=== PATIENT | female | born 1965 | race Native Hawaiian/Other Pacific Islander ===

== ENCOUNTER 2016-12-08 09:01 | Inpatient (IN) | payer SELFPAY ==
[2016-12-08 09:01] VITALS: BMI 20.2
--- NOTE | 2016-12-08 09:19 | C.PDOC ---
History Of Present Illness 51F c/o fever, body aches, chills, productive cough for the last 2 days. 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 Time Seen by Provider: 12/08/16 09:17 Chief Complaint (Nursing): Flu-like Symptoms Past Medical History Vital Signs: Last Vital Signs Temp 98.8 F 12/08/16 15:53 Pulse 80 12/08/16 15:53 Resp 18 12/08/16 15:53 BP 106/60 12/08/16 15:53 Pulse Ox 100 12/08/16 15:53 - [facility] Procedures DRAINAGE OF PERITONEAL CAVITY, PERCUTANEOUS APPROACH, DIAGN (05/12/16) INSERT INFUSION DEV IN R INT JUGULAR VEIN, PERC (05/12/16) INSERTION OF VAD INTO CHEST SUBCU/FASCIA, OPEN APPROACH (05/12/16) ULTRASONOGRAPHY OF RIGHT JUGULAR VEINS, GUIDANCE (05/12/16) Family History: States: Unknown Family Hx, Other Other Family History: nc - Social History Hx Alcohol Use: No Hx Substance Use: Yes (SOCIAL) - Immunization History Hx Tetanus Toxoid Vaccination: No Hx Influenza Vaccination: No Hx Pneumococcal Vaccination: No Review Of Systems Except As Marked, All Systems Reviewed And Found Negative. Constitutional: Positive for: Fever, Chills, Weakness, Malaise Cardiovascular: Negative for: Chest Pain Respiratory: Positive for: Cough, Sputum. Negative for: Shortness of Breath, Hemoptysis Gastrointestinal: Negative for: Vomiting, Abdominal Pain, Diarrhea Genitourinary: Negative for: Dysuria Physical Exam - Physical Exam Appears: Non-toxic, No Acute Distress, Chronically Ill Skin: Warm, Dry Head: Atraumatic Eye(s): bilateral: PERRL Nose: No Epistaxis Oral Mucosa: No Moist Tongue: No Swelling Neck: Normal ROM, Supple Cardiovascular: Rhythm Regular Respiratory: No Accessory Muscle Use, Rhonchi (b/l bases) Gastrointestinal/Abdominal: Soft, No Tenderness Extremity: No Swelling Neurological/Psych: Oriented x3, Normal Motor, Normal Sensation, Other (no focal deficits) ED Course And Treatment - Laboratory Results Result Diagrams: 12/08/16 09:55 12/08/16 10:55 O2 Sat by Pulse Oximetry: 97 Critical Care Time - Critical Care Note Total Time (in mins): 60 Documented critical care: time excludes all time spent performing seperately billable procedures. Medical Decision Making Medical Decision Makin disc w ID Dr Villavicencio- rec [facility], [facility], [facility] EKG interpretation: NSR 86 non-specific t-wave abnormalities, no STEMI. consulted ICU Dr Gonzalez as BP dropping despite fluids bolus. he eval in ED, accepts to ICU levophed started to maintain MAP>65 Disposition - Disposition Disposition Time: 12:12 Condition: GUARDED - Clinical Impression Clinical Impression: Pneumonia, Neutropenia, Septic shock
[2016-12-08] MEDS ORDERED: Azithromycin 500 MG in Sodium Chloride 0.9% 250 ML IVPB STA (09:44)
[2016-12-08] MEDS ORDERED: Piperacill/Tazo 4.5gm in Dex 4.5 GM/100 ML BAG IVPB STA (09:44)
[2016-12-08 10:00] LABS: BASO % 0.8 % (0.0-2.0); EOS % 0.7 % (0.0-4.0); HEMOGLOBIN 7.4 g/dL (11.0-16.0); LYMPH # 0.1 K/uL (1.0-4.3); LYMPH % 19.4 % (20.0-40.0); MEAN CELL VOLUME 97.5 fL (81.0-99.0); MEAN CORPUSCULAR HEMOGLOBIN 32.3 pg (27.0-31.0); MEAN CORPUSCULAR HGB CONC 33.2 g/dL (33.0-37.0); MEAN PLATELET VOLUME 7.5 fL (7.2-11.7); MONO # 0.2 K/uL (0.0-0.8); MONO % 26.2 % (0.0-10.0); NEUT # 0.4 K/uL (1.8-7.0); NEUT % 52.9 % (50.0-75.0); NRBC % 0.3 % (0.0-2.0); RBC 2.29 Mil/uL (3.80-5.20); RED CELL DISTRIBUTION WIDTH 19.1 % (11.5-14.5)
[2016-12-08] MEDS ORDERED: MethylPREDNISolone 40 mg Vial IVP SCH (10:00)
[2016-12-08 10:04] LABS: WHITE BLOOD COUNT 0.7 K/uL (4.8-10.8)
[2016-12-08] MEDS ORDERED: Azithromycin 500mg/250ML NS 0 MG/0 ML BAG IVPB ONE (10:04)
[2016-12-08 10:07] LABS: INR 1.2; PROTHROMBIN TIME 13.8 SECONDS (9.7-12.2)
[2016-12-08 10:12] LABS: VENOUS BLOOD GAS BASE EXCESS 2.8 mmol/L (0.0-2.0); VENOUS BLOOD GAS PCO2 40 mmHg (40-60); VENOUS BLOOD GAS PO2 33 mm/Hg (30-55); VENOUS BLOOD PH 7.44 (7.32-7.43)
[2016-12-08] MEDS ORDERED: Vancomycin 1 GM 1 GM/250 ML BAG IVPB ONE (10:12)
[2016-12-08] MEDS: Meropenem 1 GM in Sodium Chloride 0.9% 100 ML IVPB SCH ×3 (10:19→22:32)
[2016-12-08 11:16] LABS: URINE BILIRUBIN NEGATIVE (NEGATIVE); URINE BLOOD NEGATIVE (NEGATIVE); URINE CLARITY Clear (Clear); URINE COLOR Yellow (YELLOW); URINE GLUCOSE (UA) NORMAL (Normal); URINE LEUKOCYTE ESTERASE NEG Leu/uL (Negative); URINE NITRATE NEGATIVE (NEGATIVE); URINE PROTEIN NEGATIVE (NEGATIVE); URINE UROBILINOGEN NORMAL mg/dL (0.2-1.0)
[2016-12-08 11:26] LABS: ALBUMIN 3.7 g/dL (3.5-5.0)
[2016-12-08 11:29] LABS: ALB/GLOB RATIO 1.2 (1.0-2.1); AST/SGOT 28 U/L (14-36); BLOOD UREA NITROGEN 9 mg/dL (7-17); GFR AFRICAN-AMERICAN > 60; GFR NON-AFRICAN AMERICAN > 60
[2016-12-08 11:30] LABS: ALT/SGPT 20 U/L (9-52); CALCIUM 8.6 mg/dl (8.6-10.4); MAGNESIUM 1.7 mg/dL (1.6-2.3)
[2016-12-08] MEDS ORDERED: Sodium Chloride 0.9% 1,000 ML IV ONE (11:44)
--- NOTE | 2016-12-08 11:49 | RAD ---
HISTORY: Sepsis Patient COMPARISON: 07/31/2016 FINDINGS: LUNGS: No active pulmonary disease. PLEURA: No significant pleural effusion identified, no pneumothorax apparent. CARDIOVASCULAR: No radiographic findings to suggest acute or significant cardiovascular disease. MacrovascularNormal. OSSEOUS STRUCTURES: No significant abnormalities. VISUALIZED UPPER ABDOMEN: Normal. OTHER FINDINGS: None. IMPRESSION: No active disease. No significant interval change compared to the prior examination(s). No preliminary report provided by emergency department personnel.
[2016-12-08 13:18] LABS: VENOUS BLOOD GAS BASE EXCESS -3.3 mmol/L (0.0-2.0); VENOUS BLOOD GAS PCO2 40 mmHg (40-60); VENOUS BLOOD GAS PO2 39 mm/Hg (30-55); VENOUS BLOOD PH 7.35 (7.32-7.43)
[2016-12-08] MEDS: Sodium Chloride 0.9% 1,000 ML IV SCH ×2 (13:41→21:45)
[2016-12-08] MEDS ORDERED: Sodium Chloride 0.9% 1,000 ML IV SCH (14:15)
--- NOTE | 2016-12-08 14:56 | CP.PCM.HP ---
Addendum entered and electronically signed by Alka Hills 12/08/16 16:58 : Total hysterectomy August 2016 at [facility] Patient has been having a fever since last Sunday and a dry cough. Medical History: Serous carcinoma of the ovary. Original Note: <Alka Hills - Last Filed: 12/08/16 16:00> History of Present Illness - History of Present Illness History of Present Illness: CC: "Fever" HPI: 51 year old female with history of cervical cancer who presents to the emergency room while getting chemotherapy infusion at [facility] and was sent to the emergency room for elevated temperature. Patient stated she has been having a fever off and on since Sunday and has been treating herself with Tylenol and Motrin which has been lowering her temperature. The highest temperature she had on Sunday was a 104.7 degrees. Patient stated she has been having a dry cough with no phlegm. Patient stated she only had shortness of breath when she was receiving antibiotics here in the emergency room but otherwise she denies shortness of breath. Patient denies chest pain, difficulty breathing, nausea, vomiting, diarrhea, constipation, dysuria, change in vision, headache or dizziness. 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 Drug induced constipation. Leukopenia and anemia. 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 Denies smoking, or illicit drug use. Patient stated prior to cancer diagnosis she would drink one glass of wine every now and then. Medications: Chemotherapy one a week, omeprazole 20mg one a day, percocet 5- 325mg one tablet as needed orally every 6 hours - patient stated she has not been taking the percocet because it makes her constipated. Allergies: Cefazolin - causes a rash Present on Admission - Present on Admission Any Indicators Present on Admission: No History of DVT/PE: No Review of Systems - Constitutional Constitutional: Fever. absent: Chills, Headache - EENT Eyes: absent: Blurred Vision, Change in Vision - Cardiovascular Cardiovascular: absent: Chest Pain, Dyspnea, Lightheadedness, Pedal Edema - Respiratory Respiratory: Cough (dry cough). absent: Dyspnea - Gastrointestinal Gastrointestinal: absent: Abdominal Pain, Constipation, Diarrhea, Nausea, Vomiting - Genitourinary Genitourinary: absent: Dysuria - Musculoskeletal Musculoskeletal: absent: Joint Swelling - Neurological Neurological: absent: Headaches Past Patient History - Infectious Disease Hx of Infectious Diseases: None - Past Medical History & Family History Past Medical History?: No - Past Social History Smoking Status: Never Smoked - CARDIAC Hx Cardiac Disorders: No - PULMONARY Hx Respiratory Disorders: No - NEUROLOGICAL Hx Neurological Disorder: No - HEENT Hx HEENT Problems: No - RENAL Hx Chronic Kidney Disease: No - ENDOCRINE/METABOLIC Hx Endocrine Disorders: No - HEMATOLOGICAL/ONCOLOGICAL Other/Comment: ovarian and uterine CA - INTEGUMENTARY Hx Dermatological Problems: No - MUSCULOSKELETAL/RHEUMATOLOGICAL Hx Musculoskeletal Disorders: No - GASTROINTESTINAL Hx Gastrointestinal Disorders: No - GENITOURINARY/GYNECOLOGICAL Hx Genitourinary Disorders: No Other/Comment: HX OF FIBROIDS - PSYCHIATRIC Hx Substance Use: Yes (SOCIAL) - SURGICAL HISTORY Hx Hysterectomy: Yes Other/Comment: port to right chest wall - ANESTHESIA Hx Anesthesia: Yes Hx Anesthesia Reactions: No Meds Allergies/Adverse Reactions: Allergies Allergy/AdvReac Type Severity Reaction Status Date / Time cefazolin sodium [From Anc] Allergy Verified 12/08/16 09:15 Physical Exam - Constitutional Appears: No Acute Distress - Head Exam Head Exam: NORMAL INSPECTION - Eye Exam Eye Exam: EOMI, Normal appearance. absent: Conjunctival injection Pupil Exam: NORMAL ACCOMODATION - ENT Exam ENT Exam: Mucous Membranes Moist - Respiratory Exam Respiratory Exam: Clear to Auscultation Bilateral, NORMAL BREATHING PATTERN. absent: Chest Wall Tenderness, Rales, Rhonchi, Wheezes - Cardiovascular Exam Cardiovascular Exam: REGULAR RHYTHM, RRR, +S1, +S2. absent: JVD - GI/Abdominal Exam GI & Abdominal Exam: Normal Bowel Sounds, Soft, Tenderness (tenderness to lower abdomen ). absent: Distended, Guarding - Extremities Exam Extremities exam: Positive for: pedal pulses present. Negative for: calf tenderness, joint swelling, pedal edema, tenderness - Neurological Exam Neurological exam: Alert, CN II-XII Intact, Oriented x3 - Psychiatric Exam Psychiatric exam: Normal Affect, Normal Mood - Skin Skin Exam: Dry, Intact, Normal Color, Warm (catheter is placed on the right side of the shoulder for chemotherapy infusion ) Results - Vital Signs Recent Vital Signs: Last Vital Signs Temp 98.8 F 12/08/16 13:40 Pulse 75 12/08/16 14:41 Resp 21 12/08/16 14:41 BP 109/45 L 12/08/16 14:41 Pulse Ox 100 12/08/16 14:41 - Labs Result Diagrams: 12/08/16 09:55 12/08/16 10:55 Labs: Laboratory Results - last 24 hr 12/08/16 12:55 pO2 39 VBG pH 7.35 VBG pCO2 40 VBG HCO3 21.6 VBG Total CO2 23.3 VBG O2 Sat (Calc) 77.7 H VBG Base Excess -3.3 L VBG Potassium 3.3 L Sodium 141.0 Chloride 116.0 H Glucose 128 H Lactate 0.7 Venous Blood Potassium 3.3 L Assessment & Plan - Assessment and Plan (Free Text) Assessment: 51 year old female with history of cervical cancer who presents to the emergency room while getting chemotherapy infusion at [facility] and was sent to the emergency room for elevated temperature. Plan: 1.) Hypotension - Sodium Chloride 1,000mls at 100mls/hr IV Q10H - Norepinephrine 254mls at 15.24 mls/hr IV Q16H - Monitor B/P 2.) Fever of unknown source - Infectious Disease Consult: Dr. Villavicencio --> help appreciated - Gentamicin 80mg 102mls at 100mls/hr IVPB at Q8h - 1gm Meropenem 100mls at 100mls/hr IVPB Q8 - WBC (12/08): 0.7 - f/u with blood culture - f/u urine culture - f/u sputum culture - Urine Analysis: Negative 3.) History of Serous Carcinoma of the pelvis - Oncology Consult: Dr. Cheatham --> help appreciated 4.) Prophylaxis - SCDs, - Heparin 5,000 units SC Q8 - Pepcid 20mg PO daily <Clementine Chery V - Last Filed: 12/09/16 06:09> Results - Vital Signs Recent Vital Signs: Last Vital Signs Temp 99 F 12/09/16 04:00 Pulse 70 12/09/16 05:00 Resp 19 12/09/16 05:00 BP 109/59 L 12/09/16 05:00 Pulse Ox 99 12/09/16 05:00 - Labs Result Diagrams: 12/08/16 09:55 12/08/16 16:00 Labs: Laboratory Results - last 24 hr 12/08/16 12/08/16 12:55 16:00 pO2 39 VBG pH 7.35 VBG pCO2 40 VBG HCO3 21.6 VBG Total CO2 23.3 VBG O2 Sat (Calc) 77.7 H VBG Base Excess -3.3 L VBG Potassium 3.3 L Sodium 141.0 141 Chloride 116.0 H 113 H Glucose 128 H Lactate 0.7 Potassium 3.5 L Carbon Dioxide 20 L Anion Gap 12 BUN 7 Creatinine 0.5 L Est GFR ( Amer) > 60 Est GFR (Non-Af Amer) > 60 Random Glucose 109 H Calcium 7.4 L Magnesium 1.7 Total Bilirubin 0.6 AST 40 H D ALT 29 Alkaline Phosphatase 85 Total Protein 5.7 L Albumin 3.0 L Globulin 2.7 Albumin/Globulin Ratio 1.1 Venous Blood Potassium 3.3 L Attending/Attestation - Attestation I have personally seen and examined this patient.: Yes I have fully participated in the care of the patient.: Yes I have reviewed all pertinent clinical information: Yes Notes (Text): Patient seen, examined and case discussed with ICU resident on 12/08/16 and patient seen in [facility] ICU 6. Per discussion with patient, she has had fever and dry cough since Sunday. Patient has taken Tylenol and Motrin to help the fever. Patient is undergoing 2nd round of chemotherapy for gynecologic cancer (unclear if ovarian vs cervical ). Patient has had total hysterectomy for gynecologic cancer in [facility] this past August. Patient reports her CA-125 level had improved. Patient started initial round of chemotherapy in May 2016. Patient denies sick contacts, denies recent travel. Patient denies history of HIV. Patient reports she has no family except for her friend who is at bedside. Patient in the ED requiring fluid boluses but sbp: 70s prompted for pressor and admitted to the intensive care unit. Patient was called as code sepsis; leukopenic, febrile, and unclear source of infection. Per discussion with ED physician patient started on Meropenem and Gentamcin per recommendations of infectious disease. Repeat lactic acid drawn per sepsis protocol. ICU resident has completed sepsis progress note. 1.) Sepsis * Criteria: leukopenic, febrile; will need to find source of infection * Code sepsis called in the emergency room * Patient received fluid boluses and 2 IV abx per protocol * Infectious Disease (Dr. Villavicencio) head of store operations-->help appreciated * Patient is currently on pressor * Gentamicin 80mg IVPB Q8h * Meropenem 1gm IVPB Q8H * Lactic acid 1.6-->0.7 * f/u blood culture, urine culture, sputum culture 2.) Fever * Infectious Disease Consult: Dr. Villavicencio --> help appreciated * Code sepsis called in the emergency room * Patient received fluid boluses and 2 IV abx per protocol * Infectious Disease (Dr. Villavicencio) head of store operations-->help appreciated * Patient is currently on pressor * Gentamicin 80mg IVPB Q8h * Meropenem 1gm IVPB Q8H * Lactic acid 1.6-->0.7 * f/u blood culture, urine culture, sputum culture 3.) History of Serous Carcinoma of the pelvis * Oncology Consult: Dr. Cheatham --> help appreciated * Patient is in active chemotherapy to explain why patient is neutropenic 4.) Prophylaxis * SCDs b/l * Heparin 5,000 units SC Q8H for dvt ppc * Pepcid 20mg PO daily for GI ppx
--- NOTE | 2016-12-08 14:56 | CP.CCUPN ---
<Alka Hills - Last Filed: 12/08/16 15:53> CCU Subjective - Physician Review Subjective (Free Text): 12/08/16 14:56 CC: "Fever" HPI: 51 year old female with history of cervical cancer who presents to the emergency room while getting chemotherapy infusion at [facility] and was sent to the emergency room for elevated temperature. Patient stated she has been having a fever off and on since Sunday and has been treating herself with Tylenol and Motrin which has been lowering her temperature. The highest temperature she had on Sunday was a 104.7 degrees. Patient stated she has been having a dry cough with no phlegm. Patient stated she only had shortness of breath when she was receiving antibiotics here in the emergency room but otherwise she denies shortness of breath. Patient denies chest pain, difficulty breathing, nausea, vomiting, diarrhea, constipation, dysuria, change in vision, headache or dizziness. PMD: 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 Drug induced constipation. Leukopenia and anemia. 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 Denies smoking, or illicit drug use. Patient stated prior to cancer diagnosis she would drink one glass of wine every now and then. Medications: Chemotherapy one a week, omeprazole 20mg one a day, percocet 5- 325mg one tablet as needed orally every 6 hours - patient stated she has not been taking the percocet because it makes her constipated. Allergies: Cefazolin - causes a rash CCU Objective - Vital Signs / Intake & Output Vital Signs (Last 4 hours): Vital Signs Temp Pulse Resp BP Pulse Ox 12/08/16 14:41 75 21 109/45 L 100 12/08/16 14:27 78 18 96/46 L 98 12/08/16 14:07 74 21 94/45 L 100 12/08/16 14:02 78 20 76/36 L 100 12/08/16 13:55 21 L 75 H 76/34 L 100 12/08/16 13:40 98.8 F 20 L 100 H 87/43 L 12/08/16 12:37 78 22 90/50 L 98 - Physical Exam Head: Positive for: Normocephalic Extroacular Muscles: Positive for: EOMI Conjunctiva: Positive for: Normal Mouth: Positive for: Moist Mucous Membranes Respiratory/Chest: Positive for: Clear to Auscultation, Good Air Exchange. Negative for: Wheezes, Rales, Rhonchi Cardiovascular: Positive for: Regular Rate and Rhythm, Normal S1, S2. Negative for: Murmurs Abdomen: Positive for: Tenderness (tenderness to the lower abdomen ). Negative for: Distention Back: Negative for: Pain with Leg Raise Upper Extremity: Positive for: Normal Inspection. Negative for: Edema Lower Extremity: Positive for: Normal Inspection, NORMAL PULSES. Negative for: Edema, CALF TENDERNESS, Tenderness, Swelling Neurological: Positive for: CN II-XII Intact, Speech Normal Skin: Positive for: Warm, Normal Color. Negative for: Rashes Psychiatric: Positive for: Alert, Oriented x 3. Negative for: Anxious - Medications Active Medications: Active Medications Generic Name Dose Route Start Last Admin Trade Name Freq PRN Reason Stop Dose Admin Albumin Human 12.5 gm 12/08/16 15:00 Albumin Human 25% (12.5 Gm/50 Ml) IV 12/08/16 15:01 ONCE ONE Meropenem 1 gm/ Sodium 100 mls @ 100 mls/hr 12/08/16 10:00 12/08/16 10:19 Chloride IVPB 100 mls/hr Q8 CALI Administration Gentamicin Sulfate 80 mg/ 102 mls @ 100 mls/hr 12/08/16 10:00 12/08/16 13:40 Sodium Chloride IVPB 100 mls/hr Q8H CALI Administration Sodium Chloride 1,000 mls @ 100 mls/hr 12/08/16 11:45 12/08/16 13:41 Sodium Chloride 0.9% IV 100 mls/hr .Q10H CALI Administration Sodium Chloride 1,000 mls @ 999 mls/hr 12/08/16 14:15 Sodium Chloride 0.9% IV .Q1H1M CALI Norepinephrine Bitartrate 4 mg 254 mls @ 15.24 mls/hr 12/08/16 14:28 / Sodium Chloride IV .[id number] PRN TITRATE PER MD ORDER Protocol 4 MCG/MIN - Patient Studies Lab Studies: Lab Studies 12/08/16 Range/Units 12:55 pO2 39 (30-55) mm/Hg VBG pH 7.35 (7.32-7.43) VBG pCO2 40 (40-60) mmHg VBG HCO3 21.6 mmol/L VBG Total CO2 23.3 (22-28) mmol/L VBG O2 Sat (Calc) 77.7 H (40-65) % VBG Base Excess -3.3 L (0.0-2.0) mmol/L VBG Potassium 3.3 L (3.6-5.2) mmol/L Sodium 141.0 (132-148) mmol/l Chloride 116.0 H (98-107) mmol/L Glucose 128 H (65-105) mg/dl Lactate 0.7 (0.7-2.1) mmol/L Venous Blood Potassium 3.3 L (3.6-5.2) mmol/L Laboratory Results - last 24 hr 12/08/16 12:55 pO2 39 VBG pH 7.35 VBG pCO2 40 VBG HCO3 21.6 VBG Total CO2 23.3 VBG O2 Sat (Calc) 77.7 H VBG Base Excess -3.3 L VBG Potassium 3.3 L Sodium 141.0 Chloride 116.0 H Glucose 128 H Lactate 0.7 Venous Blood Potassium 3.3 L EKG/Cardiology Studies: Cardiology / EKG Studies 12/08/16 11:00 ELECTROCARDIOGRAM Stat Comment: Mode Of Transportation: Reason For Exam: Sepsis Patient Review of Systems - Constitutional Constitutional: Fever - EENT Eyes: absent: Blurred Vision, Change in Vision - Cardiovascular Cardiovascular: absent: Chest Pain, Dyspnea, Edema - Respiratory Respiratory: Cough. absent: Dyspnea - Gastrointestinal Gastrointestinal: absent: Abdominal Pain, Constipation, Diarrhea, Vomiting - Genitourinary Genitourinary: absent: Dysuria - Musculoskeletal Musculoskeletal: absent: Arthralgias, Joint Swelling, Muscle Cramps - Neurological Neurological: absent: Dizziness, Headaches, Paresthesias, Syncope Assessment/Plan - Assessment and Plan (Free Text) Assessment: 51 year old female with history of cervical cancer who presents to the emergency room while getting chemotherapy infusion at [facility] and was sent to the emergency room for elevated temperature. Plan: Neuro: - Alert and oriented 3 Pulm: - Chest X-ray (12/08/16): No active disease. No significant change compared to the prior examination. CV: - 4mg Norepinephrine - Sodium Chloride 254 mls at 15.24mls/hr IV Q16 - Monitor B/P - WBC (12/08): 0.7 Heme: - H/H (12/08): 7.4/22.4 - PT/INR: 13.8/1.2 Renal: - BUN/Cr: 9/0.6 GI: - Pepcid 20mg PO Daily WARRANTY CLERK: - History of Serous carcinoma of the pelvis - Oncology Consult: Dr. Cheatham --> help appreciated - Receives weekly chemotherapy ID: - Consult: Dr. Villavicencio --> help appreciated - Gentamicin 80mg 102mls at 100mls/hr IVPB at Q8h - 1gm Meropenem 100mls at 100mls/hr IVPB Q8 - WBC (12/08): 0.7 - f/u with blood culture - f/u urine culture - f/u sputum culture - Urine Analysis: Negative DVT proph - SCDs, heparin 5,000 units SC Q8 GI proph - Pepcid 20mg PO daily Code status - full code Case discussed with Dr. Carlos Hills PGY-1 <Jeet Gonzalez S - Last Filed: 12/08/16 17:20> CCU Objective - Vital Signs / Intake & Output Vital Signs (Last 4 hours): Vital Signs Temp Pulse Resp BP Pulse Ox 12/08/16 15:57 97 12/08/16 15:53 98.8 F 80 18 106/60 100 12/08/16 15:07 66 21 107/41 L 99 12/08/16 14:52 68 20 106/54 L 98 12/08/16 14:41 75 21 109/45 L 100 12/08/16 14:27 78 18 96/46 L 98 12/08/16 14:07 74 21 94/45 L 100 12/08/16 14:02 78 20 76/36 L 100 12/08/16 13:55 21 L 75 H 76/34 L 100 12/08/16 13:40 98.8 F 20 L 100 H 87/43 L - Medications Active Medications: Active Medications Generic Name Dose Route Start Last Admin Trade Name Freq PRN Reason Stop Dose Admin Famotidine 20 mg 12/09/16 10:00 Pepcid PO DAILY CALI Heparin Sodium (Porcine) 5,000 units 12/08/16 22:00 Heparin SC Q8 CALI Meropenem 1 gm/ Sodium 100 mls @ 100 mls/hr 12/08/16 10:00 12/08/16 15:50 Chloride IVPB 100 mls/hr Q8 CALI Administration Gentamicin Sulfate 80 mg/ 102 mls @ 100 mls/hr 12/08/16 10:00 12/08/16 13:40 Sodium Chloride IVPB 100 mls/hr Q8H CALI Administration Sodium Chloride 1,000 mls @ 100 mls/hr 12/08/16 11:45 12/08/16 13:41 Sodium Chloride 0.9% IV 100 mls/hr .Q10H CALI Administration Norepinephrine Bitartrate 4 mg 254 mls @ 15.24 mls/hr 12/08/16 14:28 14:02 / Sodium Chloride IV 4 mcg/min .[id number] PRN 15.24 mls/hr TITRATE PER MD ORDER Administration Protocol 4 MCG/MIN Potassium Chloride 40 meq 12/08/16 15:52 K-Dur 20 Meq Er Tab PO BRK CALI - Patient Studies Lab Studies: Lab Studies 12/08/16 12/08/16 Range/Units 16:00 12:55 pO2 39 (30-55) mm/Hg VBG pH 7.35 (7.32-7.43) VBG pCO2 40 (40-60) mmHg VBG HCO3 21.6 mmol/L VBG Total CO2 23.3 (22-28) mmol/L VBG O2 Sat (Calc) 77.7 H (40-65) % VBG Base Excess -3.3 L (0.0-2.0) mmol/L VBG Potassium 3.3 L (3.6-5.2) mmol/L Sodium 141 141.0 (132-148) mmol/l Chloride 113 H 116.0 H (98-107) mmol/L Glucose 128 H (65-105) mg/dl Lactate 0.7 (0.7-2.1) mmol/L Potassium 3.5 L (3.6-5.2) mmol/L Carbon Dioxide 20 L (22-30) mmol/L Anion Gap 12 (10-20) BUN 7 (7-17) mg/dL Creatinine 0.5 L (0.7-1.2) MG/DL Est GFR ( Amer) > 60 Est GFR (Non-Af Amer) > 60 Random Glucose 109 H (65-105) mg/dL Calcium 7.4 L (8.6-10.4) mg/dl Magnesium 1.7 (1.6-2.3) mg/dL Total Bilirubin 0.6 (0.2-1.3) mg/dL AST 40 H D (14-36) U/L ALT 29 (9-52) U/L Alkaline Phosphatase 85 (38-126) U/L Total Protein 5.7 L (6.3-8.3) g/dL Albumin 3.0 L (3.5-5.0) g/dL Globulin 2.7 (2.2-3.9) gm/dL Albumin/Globulin Ratio 1.1 (1.0-2.1) Venous Blood Potassium 3.3 L (3.6-5.2) mmol/L Laboratory Results - last 24 hr 12/08/16 12/08/16 12:55 16:00 pO2 39 VBG pH 7.35 VBG pCO2 40 VBG HCO3 21.6 VBG Total CO2 23.3 VBG O2 Sat (Calc) 77.7 H VBG Base Excess -3.3 L VBG Potassium 3.3 L Sodium 141.0 141 Chloride 116.0 H 113 H Glucose 128 H Lactate 0.7 Potassium 3.5 L Carbon Dioxide 20 L Anion Gap 12 BUN 7 Creatinine 0.5 L Est GFR ( Amer) > 60 Est GFR (Non-Af Amer) > 60 Random Glucose 109 H Calcium 7.4 L Magnesium 1.7 Total Bilirubin 0.6 AST 40 H D ALT 29 Alkaline Phosphatase 85 Total Protein 5.7 L Albumin 3.0 L Globulin 2.7 Albumin/Globulin Ratio 1.1 Venous Blood Potassium 3.3 L EKG/Cardiology Studies: Cardiology / EKG Studies 12/08/16 11:00 ELECTROCARDIOGRAM Stat Comment: Mode Of Transportation: Reason For Exam: Sepsis Patient Critical Care Progress Note - Nutrition Nutrition: Nutrition Category Date Time Status Heart Healthy Diet [DIET] Diets 12/08/16 Dinner Active Attending/Attestation - Attestation I have personally seen and examined this patient.: Yes I have fully participated in the care of the patient.: Yes I have reviewed all pertinent clinical information: Yes Notes (Text): 12/08/16 17:19 Patient seen and examined. 51-year-old female with history of cervical cancer on chemotherapy admitted with fever and hypotension On Levophed Started on antibiotics but infectious disease Follow-up culture and sensitivity Status post fluid resuscitation Monitor renal function Normal lactate level qSOFA score 1
[2016-12-08] MEDS ORDERED: Albumin Human 25% (12.5 gm/50 ml) IV ONE (15:00)
[2016-12-08 16:13] LABS: ALB/GLOB RATIO 1.1 (1.0-2.1); AST/SGOT 40 U/L (14-36); BLOOD UREA NITROGEN 7 mg/dL (7-17); GFR AFRICAN-AMERICAN > 60; GFR NON-AFRICAN AMERICAN > 60
[2016-12-08 16:14] LABS: ALT/SGPT 29 U/L (9-52); CALCIUM 7.4 mg/dl (8.6-10.4); MAGNESIUM 1.7 mg/dL (1.6-2.3)
--- NOTE | 2016-12-08 16:50 | PCM.SEPTIC ---
Sepsis Progress Note - Reassessment Type Date of Evaluation: 12/08/16 Time of Evaluation: 16:48 Reassessment Type: Non-invasive reassessment - Non Invasive Reassessment Were the most recent vital sign reviewed: Yes Vital Sign (Latest): Temp Pulse Resp BP Pulse Ox 98.8 F 80 18 106/60 97 12/08/16 15:53 12/08/16 15:53 12/08/16 15:53 12/08/16 15:53 12/08/16 15:57 Cardiovascular: Yes: Regular Rate, Rhythm. No: Edema, JVD, Murmur, Tachycardia Respiratory: Yes: Normal Breath Sounds. No: Rhonchi, Wheezing, Respiratory Distress Capillary Refill: Normal (Less than 2 sec) Skin: Normal Color, Warm, Dry - Invasive Reassessment (complete 2 of 4) Was a Central Venous Pressure Measurement obtained within 6 Hours after the presentation of septic shock: No Was a central venous oxygen measurement obtained within 6 hours after the presentation of septic shock: No Was a bedside cardiovascular ultrasound performed within 6 hours after the presentation of septic shock: No Was a passive leg raise performed or was a fluid challenge performed within 6 hrs of the initial fluid bolus: No
[2016-12-08] MEDS: Potassium Chloride 20 mEq ER Tab PO SCH (18:11)
[2016-12-08] MEDS: Vancomycin 1 gm/NS 200 ml 1 GM/200 ML BAG IVPB SCH (23:44)
[2016-12-09] MEDS: Sodium Chloride 0.9% 1,000 ML IV SCH ×3 (02:00→17:49)
[2016-12-09] MEDS: Meropenem 1 GM in Sodium Chloride 0.9% 100 ML IVPB SCH ×3 (06:03→22:13)
[2016-12-09 06:57] LABS: HEMOGLOBIN 7.1 g/dL (11.0-16.0); LYMPH # 0.4 K/uL (1.0-4.3); MEAN PLATELET VOLUME 7.9 fL (7.2-11.7); MONO # 0.3 K/uL (0.0-0.8); NEUT # 1.2 K/uL (1.8-7.0)
[2016-12-09 07:12] LABS: ALBUMIN 3.1 g/dL (3.5-5.0)
[2016-12-09 07:15] LABS: ALB/GLOB RATIO 1.3 (1.0-2.1); ALT/SGPT 32 U/L (9-52); AST/SGOT 41 U/L (14-36); BLOOD UREA NITROGEN 5 mg/dL (7-17); GFR AFRICAN-AMERICAN > 60; GFR NON-AFRICAN AMERICAN > 60
[2016-12-09 07:16] LABS: CALCIUM 7.4 mg/dl (8.6-10.4)
[2016-12-09 07:17] LABS: BASO % 0.5 % (0.0-2.0); EOS % 0.4 % (0.0-4.0); LYMPH % 19.9 % (20.0-40.0); MEAN CELL VOLUME 99.3 fL (81.0-99.0); MEAN CORPUSCULAR HEMOGLOBIN 32.1 pg (27.0-31.0); MEAN CORPUSCULAR HGB CONC 32.3 g/dL (33.0-37.0); MONO % 16.3 % (0.0-10.0); NEUT % 62.9 % (50.0-75.0); RBC 2.21 Mil/uL (3.80-5.20); RED CELL DISTRIBUTION WIDTH 19.5 % (11.5-14.5)
[2016-12-09 07:25] LABS: WHITE BLOOD COUNT 1.9 K/uL (4.8-10.8)
[2016-12-09] MEDS: Potassium Chloride 20 mEq ER Tab PO SCH (08:16)
--- NOTE | 2016-12-09 10:07 | CP.PCM.PN ---
Subjective - Date & Time of Evaluation Date of Evaluation: 12/09/16 Time of Evaluation: 10:00 - Subjective Subjective: Medical Attending Note Follow-up: Sepsis, Cough, History of Gynecologic cancer Patient seen and examined. Patient reports persistent cough and reports coughing up "bloody sputum". Nurse has collected sputum sample. Patient denies headache, denies fever, denies chest pain, denies abdominal pain, denies nausea , denies vomitting, denies constipation, denies diarrhea. Patient reports she has family in the [facility]; seen face-timing sister at bedside. Objective - Vital Signs/Intake and Output Vital Signs (last 24 hours): Temp Pulse Resp BP Pulse Ox 99.1 F 85 26 H 130/48 L 98 12/09/16 09:27 12/09/16 09:20 12/09/16 09:20 12/09/16 08:36 12/09/16 09:20 Intake and Output: 12/09/16 12/09/16 06:59 18:59 Intake Total 1940 430 Output Total 1050 Balance 890 430 - Medications Medications: Current Medications Famotidine (Pepcid) 20 mg PO DAILY [facility] Heparin Sodium (Porcine) (Heparin) 5,000 units SC Q8 [facility] Last Admin: 12/09/16 06:00 Dose: 5,000 units Meropenem 1 gm/ Sodium (Chloride) 100 mls @ 100 mls/hr IVPB Q8 [facility] Last Admin: 12/09/16 06:03 Dose: 100 mls/hr Gentamicin Sulfate 80 mg/ (Sodium Chloride) 102 mls @ 100 mls/hr IVPB Q8H [facility] Last Admin: 12/09/16 01:57 Dose: 100 mls/hr Sodium Chloride (Sodium Chloride 0.9%) 1,000 mls @ 100 mls/hr IV .Q10H [facility] Last Admin: 12/09/16 08:36 Dose: Not Given Norepinephrine Bitartrate 4 mg (/ Sodium Chloride) 254 mls @ 15.24 mls/hr IV .[id number] PRN; Protocol; 4 MCG/MIN PRN Reason: TITRATE PER MD ORDER Last Titration: 12/08/16 18:13 Dose: 2.62 mcg/min, 10 mls/hr Vancomycin/Sodium Chloride (Vancocin) 1 gm in 200 mls @ 133 mls/hr IVPB Q12H [facility] Stop: 12/14/16 00:01 Last Admin: 12/08/16 23:44 Dose: 133 mls/hr Potassium Chloride (K-Dur 20 Meq Er Tab) 40 meq PO BRK [facility] Last Admin: 12/09/16 08:16 Dose: 40 meq - Labs Labs: 12/09/16 06:46 12/09/16 06:46 PT 13.8 SECONDS (9.7-12.2) H 12/08/16 09:55 INR 1.2 12/08/16 09:55 APTT 53 SECONDS (21-34) H 12/08/16 09:55 - Constitutional Appears: No Acute Distress, Chronically Ill - Head Exam Head Exam: NORMAL INSPECTION - Eye Exam Eye Exam: EOMI - ENT Exam ENT Exam: Mucous Membranes Moist - Neck Exam Neck Exam: Lymphadenopathy (tender to palpation, submandibular) - Respiratory Exam Respiratory Exam: Decreased Breath Sounds, NORMAL BREATHING PATTERN. absent: Rales, Rhonchi, Wheezes - Cardiovascular Exam Cardiovascular Exam: REGULAR RHYTHM, +S1, +S2 - GI/Abdominal Exam GI & Abdominal Exam: Soft, Normal Bowel Sounds. absent: Distended, Firm, Guarding, Rigid, Tenderness, Rebound - Extremities Exam Extremities Exam: absent: Pedal Edema, Tenderness - Neurological Exam Neurological Exam: Alert, Awake, Oriented x3 - Psychiatric Exam Psychiatric exam: Normal Affect, Normal Mood - Skin Skin Exam: Dry, Intact, Normal Color, Warm Assessment and Plan (1) Neutropenic fever Assessment & Plan: Criteria: leukopenic, febrile; will need to find source of infection Code sepsis called in the emergency room--12/08/16 Patient received fluid boluses and 2 IV abx per sepsis protocol Infectious Disease (Dr. 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 Status: Acute
--- NOTE | 2016-12-09 10:13 | CP.CCUPN ---
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 Who presented to the ER yesterday with fever, body aches, chills, productive cough for the last 2 days. On chemo, last dose last week. Code sepsis called in the emergency room Admitted to ICU for Septic shock, code sepsis, requiring IV hydration as well as pressors for BP support. Afebrile overnight Doing slightly better today, mild nausea, No vomiting, constipation/diarrhea or abdominal discomfort well. Also C/O sore throat Pain controlled On neutropenic precaution On IV Vancomycin, Meropenem and Gentamicin Cultures sent, results still pending Remains on on pressor with Levophed drip, dose down to 2.5mcg Via the Port a Cath Pt feels weak and tired, Tolerating PO diet Pt alert and awake, reports persistent cough with sometimes bloody sputum. Last 24 Hours I&O 2410/1050 Saturating 1005 on 3L NC --> change to 2L 12/09/16 12:13 Patient now has fever, Rodriguez cultures and PO Tylenol ordered 12/09/16 12:16 CXR : 12/09/2016 10:55:59 Impression: Right chest wall port with tip extending to the right atrium. Moderate venous congestion with confluent patchy increased markings at the lung bases. Linear consolidative changes at the left mid to lower lung zone. Right hilar prominence. Mild cardiomegaly. Degenerative changes in the spine and shoulders. Mild calcific tendinopathy of the right proximal humerus. CCU Objective - Vital Signs / Intake & Output Vital Signs (Last 4 hours): Vital Signs Temp Pulse Resp BP Pulse Ox 12/09/16 10:00 90 25 H 100 12/09/16 09:50 88 30 H 99 12/09/16 09:40 91 H 24 98 12/09/16 09:36 95 H 30 H 127/10 L 97 12/09/16 09:30 92 H 24 96 12/09/16 09:27 99.1 F 12/09/16 09:20 85 26 H 98 12/09/16 09:10 86 29 H 97 12/09/16 09:00 90 26 H 100 12/09/16 08:50 80 24 100 12/09/16 08:40 77 24 100 12/09/16 08:36 83 27 H 130/48 L 98 12/09/16 08:30 82 26 H 100 12/09/16 08:24 87 25 H 106/63 100 12/09/16 08:20 83 27 H 100 12/09/16 08:10 89 25 H 100 12/09/16 08:00 83 21 100 12/09/16 07:50 78 22 100 12/09/16 07:40 73 24 100 12/09/16 07:36 73 18 129/48 L 100 12/09/16 07:30 75 20 100 12/09/16 07:20 71 21 100 12/09/16 07:10 72 18 100 12/09/16 07:00 72 20 100 12/09/16 06:50 73 21 100 12/09/16 06:40 75 22 100 12/09/16 06:35 78 23 132/57 L 100 12/09/16 06:30 79 24 100 12/09/16 06:20 79 21 100 Intake and Output (Last 8hrs): Intake & Output 12/08/16 12/09/16 12/09/16 22:59 06:59 14:59 Intake Total 1130 1280 537.5 Output Total 400 650 Balance 730 630 537.5 Weight 119 lb Intake: IV 60 Intake, IV Amount 700 1280 537.5 Right Forearm 650 1200 500 Right Port-A-Cath 50 80 37.5 Oral 370 Output: Urine 400 650 Urine, Voided 400 650 Other: # Voids Urine, Voided 1 1 # Bowel Movements 0 0 0 - Physical Exam Head: Positive for: Normocephalic Extroacular Muscles: Positive for: EOMI Conjunctiva: Positive for: Normal Mouth: Positive for: Moist Mucous Membranes Respiratory/Chest: Positive for: Clear to Auscultation, Good Air Exchange. Negative for: Wheezes, Rales, Rhonchi Cardiovascular: Positive for: Regular Rate and Rhythm, Normal S1, S2. Negative for: Murmurs Abdomen: Positive for: Tenderness (tenderness to the lower abdomen ). Negative for: Distention Back: Negative for: Pain with Leg Raise Upper Extremity: Positive for: Normal Inspection. Negative for: Edema Lower Extremity: Positive for: Normal Inspection, NORMAL PULSES. Negative for: Edema, CALF TENDERNESS, Tenderness, Swelling Neurological: Positive for: CN II-XII Intact, Speech Normal Skin: Positive for: Warm, Normal Color. Negative for: Rashes Psychiatric: Positive for: Alert, Oriented x 3. Negative for: Anxious - Medications Active Medications: Active Medications Generic Name Dose Route Start Last Admin Trade Name Freq PRN Reason Stop Dose Admin Famotidine 20 mg 12/09/16 10:00 12/09/16 10:11 Pepcid PO 20 mg DAILY [facility] Administration Heparin Sodium (Porcine) 5,000 units 12/08/16 22:00 12/09/16 06:00 Heparin SC 5,000 units Q8 [facility] Administration Meropenem 1 gm/ Sodium 100 mls @ 100 mls/hr 12/08/16 10:00 12/09/16 06:03 Chloride IVPB 100 mls/hr Q8 [facility] Administration Gentamicin Sulfate 80 mg/ 102 mls @ 100 mls/hr 12/08/16 10:00 12/09/16 10:11 Sodium Chloride IVPB 100 mls/hr Q8H [facility] Administration Sodium Chloride 1,000 mls @ 100 mls/hr 12/08/16 11:45 12/09/16 08:36 Sodium Chloride 0.9% IV Not Given .Q10H [facility] Norepinephrine Bitartrate 4 mg 254 mls @ 15.24 mls/hr 12/08/16 14:28 18:13 / Sodium Chloride IV 2.62 mcg/min .[id number] PRN 10 mls/hr TITRATE PER MD ORDER Titration Protocol 4 MCG/MIN Vancomycin/Sodium Chloride 1 gm in 200 mls @ 133 mls/hr 12/09/16 00:00 23:44 Vancocin IVPB 12/14/16 00:01 133 mls/hr Q12H [facility] Administration Potassium Chloride 40 meq 12/08/16 15:52 12/09/16 08:16 K-Dur 20 Meq Er Tab PO 40 meq BRK [facility] Administration Promethazine HCl/Codeine 5 ml 12/09/16 10:05 Phenergan/Codeine Oral Syrup PO Q4 PRN Cough Saccharomyces Boulardii 250 mg 12/09/16 18:00 Florastor PO BID [facility] - Patient Studies Lab Studies: Lab Studies 12/09/16 12/09/16 12/08/16 Range/Units 06:46 06:46 16:00 WBC 1.9 L* D (4.8-10.8) K/uL RBC 2.21 L (3.80-5.20) Mil/uL Hgb 7.1 L (11.0-16.0) g/dL Hct 22.0 L (34.0-47.0) % MCV 99.3 H (81.0-99.0) fL MCH 32.1 H (27.0-31.0) pg MCHC 32.3 L (33.0-37.0) g/dL RDW 19.5 H (11.5-14.5) % Plt Count 183 (130-400) K/uL MPV 7.9 (7.2-11.7) fL Neut % (Auto) 62.9 (50.0-75.0) % Lymph % (Auto) 19.9 L (20.0-40.0) % [place] % (Auto) 16.3 H (0.0-10.0) % Eos % (Auto) 0.4 (0.0-4.0) % Baso % (Auto) 0.5 (0.0-2.0) % Neut # 1.2 L (1.8-7.0) K/uL Lymph # 0.4 L (1.0-4.3) K/uL [place] # 0.3 (0.0-0.8) K/uL Eos # 0.0 (0.0-0.7) K/uL Baso # 0.0 (0.0-0.2) K/uL pO2 (30-55) mm/Hg VBG pH (7.32-7.43) VBG pCO2 (40-60) mmHg VBG HCO3 mmol/L VBG Total CO2 (22-28) mmol/L VBG O2 Sat (Calc) (40-65) % VBG Base Excess (0.0-2.0) mmol/L VBG Potassium (3.6-5.2) mmol/L Sodium 135 141 (132-148) mmol/l Chloride 103 113 H (98-107) mmol/L Glucose (65-105) mg/dl Lactate (0.7-2.1) mmol/L Potassium 3.6 3.5 L (3.6-5.2) mmol/L Carbon Dioxide 21 L 20 L (22-30) mmol/L Anion Gap 15 12 (10-20) BUN 5 L 7 (7-17) mg/dL Creatinine 0.4 L 0.5 L (0.7-1.2) MG/DL Est GFR ( Amer) > 60 > 60 Est GFR (Non-Af Amer) > 60 > 60 Random Glucose 77 109 H (65-105) mg/dL Calcium 7.4 L 7.4 L (8.6-10.4) mg/dl Phosphorus 2.4 L (2.5-4.5) mg/dL Magnesium 1.7 (1.6-2.3) mg/dL Total Bilirubin 0.6 0.6 (0.2-1.3) mg/dL AST 41 H 40 H D (14-36) U/L ALT 32 29 (9-52) U/L Alkaline Phosphatase 83 85 (38-126) U/L Total Protein 5.4 L 5.7 L (6.3-8.3) g/dL Albumin 3.1 L 3.0 L (3.5-5.0) g/dL Globulin 2.4 2.7 (2.2-3.9) gm/dL Albumin/Globulin Ratio 1.3 1.1 (1.0-2.1) Venous Blood Potassium (3.6-5.2) mmol/L 12/08/16 Range/Units 12:55 WBC (4.8-10.8) K/uL RBC (3.80-5.20) Mil/uL Hgb (11.0-16.0) g/dL Hct (34.0-47.0) % MCV (81.0-99.0) fL MCH (27.0-31.0) pg MCHC (33.0-37.0) g/dL RDW (11.5-14.5) % Plt Count (130-400) K/uL MPV (7.2-11.7) fL Neut % (Auto) (50.0-75.0) % Lymph % (Auto) (20.0-40.0) % [place] % (Auto) (0.0-10.0) % Eos % (Auto) (0.0-4.0) % Baso % (Auto) (0.0-2.0) % Neut # (1.8-7.0) K/uL Lymph # (1.0-4.3) K/uL [place] # (0.0-0.8) K/uL Eos # (0.0-0.7) K/uL Baso # (0.0-0.2) K/uL pO2 39 (30-55) mm/Hg VBG pH 7.35 (7.32-7.43) VBG pCO2 40 (40-60) mmHg VBG HCO3 21.6 mmol/L VBG Total CO2 23.3 (22-28) mmol/L VBG O2 Sat (Calc) 77.7 H (40-65) % VBG Base Excess -3.3 L (0.0-2.0) mmol/L VBG Potassium 3.3 L (3.6-5.2) mmol/L Sodium 141.0 (132-148) mmol/l Chloride 116.0 H (98-107) mmol/L Glucose 128 H (65-105) mg/dl Lactate 0.7 (0.7-2.1) mmol/L Potassium (3.6-5.2) mmol/L Carbon Dioxide (22-30) mmol/L Anion Gap (10-20) BUN (7-17) mg/dL Creatinine (0.7-1.2) MG/DL Est GFR ( Amer) Est GFR (Non-Af Amer) Random Glucose (65-105) mg/dL Calcium (8.6-10.4) mg/dl Phosphorus (2.5-4.5) mg/dL Magnesium (1.6-2.3) mg/dL Total Bilirubin (0.2-1.3) mg/dL AST (14-36) U/L ALT (9-52) U/L Alkaline Phosphatase (38-126) U/L Total Protein (6.3-8.3) g/dL Albumin (3.5-5.0) g/dL Globulin (2.2-3.9) gm/dL Albumin/Globulin Ratio (1.0-2.1) Venous Blood Potassium 3.3 L (3.6-5.2) mmol/L Laboratory Results - last 24 hr 12/08/16 12/08/16 12/09/16 12:55 16:00 06:46 WBC 1.9 L* D RBC 2.21 L Hgb 7.1 L Hct 22.0 L MCV 99.3 H MCH 32.1 H MCHC 32.3 L RDW 19.5 H Plt Count 183 MPV 7.9 Neut % (Auto) 62.9 Lymph % (Auto) 19.9 L [place] % (Auto) 16.3 H Eos % (Auto) 0.4 Baso % (Auto) 0.5 Neut # 1.2 L Lymph # 0.4 L [place] # 0.3 Eos # 0.0 Baso # 0.0 pO2 39 VBG pH 7.35 VBG pCO2 40 VBG HCO3 21.6 VBG Total CO2 23.3 VBG O2 Sat (Calc) 77.7 H VBG Base Excess -3.3 L VBG Potassium 3.3 L Sodium 141.0 141 Chloride 116.0 H 113 H Glucose 128 H Lactate 0.7 Potassium 3.5 L Carbon Dioxide 20 L Anion Gap 12 BUN 7 Creatinine 0.5 L Est GFR ( Amer) > 60 Est GFR (Non-Af Amer) > 60 Random Glucose 109 H Calcium 7.4 L Phosphorus Magnesium 1.7 Total Bilirubin 0.6 AST 40 H D ALT 29 Alkaline Phosphatase 85 Total Protein 5.7 L Albumin 3.0 L Globulin 2.7 Albumin/Globulin Ratio 1.1 Venous Blood Potassium 3.3 L 12/09/16 06:46 WBC RBC Hgb Hct MCV MCH MCHC RDW Plt Count MPV Neut % (Auto) Lymph % (Auto) [place] % (Auto) Eos % (Auto) Baso % (Auto) Neut # Lymph # [place] # Eos # Baso # pO2 VBG pH VBG pCO2 VBG HCO3 VBG Total CO2 VBG O2 Sat (Calc) VBG Base Excess VBG Potassium Sodium 135 Chloride 103 Glucose Lactate Potassium 3.6 Carbon Dioxide 21 L Anion Gap 15 BUN 5 L Creatinine 0.4 L Est GFR ( Amer) > 60 Est GFR (Non-Af Amer) > 60 Random Glucose 77 Calcium 7.4 L Phosphorus 2.4 L Magnesium Total Bilirubin 0.6 AST 41 H ALT 32 Alkaline Phosphatase 83 Total Protein 5.4 L Albumin 3.1 L Globulin 2.4 Albumin/Globulin Ratio 1.3 Venous Blood Potassium EKG/Cardiology Studies: Cardiology / EKG Studies 12/08/16 11:00 ELECTROCARDIOGRAM Stat Comment: Mode Of Transportation: Reason For Exam: Sepsis Patient Review of Systems - Cardiovascular Cardiovascular: absent: Chest Pain, Chest Pain at Rest, Chest Pain with Activity , Claudication, Diaphoresis - Respiratory Respiratory: Cough, Dyspnea, Hemoptysis - Gastrointestinal Gastrointestinal: Nausea. absent: Abdominal Pain, Vomiting Critical Care Progress Note - Extremities/Vascular Does the Patient have a Central Venous Catheter?: Yes Does the Patient need a Central Venous Catheter?: Yes Does the Patient have a Meyer Catheter?: Yes Does the Patient need a Meyer Catheter?: Yes - Prophylaxis DVT Prophylaxis DVT: Lovenox - Nutrition Nutrition: Nutrition Category Date Time Status Heart Healthy Diet [DIET] Diets 12/08/16 Dinner Active Assessment/Plan (1) Septic shock Current Visit: Yes Status: Acute (2) Neutropenic fever Current Visit: Yes Status: Acute (3) Neutropenia Current Visit: Yes Status: Acute (4) Pneumonia Current Visit: Yes Status: Acute (5) Malignant ascites Current Visit: No Status: Acute (6) 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 Plan: Optimize blood pressure, hemodynamic monitoring and maintain end-organ perfusion Continue levophed for BP support, wean as tolerated Continue IV hydration with NS at 100cc/hr; continue to reassess fluid status regularly Monitor UOP Strict Is/Os Daily weights Monitor fever curve, Tylenol PRN fevers Trend WBC count, lactate F/U pending cx data (BCx, UCx in process, received by lab) Aggressive suctioning PRN Continue Broad spectrum abx for Rodriguez coverage Vancomycin 1 gm IVPB Q12H Gentamicin 80mg IVPB Q8h Meropenem 1gm IVPB Q8H Hem/Oncology/Infectious Disease Consult appretiated Prophylaxis: SCDs, Lovenox, Pepcid Code: Full
--- NOTE | 2016-12-09 11:01 | RAD ---
Chest x-ray single frontal view History: Pneumonia. Comparison: 12/08/2016 Findings: Right chest wall port with tip extending to the right atrium. Moderate venous congestion with confluent patchy increased markings at the lung bases. Linear consolidative changes at the left mid to lower lung zone. Right hilar prominence. Mild cardiomegaly. Degenerative changes in the spine and shoulders. Mild calcific tendinopathy of the right proximal humerus. Impression: Right chest wall port with tip extending to the right atrium. Moderate venous congestion with confluent patchy increased markings at the lung bases. Linear consolidative changes at the left mid to lower lung zone. Right hilar prominence. Mild cardiomegaly. Degenerative changes in the spine and shoulders. Mild calcific tendinopathy of the right proximal humerus.
[2016-12-09] MEDS ORDERED: Potassium Phosphate 15 MMOLE in Sodium Chloride 0.9% 250 ML IVPB ONE (12:00)
[2016-12-09] MEDS: Enoxaparin 40 mg Syringe SC SCH (12:07)
[2016-12-09] MEDS: Vancomycin 1 gm/NS 200 ml 1 GM/200 ML BAG IVPB SCH (12:08)
[2016-12-09] MEDS: Saccharomyces Boulardi 250 mg Cap PO SCH (17:51)
--- NOTE | 2016-12-09 20:40 | CP.PCM.CON ---
History of Present Illness - History of Present Illness History of Present Illness: 51yr old female post chemo neutropenic,severe anemia with fever in icu. patient has a hypotension and also has right side vinh cath Past Patient History - Infectious Disease Hx of Infectious Diseases: None - Past Medical History & Family History Past Medical History?: No - Past Social History Smoking Status: Never Smoked - CARDIAC Hx Cardiac Disorders: No - PULMONARY Hx Respiratory Disorders: No - NEUROLOGICAL Hx Neurological Disorder: No - HEENT Hx HEENT Problems: No - RENAL Hx Chronic Kidney Disease: No - ENDOCRINE/METABOLIC Hx Endocrine Disorders: No - HEMATOLOGICAL/ONCOLOGICAL Other/Comment: ovarian and uterine CA - INTEGUMENTARY Hx Dermatological Problems: No - MUSCULOSKELETAL/RHEUMATOLOGICAL Hx Falls: No - GASTROINTESTINAL Hx Gastrointestinal Disorders: No - GENITOURINARY/GYNECOLOGICAL Hx Genitourinary Disorders: No Other/Comment: HX OF FIBROIDS - PSYCHIATRIC Hx Substance Use: No - SURGICAL HISTORY Hx Hysterectomy: Yes Other/Comment: port to right chest wall - ANESTHESIA Hx Anesthesia: Yes Hx Anesthesia Reactions: No Meds Allergies/Adverse Reactions: Allergies Allergy/AdvReac Type Severity Reaction Status Date / Time cefazolin sodium [From [facility]] Allergy Verified 12/08/16 09:15 - Medications Medications: Current Medications Acetaminophen (Tylenol 325mg Tab) 650 mg PO Q6 PRN PRN Reason: Fever >100.4 F Last Admin: 12/09/16 12:06 Dose: 650 mg Enoxaparin Sodium (Lovenox) 40 mg SC DAILY [facility] Last Admin: 12/09/16 12:07 Dose: 40 mg Famotidine (Pepcid) 20 mg PO DAILY [facility] Last Admin: 12/09/16 10:11 Dose: 20 mg Meropenem 1 gm/ Sodium (Chloride) 100 mls @ 100 mls/hr IVPB Q8 [facility] Last Admin: 12/09/16 13:46 Dose: 100 mls/hr Gentamicin Sulfate 80 mg/ (Sodium Chloride) 102 mls @ 100 mls/hr IVPB Q8H [facility] Last Admin: 12/09/16 17:51 Dose: 100 mls/hr Sodium Chloride (Sodium Chloride 0.9%) 1,000 mls @ 100 mls/hr IV .Q10H [facility] Last Admin: 12/09/16 08:36 Dose: Not Given Norepinephrine Bitartrate 4 mg (/ Sodium Chloride) 254 mls @ 15.24 mls/hr IV .[id number] PRN; Protocol; 4 MCG/MIN PRN Reason: TITRATE PER MD ORDER Last Titration: 12/09/16 11:00 Dose: 1 mcg/min, 3.81 mls/hr Vancomycin/Sodium Chloride (Vancocin) 1 gm in 200 mls @ 133 mls/hr IVPB Q12H [facility] Stop: 12/14/16 00:01 Last Admin: 12/09/16 12:08 Dose: 133 mls/hr Potassium Chloride (K-Dur 20 Meq Er Tab) 40 meq PO BRK [facility] Last Admin: 12/09/16 08:16 Dose: 40 meq Promethazine HCl/Codeine (Phenergan/Codeine Oral Syrup) 5 ml PO Q4 PRN PRN Reason: Cough Saccharomyces Boulardii (Florastor) 250 mg PO BID [facility] Last Admin: 12/09/16 17:51 Dose: 250 mg Physical Exam - Constitutional Appears: Toxic - Head Exam Head Exam: ATRAUMATIC, NORMOCEPHALIC - Eye Exam Eye Exam: Normal appearance. absent: Conjunctival injection, EOMI, Nystagmus, Periorbital swelling, Periorbital tenderness, PERRL, Scleral icterus - ENT Exam ENT Exam: Mucous Membranes Moist - Neck Exam Neck exam: Positive for: Normal Inspection - Respiratory Exam Respiratory Exam: Clear to Auscultation Bilateral, NORMAL BREATHING PATTERN - Cardiovascular Exam Cardiovascular Exam: Tachycardia - GI/Abdominal Exam GI & Abdominal Exam: Normal Bowel Sounds, Soft - Extremities Exam Extremities exam: Positive for: normal inspection - Back Exam Back exam: NORMAL INSPECTION - Neurological Exam Neurological exam: Oriented x3 - Psychiatric Exam Psychiatric exam: Normal Affect Results - Vital Signs Recent Vital Signs: Last Vital Signs Temp 98.8 F 12/09/16 17:00 Pulse 88 12/09/16 19:00 Resp 21 12/09/16 19:00 BP 113/48 L 12/09/16 18:36 Pulse Ox 98 12/09/16 19:00 - Labs Result Diagrams: 12/09/16 06:46 12/09/16 06:46 Labs: Laboratory Results - last 24 hr 12/09/16 12/09/16 12/09/16 06:46 06:46 09:04 WBC 1.9 L* D RBC 2.21 L Hgb 7.1 L Hct 22.0 L MCV 99.3 H MCH 32.1 H MCHC 32.3 L RDW 19.5 H Plt Count 183 MPV 7.9 Neut % (Auto) 62.9 Lymph % (Auto) 19.9 L [place] % (Auto) 16.3 H Eos % (Auto) 0.4 Baso % (Auto) 0.5 Neut # 1.2 L Lymph # 0.4 L [place] # 0.3 Eos # 0.0 Baso # 0.0 Sodium 135 Potassium 3.6 Chloride 103 Carbon Dioxide 21 L Anion Gap 15 BUN 5 L Creatinine 0.4 L Est GFR ( Amer) > 60 Est GFR (Non-Af Amer) > 60 Random Glucose 77 Calcium 7.4 L Phosphorus 2.4 L Total Bilirubin 0.6 AST 41 H ALT 32 Alkaline Phosphatase 83 Lactate Dehydrogenase Total Protein 5.4 L Albumin 3.1 L Globulin 2.4 Albumin/Globulin Ratio 1.3 Procalcitonin 0.11 L Ur L.pneumophila Ag Mycoplasma pneumon IgM 12/09/16 12/09/16 12/09/16 11:17 11:17 12:30 WBC RBC Hgb Hct MCV MCH MCHC RDW Plt Count MPV Neut % (Auto) Lymph % (Auto) [place] % (Auto) Eos % (Auto) Baso % (Auto) Neut # Lymph # [place] # Eos # Baso # Sodium Potassium Chloride Carbon Dioxide Anion Gap BUN Creatinine Est GFR ( Amer) Est GFR (Non-Af Amer) Random Glucose Calcium Phosphorus Total Bilirubin AST ALT Alkaline Phosphatase Lactate Dehydrogenase 622 H Total Protein Albumin Globulin Albumin/Globulin Ratio Procalcitonin Ur L.pneumophila Ag Negative Mycoplasma pneumon IgM Negative Assessment & Plan (1) Neutropenic fever Status: Acute (2) Pneumonia Status: Acute (3) Septic shock Status: Acute (4) Abdominal pain Status: Acute - Assessment and Plan (Free Text) Assessment: to continue vancomycin,merrem and tobramycin and check septic work up
[2016-12-09] MEDS: Promethazine/Cod 6.25mg-10mg/5ml Syr UD PO PRN (22:20)
[2016-12-10] MEDS: Sodium Chloride 0.9% 1,000 ML IV SCH ×2 (03:45→06:42)
[2016-12-10] MEDS: Meropenem 1 GM in Sodium Chloride 0.9% 100 ML IVPB SCH ×3 (05:47→21:21)
[2016-12-10 06:27] LABS: BASO % 0.7 % (0.0-2.0); EOS % 0.6 % (0.0-4.0); LYMPH # 1.1 K/uL (1.0-4.3); LYMPH % 31.3 % (20.0-40.0); MEAN CELL VOLUME 99.1 fL (81.0-99.0); MEAN CORPUSCULAR HEMOGLOBIN 32.6 pg (27.0-31.0); MEAN CORPUSCULAR HGB CONC 32.9 g/dL (33.0-37.0); MEAN PLATELET VOLUME 7.7 fL (7.2-11.7); MONO # 0.5 K/uL (0.0-0.8); MONO % 14.3 % (0.0-10.0); NEUT # 1.9 K/uL (1.8-7.0); NEUT % 53.1 % (50.0-75.0); NRBC % 0.4 % (0.0-2.0); RBC 2.15 Mil/uL (3.80-5.20); RED CELL DISTRIBUTION WIDTH 19.9 % (11.5-14.5); WHITE BLOOD COUNT 3.6 K/uL (4.8-10.8)
[2016-12-10 06:47] LABS: ALBUMIN 2.9 g/dL (3.5-5.0)
[2016-12-10 06:50] LABS: ALB/GLOB RATIO 1.1 (1.0-2.1); ALT/SGPT 43 U/L (9-52); AST/SGOT 54 U/L (14-36); BLOOD UREA NITROGEN 4 mg/dL (7-17); GFR AFRICAN-AMERICAN > 60; GFR NON-AFRICAN AMERICAN > 60
[2016-12-10 06:51] LABS: CALCIUM 7.7 mg/dl (8.6-10.4); MAGNESIUM 1.2 mg/dL (1.6-2.3)
[2016-12-10] MEDS: Potassium Chloride 20 mEq ER Tab PO SCH (08:28)
[2016-12-10] MEDS: Magnesium Sulfate 1 gm in D5W 1 GM/100 ML BAG IVPB SCH ×5 (08:28→13:51)
[2016-12-10] MEDS: Promethazine/Cod 6.25mg-10mg/5ml Syr UD PO PRN ×2 (08:30→16:12)
[2016-12-10] MEDS: Saccharomyces Boulardi 250 mg Cap PO SCH ×2 (09:51→18:32)
[2016-12-10] MEDS: Enoxaparin 40 mg Syringe SC SCH (09:52)
--- NOTE | 2016-12-10 10:19 | CP.PCM.PN ---
Subjective - Date & Time of Evaluation Date of Evaluation: 12/10/16 Time of Evaluation: 09:55 - Subjective Subjective: Medical Attending Note Follow-up: Patient seen and examined. Patient reports productive cough; improving. Patient report she is have "dark" stools. Discussed with patient's Tamra has not witnessed it but will monitor. Patient denies fever, denies chills, denies abdominal pain, reports she had 3 bowel movements yesterday, denies dysuria, denies hematuria. Objective - Vital Signs/Intake and Output Vital Signs (last 24 hours): Temp Pulse Resp BP Pulse Ox 99.1 F 89 16 116/62 97 12/10/16 09:00 12/10/16 09:36 12/10/16 09:36 12/10/16 09:36 12/10/16 09:36 Intake and Output: 12/10/16 12/10/16 06:59 18:59 Intake Total 1700 1080 Output Total 1151 Balance 549 1080 - Medications Medications: Current Medications Acetaminophen (Tylenol 325mg Tab) 650 mg PO Q6 PRN PRN Reason: Fever >100.4 F Last Admin: 12/09/16 12:06 Dose: 650 mg Enoxaparin Sodium (Lovenox) 40 mg SC DAILY [facility] Last Admin: 12/10/16 09:52 Dose: 40 mg Famotidine (Pepcid) 20 mg PO DAILY [facility] Last Admin: 12/10/16 09:52 Dose: 20 mg Meropenem 1 gm/ Sodium (Chloride) 100 mls @ 100 mls/hr IVPB Q8 [facility] Last Admin: 12/10/16 05:47 Dose: 100 mls/hr Gentamicin Sulfate 80 mg/ (Sodium Chloride) 102 mls @ 100 mls/hr IVPB Q8H [facility] Last Admin: 12/10/16 02:00 Dose: 100 mls/hr Sodium Chloride (Sodium Chloride 0.9%) 1,000 mls @ 100 mls/hr IV .Q10H [facility] Last Admin: 12/10/16 06:42 Dose: 100 mls/hr Norepinephrine Bitartrate 4 mg (/ Sodium Chloride) 254 mls @ 15.24 mls/hr IV .[id number] PRN; Protocol; 4 MCG/MIN PRN Reason: TITRATE PER MD ORDER Last Titration: 12/09/16 11:00 Dose: 1 mcg/min, 3.81 mls/hr Vancomycin/Sodium Chloride (Vancocin) 1 gm in 200 mls @ 133 mls/hr IVPB Q12H [facility] Stop: 12/14/16 00:01 Last Admin: 12/10/16 00:00 Dose: 133 mls/hr Magnesium Sulfate/Dextrose (Magnesium Sulfate 1 Gm/100 Ml D5w) 1 gm in 100 mls @ 300 mls/hr IVPB Q30M [facility] Stop: 12/10/16 11:04 Promethazine HCl/Codeine (Phenergan/Codeine Oral Syrup) 5 ml PO Q4 PRN PRN Reason: Cough Last Admin: 12/10/16 08:30 Dose: 5 ml Saccharomyces Boulardii (Florastor) 250 mg PO BID [facility] Last Admin: 12/10/16 09:51 Dose: 250 mg - Labs Labs: 12/10/16 06:15 12/10/16 06:15 PT 13.8 SECONDS (9.7-12.2) H 12/08/16 09:55 INR 1.2 12/08/16 09:55 APTT 53 SECONDS (21-34) H 12/08/16 09:55 - Constitutional Appears: Non-toxic, No Acute Distress - Head Exam Head Exam: NORMAL INSPECTION - Eye Exam Eye Exam: EOMI - ENT Exam ENT Exam: Mucous Membranes Moist - Respiratory Exam Respiratory Exam: Rhonchi, NORMAL BREATHING PATTERN. absent: Wheezes, Respiratory Distress - Cardiovascular Exam Cardiovascular Exam: REGULAR RHYTHM, +S1, +S2 - GI/Abdominal Exam GI & Abdominal Exam: Soft, Normal Bowel Sounds. absent: Distended, Firm, Guarding, Rigid, Tenderness, Rebound - Extremities Exam Extremities Exam: absent: Pedal Edema, Tenderness - Back Exam Back Exam: absent: CVA tenderness (L), CVA tenderness (R) - Neurological Exam Neurological Exam: Alert, Awake, Oriented x3 - Psychiatric Exam Psychiatric exam: Normal Affect, Normal Mood - Skin Skin Exam: Dry, Intact, Normal Color, Warm Assessment and Plan (1) Sepsis Status: Acute (2) Neutropenic fever Status: Acute (3) Gynecologic cancer Status: Acute (4) Pneumonia Status: Acute (5) Anemia Status: Acute (6) Prophylactic measure Status: Acute Attending/Attestation - Attestation I have personally seen and examined this patient.: Yes I have fully participated in the care of the patient.: Yes I have reviewed all pertinent clinical information, including history, physical exam and plan: Yes Notes (Text): (1) Sepsis Assessment & Plan: * 12/10: Off neutropenic precautions; Off pressor * Discussed with ICU, patient is medically stable for transfer to the floor when bed is available * Infectious disease (Dr. Villavicencio) on board-->help appreciated * Gentamin sulfate 80mg IV Q 8 hours (active since 12/08/16) * Meropenem 1 gram IV Q 8 hours (active since 12/08/16) * Vancomycin 1gram IV Q 12hours (active since 12/09/16) * Chest Xray (12/09/16): right chest wall port with tip extending to the right atrium. Moderate venous congestion with confluent patchy increasing markings at the lung bases. Linear consolidative changes at the left mid to lower lung zone. Right hilar prominence. Mild cardiomegaly. Degenerative changes in the spine and shoulders. Mild calcific tendinopathy at the right proximal humerus * Lactic acid 1.6-->0.7 * Blood culture (12/08/16): no growth for 24 hours X2 * urine culture (12/08/16): no growth (<1000 CFU) * Throat culture ordered Pending, Ordered for Strep pneumoniae, urine legionella : negative, and mycoplasma Igm: negative, and LDH: elevated * pending sputum * Tylenol 650mg PO Q6 hour PRN pain (2) Pneumonia Assessment & Plan: * 12/10: Off neutropenic precautions; Off pressor * Infectious disease (Dr. Villavicencio) on board-->help appreciated * Gentamin sulfate 80mg IV Q 8 hours (active since 12/08/16) * Meropenem 1 gram IV Q 8 hours (active since 12/08/16) * Vancomycin 1gram IV Q 12hours (active since 12/09/16) * Phenergan w codeine 5ml PO [id number] PRN cough * Chest Xray (12/09/16): right chest wall port with tip extending to the right atrium. Moderate venous congestion with confluent patchy increasing markings at the lung bases. Linear consolidative changes at the left mid to lower lung zone. Right hilar prominence. Mild cardiomegaly. Degenerative changes in the spine and shoulders. Mild calcific tendinopathy at the right proximal humerus (3) Anemia Assessment & Plan: * 12/10 Heme-onc (Dr. Junito leon) on board-->help appreciated * Patient ordered for reti count, occult blood, ferritin, TIBC, iron, folate, b12 * Discussed with Dr. Leon, recommended for 2 units of PRBC for the patient given today's hemoglobin (4) History of gynecologic cancer Assessment & Plan: * 12/10 Heme-onc (Dr. Junito leon) on board-->help appreciated * Patient ordered for reti count, occult blood, ferritin, TIBC, iron, folate, b12 * Discussed with Dr. Leon, recommended for 2 units of PRBC for the patient given today's hemoglobin * patient is on active chemotherapy prior to admission (5) Electrolyte imbalance Assessment & Plan: * monitor and replete if necessary (6) "Dark" stools Assessment & Plan: * 12/10 monitor occult blood * Monitor H/H (7) Prophylactic measure Assessment & Plan: * Lovenox 40mg subq daily for DVT ppx * Florastor 250mg PO bid * Pepcid 20mg PO daily
[2016-12-10] MEDS: Vancomycin 1 gm/NS 200 ml 1 GM/200 ML BAG IVPB SCH ×3 (12:16→23:26)
[2016-12-10 12:34] LABS: IRON 55 ug/dL (37-170)
[2016-12-10 12:43] LABS: % IRON SATURATION 24 (20-55); TOTAL IRON BINDING CAPACITY 230 ug/dL (250-450)
[2016-12-10 13:42] LABS: FOLATE > 20.0 ng/mL
--- NOTE | 2016-12-10 16:58 | CP.CCUPN ---
CCU Subjective - Physician Review Events Since Last Encounter (Free Text): 12/10/16 16:57 Patient seen and examined in the intensive care unit. Case discussed with all staff in the morning rounds. 51-year-old female admitted to ICU status post "sepsis/hypotension, initially was started on Levophed and fluid resuscitation Off pressors Alert oriented 3 Afebrile Cultures so far negative On IV antibiotics Stable for transfer to floor CCU Objective - Vital Signs / Intake & Output Vital Signs (Last 4 hours): Vital Signs Temp Pulse Resp BP 12/10/16 16:23 97.9 F 74 18 111/48 L 12/10/16 15:54 97.9 F 75 16 108/73 12/10/16 15:39 98.0 F 72 16 105/57 L 12/10/16 15:24 98.0 F 78 16 105/27 L 12/10/16 13:00 98.0 F Intake and Output (Last 8hrs): Intake & Output 12/10/16 12/10/16 12/10/16 06:59 14:59 22:59 Intake Total 1100 2080 0 Output Total 1150 1100 Balance -50 980 0 Intake: Intake, IV Amount 1100 1000 Right Forearm 700 400 Right Hand 400 600 Oral 1080 0 Blood Product 0 Red Blood Cells Cpd As1 0 Lr Unit [id number] Output: Urine 1150 1100 Urine, Voided 1150 1100 Other: # Voids Urine, Voided 1 1 1 # Bowel Movements 1 - Physical Exam Head: Positive for: Normocephalic Extroacular Muscles: Positive for: EOMI Conjunctiva: Positive for: Normal Mouth: Positive for: Moist Mucous Membranes Respiratory/Chest: Positive for: Clear to Auscultation, Good Air Exchange. Negative for: Wheezes, Rales, Rhonchi Cardiovascular: Positive for: Regular Rate and Rhythm, Normal S1, S2. Negative for: Murmurs Abdomen: Positive for: Tenderness (tenderness to the lower abdomen ). Negative for: Distention Back: Negative for: Pain with Leg Raise Upper Extremity: Positive for: Normal Inspection. Negative for: Edema Lower Extremity: Positive for: Normal Inspection, NORMAL PULSES. Negative for: Edema, CALF TENDERNESS, Tenderness, Swelling Neurological: Positive for: CN II-XII Intact, Speech Normal Skin: Positive for: Warm, Normal Color. Negative for: Rashes Psychiatric: Positive for: Alert, Oriented x 3. Negative for: Anxious - Medications Active Medications: Active Medications Generic Name Dose Route Start Last Admin Trade Name Freq PRN Reason Stop Dose Admin Acetaminophen 650 mg 12/09/16 11:14 12/09/16 12:06 Tylenol 325mg Tab PO 650 mg Q6 PRN Administration Fever >100.4 F Enoxaparin Sodium 40 mg 12/09/16 11:00 12/10/16 09:52 Lovenox SC 40 mg DAILY [facility] Administration Famotidine 20 mg 12/09/16 10:00 12/10/16 09:52 Pepcid PO 20 mg DAILY [facility] Administration Meropenem 1 gm/ Sodium 100 mls @ 100 mls/hr 12/08/16 10:00 12/10/16 13:33 Chloride IVPB 100 mls/hr Q8 [facility] Administration Gentamicin Sulfate 80 mg/ 102 mls @ 100 mls/hr 12/08/16 10:00 12/10/16 10:53 Sodium Chloride IVPB 100 mls/hr Q8H [facility] Administration Norepinephrine Bitartrate 4 mg 254 mls @ 15.24 mls/hr 12/08/16 14:28 11:00 / Sodium Chloride IV 1 mcg/min .[id number] PRN 3.81 mls/hr TITRATE PER MD ORDER Titration Protocol 4 MCG/MIN Vancomycin/Sodium Chloride 1 gm in 200 mls @ 133 mls/hr 12/09/16 00:00 12:16 Vancocin IVPB 12/14/16 00:01 133 mls/hr Q12H [facility] Administration Promethazine HCl/Codeine 5 ml 12/09/16 10:38 12/10/16 16:12 Phenergan/Codeine Oral Syrup PO 5 ml Q4 PRN Administration Cough Saccharomyces Boulardii 250 mg 12/09/16 18:00 12/10/16 09:51 Florastor PO 250 mg BID [facility] Administration - Patient Studies Lab Studies: Microbiology Studies 12/08/16 21:00 MRSA Culture (Admit) - Final Naris MRSA NOT DETECTED 12/09/16 Unknown Gram Stain - Final Sputum Lab Studies 12/10/16 12/10/16 12/10/16 Range/Units 12:17 12:17 12:17 WBC (4.8-10.8) K/uL RBC (3.80-5.20) Mil/uL Hgb (11.0-16.0) g/dL Hct (34.0-47.0) % MCV (81.0-99.0) fL MCH (27.0-31.0) pg MCHC (33.0-37.0) g/dL RDW (11.5-14.5) % Plt Count (130-400) K/uL MPV (7.2-11.7) fL Neut % (Auto) (50.0-75.0) % Lymph % (Auto) (20.0-40.0) % [place] % (Auto) (0.0-10.0) % Eos % (Auto) (0.0-4.0) % Baso % (Auto) (0.0-2.0) % Neut # (1.8-7.0) K/uL Lymph # (1.0-4.3) K/uL [place] # (0.0-0.8) K/uL Eos # (0.0-0.7) K/uL Baso # (0.0-0.2) K/uL Retic Count (0.5-1.5) % Sodium (132-148) mmol/L Potassium (3.6-5.2) mmol/L Chloride (98-107) mmol/L Carbon Dioxide (22-30) mmol/L Anion Gap (10-20) BUN (7-17) mg/dL Creatinine (0.7-1.2) MG/DL Est GFR ( Amer) Est GFR (Non-Af Amer) Random Glucose (65-105) mg/dL Calcium (8.6-10.4) mg/dl Phosphorus (2.5-4.5) mg/dL Magnesium (1.6-2.3) mg/dL Iron 55 (37-170) ug/dL TIBC 230 L (250-450) ug/dL % Saturation 24 (20-55) Total Bilirubin (0.2-1.3) mg/dL AST (14-36) U/L ALT (9-52) U/L Alkaline Phosphatase (38-126) U/L Total Protein (6.3-8.3) g/dL Albumin (3.5-5.0) g/dL Globulin (2.2-3.9) gm/dL Albumin/Globulin Ratio (1.0-2.1) Vitamin B12 > 1000 H (239-931) pg/mL Folate > 20.0 ng/mL Vancomycin Trough (5.0-10.0) ug/mL Blood Type B POSITIVE Antibody Screen Negative 12/10/16 12/10/16 12/10/16 Range/Units 12:17 11:10 06:15 WBC (4.8-10.8) K/uL RBC (3.80-5.20) Mil/uL Hgb (11.0-16.0) g/dL Hct (34.0-47.0) % MCV (81.0-99.0) fL MCH (27.0-31.0) pg MCHC (33.0-37.0) g/dL RDW (11.5-14.5) % Plt Count (130-400) K/uL MPV (7.2-11.7) fL Neut % (Auto) (50.0-75.0) % Lymph % (Auto) (20.0-40.0) % [place] % (Auto) (0.0-10.0) % Eos % (Auto) (0.0-4.0) % Baso % (Auto) (0.0-2.0) % Neut # (1.8-7.0) K/uL Lymph # (1.0-4.3) K/uL [place] # (0.0-0.8) K/uL Eos # (0.0-0.7) K/uL Baso # (0.0-0.2) K/uL Retic Count 2.6 H D (0.5-1.5) % Sodium 134 (132-148) mmol/L Potassium 3.7 (3.6-5.2) mmol/L Chloride 102 (98-107) mmol/L Carbon Dioxide 22 (22-30) mmol/L Anion Gap 14 (10-20) BUN 4 L (7-17) mg/dL Creatinine 0.5 L (0.7-1.2) MG/DL Est GFR ( Amer) > 60 Est GFR (Non-Af Amer) > 60 Random Glucose 75 (65-105) mg/dL Calcium 7.7 L (8.6-10.4) mg/dl Phosphorus 2.7 (2.5-4.5) mg/dL Magnesium 1.2 L (1.6-2.3) mg/dL Iron (37-170) ug/dL TIBC (250-450) ug/dL % Saturation (20-55) Total Bilirubin 0.6 (0.2-1.3) mg/dL AST 54 H D (14-36) U/L ALT 43 (9-52) U/L Alkaline Phosphatase 76 (38-126) U/L Total Protein 5.5 L (6.3-8.3) g/dL Albumin 2.9 L (3.5-5.0) g/dL Globulin 2.6 (2.2-3.9) gm/dL Albumin/Globulin Ratio 1.1 (1.0-2.1) Vitamin B12 (239-931) pg/mL Folate ng/mL Vancomycin Trough 12.7 H (5.0-10.0) ug/mL Blood Type Antibody Screen 12/10/16 Range/Units 06:15 WBC 3.6 L D (4.8-10.8) K/uL RBC 2.15 L (3.80-5.20) Mil/uL Hgb 7.0 L (11.0-16.0) g/dL Hct 21.4 L (34.0-47.0) % MCV 99.1 H (81.0-99.0) fL MCH 32.6 H (27.0-31.0) pg MCHC 32.9 L (33.0-37.0) g/dL RDW 19.9 H (11.5-14.5) % Plt Count 188 (130-400) K/uL MPV 7.7 (7.2-11.7) fL Neut % (Auto) 53.1 (50.0-75.0) % Lymph % (Auto) 31.3 (20.0-40.0) % [place] % (Auto) 14.3 H (0.0-10.0) % Eos % (Auto) 0.6 (0.0-4.0) % Baso % (Auto) 0.7 (0.0-2.0) % Neut # 1.9 (1.8-7.0) K/uL Lymph # 1.1 (1.0-4.3) K/uL [place] # 0.5 (0.0-0.8) K/uL Eos # 0.0 (0.0-0.7) K/uL Baso # 0.0 (0.0-0.2) K/uL Retic Count (0.5-1.5) % Sodium (132-148) mmol/L Potassium (3.6-5.2) mmol/L Chloride (98-107) mmol/L Carbon Dioxide (22-30) mmol/L Anion Gap (10-20) BUN (7-17) mg/dL Creatinine (0.7-1.2) MG/DL Est GFR ( Amer) Est GFR (Non-Af Amer) Random Glucose (65-105) mg/dL Calcium (8.6-10.4) mg/dl Phosphorus (2.5-4.5) mg/dL Magnesium (1.6-2.3) mg/dL Iron (37-170) ug/dL TIBC (250-450) ug/dL % Saturation (20-55) Total Bilirubin (0.2-1.3) mg/dL AST (14-36) U/L ALT (9-52) U/L Alkaline Phosphatase (38-126) U/L Total Protein (6.3-8.3) g/dL Albumin (3.5-5.0) g/dL Globulin (2.2-3.9) gm/dL Albumin/Globulin Ratio (1.0-2.1) Vitamin B12 (239-931) pg/mL Folate ng/mL Vancomycin Trough (5.0-10.0) ug/mL Blood Type Antibody Screen Laboratory Results - last 24 hr 12/10/16 12/10/16 12/10/16 06:15 06:15 11:10 WBC 3.6 L D RBC 2.15 L Hgb 7.0 L Hct 21.4 L MCV 99.1 H MCH 32.6 H MCHC 32.9 L RDW 19.9 H Plt Count 188 MPV 7.7 Neut % (Auto) 53.1 Lymph % (Auto) 31.3 [place] % (Auto) 14.3 H Eos % (Auto) 0.6 Baso % (Auto) 0.7 Neut # 1.9 Lymph # 1.1 [place] # 0.5 Eos # 0.0 Baso # 0.0 Retic Count Sodium 134 Potassium 3.7 Chloride 102 Carbon Dioxide 22 Anion Gap 14 BUN 4 L Creatinine 0.5 L Est GFR ( Amer) > 60 Est GFR (Non-Af Amer) > 60 Random Glucose 75 Calcium 7.7 L Phosphorus 2.7 Magnesium 1.2 L Iron TIBC % Saturation Total Bilirubin 0.6 AST 54 H D ALT 43 Alkaline Phosphatase 76 Total Protein 5.5 L Albumin 2.9 L Globulin 2.6 Albumin/Globulin Ratio 1.1 Vitamin B12 Folate Vancomycin Trough 12.7 H Blood Type Antibody Screen 12/10/16 12/10/16 12/10/16 12:17 12:17 12:17 WBC RBC Hgb Hct MCV MCH MCHC RDW Plt Count MPV Neut % (Auto) Lymph % (Auto) [place] % (Auto) Eos % (Auto) Baso % (Auto) Neut # Lymph # [place] # Eos # Baso # Retic Count 2.6 H D Sodium Potassium Chloride Carbon Dioxide Anion Gap BUN Creatinine Est GFR ( Amer) Est GFR (Non-Af Amer) Random Glucose Calcium Phosphorus Magnesium Iron 55 TIBC 230 L % Saturation 24 Total Bilirubin AST ALT Alkaline Phosphatase Total Protein Albumin Globulin Albumin/Globulin Ratio Vitamin B12 > 1000 H Folate > 20.0 Vancomycin Trough Blood Type Antibody Screen 12/10/16 12:17 WBC RBC Hgb Hct MCV MCH MCHC RDW Plt Count MPV Neut % (Auto) Lymph % (Auto) [place] % (Auto) Eos % (Auto) Baso % (Auto) Neut # Lymph # [place] # Eos # Baso # Retic Count Sodium Potassium Chloride Carbon Dioxide Anion Gap BUN Creatinine Est GFR ( Amer) Est GFR (Non-Af Amer) Random Glucose Calcium Phosphorus Magnesium Iron TIBC % Saturation Total Bilirubin AST ALT Alkaline Phosphatase Total Protein Albumin Globulin Albumin/Globulin Ratio Vitamin B12 Folate Vancomycin Trough Blood Type B POSITIVE Antibody Screen Negative Critical Care Progress Note - Nutrition Nutrition: Nutrition Category Date Time Status Heart Healthy Diet [DIET] Diets 12/08/16 Dinner Active
[2016-12-11] MEDS: Promethazine/Cod 6.25mg-10mg/5ml Syr UD PO PRN ×2 (02:06→09:42)
--- NOTE | 2016-12-11 02:20 | CP.PCM.CON ---
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 The patient has been receiving adjuvant chemotherapy and was found to be febrile in outpatient chemotherapy. She was sent to the ER and found to be febrile, hypotesive, and severely neutropenic. She is currently receiving antibiotics and pressor support. Past medical history: Mullerian tract tumor Past surgical history: Portacath, cytoreductive surgery Family history: Denies hematologic and oncologic problems Social history: Denies tobacco, alcohol, and illicit drug use. Allergies: Cefazolin Review of systems: All remaining review of systems including HEENT, cardiovascular, respiratory, gastrointestinal, genitourinary, musculoskeletal, dermatologic, neurologic, and psychiatric are negative unless mentioned in the HPI. Past Patient History - Infectious Disease Hx of Infectious Diseases: None - Past Medical History & Family History Past Medical History?: No - Past Social History Smoking Status: Never Smoked - CARDIAC Hx Cardiac Disorders: No - PULMONARY Hx Respiratory Disorders: No - NEUROLOGICAL Hx Neurological Disorder: No - HEENT Hx HEENT Problems: No - RENAL Hx Chronic Kidney Disease: No - ENDOCRINE/METABOLIC Hx Endocrine Disorders: No - HEMATOLOGICAL/ONCOLOGICAL Other/Comment: ovarian and uterine CA - INTEGUMENTARY Hx Dermatological Problems: No - MUSCULOSKELETAL/RHEUMATOLOGICAL Hx Falls: No - GASTROINTESTINAL Hx Gastrointestinal Disorders: No - GENITOURINARY/GYNECOLOGICAL Hx Genitourinary Disorders: No Other/Comment: HX OF FIBROIDS - PSYCHIATRIC Hx Substance Use: No - SURGICAL HISTORY Hx Hysterectomy: Yes Other/Comment: port to right chest wall - ANESTHESIA Hx Anesthesia: Yes Hx Anesthesia Reactions: No Meds Allergies/Adverse Reactions: Allergies Allergy/AdvReac Type Severity Reaction Status Date / Time cefazolin sodium [From Anc] Allergy Verified 12/08/16 09:15 - Medications Medications: Current Medications Acetaminophen (Tylenol 325mg Tab) 650 mg PO Q6 PRN PRN Reason: Fever >100.4 F Last Admin: 12/09/16 12:06 Dose: 650 mg Enoxaparin Sodium (Lovenox) 40 mg SC DAILY [facility] Last Admin: 12/10/16 09:52 Dose: 40 mg Famotidine (Pepcid) 20 mg PO DAILY [facility] Last Admin: 12/10/16 09:52 Dose: 20 mg Meropenem 1 gm/ Sodium (Chloride) 100 mls @ 100 mls/hr IVPB Q8 [facility] Last Admin: 12/10/16 21:21 Dose: 100 mls/hr Gentamicin Sulfate 80 mg/ (Sodium Chloride) 102 mls @ 100 mls/hr IVPB Q8H [facility] Last Admin: 12/11/16 02:07 Dose: 100 mls/hr Norepinephrine Bitartrate 4 mg (/ Sodium Chloride) 254 mls @ 15.24 mls/hr IV .[id number] PRN; Protocol; 4 MCG/MIN PRN Reason: TITRATE PER MD ORDER Last Titration: 12/09/16 11:00 Dose: 1 mcg/min, 3.81 mls/hr Vancomycin/Sodium Chloride (Vancocin) 1 gm in 200 mls @ 133 mls/hr IVPB Q12H [facility] Stop: 12/14/16 00:01 Last Admin: 12/10/16 23:26 Dose: 133 mls/hr Promethazine HCl/Codeine (Phenergan/Codeine Oral Syrup) 5 ml PO Q4 PRN PRN Reason: Cough Last Admin: 12/11/16 02:06 Dose: 5 ml Saccharomyces Boulardii (Florastor) 250 mg PO BID [facility] Last Admin: 12/10/16 18:32 Dose: 250 mg Physical Exam - Head Exam Head Exam: ATRAUMATIC - Eye Exam Eye Exam: Normal appearance - ENT Exam ENT Exam: Mucous Membranes Dry - Respiratory Exam Respiratory Exam: NORMAL BREATHING PATTERN - Cardiovascular Exam Cardiovascular Exam: +S1, +S2 - GI/Abdominal Exam GI & Abdominal Exam: Normal Bowel Sounds - Extremities Exam Extremities exam: Positive for: normal inspection - Neurological Exam Neurological exam: Oriented x3 - Psychiatric Exam Psychiatric exam: Normal Affect, Normal Mood - Skin Skin Exam: Warm Results - Vital Signs Recent Vital Signs: Last Vital Signs Temp 98.1 F 12/11/16 02:00 Pulse 76 12/11/16 02:00 Resp 18 12/11/16 02:00 BP 107/69 12/11/16 02:00 Pulse Ox 94 L 12/11/16 02:00 - Labs Result Diagrams: 12/10/16 06:15 12/10/16 06:15 Labs: Laboratory Results - last 24 hr 12/10/16 12/10/16 12/10/16 06:15 06:15 11:10 WBC 3.6 L D RBC 2.15 L Hgb 7.0 L Hct 21.4 L MCV 99.1 H MCH 32.6 H MCHC 32.9 L RDW 19.9 H Plt Count 188 MPV 7.7 Neut % (Auto) 53.1 Lymph % (Auto) 31.3 [place] % (Auto) 14.3 H Eos % (Auto) 0.6 Baso % (Auto) 0.7 Neut # 1.9 Lymph # 1.1 [place] # 0.5 Eos # 0.0 Baso # 0.0 Retic Count Sodium 134 Potassium 3.7 Chloride 102 Carbon Dioxide 22 Anion Gap 14 BUN 4 L Creatinine 0.5 L Est GFR ( Amer) > 60 Est GFR (Non-Af Amer) > 60 Random Glucose 75 Calcium 7.7 L Phosphorus 2.7 Magnesium 1.2 L Iron TIBC % Saturation Total Bilirubin 0.6 AST 54 H D ALT 43 Alkaline Phosphatase 76 Total Protein 5.5 L Albumin 2.9 L Globulin 2.6 Albumin/Globulin Ratio 1.1 Vitamin B12 Folate Stool Occult Blood Vancomycin Trough 12.7 H Blood Type Antibody Screen 12/10/16 12/10/16 12/10/16 12:17 12:17 12:17 WBC RBC Hgb Hct MCV MCH MCHC RDW Plt Count MPV Neut % (Auto) Lymph % (Auto) [place] % (Auto) Eos % (Auto) Baso % (Auto) Neut # Lymph # [place] # Eos # Baso # Retic Count 2.6 H D Sodium Potassium Chloride Carbon Dioxide Anion Gap BUN Creatinine Est GFR ( Amer) Est GFR (Non-Af Amer) Random Glucose Calcium Phosphorus Magnesium Iron 55 TIBC 230 L % Saturation 24 Total Bilirubin AST ALT Alkaline Phosphatase Total Protein Albumin Globulin Albumin/Globulin Ratio Vitamin B12 > 1000 H Folate > 20.0 Stool Occult Blood Vancomycin Trough Blood Type Antibody Screen 12/10/16 12/10/16 12:17 22:39 WBC RBC Hgb Hct MCV MCH MCHC RDW Plt Count MPV Neut % (Auto) Lymph % (Auto) [place] % (Auto) Eos % (Auto) Baso % (Auto) Neut # Lymph # [place] # Eos # Baso # Retic Count Sodium Potassium Chloride Carbon Dioxide Anion Gap BUN Creatinine Est GFR ( Amer) Est GFR (Non-Af Amer) Random Glucose Calcium Phosphorus Magnesium Iron TIBC % Saturation Total Bilirubin AST ALT Alkaline Phosphatase Total Protein Albumin Globulin Albumin/Globulin Ratio Vitamin B12 Folate Stool Occult Blood Negative Vancomycin Trough Blood Type B POSITIVE Antibody Screen Negative Assessment & Plan (1) Neutropenic fever Assessment and Plan: antibiotics Status: Acute (2) Neutropenia Assessment and Plan: secondary to chemotherapy on granix Status: Acute (3) Anemia Assessment and Plan: secondary to chemotherapy transfusion support Status: Acute (4) Coagulopathy Assessment and Plan: nutritional Status: Acute (5) Gynecologic cancer Assessment and Plan: s/p cytoreductive surgery outpatient adjuvant chemotherapy Thank you for this interesting consult. Status: Acute
[2016-12-11] MEDS: Meropenem 1 GM in Sodium Chloride 0.9% 100 ML IVPB SCH ×3 (05:37→21:23)
[2016-12-11 08:15] LABS: ALBUMIN 3.6 g/dL (3.5-5.0)
[2016-12-11 08:18] LABS: ALB/GLOB RATIO 1.2 (1.0-2.1); AST/SGOT 45 U/L (14-36); BLOOD UREA NITROGEN 10 mg/dL (7-17); GFR AFRICAN-AMERICAN > 60; GFR NON-AFRICAN AMERICAN > 60
[2016-12-11 08:19] LABS: ALT/SGPT 49 U/L (9-52); CALCIUM 8.8 mg/dl (8.6-10.4); MAGNESIUM 1.8 mg/dL (1.6-2.3)
[2016-12-11] MEDS: Saccharomyces Boulardi 250 mg Cap PO SCH ×2 (09:38→17:49)
[2016-12-11] MEDS: Enoxaparin 40 mg Syringe SC SCH (09:38)
--- NOTE | 2016-12-11 10:54 | CARD ---
APPROVED REPORT EKG Measurement Heart [id number] <Conclusion> Normal sinus rhythm Nonspecific T wave abnormality Abnormal ECG
[2016-12-11] MEDS: Vancomycin 1 gm/NS 200 ml 1 GM/200 ML BAG IVPB SCH (11:12)
--- NOTE | 2016-12-11 15:49 | CP.PCM.PN ---
<UbaldoMik R - Last Filed: 12/11/16 18:48> Subjective - Date & Time of Evaluation Date of Evaluation: 12/11/16 Time of Evaluation: 08:45 - Subjective Subjective: Patient was seen and examined at bedside. Patient was not in acute distress. She complained of cough, productive with clear sputum. She said she noticed red specks in her sputum yesterday. She had no other complaints. She denied chest pain, shortness of breath, headache, fatigue, abdominal pain, fever, chills, diaphoresis. Objective - Vital Signs/Intake and Output Vital Signs (last 24 hours): Temp Pulse Resp BP Pulse Ox 98.4 F 80 20 112/75 95 12/11/16 15:38 12/11/16 15:38 12/11/16 15:38 12/11/16 15:38 12/11/16 15:38 Intake and Output: 12/11/16 12/11/16 06:59 18:59 Intake Total 1210 Output Total 450 Balance 760 - Medications Medications: Current Medications Acetaminophen (Tylenol 325mg Tab) 650 mg PO Q6 PRN PRN Reason: Fever >100.4 F Last Admin: 12/09/16 12:06 Dose: 650 mg Enoxaparin Sodium (Lovenox) 40 mg SC DAILY [facility] Last Admin: 12/11/16 09:38 Dose: 40 mg Famotidine (Pepcid) 20 mg PO DAILY [facility] Last Admin: 12/11/16 09:38 Dose: 20 mg Meropenem 1 gm/ Sodium (Chloride) 100 mls @ 100 mls/hr IVPB Q8 [facility] Last Admin: 12/11/16 13:39 Dose: 100 mls/hr Gentamicin Sulfate 80 mg/ (Sodium Chloride) 102 mls @ 100 mls/hr IVPB Q8H [facility] Last Admin: 12/11/16 09:38 Dose: 100 mls/hr Norepinephrine Bitartrate 4 mg (/ Sodium Chloride) 254 mls @ 15.24 mls/hr IV .[id number] PRN; Protocol; 4 MCG/MIN PRN Reason: TITRATE PER MD ORDER Last Titration: 12/09/16 11:00 Dose: 1 mcg/min, 3.81 mls/hr Vancomycin/Sodium Chloride (Vancocin) 1 gm in 200 mls @ 133 mls/hr IVPB Q12H [facility] Stop: 12/14/16 00:01 Last Admin: 12/11/16 11:12 Dose: 133 mls/hr Promethazine HCl/Codeine (Phenergan/Codeine Oral Syrup) 5 ml PO Q4 PRN PRN Reason: Cough Last Admin: 12/11/16 09:42 Dose: 5 ml Saccharomyces Boulardii (Florastor) 250 mg PO BID [facility] Last Admin: 12/11/16 09:38 Dose: 250 mg - Labs Labs: 12/10/16 06:15 12/11/16 07:23 PT 13.8 SECONDS (9.7-12.2) H 12/08/16 09:55 INR 1.2 12/08/16 09:55 APTT 53 SECONDS (21-34) H 12/08/16 09:55 - Constitutional Appears: Well - Head Exam Head Exam: ATRAUMATIC, NORMAL INSPECTION, NORMOCEPHALIC - Eye Exam Eye Exam: EOMI, Normal appearance, PERRL - ENT Exam ENT Exam: Mucous Membranes Moist, Normal Exam - Neck Exam Neck Exam: Full ROM, Normal Inspection. absent: Lymphadenopathy - Respiratory Exam Respiratory Exam: Clear to Ausculation Bilateral, NORMAL BREATHING PATTERN - Cardiovascular Exam Cardiovascular Exam: REGULAR RHYTHM, +S1, +S2. absent: Murmur - GI/Abdominal Exam GI & Abdominal Exam: Soft, Normal Bowel Sounds. absent: Tenderness - Extremities Exam Extremities Exam: Full ROM, Normal Capillary Refill, Normal Inspection. absent : Joint Swelling, Pedal Edema - Neurological Exam Neurological Exam: Alert, Awake, Oriented x3 - Psychiatric Exam Psychiatric exam: Normal Affect, Normal Mood - Skin Skin Exam: Dry, Intact, Normal Color, Warm Assessment and Plan - Assessment and Plan (Free Text) Assessment: Assessment & Plan: * 12/10: Off neutropenic precautions; Off pressor * Discussed with ICU, patient is medically stable for transfer to the floor when bed is available * Infectious disease (Dr. Villavicencio) on board-->help appreciated * Gentamin sulfate 80mg IV Q 8 hours (active since 12/08/16) * Meropenem 1 gram IV Q 8 hours (active since 12/08/16) * Vancomycin 1gram IV Q 12hours (active since 12/09/16) * Chest Xray (12/09/16): right chest wall port with tip extending to the right atrium. Moderate venous congestion with confluent patchy increasing markings at the lung bases. Linear consolidative changes at the left mid to lower lung zone. Right hilar prominence. Mild cardiomegaly. Degenerative changes in the spine and shoulders. Mild calcific tendinopathy at the right proximal humerus * Lactic acid 1.6-->0.7 * Blood culture (12/08/16): no growth for 24 hours X2 * urine culture (12/08/16): no growth (<1000 CFU) * Throat culture: negative, Strep pneumoniae, urine legionella: negative, and mycoplasma Igm: negative, and LDH: elevated * sputum culture: negative * Tylenol 650mg PO Q6 hour PRN pain (2) Pneumonia Assessment & Plan: * 12/10: Off neutropenic precautions; Off pressor * Infectious disease (Dr. Villavicencio) on board-->help appreciated * Gentamin sulfate 80mg IV Q 8 hours (active since 12/08/16) * Meropenem 1 gram IV Q 8 hours (active since 12/08/16) * Vancomycin 1gram IV Q 12hours (active since 12/09/16) * Phenergan w codeine 5ml PO [id number] PRN cough * Chest Xray (12/09/16): right chest wall port with tip extending to the right atrium. Moderate venous congestion with confluent patchy increasing markings at the lung bases. Linear consolidative changes at the left mid to lower lung zone. Right hilar prominence. Mild cardiomegaly. Degenerative changes in the spine and shoulders. Mild calcific tendinopathy at the right proximal humerus (3) Anemia Assessment & Plan: 12/11: FOBT negative * 12/10 Heme-onc (Dr. Junito cheatham) on board-->help appreciated * Patient ordered for reti count, occult blood, ferritin, TIBC, iron, folate, b12 * Discussed with Dr. Cheatham, recommended for 2 units of PRBC for the patient given today's hemoglobin (4) History of gynecologic cancer Assessment & Plan: * 12/10 Heme-onc (Dr. Junito cheatham) on board-->help appreciated * Patient ordered for reti count, occult blood, ferritin, TIBC, iron, folate, b12 * Discussed with Dr. Cheatham, recommended for 2 units of PRBC for the patient given today's hemoglobin * patient is on active chemotherapy prior to admission (5) Electrolyte imbalance Assessment & Plan: * monitor and replete if necessary * hypocalcemic - multivitamin 5mg po daily * protein supplement 3x a day (6) "Dark" stools Assessment & Plan: * 12/10 monitor occult blood. 12/11: FOBT negative * Monitor H/H (7) Prophylactic measure Assessment & Plan: * Lovenox 40mg subq daily for DVT ppx * Florastor 250mg PO bid * Pepcid 20mg PO daily <Tian Choi - Last Filed: 12/11/16 21:20> Objective - Vital Signs/Intake and Output Vital Signs (last 24 hours): Temp Pulse Resp BP Pulse Ox 98.4 F 80 20 112/75 95 12/11/16 15:38 12/11/16 15:38 12/11/16 15:38 12/11/16 15:38 12/11/16 15:38 Intake and Output: 12/11/16 12/12/16 18:59 06:59 Intake Total 940 Balance 940 - Medications Medications: Current Medications Acetaminophen (Tylenol 325mg Tab) 650 mg PO Q6 PRN PRN Reason: Fever >100.4 F Last Admin: 12/09/16 12:06 Dose: 650 mg Enoxaparin Sodium (Lovenox) 40 mg SC DAILY [facility] Last Admin: 12/11/16 09:38 Dose: 40 mg Famotidine (Pepcid) 20 mg PO DAILY [facility] Last Admin: 12/11/16 09:38 Dose: 20 mg Meropenem 1 gm/ Sodium (Chloride) 100 mls @ 100 mls/hr IVPB Q8 [facility] Last Admin: 12/11/16 13:39 Dose: 100 mls/hr Gentamicin Sulfate 80 mg/ (Sodium Chloride) 102 mls @ 100 mls/hr IVPB Q8H [facility] Last Admin: 12/11/16 17:48 Dose: 100 mls/hr Norepinephrine Bitartrate 4 mg (/ Sodium Chloride) 254 mls @ 15.24 mls/hr IV .[id number] PRN; Protocol; 4 MCG/MIN PRN Reason: TITRATE PER MD ORDER Last Titration: 12/09/16 11:00 Dose: 1 mcg/min, 3.81 mls/hr Vancomycin/Sodium Chloride (Vancocin) 1 gm in 200 mls @ 133 mls/hr IVPB Q12H [facility] Stop: 12/14/16 00:01 Last Admin: 12/11/16 11:12 Dose: 133 mls/hr Multivitamins/Vitamin C (Multi-Delyn Liquid) 5 ml PO DAILY [facility] Promethazine HCl/Codeine (Phenergan/Codeine Oral Syrup) 5 ml PO Q4 PRN PRN Reason: Cough Last Admin: 12/11/16 09:42 Dose: 5 ml Saccharomyces Boulardii (Florastor) 250 mg PO BID [facility] Last Admin: 12/11/16 17:49 Dose: 250 mg - Labs Labs: 12/10/16 06:15 12/11/16 07:23 PT 13.8 SECONDS (9.7-12.2) H 12/08/16 09:55 INR 1.2 12/08/16 09:55 APTT 53 SECONDS (21-34) H 12/08/16 09:55 Attending/Attestation - Attestation I have personally seen and examined this patient.: Yes I have fully participated in the care of the patient.: Yes I have reviewed all pertinent clinical information, including history, physical exam and plan: Yes Notes (Text): 12/11/16 21:18 Patient was seen and examined at 6:15 PM 12/11/16. History, Exam, and Assessment and Plan were thoroughly gone over with the Resident. Please note the following on Respiratory Exam: Left Mid to Lower Lung Field Inspiratory Crackles Awaiting finalization of Blood Culture to be negative and if cleared by ID will discharge patient. Tian Choi D.O.
--- NOTE | 2016-12-11 21:28 | CP.PCM.PN ---
Subjective - Date & Time of Evaluation Date of Evaluation: 12/11/16 Time of Evaluation: 04:00 - Subjective Subjective: Patient has cough ,no sob,no chest pain feels little better,wbc is better will dc isolation,denies any nausea,vomiting,diarrhea or other complaints Objective - Vital Signs/Intake and Output Vital Signs (last 24 hours): Temp Pulse Resp BP Pulse Ox 98.4 F 80 20 112/75 95 12/11/16 15:38 12/11/16 15:38 12/11/16 15:38 12/11/16 15:38 12/11/16 15:38 Intake and Output: 12/11/16 12/12/16 18:59 06:59 Intake Total 940 Balance 940 - Medications Medications: Current Medications Acetaminophen (Tylenol 325mg Tab) 650 mg PO Q6 PRN PRN Reason: Fever >100.4 F Last Admin: 12/09/16 12:06 Dose: 650 mg Enoxaparin Sodium (Lovenox) 40 mg SC DAILY [facility] Last Admin: 12/11/16 09:38 Dose: 40 mg Famotidine (Pepcid) 20 mg PO DAILY [facility] Last Admin: 12/11/16 09:38 Dose: 20 mg Meropenem 1 gm/ Sodium (Chloride) 100 mls @ 100 mls/hr IVPB Q8 [facility] Last Admin: 12/11/16 21:23 Dose: 100 mls/hr Gentamicin Sulfate 80 mg/ (Sodium Chloride) 102 mls @ 100 mls/hr IVPB Q8H [facility] Last Admin: 12/11/16 17:48 Dose: 100 mls/hr Norepinephrine Bitartrate 4 mg (/ Sodium Chloride) 254 mls @ 15.24 mls/hr IV .[id number] PRN; Protocol; 4 MCG/MIN PRN Reason: TITRATE PER MD ORDER Last Titration: 12/09/16 11:00 Dose: 1 mcg/min, 3.81 mls/hr Vancomycin/Sodium Chloride (Vancocin) 1 gm in 200 mls @ 133 mls/hr IVPB Q12H [facility] Stop: 12/14/16 00:01 Last Admin: 12/11/16 11:12 Dose: 133 mls/hr Multivitamins/Vitamin C (Multi-Delyn Liquid) 5 ml PO DAILY [facility] Promethazine HCl/Codeine (Phenergan/Codeine Oral Syrup) 5 ml PO Q4 PRN PRN Reason: Cough Last Admin: 12/11/16 09:42 Dose: 5 ml Saccharomyces Boulardii (Florastor) 250 mg PO BID [facility] Last Admin: 12/11/16 17:49 Dose: 250 mg - Labs Labs: 12/10/16 06:15 12/11/16 07:23 PT 13.8 SECONDS (9.7-12.2) H 12/08/16 09:55 INR 1.2 12/08/16 09:55 APTT 53 SECONDS (21-34) H 12/08/16 09:55 - Constitutional Appears: No Acute Distress - Head Exam Head Exam: ATRAUMATIC, NORMOCEPHALIC Additional comments: alopecia - Eye Exam Eye Exam: Normal appearance, PERRL - ENT Exam ENT Exam: Mucous Membranes Moist - Neck Exam Neck Exam: Normal Inspection - Respiratory Exam Respiratory Exam: Clear to Ausculation Bilateral, NORMAL BREATHING PATTERN - Cardiovascular Exam Cardiovascular Exam: REGULAR RHYTHM, RRR - GI/Abdominal Exam GI & Abdominal Exam: Soft, Normal Bowel Sounds. absent: Bruit, Distended, Firm , Guarding, Rigid, Tenderness, Diminished Bowel Sounds, Hernia, Hyperactive Bowel Sounds, Hypoactive Bowel Sounds, Organomegaly, Pulsatile Mass, Rebound, Mass - Extremities Exam Extremities Exam: Normal Inspection. absent: Calf Tenderness, Full ROM, Joint Swelling, Normal Capillary Refill, Pedal Edema, Tenderness Assessment and Plan (1) Neutropenic fever Assessment & Plan: Fever is decreased on antibiotics and patient is improving will dc isolation and continue present treatment patient cultures are negative so far Status: Acute (2) Pneumonia Assessment & Plan: has findings on xray lung to continue antibiotics and if improves further send on po Levaquin or Avelox Status: Acute (3) Septic shock Assessment & Plan: improved Status: Acute (4) Abdominal pain Status: Acute
[2016-12-12] MEDS: Vancomycin 1 gm/NS 200 ml 1 GM/200 ML BAG IVPB SCH ×2 (00:39→12:45)
[2016-12-12 04:05] VITALS: RESP 20
[2016-12-12] MEDS: Meropenem 1 GM in Sodium Chloride 0.9% 100 ML IVPB SCH ×3 (06:19→22:04)
[2016-12-12 08:12] LABS: ALBUMIN 3.8 g/dL (3.5-5.0)
[2016-12-12 08:15] LABS: ALB/GLOB RATIO 1.2 (1.0-2.1); AST/SGOT 39 U/L (14-36); BLOOD UREA NITROGEN 11 mg/dL (7-17); GFR AFRICAN-AMERICAN > 60; GFR NON-AFRICAN AMERICAN > 60
[2016-12-12 08:16] LABS: ALT/SGPT 43 U/L (9-52)
[2016-12-12] MEDS: Multiple Vitamins Oral Solution PO SCH (10:35)
[2016-12-12] MEDS: Promethazine/Cod 6.25mg-10mg/5ml Syr UD PO PRN (10:35)
[2016-12-12] MEDS: Saccharomyces Boulardi 250 mg Cap PO SCH ×2 (10:35→18:43)
--- NOTE | 2016-12-12 10:48 | CP.PCM.PN ---
<UbaldoMik R - Last Filed: 12/12/16 18:39> Subjective - Date & Time of Evaluation Date of Evaluation: 12/12/16 Time of Evaluation: 10:00 - Subjective Subjective: Patient was seen and examined at bedside. Patient was resting comfortably in bed. She stated she feels much better today. She still has cough with clear sputum production but she states that it's milder today. She denied any other complaints. She denies chest pain, shortness of breath, headache, fever, abdominal pain, chills, nausea, vomiting, diarrhea. Objective - Vital Signs/Intake and Output Vital Signs (last 24 hours): Temp Pulse Resp BP Pulse Ox 97.9 F 71 20 113/71 97 12/12/16 09:50 12/12/16 09:50 12/12/16 09:50 12/12/16 09:50 12/12/16 09:50 Intake and Output: 12/12/16 12/12/16 06:59 18:59 Intake Total 220 Balance 220 - Medications Medications: Current Medications Acetaminophen (Tylenol 325mg Tab) 650 mg PO Q6 PRN PRN Reason: Fever >100.4 F Last Admin: 12/09/16 12:06 Dose: 650 mg Enoxaparin Sodium (Lovenox) 40 mg SC DAILY [facility] Last Admin: 12/11/16 09:38 Dose: 40 mg Famotidine (Pepcid) 20 mg PO DAILY [facility] Last Admin: 12/12/16 10:35 Dose: 20 mg Meropenem 1 gm/ Sodium (Chloride) 100 mls @ 100 mls/hr IVPB Q8 [facility] Last Admin: 12/12/16 06:19 Dose: 100 mls/hr Gentamicin Sulfate 80 mg/ (Sodium Chloride) 102 mls @ 100 mls/hr IVPB Q8H [facility] Last Admin: 12/12/16 10:36 Dose: 100 mls/hr Norepinephrine Bitartrate 4 mg (/ Sodium Chloride) 254 mls @ 15.24 mls/hr IV .[id number] PRN; Protocol; 4 MCG/MIN PRN Reason: TITRATE PER MD ORDER Last Titration: 12/09/16 11:00 Dose: 1 mcg/min, 3.81 mls/hr Vancomycin/Sodium Chloride (Vancocin) 1 gm in 200 mls @ 133 mls/hr IVPB Q12H [facility] Stop: 12/14/16 00:01 Last Admin: 12/12/16 00:39 Dose: 133 mls/hr Multivitamins/Vitamin C (Multi-Delyn Liquid) 5 ml PO DAILY [facility] Last Admin: 12/12/16 10:35 Dose: 5 ml Promethazine HCl/Codeine (Phenergan/Codeine Oral Syrup) 5 ml PO Q4 PRN PRN Reason: Cough Last Admin: 12/12/16 10:35 Dose: 5 ml Saccharomyces Boulardii (Florastor) 250 mg PO BID [facility] Last Admin: 12/12/16 10:35 Dose: 250 mg - Labs Labs: 12/10/16 06:15 12/12/16 07:27 PT 13.8 SECONDS (9.7-12.2) H 12/08/16 09:55 INR 1.2 12/08/16 09:55 APTT 53 SECONDS (21-34) H 12/08/16 09:55 - Constitutional Appears: Well - Head Exam Head Exam: ATRAUMATIC, NORMAL INSPECTION, NORMOCEPHALIC - Eye Exam Eye Exam: EOMI, Normal appearance, PERRL - ENT Exam ENT Exam: Mucous Membranes Moist, Normal Exam - Neck Exam Neck Exam: Full ROM, Normal Inspection. absent: Lymphadenopathy - Respiratory Exam Additional comments: Left Mid to Lower Lung Field Inspiratory Crackles - Cardiovascular Exam Cardiovascular Exam: REGULAR RHYTHM, +S1, +S2. absent: Murmur - GI/Abdominal Exam GI & Abdominal Exam: Soft, Normal Bowel Sounds. absent: Tenderness - Rectal Exam Rectal Exam: Deferred - Extremities Exam Extremities Exam: Full ROM, Normal Capillary Refill, Normal Inspection. absent : Joint Swelling, Pedal Edema - Neurological Exam Neurological Exam: Alert, Awake, Normal Gait, Oriented x3 - Psychiatric Exam Psychiatric exam: Normal Affect, Normal Mood - Skin Skin Exam: Dry, Intact, Normal Color, Warm Assessment and Plan - Assessment and Plan (Free Text) Assessment: (1) Sepsis Assessment & Plan: 12/12: Subjectively much improved. If blood culture remains negative then possible discharge tomorrow. Will discuss discharge abx recs with Dr Villavicencio. 12/11: Nose culture: MRSA negative Final 12/11: Per ID, Dr Villavicencio, if patient continues to improve, can switch to Levaquin po * 12/10: Off neutropenic precautions; Off pressor * Discussed with ICU, patient is medically stable for transfer to the floor when bed is available * Infectious disease (Dr. Villavicencio) on board-->help appreciated * Gentamin sulfate 80mg IV Q 8 hours (active since 12/08/16) * Meropenem 1 gram IV Q 8 hours (active since 12/08/16) * Vancomycin 1gram IV Q 12hours (active since 12/09/16) * Chest Xray (12/09/16): right chest wall port with tip extending to the right atrium. Moderate venous congestion with confluent patchy increasing markings at the lung bases. Linear consolidative changes at the left mid to lower lung zone. Right hilar prominence. Mild cardiomegaly. Degenerative changes in the spine and shoulders. Mild calcific tendinopathy at the right proximal humerus * Lactic acid 1.6-->0.7 * Blood culture (12/08/16): no growth to date * urine culture (12/08/16): no growth (<1000 CFU) * Throat culture: negative, Strep pneumoniae, urine legionella: negative, and mycoplasma Igm: negative, and LDH: elevated * sputum culture: negative * Tylenol 650mg PO Q6 hour PRN pain (2) Pneumonia Assessment & Plan: * 12/10: Off neutropenic precautions; Off pressor * Infectious disease (Dr. Villavicencio) on board-->help appreciated * Gentamin sulfate 80mg IV Q 8 hours (active since 12/08/16) * Meropenem 1 gram IV Q 8 hours (active since 12/08/16) * Vancomycin 1gram IV Q 12hours (active since 12/09/16) * Phenergan w codeine 5ml PO [id number] PRN cough * Chest Xray (12/09/16): right chest wall port with tip extending to the right atrium. Moderate venous congestion with confluent patchy increasing markings at the lung bases. Linear consolidative changes at the left mid to lower lung zone. Right hilar prominence. Mild cardiomegaly. Degenerative changes in the spine and shoulders. Mild calcific tendinopathy at the right proximal humerus (3) Anemia Assessment & Plan: 12/11: FOBT negative * 12/10 Heme-onc (Dr. Junito cheatham) on board-->help appreciated * Patient ordered for reti count, occult blood, ferritin, TIBC, iron, folate, b12 * Discussed with Dr. Cheatham, recommended for 2 units of PRBC for the patient given today's hemoglobin (4) History of gynecologic cancer Assessment & Plan: * 12/10 Heme-onc (Dr. Junito cheatham) on board-->help appreciated * Patient ordered for reti count, occult blood, ferritin, TIBC, iron, folate, b12 * Discussed with Dr. Cheatham, recommended for 2 units of PRBC for the patient given today's hemoglobin * patient is on active chemotherapy prior to admission (5) Electrolyte imbalance Assessment & Plan: * monitor and replete if necessary * hypocalcemic - multivitamin 5mg po daily * protein supplement 3x a day (6) "Dark" stools Assessment & Plan: * 12/10 monitor occult blood. 12/11: FOBT negative * Monitor H/H (7) Prophylactic measure Assessment & Plan: * Lovenox 40mg subq daily for DVT ppx * Florastor 250mg PO bid * Pepcid 20mg PO daily <Tian Choi - Last Filed: 12/12/16 20:37> Objective - Vital Signs/Intake and Output Vital Signs (last 24 hours): Temp Pulse Resp BP Pulse Ox 98.1 F 61 20 101/66 99 12/12/16 17:06 12/12/16 17:06 12/12/16 17:06 12/12/16 17:06 12/12/16 17:06 - Medications Medications: Current Medications Acetaminophen (Tylenol 325mg Tab) 650 mg PO Q6 PRN PRN Reason: Fever >100.4 F Last Admin: 12/09/16 12:06 Dose: 650 mg Enoxaparin Sodium (Lovenox) 40 mg SC DAILY [facility] Last Admin: 12/12/16 11:47 Dose: Not Given Famotidine (Pepcid) 20 mg PO DAILY [facility] Last Admin: 12/12/16 10:35 Dose: 20 mg Meropenem 1 gm/ Sodium (Chloride) 100 mls @ 100 mls/hr IVPB Q8 [facility] Last Admin: 12/12/16 14:50 Dose: 100 mls/hr Norepinephrine Bitartrate 4 mg (/ Sodium Chloride) 254 mls @ 15.24 mls/hr IV .[id number] PRN; Protocol; 4 MCG/MIN PRN Reason: TITRATE PER MD ORDER Last Titration: 12/09/16 11:00 Dose: 1 mcg/min, 3.81 mls/hr Vancomycin/Sodium Chloride (Vancocin) 1 gm in 200 mls @ 133 mls/hr IVPB Q12H [facility] Stop: 12/14/16 00:01 Last Admin: 12/12/16 12:45 Dose: 133 mls/hr Multivitamins/Vitamin C (Multi-Delyn Liquid) 5 ml PO DAILY [facility] Last Admin: 12/12/16 10:35 Dose: 5 ml Promethazine HCl/Codeine (Phenergan/Codeine Oral Syrup) 5 ml PO Q4 PRN PRN Reason: Cough Last Admin: 12/12/16 10:35 Dose: 5 ml Saccharomyces Boulardii (Florastor) 250 mg PO BID [facility] Last Admin: 12/12/16 18:43 Dose: 250 mg - Labs Labs: 12/12/16 11:00 12/12/16 07:27 PT 13.8 SECONDS (9.7-12.2) H 12/08/16 09:55 INR 1.2 12/08/16 09:55 APTT 53 SECONDS (21-34) H 12/08/16 09:55 Attending/Attestation - Attestation I have personally seen and examined this patient.: Yes I have fully participated in the care of the patient.: Yes I have reviewed all pertinent clinical information, including history, physical exam and plan: Yes Notes (Text): 12/12/16 20:36 Patient was seen and examined at 6:30 PM Exam, Assessment and Plan were thoroughly gone over with the Resident. If blood culture is finalized as negative tomorrow and patient remains afebrile , will discharge patient after speaking with ID. Tian Choi D.O.
[2016-12-12 11:08] LABS: BASO % 0.3 % (0.0-2.0); LYMPH # 1.2 K/uL (1.0-4.3); MEAN CORPUSCULAR HEMOGLOBIN 30.8 pg (27.0-31.0); MEAN PLATELET VOLUME 7.7 fL (7.2-11.7); MONO # 0.7 K/uL (0.0-0.8); NEUT % 34.7 % (50.0-75.0); NRBC % 0.2 % (0.0-2.0); PLATELET COUNT 180 K/uL (130-400); RBC 3.75 Mil/uL (3.80-5.20); RED CELL DISTRIBUTION WIDTH 18.9 % (11.5-14.5); WHITE BLOOD COUNT 2.9 K/uL (4.8-10.8)
[2016-12-12 11:15] LABS: HEMOGLOBIN 11.5 g/dL (11.0-16.0); MEAN CELL VOLUME 93.3 fL (81.0-99.0)
[2016-12-12 11:46] LABS: BANDS 2 % (0-2); BASOPHIL 1 % (0-2); EOSINOPHIL 2 % (0-4); LYMPHOCYTE 43 % (20-40); MONOCYTE 29 % (0-10); NEUTROPHIL 23 % (50-75); PLATELET ESTIMATE NORMAL (NORMAL); TOTAL CELLS COUNTED 100
[2016-12-12 11:47] LABS: ANISOCYTOSIS SLIGHT; OVALOCYTES SLIGHT
[2016-12-12] MEDS: Enoxaparin 40 mg Syringe SC SCH (11:47)
[2016-12-13] MEDS: Vancomycin 1 gm/NS 200 ml 1 GM/200 ML BAG IVPB SCH ×2 (00:14→11:18)
[2016-12-13] MEDS: Meropenem 1 GM in Sodium Chloride 0.9% 100 ML IVPB SCH ×2 (05:58→14:36)
[2016-12-13 07:57] LABS: ALBUMIN 3.9 g/dL (3.5-5.0)
[2016-12-13 08:00] LABS: GFR AFRICAN-AMERICAN > 60; GFR NON-AFRICAN AMERICAN > 60
[2016-12-13 08:01] LABS: ALB/GLOB RATIO 1.2 (1.0-2.1); ALT/SGPT 38 U/L (9-52); AST/SGOT 34 U/L (14-36); BLOOD UREA NITROGEN 14 mg/dL (7-17); CALCIUM 9.1 mg/dl (8.6-10.4)
[2016-12-13] MEDS: Saccharomyces Boulardi 250 mg Cap PO SCH ×2 (10:32→17:03)
[2016-12-13] MEDS: Enoxaparin 40 mg Syringe SC SCH ×2 (10:32→10:36)
[2016-12-13] MEDS: Multiple Vitamins Oral Solution PO SCH (10:32)
[2016-12-13] MEDS: Promethazine/Cod 6.25mg-10mg/5ml Syr UD PO PRN ×2 (10:33→14:36)
--- NOTE | 2016-12-13 12:55 | CP.PCM.PN ---
Subjective - Date & Time of Evaluation Date of Evaluation: 12/13/16 Time of Evaluation: 12:20 - Subjective Subjective: Feeling better Objective - Vital Signs/Intake and Output Vital Signs (last 24 hours): Temp Pulse Resp BP Pulse Ox 97.7 F 80 20 114/73 96 12/13/16 08:00 12/13/16 08:00 12/13/16 08:00 12/13/16 08:00 12/13/16 08:00 - Medications Medications: Current Medications Acetaminophen (Tylenol 325mg Tab) 650 mg PO Q6 PRN PRN Reason: Fever >100.4 F Last Admin: 12/09/16 12:06 Dose: 650 mg Enoxaparin Sodium (Lovenox) 40 mg SC DAILY [facility] Last Admin: 12/13/16 10:36 Dose: Not Given Famotidine (Pepcid) 20 mg PO DAILY [facility] Last Admin: 12/13/16 10:32 Dose: 20 mg Meropenem 1 gm/ Sodium (Chloride) 100 mls @ 100 mls/hr IVPB Q8 [facility] Last Admin: 12/13/16 05:58 Dose: 100 mls/hr Norepinephrine Bitartrate 4 mg (/ Sodium Chloride) 254 mls @ 15.24 mls/hr IV .[id number] PRN; Protocol; 4 MCG/MIN PRN Reason: TITRATE PER MD ORDER Last Titration: 12/09/16 11:00 Dose: 1 mcg/min, 3.81 mls/hr Vancomycin/Sodium Chloride (Vancocin) 1 gm in 200 mls @ 133 mls/hr IVPB Q12H [facility] Stop: 12/14/16 00:01 Last Admin: 12/13/16 11:18 Dose: 133 mls/hr Multivitamins (Hexavitamin) 1 tab PO DAILY [facility] Promethazine HCl/Codeine (Phenergan/Codeine Oral Syrup) 5 ml PO Q4 PRN PRN Reason: Cough Last Admin: 12/13/16 10:33 Dose: 5 ml Saccharomyces Boulardii (Florastor) 250 mg PO BID [facility] Last Admin: 12/13/16 10:32 Dose: 250 mg - Labs Labs: 12/12/16 11:00 12/13/16 07:35 PT 13.8 SECONDS (9.7-12.2) H 12/08/16 09:55 INR 1.2 12/08/16 09:55 APTT 53 SECONDS (21-34) H 12/08/16 09:55 - Head Exam Head Exam: ATRAUMATIC - Eye Exam Eye Exam: Normal appearance - ENT Exam ENT Exam: Mucous Membranes Dry - Respiratory Exam Respiratory Exam: NORMAL BREATHING PATTERN - Cardiovascular Exam Cardiovascular Exam: +S1, +S2 - GI/Abdominal Exam GI & Abdominal Exam: Normal Bowel Sounds - Extremities Exam Extremities Exam: Normal Inspection Assessment and Plan (1) Neutropenic fever Assessment & Plan: on antibiotics Status: Acute (2) Neutropenia Assessment & Plan: improving Status: Acute (3) Anemia Assessment & Plan: secondary to chemotherapy Status: Acute (4) Coagulopathy Assessment & Plan: nutritional Status: Acute (5) Gynecologic cancer Assessment & Plan: s/p surgery on adjuvant chemotherapy Status: Acute
--- NOTE | 2016-12-13 14:20 | CP.PCM.PN ---
Subjective - Date & Time of Evaluation Date of Evaluation: 12/13/16 Time of Evaluation: 01:40 - Subjective Subjective: feels better,no new complaints Objective - Vital Signs/Intake and Output Vital Signs (last 24 hours): Temp Pulse Resp BP Pulse Ox 97.7 F 80 20 114/73 96 12/13/16 08:00 12/13/16 13:00 12/13/16 08:00 12/13/16 08:00 12/13/16 13:00 - Medications Medications: Current Medications Acetaminophen (Tylenol 325mg Tab) 650 mg PO Q6 PRN PRN Reason: Fever >100.4 F Last Admin: 12/09/16 12:06 Dose: 650 mg Enoxaparin Sodium (Lovenox) 40 mg SC DAILY [facility] Last Admin: 12/13/16 10:36 Dose: Not Given Famotidine (Pepcid) 20 mg PO DAILY [facility] Last Admin: 12/13/16 10:32 Dose: 20 mg Meropenem 1 gm/ Sodium (Chloride) 100 mls @ 100 mls/hr IVPB Q8 [facility] Last Admin: 12/13/16 05:58 Dose: 100 mls/hr Norepinephrine Bitartrate 4 mg (/ Sodium Chloride) 254 mls @ 15.24 mls/hr IV .[id number] PRN; Protocol; 4 MCG/MIN PRN Reason: TITRATE PER MD ORDER Last Titration: 12/09/16 11:00 Dose: 1 mcg/min, 3.81 mls/hr Vancomycin/Sodium Chloride (Vancocin) 1 gm in 200 mls @ 133 mls/hr IVPB Q12H [facility] Stop: 12/14/16 00:01 Last Admin: 12/13/16 11:18 Dose: 133 mls/hr Multivitamins (Hexavitamin) 1 tab PO DAILY [facility] Promethazine HCl/Codeine (Phenergan/Codeine Oral Syrup) 5 ml PO Q4 PRN PRN Reason: Cough Last Admin: 12/13/16 10:33 Dose: 5 ml Saccharomyces Boulardii (Florastor) 250 mg PO BID [facility] Last Admin: 12/13/16 10:32 Dose: 250 mg - Labs Labs: 12/12/16 11:00 12/13/16 07:35 PT 13.8 SECONDS (9.7-12.2) H 12/08/16 09:55 INR 1.2 12/08/16 09:55 APTT 53 SECONDS (21-34) H 12/08/16 09:55 - Constitutional Appears: No Acute Distress - Head Exam Head Exam: ATRAUMATIC, NORMOCEPHALIC - Eye Exam Eye Exam: Normal appearance Pupil Exam: NORMAL ACCOMODATION - ENT Exam ENT Exam: Normal Exam - Neck Exam Neck Exam: Normal Inspection - Respiratory Exam Respiratory Exam: Clear to Ausculation Bilateral - Cardiovascular Exam Cardiovascular Exam: REGULAR RHYTHM, RRR - GI/Abdominal Exam GI & Abdominal Exam: Normal Bowel Sounds - Extremities Exam Extremities Exam: Normal Inspection - Skin Skin Exam: Normal Color Assessment and Plan (1) Neutropenic fever Status: Acute (2) Pneumonia Status: Acute (3) Septic shock Status: Acute (4) Abdominal pain Status: Acute - Assessment and Plan (Free Text) Assessment: patient doing well will dc iv antibioutics place on Avelox 400mg po for 5 days ,start avelox here
[2016-12-13 14:58] LABS: BASO % 0.7 % (0.0-2.0); EOS % 0.9 % (0.0-4.0); HEMOGLOBIN 11.8 g/dL (11.0-16.0); LYMPH # 1.5 K/uL (1.0-4.3); LYMPH % 48.4 % (20.0-40.0); MEAN CELL VOLUME 94.8 fL (81.0-99.0); MEAN CORPUSCULAR HEMOGLOBIN 31.4 pg (27.0-31.0); MEAN CORPUSCULAR HGB CONC 33.1 g/dL (33.0-37.0); MEAN PLATELET VOLUME 7.6 fL (7.2-11.7); MONO # 0.7 K/uL (0.0-0.8); MONO % 21.6 % (0.0-10.0); NEUT # 0.9 K/uL (1.8-7.0); NEUT % 28.4 % (50.0-75.0); NRBC % 0.1 % (0.0-2.0); PLATELET COUNT 186 K/uL (130-400); RBC 3.76 Mil/uL (3.80-5.20); RED CELL DISTRIBUTION WIDTH 19.1 % (11.5-14.5)
[2016-12-13 15:18] LABS: ANISOCYTOSIS SLIGHT; EOSINOPHIL 2 % (0-4); LYMPHOCYTE 65 % (20-40); MONOCYTE 8 % (0-10); NEUTROPHIL 25 % (50-75); PLATELET ESTIMATE NORMAL (NORMAL); TOTAL CELLS COUNTED 100
--- NOTE | 2016-12-13 15:33 | CP.PCM.DIS ---
Provider - Provider Date of Admission: 12/08/16 12:12 Attending physician: Tian Choi MD Primary care physician: Dr. Clementine Rodriguez Consults: Hematology Dr. Collin Cheatham ID Dr. Villavicencio Time Spent in preparation of Discharge (in minutes): 40 Hospital Course - Lab Results Lab Results: Micro Results 12/11/16 06:00 Nose MRSA Culture - Final MRSA NOT DETECTED 12/09/16 Unknown Throat Group A Strep Throat Culture - Final NO BETA STREP GROUP A ISOLATED. 12/09/16 Unknown Sputum Gram Stain - Final 12/09/16 Unknown Sputum Sputum Culture - Final NORMAL ORAL MICH 12/08/16 21:00 Naris MRSA Culture (Admit) - Final MRSA NOT DETECTED Most Recent Lab Values WBC 3.0 K/uL (4.8-10.8) L 12/13/16 14:53 RBC 3.76 Mil/uL (3.80-5.20) L 12/13/16 14:53 Hgb 11.8 g/dL (11.0-16.0) 12/13/16 14:53 Hct 35.6 % (34.0-47.0) 12/13/16 14:53 MCV 94.8 fL (81.0-99.0) 12/13/16 14:53 MCH 31.4 pg (27.0-31.0) H 12/13/16 14:53 MCHC 33.1 g/dL (33.0-37.0) 12/13/16 14:53 RDW 19.1 % (11.5-14.5) H 12/13/16 14:53 Plt Count 186 K/uL (130-400) 12/13/16 14:53 MPV 7.6 fL (7.2-11.7) 12/13/16 14:53 Neut % (Auto) 28.4 % (50.0-75.0) L 12/13/16 14:53 Lymph % (Auto) 48.4 % (20.0-40.0) H 12/13/16 14:53 Dare % (Auto) 21.6 % (0.0-10.0) H 12/13/16 14:53 Eos % (Auto) 0.9 % (0.0-4.0) 12/13/16 14:53 Baso % (Auto) 0.7 % (0.0-2.0) 12/13/16 14:53 Neut # 0.9 K/uL (1.8-7.0) L 12/13/16 14:53 Lymph # 1.5 K/uL (1.0-4.3) 12/13/16 14:53 Dare # 0.7 K/uL (0.0-0.8) 12/13/16 14:53 Eos # 0.0 K/uL (0.0-0.7) 12/13/16 14:53 Baso # 0.0 K/uL (0.0-0.2) 12/13/16 14:53 Total Counted Cancelled 12/08/16 09:55 Neutrophils % (Manual) 25 % (50-75) L 12/13/16 14:53 Band Neutrophils % 2 % (0-2) 12/12/16 11:00 Lymphocytes % (Manual) 65 % (20-40) H 12/13/16 14:53 Reactive Lymphs % Cancelled 12/08/16 09:55 Monocytes % (Manual) 8 % (0-10) 12/13/16 14:53 Eosinophils % (Manual) 2 % (0-4) 12/13/16 14:53 Basophils % (Manual) 1 % (0-2) 12/12/16 11:00 Metamyelocytes % Cancelled 12/08/16 09:55 Myelocytes % Cancelled 12/08/16 09:55 Promyelocytes % Cancelled 12/08/16 09:55 Blast Cells % Cancelled 12/08/16 09:55 Plasma Cell % (Manual) Cancelled 12/08/16 09:55 Nucleated RBC % Cancelled 12/08/16 09:55 Hypersegmented Polys Cancelled 12/08/16 09:55 Smudge Cells Cancelled 12/08/16 09:55 Toxic Granulation Cancelled 12/08/16 09:55 Dohle Bodies Cancelled 12/08/16 09:55 Daniel Rods Cancelled 12/08/16 09:55 Platelet Estimate Normal (NORMAL) 12/13/16 14:53 Plt Clumps, EDTA Cancelled 12/08/16 09:55 Large Platelets Cancelled 12/08/16 09:55 Giant Platelets Cancelled 12/08/16 09:55 RBC Morphology Cancelled 12/08/16 09:55 Polychromasia Cancelled 12/08/16 09:55 Hypochromasia (manual) Cancelled 12/08/16 09:55 Poikilocytosis (manual Cancelled 12/08/16 09:55 Basophilic Stippling Cancelled 12/08/16 09:55 Anisocytosis (manual) Slight 12/13/16 14:53 Microcytosis (manual) Cancelled 12/08/16 09:55 Macrocytosis (manual) Cancelled 12/08/16 09:55 Spherocytes Cancelled 12/08/16 09:55 Sickle Cells Cancelled 12/08/16 09:55 Target Cells Cancelled 12/08/16 09:55 Tear Drop Cells Cancelled 12/08/16 09:55 Ovalocytes Slight 12/12/16 11:00 Stomatocytes Cancelled 12/08/16 09:55 Helmet Cells Cancelled 12/08/16 09:55 [place] Bodies Cancelled 12/08/16 09:55 [place] Cells Cancelled 12/08/16 09:55 Acanthocytes (Spur) Cancelled 12/08/16 09:55 Rouleaux Cancelled 12/08/16 09:55 Schistocytes Cancelled 12/08/16 09:55 Retic Count 2.6 % (0.5-1.5) H D 12/10/16 12:17 Haptoglobin 167 mg/dL (43-212) 12/10/16 12:17 PT 13.8 SECONDS (9.7-12.2) H 12/08/16 09:55 INR 1.2 12/08/16 09:55 APTT 53 SECONDS (21-34) H 12/08/16 09:55 pO2 39 mm/Hg (30-55) 12/08/16 12:55 VBG pH 7.35 (7.32-7.43) 12/08/16 12:55 VBG pCO2 40 mmHg (40-60) 12/08/16 12:55 VBG HCO3 21.6 mmol/L 12/08/16 12:55 VBG Total CO2 23.3 mmol/L (22-28) 12/08/16 12:55 VBG O2 Sat (Calc) 77.7 % (40-65) H 12/08/16 12:55 VBG Base Excess -3.3 mmol/L (0.0-2.0) L 12/08/16 12:55 VBG Potassium 3.3 mmol/L (3.6-5.2) L 12/08/16 12:55 Sodium 141.0 mmol/l (132-148) 12/08/16 12:55 Chloride 116.0 mmol/L (98-107) H 12/08/16 12:55 Glucose 128 mg/dl (65-105) H 12/08/16 12:55 Lactate 0.7 mmol/L (0.7-2.1) 12/08/16 12:55 Sodium 140 mmol/L (132-148) 12/13/16 07:35 Potassium 4.0 mmol/L (3.6-5.2) 12/13/16 07:35 Chloride 106 mmol/L (98-107) 12/13/16 07:35 Carbon Dioxide 25 mmol/L (22-30) 12/13/16 07:35 Anion Gap 14 (10-20) 12/13/16 07:35 BUN 14 mg/dL (7-17) 12/13/16 07:35 Creatinine 0.5 MG/DL (0.7-1.2) L 12/13/16 07:35 Est GFR ( Amer) > 60 12/13/16 07:35 Est GFR (Non-Af Amer) > 60 12/13/16 07:35 Random Glucose 92 mg/dL (65-105) 12/13/16 07:35 Calcium 9.1 mg/dl (8.6-10.4) 12/13/16 07:35 Phosphorus 2.7 mg/dL (2.5-4.5) 12/10/16 06:15 Magnesium 1.8 mg/dL (1.6-2.3) 12/11/16 07:23 Iron 55 ug/dL (37-170) 12/10/16 12:17 TIBC 230 ug/dL (250-450) L 12/10/16 12:17 % Saturation 24 (20-55) 12/10/16 12:17 Total Bilirubin 0.6 mg/dL (0.2-1.3) 12/13/16 07:35 AST 34 U/L (14-36) 12/13/16 07:35 ALT 38 U/L (9-52) 12/13/16 07:35 Alkaline Phosphatase 85 U/L (38-126) 12/13/16 07:35 Lactate Dehydrogenase 622 U/L (313-618) H 12/09/16 11:17 Total Protein 7.1 g/dL (6.3-8.3) 12/13/16 07:35 Albumin 3.9 g/dL (3.5-5.0) 12/13/16 07:35 Globulin 3.2 gm/dL (2.2-3.9) 12/13/16 07:35 Albumin/Globulin Ratio 1.2 (1.0-2.1) 12/13/16 07:35 Vitamin B12 > 1000 pg/mL (239-931) H 12/10/16 12:17 Folate > 20.0 ng/mL 12/10/16 12:17 Procalcitonin 0.11 NG/ML (0.19-0.49) L 12/09/16 09:04 Venous Blood Potassium 3.3 mmol/L (3.6-5.2) L 12/08/16 12:55 Urine Color Yellow (YELLOW) 12/08/16 10:58 Urine Clarity Clear (Clear) 12/08/16 10:58 Urine pH 5.0 (5.0-8.0) 12/08/16 10:58 Ur Specific [place] 1.006 (1.003-1.030) 12/08/16 10:58 Urine Protein Negative mg/dL (NEGATIVE) 12/08/16 10:58 Urine Glucose (UA) Normal mg/dL (Normal) 12/08/16 10:58 Urine Ketones Negative mg/dL (NEGATIVE) 12/08/16 10:58 Urine Blood Negative (NEGATIVE) 12/08/16 10:58 Urine Nitrate Negative (NEGATIVE) 12/08/16 10:58 Urine Bilirubin Negative (NEGATIVE) 12/08/16 10:58 Urine Urobilinogen Normal mg/dL (0.2-1.0) 12/08/16 10:58 Ur Leukocyte Esterase Neg Sher[place]/uL (Negative) 12/08/16 10:58 Urine WBC (Auto) 2 /hpf (0-5) 12/08/16 10:58 Urine RBC (Auto) < 1 /hpf (0-3) 12/08/16 10:58 Stool Occult Blood Negative (NEGATIVE) 12/10/16 22:39 Vancomycin Trough 12.7 ug/mL (5.0-10.0) H 12/10/16 11:10 HIV 1&2 Antibody Screen Negative (NEGATIVE) 12/09/16 11:17 Ur L.pneumophila Ag Negative (NEGATIVE) 12/09/16 12:30 Mycoplasma pneumon IgM Negative (NEGATIVE) 12/09/16 11:17 Blood Type B POSITIVE 12/10/16 12:17 Antibody Screen Negative 12/10/16 12:17 - Hospital Course Hospital Course: Very pleasant 51 year old female who presented to the emergency room 12/08/16 while getting chemotherapy infusion at [facility] and was sent to the emergency room for elevated temperature. Patient stated she has been having a fever off and on since Sunday12/06/16 and has been treating herself with Tylenol and Motrin which has been lowering her temperature. The highest temperature she had on Sunday was a 104.7 degrees. Patient stated she has been having a dry cough with no phlegm. Patient stated she only had shortness of breath when she was receiving antibiotics here in the emergency room but otherwise she denies shortness of breath. She was found to be Neutropenic and with Pneumonia. Please see individual Assessment and Plans below for further details. ROS: Currently complains of a cough occasionally productive of white material NO other complaints upon FULL ROS - Constitutional Appears: Well - Head Exam Head Exam: ATRAUMATIC, NORMAL INSPECTION, NORMOCEPHALIC - Eye Exam Eye Exam: EOMI, Normal appearance, PERRL - ENT Exam ENT Exam: Mucous Membranes Moist, Normal Exam - Neck Exam Neck Exam: Full ROM, Normal Inspection. absent: Lymphadenopathy - Respiratory Exam Additional comments: Left Mid to Lower Lung Field Inspiratory Crackles - Cardiovascular Exam Cardiovascular Exam: REGULAR RHYTHM, +S1, +S2. absent: Murmur - GI/Abdominal Exam GI & Abdominal Exam: Soft, Normal Bowel Sounds. absent: Tenderness - Rectal Exam Rectal Exam: Deferred - Extremities Exam Extremities Exam: Full ROM, Normal Capillary Refill, Normal Inspection. absent : Joint Swelling, Pedal Edema - Neurological Exam Neurological Exam: Alert, Awake, Normal Gait, Oriented x3 - Psychiatric Exam Psychiatric exam: Normal Affect, Normal Mood - Skin Skin Exam: Dry, Intact, Normal Color, Warm Assessment and Plan - Assessment and Plan (Free Text) Assessment: (1) Sepsis Assessment & Plan: 12/13: Blood cultures remain negative. NO fever. Spoke with ID Dr. Villavicencio and will discharge patient on Avelox 400 mg 1 tablet by mouth 2x/day starting on 12/14/16 for 5 days. She will also be given Rx for Promethazine/Codeine (6.25 mg/10 mg) 5ml PO every 6 hours PRN Cough. 12/12: Subjectively much improved. If blood culture remains negative then possible discharge tomorrow. Will discuss discharge abx recs with Dr Villavicencio. 12/11: Nose culture: MRSA negative Final 12/11: Per ID, Dr Villavicencio, if patient continues to improve, can switch to Levaquin po * 12/10: Off neutropenic precautions; Off pressor * Discussed with ICU, patient is medically stable for transfer to the floor when bed is available * Infectious disease (Dr. Villavicencio) on board-->help appreciated * Gentamin sulfate 80mg IV Q 8 hours (active since 12/08/16) * Meropenem 1 gram IV Q 8 hours (active since 12/08/16) * Vancomycin 1gram IV Q 12hours (active since 12/09/16) * Chest Xray (12/09/16): right chest wall port with tip extending to the right atrium. Moderate venous congestion with confluent patchy increasing markings at the lung bases. Linear consolidative changes at the left mid to lower lung zone. Right hilar prominence. Mild cardiomegaly. Degenerative changes in the spine and shoulders. Mild calcific tendinopathy at the right proximal humerus * Lactic acid 1.6-->0.7 * Blood culture (12/08/16): no growth to date * urine culture (12/08/16): no growth (<1000 CFU) * Throat culture: negative, Strep pneumoniae, urine legionella: negative, and mycoplasma Igm: negative, and LDH: elevated * sputum culture: negative * Tylenol 650mg PO Q6 hour PRN pain (2) Pneumonia Assessment & Plan: 12/13: Spoke with ID Dr. Villavicencio and will discharge patient on Avelox 400 mg 1 tablet by mouth 2x/day starting on 12/14/16 for 5 days. She will also be given Rx for Promethazine/Codeine (6.25 mg/10 mg) 5ml PO every 6 hours PRN Cough. * 12/10: Off neutropenic precautions; Off pressor * Infectious disease (Dr. Villavicencio) on board-->help appreciated * Gentamin sulfate 80mg IV Q 8 hours (active since 12/08/16) * Meropenem 1 gram IV Q 8 hours (active since 12/08/16) * Vancomycin 1gram IV Q 12hours (active since 12/09/16) * Phenergan w codeine 5ml PO [id number] PRN cough * Chest Xray (12/09/16): right chest wall port with tip extending to the right atrium. Moderate venous congestion with confluent patchy increasing markings at the lung bases. Linear consolidative changes at the left mid to lower lung zone. Right hilar prominence. Mild cardiomegaly. Degenerative changes in the spine and shoulders. Mild calcific tendinopathy at the right proximal humerus (3) Anemia Assessment & Plan: 12/13: HgB/Hct stable 12/11: FOBT negative * 12/10 Heme-onc (Dr. Junito cheatham) on board-->help appreciated * Patient ordered for reti count, occult blood, ferritin, TIBC, iron, folate, b12 * Discussed with Dr. Cheatham, recommended for 2 units of PRBC for the patient given today's hemoglobin (4) History of gynecologic cancer Assessment & Plan: 12/13: will need to follow up with Dr. Junito Cheatham as outpatient * 12/10 Heme-onc (Dr. Junito cheatham) on board-->help appreciated * Patient ordered for reti count, occult blood, ferritin, TIBC, iron, folate, b12 * Discussed with Dr. Cheatham, recommended for 2 units of PRBC for the patient given today's hemoglobin * patient is on active chemotherapy prior to admission (5) Electrolyte imbalance Assessment & Plan: * monitor and replete if necessary * hypocalcemic - multivitamin 5mg po daily * protein supplement 3x a day (6) "Dark" stools Assessment & Plan: * 12/10 monitor occult blood. 12/11: FOBT negative * Monitor H/H (7) Prophylactic measure Assessment & Plan: * Lovenox 40mg subq daily for DVT ppx * Florastor 250mg PO bid * Pepcid 20mg PO daily The following instructions were explained to patient and a copy of this discharge summary: 1). Schedule follow up with Dr. Spring at the [facility] on Floor [address] [phone] in 7 days. 2). Schedule follow up with Dr. Collin Cheatham. Please call his office to schedule this follow up. 3). Please have the following prescriptions filled at your pharmacy: Avelox 400 mg, 1 tablet by mouth 2x/day (breakfast and dinner) starting on , #10 Promethazine/Codeine (6.25mg/10mg), 5 ml by mouth every 6 hours as needed for cough, #125 ml 4). Please take an over the counter (you do not need a prescription) probiotic at lunch time for the next 35 days. You can ask your pharmacist which one he recommends. 5). Please take care. Tian Choi D.O. Discharge Exam - Head Exam Head Exam: ATRAUMATIC, NORMOCEPHALIC Discharge Plan - Follow Up Plan Condition: GUARDED Disposition: HOME/ ROUTINE Instructions: Neutropenia (DC), Pneumonia (DC)
[2016-12-13 15:59] VITALS: BP 117/57; PULSE 76; TEMP 97.9; O2SAT 98
[2016-12-14] MEDS ORDERED: Multiple Vitamins Tab PO SCH (10:00)
== END 2016-12-13 17:07 | disposition home or self-care (01) | DRG 584 ==
LOC: C.ER 09:01 → C.9E 12:12 → C.9I 15:45 → C.5T 12-11 01:36
PROVIDERS: ADMIT Family Medicine; ATTEND Family Medicine
DX: A41.9 Sepsis, unspecified organism (principal); J18.9 Pneumonia, unspecified organism; R65.21 Severe sepsis with septic shock; R18.0 Malignant ascites; D61.818 Other pancytopenia; D68.9 Coagulation defect, unspecified; C56.9 Malignant neoplasm of unspecified ovary; I51.7 Cardiomegaly; R50.81 Fever presenting with conditions classified elsewhere; T45.1X5A Adverse effect of antineoplastic and immunosuppressive drugs, initial encounter; C53.9 Malignant neoplasm of cervix uteri, unspecified; D70.1 Agranulocytosis secondary to cancer chemotherapy; Z90.710 Acquired absence of both cervix and uterus

== ENCOUNTER 2017-06-26 11:16 | Emergency (ER) | payer OTHER ==
[2017-06-26 11:16] VITALS: BMI 21.9
[2017-06-26 12:26] LABS: HCG,QUALITATIVE URINE NEGATIVE (NEGATIVE)
--- NOTE | 2017-06-26 12:26 | C.PDOC ---
History Of Present Illness 51 year old female with PMHx of ovarian cancer presents to the ED c/o on and off left lower abdominal pain associated with urinary hesitation for the past week. Patient also c/o right rib pain that worsens with movement and certain positions for the past 1 day. Patient reports her last chemotherapy session was on January of 2017. Patient denies nausea, vomit, fever, cough, CP, SOB, vaginal bleeding, vaginal discharge. Time Seen by Provider: 06/26/17 12:10 Chief Complaint (Nursing): Abdominal Pain History Per: Patient History/Exam Limitations: no limitations Onset/Duration Of Symptoms: Days Current Symptoms Are (Timing): Still Present Location Of Pain/Discomfort: LUQ, LLQ Radiation Of Pain To:: Back Quality Of Discomfort: "Pain" Associated Symptoms: Back Pain, Urinary Symptoms. denies: Fever, Chills, Nausea , Vomiting Exacerbating Factors: None Alleviating Factors: None Recent travel outside of the [place]: No Additional History Per: Patient Abnormal Vaginal Bleeding: No Past Medical History Reviewed: Historical Data, Nursing Documentation, Vital Signs Vital Signs: Last Vital Signs Temp 98 F 06/26/17 11:18 Pulse 68 06/26/17 14:06 Resp 16 06/26/17 14:06 BP 107/68 06/26/17 14:06 Pulse Ox 99 06/26/17 16:44 - Medical History PMH: Denies: Chronic Kidney Disease Other PMH: Ovarian cancer Surgical History: No Surg Hx - [facility] Procedures DRAINAGE OF PERITONEAL CAVITY, PERCUTANEOUS APPROACH, DIAGN (05/12/16) INSERT INFUSION DEV IN R INT JUGULAR VEIN, PERC (05/12/16) INSERTION OF VAD INTO CHEST SUBCU/FASCIA, OPEN APPROACH (05/12/16) ULTRASONOGRAPHY OF RIGHT JUGULAR VEINS, GUIDANCE (05/12/16) Family History: States: Unknown Family Hx - Social History Hx Alcohol Use: No Hx Substance Use: No - Immunization History Hx Tetanus Toxoid Vaccination: No Hx Influenza Vaccination: No Hx Pneumococcal Vaccination: No Review Of Systems Constitutional: Negative for: Fever, Chills Cardiovascular: Positive for: Chest Pain. Negative for: Palpitations Respiratory: Negative for: Cough, Shortness of Breath Gastrointestinal: Positive for: Abdominal Pain. Negative for: Nausea, Vomiting Genitourinary: Positive for: Other (urinary hesitation). Negative for: Dysuria , Hematuria Musculoskeletal: Positive for: Back Pain Skin: Negative for: Rash Neurological: Negative for: Weakness, Numbness, Headache Physical Exam - Physical Exam Appears: Non-toxic, No Acute Distress Skin: Normal Color, Warm, Dry Head: Atraumatic, Normacephalic Eye(s): bilateral: Normal Inspection Nose: No Discharge, No Deformity Oral Mucosa: Moist Neck: Normal ROM, Supple Chest: Symmetrical, Tenderness (right lateral chest wall) Cardiovascular: Rhythm Regular, No Murmur Respiratory: Normal Breath Sounds, No Rales, No Rhonchi, No Wheezing Gastrointestinal/Abdominal: Soft, Tenderness (LLQ), No Guarding, No Rebound Back: CVA Tenderness (mild left) Extremity: Normal ROM, No Pedal Edema, No Calf Tenderness, No Deformity, No Swelling Neurological/Psych: Oriented x3, Normal Speech, Normal Cognition Gait: Steady ED Course And Treatment - Laboratory Results Result Diagrams: 06/26/17 13:14 06/26/17 13:14 ECG: Interpreted By Me, Viewed By Me ECG Rhythm: Sinus Rhythm Interpretation Of ECG: NSR 66 BPM with normal intervals, normal axis, NO ST or T wave abnormalities Rate From EC O2 Sat by Pulse Oximetry: 99 (On RA) Pulse Ox Interpretation: Normal - Radiology CXR: Viewed By Me, Read By Radiologist CXR Interpretation: Yes: Other (Right-sided MediPort. Linear atelectasis, left lung base.). No: No Acute Disease, Infiltrates - CT Scan/US CT abd/pelvis Other Rad Studies (CT/US): Read By Radiologist, Radiology Report Reviewed CT/US Interpretation: FINDINGS: There is limited evaluation of the solid organs without the administration of IV contrast. LOWER THORAX: Minimal basilar atelectasis. No visible pleural effusion or pneumothorax. LIVER: Too small to characterize hepatic hypodensities. GALLBLADDER AND BILE DUCTS: Unremarkable unenhanced appearance. PANCREAS: Unremarkable unenhanced appearance. SPLEEN: Unremarkable unenhanced appearance. ADRENALS: Unremarkable unenhanced appearance. KIDNEYS AND URETERS: Mild left-sided hydronephrosis/hydroureter without obstructing calculus identified. No left- sided hydronephrosis or obstructing calculus evident. BLADDER: Thick-walled under distended urinary bladder. REPRODUCTIVE: Uterus is not identified presumably due to hysterectomy. APPENDIX: The appendix appears within normal limits of caliber. No secondary signs of acute appendicitis. BOWEL: The stomach is nondistended. Lack of oral contrast limits evaluation for bowel pathology. No evidence of bowel obstruction. Moderate diffuse constipation. Marked wall thickening of the rectosigmoid colon; correlate clinically for colitis (i.e. Infectious, inflammatory, ischemic). PERITONEUM: No significant free fluid. No definite free air. LYMPH NODES: No bulky lymphadenopathy identified. VASCULATURE: No aortic aneurysm. BONES: 12 mm lucent lesion in the show T11 vertebral body, possibly hemangioma. OTHER FINDINGS: None. IMPRESSION: Marked wall thickening of the rectosigmoid colon; correlate clinically for colitis (i.e. Infectious, inflammatory, ischemic). Thick-walled under distended urinary bladder. Recommend correlation with urinalysis. Mild left-sided hydronephrosis/hydroureter without obstructing calculus identified. Too small to characterize hepatic hypodensities. Additional findings as above. Chest CTA Other Rad Studies (CT/US): Read By Radiologist, Radiology Report Reviewed CT/US Interpretation: CTA chest PE protocol. Indication: Chest pain and elevated D-dimer. Technique: Contiguous axial images were obtained through the chest with intravenous contrast enhancement. Sagittal and coronal reconstructions were generated and reviewed. This CT exam was performed using 1 or more of the following dose reduction techniques: Automated exposure control , adjustment of the MAA and/or kV according to patient size, and/or use of iterative reconstruction technique. IV Contrast: 100 mL Visipaque. . Radiation dose (DLP): 145.16 MGy-cm. Comparison: None available. Findings: Right-sided MediPort extends the SVC. Visualized portions of the inferior thyroid gland appear unremarkable. The mediastinal and hilar vascular structures appear within normal limits. The heart appears within normal limits of size. Ascending aorta measures approximately 3.6 cm in AP dimension. No large central or segmental pulmonary embolus evident. Mild left basilar atelectasis. No focal consolidation. No pleural effusion. No pneumothorax. No suspicious pulmonary nodules measuring greater than 5 mm. Limited visualized portions of the upper abdomen demonstrates left-sided hydronephrosis/ hydroureter. Too small to characterize hepatic hypodensities. 12 mm lucent lesion in the show T11 vertebral body, possibly hemangioma. Impression: No large central or segmental pulmonary embolus identified. Findings as above. Medical Decision Making Medical Decision Making: Impression : abdominal pain/ rigth chest wall pain, urinary hesitation Plan: * CT abd/pelvis * EKG * Labs * CXR * Toradol 30 mg IVP * Urine culture * UA Disposition Counseled Patient/Family Regarding: Studies Performed, Diagnosis, Need For Followup, Rx Given - Disposition Disposition: HOME/ ROUTINE Disposition Time: 16:41 Condition: STABLE Additional Instructions: follow up with your doctor in 2 days call to make an appointment take medications as prescribed return to ER if symptoms worsens or progress Prescriptions: Ciprofloxacin HCl [Cipro] 500 mg PO BID #20 tab Metronidazole [Flagyl] 500 mg PO BID #20 tablet Naproxen [Naprosyn] 500 mg PO BID PRN #16 tab PRN Reason: Pain, Moderate (4-7) traMADol [Ultram] 50 mg PO TID PRN #12 tab PRN Reason: Pain, Moderate (4-7) Instructions: Colitis (ED) Forms: [facility] (Japanese), General Discharge Instructions - Clinical Impression Clinical Impression: Colitis - Scribe Statement The provider has reviewed the documentation as recorded by the Scribjuventino Castañeda All medical record entries made by the Netoibjuventino were at my direction and personally dictated by me. I have reviewed the chart and agree that the record accurately reflects my personal performance of the history, physical exam, medical decision making, and the department course for this patient. I have also personally directed, reviewed, and agree with the discharge instructions and disposition.
[2017-06-26 12:27] LABS: SQUAMOUS EPITHIAL < 1 /hpf (0-5); URINE BILIRUBIN NEGATIVE (NEGATIVE); URINE BLOOD NEGATIVE (NEGATIVE); URINE CLARITY Clear (Clear); URINE COLOR Yellow (YELLOW); URINE GLUCOSE (UA) NORMAL (Normal); URINE LEUKOCYTE ESTERASE NEG Leu/uL (Negative); URINE NITRATE NEGATIVE (NEGATIVE); URINE PROTEIN NEGATIVE (NEGATIVE); URINE UROBILINOGEN NORMAL mg/dL (0.2-1.0)
--- NOTE | 2017-06-26 12:56 | RAD ---
HISTORY: abd pain COMPARISON: Chest x-ray performed 01/11/17 TECHNIQUE: Chest PA and lateral FINDINGS: Right-sided MediPort extends expected location of the cavoatrial junction. LUNGS: Linear atelectasis, left lung base. No focal consolidation. Please note that chest x-ray has limited sensitivity for the detection of pulmonary masses. PLEURA: No significant pleural effusion identified. No definite pneumothorax . CARDIOVASCULAR: Heart size appears top normal. Atherosclerotic calcifications of the aortic knob. OSSEOUS STRUCTURES: No acute osseous abnormality identified. VISUALIZED UPPER ABDOMEN: Unremarkable. OTHER FINDINGS: None. IMPRESSION: Right-sided MediPort. Linear atelectasis, left lung base.
--- NOTE | 2017-06-26 13:19 | CT ---
PROCEDURE: CT Abdomen and Pelvis without Oral or IV contrast. HISTORY: abd pain COMPARISON: CT of the chest, abdomen, and pelvis with IV contrast performed 07/17/16 TECHNIQUE: Contiguous axial images of the abdomen and pelvis. No oral or IV contrast administered. Coronal and Sagittal reformats generated and reviewed. Radiation dose: Total exam DLP = 202.14 mGy-cm. This CT exam was performed using one or more of the following dose reduction techniques: Automated exposure control, adjustment of the mA and/or kV according to patient size, and/or use of iterative reconstruction technique. FINDINGS: There is limited evaluation of the solid organs without the administration of IV contrast. LOWER THORAX: Minimal basilar atelectasis. No visible pleural effusion or pneumothorax. LIVER: Too small to characterize hepatic hypodensities. GALLBLADDER AND BILE DUCTS: Unremarkable unenhanced appearance. PANCREAS: Unremarkable unenhanced appearance. SPLEEN: Unremarkable unenhanced appearance. ADRENALS: Unremarkable unenhanced appearance. KIDNEYS AND URETERS: Mild left-sided hydronephrosis/hydroureter without obstructing calculus identified. No left-sided hydronephrosis or obstructing calculus evident. BLADDER: Thick-walled under distended urinary bladder. REPRODUCTIVE: Uterus is not identified presumably due to hysterectomy. APPENDIX: The appendix appears within normal limits of caliber. No secondary signs of acute appendicitis. BOWEL: The stomach is nondistended. Lack of oral contrast limits evaluation for bowel pathology. No evidence of bowel obstruction. Moderate diffuse constipation. Marked wall thickening of the rectosigmoid colon; correlate clinically for colitis (i.e. Infectious, inflammatory, ischemic). PERITONEUM: No significant free fluid. No definite free air. LYMPH NODES: No bulky lymphadenopathy identified. VASCULATURE: No aortic aneurysm. BONES: 12 mm lucent lesion in the show T11 vertebral body, possibly hemangioma. OTHER FINDINGS: None. IMPRESSION: Marked wall thickening of the rectosigmoid colon; correlate clinically for colitis (i.e. Infectious, inflammatory, ischemic). Thick-walled under distended urinary bladder. Recommend correlation with urinalysis. Mild left-sided hydronephrosis/hydroureter without obstructing calculus identified. Too small to characterize hepatic hypodensities. Additional findings as above.
[2017-06-26 13:26] LABS: BASO % 0.3 % (0.0-2.0); EOS # 0.1 K/uL (0.0-0.7); EOS % 1.6 % (0.0-4.0); HEMOGLOBIN 10.9 g/dL (11.0-16.0); LYMPH # 0.9 K/uL (1.0-4.3); LYMPH % 23.5 % (20.0-40.0); MEAN CELL VOLUME 100.7 fL (81.0-99.0); MEAN CORPUSCULAR HGB CONC 33.7 g/dL (33.0-37.0); MEAN PLATELET VOLUME 6.7 fL (7.2-11.7); MONO # 0.4 K/uL (0.0-0.8); MONO % 9.2 % (0.0-10.0); NEUT # 2.5 K/uL (1.8-7.0); NEUT % 65.4 % (50.0-75.0); RBC 3.21 Mil/uL (3.80-5.20); RED CELL DISTRIBUTION WIDTH 11.8 % (11.5-14.5); WHITE BLOOD COUNT 3.8 K/uL (4.8-10.8)
[2017-06-26 13:41] LABS: ALB/GLOB RATIO 1.2 (1.0-2.1); ALT/SGPT 12 U/L (9-52); AST/SGOT 18 U/L (14-36); BLOOD UREA NITROGEN 16 mg/dL (7-17); CALCIUM 8.4 mg/dl (8.6-10.4); GFR AFRICAN-AMERICAN > 60; GFR NON-AFRICAN AMERICAN > 60; LIPASE 80 U/L (23-300)
[2017-06-26] MEDS ORDERED: Iodixanol 320 mg/ml 150 ml Bottle IV ONE (14:39)
--- NOTE | 2017-06-26 15:52 | CT ---
CTA chest PE protocol Indication: Chest pain and elevated D-dimer. Technique: Contiguous axial images were obtained through the chest with intravenous contrast enhancement. Sagittal and coronal reconstructions were generated and reviewed. This CT exam was performed using 1 or more of the following dose reduction techniques: Automated exposure control, adjustment of the MAA and/or kV according to patient size, and/or use of iterative reconstruction technique. IV Contrast: 100 mL Visipaque Radiation dose (DLP): 145.16 MGy-cm. Comparison: None available. Findings: Right-sided MediPort extends the SVC. Visualized portions of the inferior thyroid gland appear unremarkable. The mediastinal and hilar vascular structures appear within normal limits. The heart appears within normal limits of size. Ascending aorta measures approximately 3.6 cm in AP dimension. No large central or segmental pulmonary embolus evident. Mild left basilar atelectasis. No focal consolidation. No pleural effusion. No pneumothorax. No suspicious pulmonary nodules measuring greater than 5 mm. Limited visualized portions of the upper abdomen demonstrates left-sided hydronephrosis/hydroureter. Too small to characterize hepatic hypodensities. 12 mm lucent lesion in the show T11 vertebral body, possibly hemangioma. Impression: No large central or segmental pulmonary embolus identified. Findings as above.
[2017-06-26 16:59] VITALS: BP 119/69; PULSE 63; RESP 20; TEMP 97.5; O2SAT 98
--- NOTE | 2017-06-27 16:24 | CARD ---
APPROVED REPORT EKG Measurement Heart [id number] NV [id number] [id number] <Conclusion> Normal sinus rhythm Normal ECG
== END 2017-06-26 17:00 | disposition home or self-care (01) ==
LOC: C.ER 11:16
DX: K52.9 Noninfective gastroenteritis and colitis, unspecified (principal)
CPT/HCPCS: 71046; 71275; 74176; 80053; 81001; 83690; 84484; 84703; 85025; 85378; 87086; 93005; 96374; 99285; J1885; Q9967

== ENCOUNTER 2017-07-04 09:37 | Inpatient (IN) | payer OTHER ==
[2017-07-04 09:37] VITALS: BMI 21.9
--- NOTE | 2017-07-04 10:16 | C.PDOC ---
History Of Present Illness 51-year-old female, PMHx includes ovarian cancer, presents to the emergency department with complaints of left lower abdominal pain. Patient states she was seen in ED for same complaint one week ago, and discharged with antibiotics (for colitis). Patient reports she developed bloody diarrhea with bright red blood since her discharge, resulting in her returning for re-evaluation. Patient notes she took 1 dose of Immodium last night. She denies denies nausea/ vomiting, fever, cough, CP, SOB, vaginal bleeding/discharge. Time Seen by Provider: 07/04/17 10:00 Chief Complaint (Nursing): Abdominal Pain History Per: Patient History/Exam Limitations: no limitations Onset/Duration Of Symptoms: Days Current Symptoms Are (Timing): Still Present Severity: Moderate Past Medical History Reviewed: Historical Data, Nursing Documentation, Vital Signs Vital Signs: Last Vital Signs Temp 98 F 07/07/17 16:00 Pulse 72 07/07/17 16:00 Resp 20 07/07/17 16:00 BP 120/67 07/07/17 16:00 Pulse Ox 96 07/07/17 16:00 - Medical History PMH: No Chronic Diseases - [facility] Procedures DRAINAGE OF PERITONEAL CAVITY, PERCUTANEOUS APPROACH, DIAGN (05/12/16) EXCISION OF RECTUM, ENDO, DIAGN (07/04/17) EXCISION OF SIGMOID COLON, ENDO, DIAGN (07/04/17) INSERT INFUSION DEV IN R INT JUGULAR VEIN, PERC (05/12/16) INSERTION OF VAD INTO CHEST SUBCU/FASCIA, OPEN APPROACH (05/12/16) ULTRASONOGRAPHY OF RIGHT JUGULAR VEINS, GUIDANCE (05/12/16) Family History: States: No Known Family Hx - Social History Hx Alcohol Use: No Hx Substance Use: No - Immunization History Hx Tetanus Toxoid Vaccination: No Hx Influenza Vaccination: No Hx Pneumococcal Vaccination: No Review Of Systems Except As Marked, All Systems Reviewed And Found Negative. Constitutional: Negative for: Fever, Chills Cardiovascular: Negative for: Chest Pain, Palpitations Respiratory: Negative for: Shortness of Breath Gastrointestinal: Positive for: Abdominal Pain, Diarrhea, Hematochezia. Negative for: Nausea, Vomiting, Hematemesis Genitourinary: Negative for: Pelvic Pain Musculoskeletal: Negative for: Back Pain Skin: Negative for: Rash Neurological: Negative for: Weakness, Numbness Physical Exam - Physical Exam Appears: Well, Non-toxic, No Acute Distress Skin: Normal Color, Warm, Dry, No Rash Eye(s): bilateral: Normal Inspection Oral Mucosa: Moist Neck: Normal, Normal ROM Cardiovascular: Rhythm Regular Respiratory: Normal Breath Sounds, No Rales, No Rhonchi, No Wheezing Gastrointestinal/Abdominal: Bowel Sounds, Soft, Tenderness (LLQ, severe and RLQ mild), Guarding (left, mild), Other (mid line incision scar, well healed) Back: CVA Tenderness (right) Extremity: Normal ROM Neurological/Psych: Oriented x3 ED Course And Treatment - Laboratory Results Result Diagrams: 07/07/17 09:20 07/07/17 09:20 O2 Sat by Pulse Oximetry: 99 (RA) Pulse Ox Interpretation: Normal - CT Scan/US CT Abd/Pel Other Rad Studies (CT/US): Read By Radiologist, Radiology Report Reviewed CT/US Interpretation: Accession No. : [id number]. Patient Name / ID : XENIA DRIVER / [id number]. Exam Date : 07/04/2017 13:23:25 ( Approved ). Study Comment : Sex / Age : F / 51Y. Creator : Twila Talamantes. Dictator : Jose Lowe MD. Risk Management Intern : Advertising Sales Representative : Jose Lowe MD. Approver2 : Report Date : 07/04/2017 13:28:52. My Comment : . This report is currently processing and HAS NOT BEEN OFFICIALLY SIGNED BY THE PHYSICIAN - ESTIMATED TIME OF APPROVAL IS 07/04/2017 13:52. PROCEDURE: CT Abdomen and Pelvis with contrast. HISTORY: LLQ PAIN, BLOODY DIARRHEA, S/P PO ANTIBIOTICS. COMPARISON: None. TECHNIQUE: Contrast dose: 100 mL Visipaque 320. Radiation dose: Total exam DLP = 213.5 mGy-cm. This CT exam was performed using one or more of the following dose reduction techniques: Automated exposure control, adjustment of the mA and/or kV according to patient size, and/or use of iterative reconstruction technique. FINDINGS: LOWER THORAX : Heart size normal. Partially imaged catheter with tip extending to the cavoatrial junction. Bibasilar dependent atelectasis/ scarring. LIVER: Hepatic steatosis. Sub centimeter segment 2 and 8 too small to characterize hypodensities. No gross lesion or ductal dilatation. GALLBLADDER AND BILE DUCTS : Unremarkable. PANCREAS: Unremarkable. No gross lesion or ductal dilatation. SPLEEN: Unremarkable. ADRENALS: Unremarkable. No mass. KIDNEYS AND URETERS: Slightly delayed nephrogram early. New mild to moderate right hydroureteronephrosis. Stable left mild to moderate hydroureteronephrosis. VASCULATURE: Unremarkable. No aortic aneurysm. BOWEL: Worsening marked wall thickening of the rectosigmoid colon. No obstruction. APPENDIX: Normal appendix. PERITONEUM: Unremarkable. No free fluid. No free air. LYMPH NODES: Unremarkable. No enlarged lymph nodes. BLADDER: Abnormal posterior bladder wall thickening. REPRODUCTIVE: Unremarkable. BONES: Left T11 probable vertebral body hemangioma. OTHER FINDINGS: None. IMPRESSION: Worsening marked wall thickening of the rectosigmoid colon which may be infectious/ inflammatory or ischemic in etiology. New mild to moderate right-sided hydroureteronephrosis. Stable left-sided hydroureteronephrosis. No obstructing calculi. Additional stable findings as above. Progress Note: Prior Visits. Notes and records from previous visits were reviewed. Patient seen in ER 06/26/[address] abd/pel that showed: Marked wall thickening of the rectosigmoid colon. Thick-walled under distended urinary bladder. Recommend correlation with urinalysis. Mild left-sided hydronephrosis /hydroureter without obstructing calculus identified. Too small to characterize hepatic hypodensities. Patient discharged with Cipro/Flagyl. Blood work, CT scan abd/pelvis ordered and reviewed. Patient given IV Morphine , IV NS bolus, IV Zosyn. - Physician Consult Information Physician Contacted: Clementine Chery Outcome Of Conversation: Discussed patient with hospitalist, who agrees with admission for worsening colitis, failed outpatient antibioitics/treatment, hydronephrosis. Disposition - Disposition Disposition: HOSPITALIZED Disposition Time: 14:19 Condition: STABLE - Clinical Impression Clinical Impression: Colitis, Failure of outpatient treatment, Hydronephrosis - Scribe Statement The provider has reviewed the documentation as recorded by the Scribe (Oswald Duarte) All medical record entries made by the Scribe were at my direction and personally dictated by me. I have reviewed the chart and agree that the record accurately reflects my personal performance of the history, physical exam, medical decision making, and the department course for this patient. I have also personally directed, reviewed, and agree with the discharge instructions and disposition. Decision To Admit - Pt Status Changed To: Hospital Disposition Of: Inpatient - Admit Certification Admit to Inpatient:: After my assessment, the patient will require hospitalization for at least two midnights. This is because of the severity of symptoms shown, intensity of services needed, and/or the medical risk in this patient being treated as an outpatient. - InPatient: Physician Admission Certification:: see notes - . Bed Request Type: Regular Admitting Physician: Clementine Chery Patient Diagnosis: Colitis, Failure of outpatient treatment, Hydronephrosis
[2017-07-04] MEDS ORDERED: Sodium Chloride 0.9% 1,000 ML IV ONE (10:38)
[2017-07-04 10:48] LABS: BASO % 0.7 % (0.0-2.0); EOS % 0.9 % (0.0-4.0); HEMOGLOBIN 10.5 g/dL (11.0-16.0); LYMPH # 0.9 K/uL (1.0-4.3); LYMPH % 18.6 % (20.0-40.0); MEAN CELL VOLUME 99.1 fL (81.0-99.0); MEAN CORPUSCULAR HEMOGLOBIN 35.1 pg (27.0-31.0); MEAN CORPUSCULAR HGB CONC 35.4 g/dL (33.0-37.0); MEAN PLATELET VOLUME 7.4 fL (7.2-11.7); MONO # 0.6 K/uL (0.0-0.8); MONO % 11.8 % (0.0-10.0); NEUT # 3.2 K/uL (1.8-7.0); NRBC % 0.1 % (0.0-2.0); RED CELL DISTRIBUTION WIDTH 11.7 % (11.5-14.5); WHITE BLOOD COUNT 4.7 K/uL (4.8-10.8)
[2017-07-04] MEDS ORDERED: Iohexol 240 (50 ml) PO STA (11:00)
[2017-07-04] MEDS ORDERED: Morphine 4 MG/ML VIAL ONE (11:05)
[2017-07-04 11:08] LABS: ALB/GLOB RATIO 1.1 (1.0-2.1); ALBUMIN 4.1 g/dL (3.5-5.0); ALT/SGPT 17 U/L (9-52); AST/SGOT 26 U/L (14-36); BLOOD UREA NITROGEN 13 mg/dL (7-17); CALCIUM 9.1 mg/dl (8.6-10.4); GFR AFRICAN-AMERICAN > 60; GFR NON-AFRICAN AMERICAN > 60; LIPASE 44 U/L (23-300)
[2017-07-04 11:12] LABS: HCG,QUALITATIVE URINE NEGATIVE (NEGATIVE)
[2017-07-04 11:17] LABS: SQUAMOUS EPITHIAL 1 /hpf (0-5); URINE BILIRUBIN NEGATIVE (NEGATIVE); URINE BLOOD 1+ (NEGATIVE); URINE CLARITY Clear (Clear); URINE COLOR Yellow (YELLOW); URINE GLUCOSE (UA) NORMAL (Normal); URINE LEUKOCYTE ESTERASE TRACE Leu/uL (Negative); URINE NITRATE NEGATIVE (NEGATIVE); URINE PROTEIN NEGATIVE (NEGATIVE); URINE UROBILINOGEN NORMAL mg/dL (0.2-1.0)
[2017-07-04] MEDS ORDERED: Iodixanol 320 mg/ml 150 ml Bottle IV ONE (12:59)
--- NOTE | 2017-07-04 13:48 | CT ---
PROCEDURE: CT Abdomen and Pelvis with contrast HISTORY: LLQ PAIN, BLOODY DIARRHEA, S/P PO ANTIBIOTICS COMPARISON: None. TECHNIQUE: Contrast dose: 100 mL Visipaque 320 Radiation dose: Total exam DLP = 213.5 mGy-cm. This CT exam was performed using one or more of the following dose reduction techniques: Automated exposure control, adjustment of the mA and/or kV according to patient size, and/or use of iterative reconstruction technique. FINDINGS: LOWER THORAX: Heart size normal. Partially imaged catheter with tip extending to the cavoatrial junction. Bibasilar dependent atelectasis/ scarring. LIVER: Hepatic steatosis. Sub centimeter segment 2 and 8 too small to characterize hypodensities. No gross lesion or ductal dilatation. GALLBLADDER AND BILE DUCTS: Unremarkable. PANCREAS: Unremarkable. No gross lesion or ductal dilatation. SPLEEN: Unremarkable. ADRENALS: Unremarkable. No mass. KIDNEYS AND URETERS: Slightly delayed nephrogram early. New mild to moderate right hydroureteronephrosis. Stable left mild to moderate hydroureteronephrosis. VASCULATURE: Unremarkable. No aortic aneurysm. BOWEL: Worsening marked wall thickening of the rectosigmoid colon. No obstruction. APPENDIX: Normal appendix. PERITONEUM: Unremarkable. No free fluid. No free air. LYMPH NODES: Unremarkable. No enlarged lymph nodes. BLADDER: Abnormal posterior bladder wall thickening. REPRODUCTIVE: Unremarkable. BONES: Left T11 probable vertebral body hemangioma. OTHER FINDINGS: None. IMPRESSION: Worsening marked wall thickening of the rectosigmoid colon which may be infectious/ inflammatory or ischemic in etiology. New mild to moderate right-sided hydroureteronephrosis. Stable left-sided hydroureteronephrosis. No obstructing calculi. Additional stable findings as above.
[2017-07-04] MEDS ORDERED: Piperacillin/Tazobact 3.375 gm 100 ML IVPB STA (14:04)
[2017-07-04] MEDS ORDERED: DiphenhydrAMINE 50 mg/ml Inj IVP PRN ×2 (14:05→17:52)
[2017-07-04] MEDS ORDERED: Piperacillin/Tazobact 3.375 GM in Sodium Chloride 100 ML IVPB ONE (14:45)
--- NOTE | 2017-07-04 15:36 | CP.PCM.HP ---
<Kolton Sahni - Last Filed: 07/05/17 13:34> History of Present Illness - History of Present Illness History of Present Illness: CC: Lower left quadrant abdominal pain and bright red blood per rectum HPI: 51 year old female with history of cervical cancer who presents to the emergency room with complaints of lower left quadrant pain and bright red blood per rectum for the past one week. In conjunction the patient also reports diarrhea for the same period of time.The patient was recently in [facility] Emergency Department (06/26/17) for similar symptoms. She was discharged from the emergency department with antibiotics. The patient reports no improvement in symptoms after taking the prescribed medications. The patient reports the pain in the left quadrant as sharp in nature with no radiation. In conjunction she began to notice bright red blood per rectum yesterday afternoon. She reports this as being her first episode. She states that it initially was skank and as the day progressed her subsequent bowel movements contained more blood. She denies any alleviating or modifying factors. She also denies any changes in diet or recent travel. The patient denies any chest pain, shortness of breath, headache, dizziness, changes in vision, syncopal episodes, fevers, chills, numbness or tingling in her hands and feet, or any other complaints. PMD: [facility] @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 Drug induced constipation. Leukopenia and anemia. 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 Denies smoking, or illicit drug use. Denies alcohol use. Medications: Completed Chemotherapy. Ciprofloxacin 500mg BID, Tramadol 50mg TID , Naproxen 500mg BID, Metronidazole 500mg BID Allergies: Cefazolin - causes a rash Present on Admission - Present on Admission Any Indicators Present on Admission: No Review of Systems - Constitutional Constitutional: absent: Chills, Headache, Snoring, Weakness - EENT Eyes: absent: Blurred Vision, Discharge, Loss of Peripheral Vision, Other Visual Disturbances Ears: absent: Ear Discharge, Dizziness Nose/Mouth/Throat: absent: Nasal Congestion, Nose Pain, Bleeding Gums, Odynophagia, Facial Pain - Cardiovascular Cardiovascular: absent: Chest Pain, Irregular Heart Rhythm, Leg Edema, Palpitations, Pedal Edema, Slow Heart Rate, Syncope - Respiratory Respiratory: absent: Cough, Dyspnea, Hemoptysis, Change in Mucous Color - Gastrointestinal Gastrointestinal: Change in Bowel Habits, Diarrhea. absent: Bloating, Cramping , Dyspepsia, Loose Stools, Nausea, Vomiting - Genitourinary Genitourinary: Change in Urinary Stream - Musculoskeletal Musculoskeletal: absent: Arthralgias, Myalgias, Tingling - Integumentary Integumentary: absent: Changing Lesions, New Lesions, Pruritus, Striae, Swelling , Unusual Bruising - Neurological Neurological: absent: Syncope, Tingling, Tremor, Vertigo, Weakness - Psychiatric Psychiatric: absent: Anhedonia, Anxiety, Behavioral Changes, Hopelessness, Panic Attacks, Paranoia - Endocrine Endocrine: absent: Change in Body Appearance, Deepening of Voice, Polydipsia, Polyphagia, Polyuria - Hematologic/Lymphatic Hematologic: absent: Easy Bleeding, Easy Bruising Past Patient History - Infectious Disease Hx of Infectious Diseases: None - Past Medical History & Family History Past Medical History?: No - Past Social History Smoking Status: Never Smoked - CARDIAC Hx Cardiac Disorders: No - PULMONARY Hx Respiratory Disorders: No - NEUROLOGICAL Hx Neurological Disorder: No - HEENT Hx HEENT Problems: No - RENAL Hx Chronic Kidney Disease: No - ENDOCRINE/METABOLIC Hx Endocrine Disorders: No - HEMATOLOGICAL/ONCOLOGICAL Hx Blood Disorders: Yes Hx Cancer: Yes (Ovarian) Hx Chemotherapy: Yes - INTEGUMENTARY Hx Dermatological Problems: No - MUSCULOSKELETAL/RHEUMATOLOGICAL Hx Falls: No - GASTROINTESTINAL Hx Gastrointestinal Disorders: No - GENITOURINARY/GYNECOLOGICAL Hx Genitourinary Disorders: Yes Other/Comment: HX OF FIBROIDS - PSYCHIATRIC Hx Substance Use: No - SURGICAL HISTORY Hx Surgeries: Yes Hx Hysterectomy: Yes Other/Comment: port to right chest wall - ANESTHESIA Hx Anesthesia: Yes Hx Anesthesia Reactions: No Meds Allergies/Adverse Reactions: Allergies Allergy/AdvReac Type Severity Reaction Status Date / Time cefazolin sodium [From Anc] Allergy Verified 06/26/17 11:22 Physical Exam - Head Exam Head Exam: ATRAUMATIC, NORMAL INSPECTION, NORMOCEPHALIC - Eye Exam Eye Exam: EOMI, Normal appearance, PERRL. absent: Periorbital tenderness Pupil Exam: NORMAL ACCOMODATION, PERRL. absent: Irregular, Unequal - ENT Exam ENT Exam: Mucous Membranes Moist, Normal Exam, Normal Oropharynx - Neck Exam Neck exam: Positive for: Normal Inspection. Negative for: Lymphadenopathy, Thyromegaly - Respiratory Exam Respiratory Exam: Clear to Auscultation Bilateral, NORMAL BREATHING PATTERN. absent: Chest Wall Tenderness, Prolonged Expiratory Phase, Respiratory Distress - Cardiovascular Exam Cardiovascular Exam: REGULAR RHYTHM, +S1, +S2 - GI/Abdominal Exam GI & Abdominal Exam: Normal Bowel Sounds, Soft, Tenderness. absent: Hyperactive Bowel Sounds - Extremities Exam Extremities exam: Positive for: full ROM, normal inspection. Negative for: pedal edema - Back Exam Back exam: NORMAL INSPECTION. absent: CVA tenderness (L), CVA tenderness (R), paraspinal tenderness - Neurological Exam Neurological exam: Alert, CN II-XII Intact, Normal Gait, Oriented x3 - Psychiatric Exam Psychiatric exam: Normal Affect, Normal Mood - Skin Skin Exam: Dry, Intact, Normal Color Results - Vital Signs Recent Vital Signs: Last Vital Signs Temp 98.4 F 07/04/17 09:54 Pulse 71 07/04/17 14:32 Resp 18 07/04/17 14:32 BP 123/77 07/04/17 14:32 Pulse Ox 98 07/04/17 14:32 - Labs Result Diagrams: 07/05/17 06:31 07/05/17 06:31 Labs: Laboratory Results - last 24 hr 07/04/17 07/04/17 07/04/17 10:42 10:42 11:03 WBC 4.7 L RBC 3.00 L Hgb 10.5 L Hct 29.7 L MCV 99.1 H MCH 35.1 H MCHC 35.4 RDW 11.7 Plt Count 355 MPV 7.4 Neut % (Auto) 68.0 Lymph % (Auto) 18.6 L [place] % (Auto) 11.8 H Eos % (Auto) 0.9 Baso % (Auto) 0.7 Neut # (Auto) 3.2 Lymph # (Auto) 0.9 L [place] # (Auto) 0.6 Eos # (Auto) 0.0 Baso # (Auto) 0.0 Sodium 139 Potassium 3.5 L Chloride 102 Carbon Dioxide 28 Anion Gap 14 BUN 13 Creatinine 0.7 Est GFR ( Amer) > 60 Est GFR (Non-Af Amer) > 60 Random Glucose 91 Calcium 9.1 Total Bilirubin 0.8 AST 26 ALT 17 Alkaline Phosphatase 71 Total Protein 7.6 Albumin 4.1 Globulin 3.6 Albumin/Globulin Ratio 1.1 Lipase 44 Urine Color Yellow Urine Clarity Clear Urine pH 5.0 Ur Specific [place] 1.009 Urine Protein Negative Urine Glucose (UA) Normal Urine Ketones Negative Urine Blood 1+ H Urine Nitrate Negative Urine Bilirubin Negative Urine Urobilinogen Normal Ur Leukocyte Esterase Trace Urine WBC (Auto) 1 Urine RBC (Auto) 3 Ur Squamous Epith Cells 1 Urine HCG, Qual Negative Assessment & Plan - Assessment and Plan (Free Text) Assessment: 51 year old female with history of cervical cancer who presents to the emergency room for lower left quadrant pain and bright red blood per rectum. Plan: 1.) Left lower quadrant abdominal pain (2/2 to diarrhea) - Patient recently discharged from [facility] emergency department PO Ciprofloxacin and PO Metronidazole for Colitis. -GI consulted. Will f/u with rec's -Clear liquid diet. Will advance as tolerated. -Zosyn 3.375mg Q6 per GI Team. -IV fluids @100cc/hr. -F/U with Stool Studies, C.diff. 2. New right hydronephrosis -CT scan showed new right hydronephrosis and a left stable hydronephosis -Urology (Dr. Souza) consulted. Will f/u with rec's. 3.) History of Serous Carcinoma of the pelvis - Oncology Consult: Dr. Cheatham --> help appreciated 4.) Prophylaxis - Heparin 5,000 units SC Q12 - Pepcid 20mg PO BID <Denis Rios - Last Filed: 07/05/17 19:56> Results - Vital Signs Recent Vital Signs: Last Vital Signs Temp 98.7 F 07/05/17 15:01 Pulse 70 07/05/17 15:01 Resp 20 07/05/17 15:01 BP 110/57 L 07/05/17 15:01 Pulse Ox 96 07/05/17 15:01 - Labs Result Diagrams: 07/05/17 06:31 07/05/17 06:31 Labs: Laboratory Results - last 24 hr 07/04/17 07/04/17 07/05/17 Unknown Unknown 06:31 WBC 4.1 L RBC 2.63 L Hgb 9.0 L Hct 25.9 L MCV 98.5 MCH 34.3 H MCHC 34.9 RDW 11.5 Plt Count 304 MPV 6.6 L Neut % (Auto) 63.9 Lymph % (Auto) 22.8 [place] % (Auto) 11.8 H Eos % (Auto) 1.2 Baso % (Auto) 0.3 Neut # (Auto) 2.6 Lymph # (Auto) 0.9 L [place] # (Auto) 0.5 Eos # (Auto) 0.0 Baso # (Auto) 0.0 Sodium Potassium Chloride Carbon Dioxide Anion Gap BUN Creatinine Est GFR ( Amer) Est GFR (Non-Af Amer) Random Glucose Calcium Total Bilirubin AST ALT Alkaline Phosphatase Total Protein Albumin Globulin Albumin/Globulin Ratio CA 125 Antigen Urine HCG, Qual Stool Leukocytes, Qual Negative C. difficile Ag & Toxin Negative 07/05/17 07/05/17 06:31 06:58 WBC RBC Hgb Hct MCV MCH MCHC RDW Plt Count MPV Neut % (Auto) Lymph % (Auto) [place] % (Auto) Eos % (Auto) Baso % (Auto) Neut # (Auto) Lymph # (Auto) [place] # (Auto) Eos # (Auto) Baso # (Auto) Sodium 136 Potassium 3.1 L Chloride 105 Carbon Dioxide 27 Anion Gap 7 L BUN 8 Creatinine 0.8 Est GFR ( Amer) > 60 Est GFR (Non-Af Amer) > 60 Random Glucose 90 Calcium 8.3 L Total Bilirubin 1.1 AST 21 ALT 16 Alkaline Phosphatase 50 Total Protein 5.8 L Albumin 3.0 L D Globulin 2.7 Albumin/Globulin Ratio 1.1 CA 125 Antigen 51.0 H D Urine HCG, Qual Negative Stool Leukocytes, Qual C. difficile Ag & Toxin Attending/Attestation - Attestation I have personally seen and examined this patient.: Yes I have fully participated in the care of the patient.: Yes I have reviewed all pertinent clinical information: Yes Notes (Text): seen and examined Patient has diarrhea with blood. case discussed with the resident Impression 1. Diarrhea with blood. Infectious vs ischemic 2.Abdominal pain 3.Hydronephrosis/ right new 4. Ca mullerian tract tumor plan-clear liquids,GI consult,antibiotics,dvt and gi prophylasix I agree with the documentation of the assessment and the plan
--- NOTE | 2017-07-04 16:08 | CP.PCM.CON ---
<Amy Hernandez - Last Filed: 07/04/17 16:12> History of Present Illness - History of Present Illness History of Present Illness: GI Fellow PGY4 Consult Note This is a 51 year old female with history of ovarian cancer s/p surgery and chemotherapy who presents to the emergency room with complaints of lower left quadrant pain for one week and onset of bright red blood per rectum fsince yesterday. The patient was recently in ER 06/26/17 for complaints of abdominal pain and was discharged from the emergency department antibiotics cipro/flagyl. The patient reports mild improvement in pain after taking the prescribed medications but she began to notice bright red blood per rectum yesterday. The pain in the left quadrant is sharp with no radiation. She reports this as being her first episode. She denies any changes in diet, sick contacts, or recent travel. Prior to this pt reports having normal BM daily with no hx of constipation. No prior colonoscopy or EGD. Pt also reports decreased appetite and decreased intake of fluids with pain. ROS: A 12pt ROS was negative except as above PmHx: Ovarian cancer PsHx: Total hysterectomy and bl oopherectomy August 2015 at [facility] SHx: Denies smoking, or illicit drug use. Denies alcohol use. FHx: no family hx of cancer Past Patient History - Infectious Disease Hx of Infectious Diseases: None - Past Medical History & Family History Past Medical History?: No - Past Social History Smoking Status: Never Smoked - CARDIAC Hx Cardiac Disorders: No - PULMONARY Hx Respiratory Disorders: No - NEUROLOGICAL Hx Neurological Disorder: No - HEENT Hx HEENT Problems: No - RENAL Hx Chronic Kidney Disease: No - ENDOCRINE/METABOLIC Hx Endocrine Disorders: No - HEMATOLOGICAL/ONCOLOGICAL Hx Blood Disorders: Yes Hx Cancer: Yes (Ovarian) Hx Chemotherapy: Yes - INTEGUMENTARY Hx Dermatological Problems: No - MUSCULOSKELETAL/RHEUMATOLOGICAL Hx Falls: No - GASTROINTESTINAL Hx Gastrointestinal Disorders: No - GENITOURINARY/GYNECOLOGICAL Hx Genitourinary Disorders: Yes Other/Comment: HX OF FIBROIDS - PSYCHIATRIC Hx Substance Use: No - SURGICAL HISTORY Hx Surgeries: Yes Hx Hysterectomy: Yes Other/Comment: port to right chest wall - ANESTHESIA Hx Anesthesia: Yes Hx Anesthesia Reactions: No Meds Allergies/Adverse Reactions: Allergies Allergy/AdvReac Type Severity Reaction Status Date / Time cefazolin sodium [From Anc] Allergy Verified 06/26/17 11:22 - Medications Medications: Current Medications Diphenhydramine HCl (Benadryl) 25 mg IVP PRN PRN PRN Reason: Rash Famotidine (Pepcid) 20 mg PO BID [facility] Heparin Sodium (Porcine) (Heparin) 5,000 units SC Q12 [facility] Piperacillin Sod/Tazobactam Sod (Zosyn 3.375 Gm Iv Premix) 3.375 gm in 50 mls @ 100 mls/hr IVPB Q6H [facility] Sodium Chloride (Sodium Chloride 0.9%) 1,000 mls @ 100 mls/hr IV .Q10H [facility] Physical Exam - Constitutional Appears: Non-toxic, No Acute Distress - Head Exam Head Exam: ATRAUMATIC, NORMAL INSPECTION, NORMOCEPHALIC - Eye Exam Eye Exam: EOMI, Normal appearance Pupil Exam: NORMAL ACCOMODATION, PERRL - ENT Exam ENT Exam: Mucous Membranes Moist, Normal Exam - Neck Exam Neck exam: Positive for: Normal Inspection - Respiratory Exam Respiratory Exam: Clear to Auscultation Bilateral, NORMAL BREATHING PATTERN - Cardiovascular Exam Cardiovascular Exam: REGULAR RHYTHM - GI/Abdominal Exam GI & Abdominal Exam: Normal Bowel Sounds, Soft, Tenderness. absent: Distended, Guarding, Organomegaly - Rectal Exam Rectal Exam: Deferred - Extremities Exam Extremities exam: Positive for: normal inspection - Back Exam Back exam: NORMAL INSPECTION - Neurological Exam Neurological exam: Alert, Oriented x3 - Psychiatric Exam Psychiatric exam: Normal Affect, Normal Mood - Skin Skin Exam: Dry, Intact, Normal Color, Warm Results - Vital Signs Recent Vital Signs: Last Vital Signs Temp 98.4 F 07/04/17 09:54 Pulse 71 07/04/17 14:32 Resp 18 07/04/17 14:32 BP 123/77 07/04/17 14:32 Pulse Ox 98 07/04/17 14:32 - Labs Result Diagrams: 07/04/17 10:42 07/04/17 10:42 Labs: Laboratory Results - last 24 hr 07/04/17 07/04/17 07/04/17 10:42 10:42 11:03 WBC 4.7 L RBC 3.00 L Hgb 10.5 L Hct 29.7 L MCV 99.1 H MCH 35.1 H MCHC 35.4 RDW 11.7 Plt Count 355 MPV 7.4 Neut % (Auto) 68.0 Lymph % (Auto) 18.6 L [place] % (Auto) 11.8 H Eos % (Auto) 0.9 Baso % (Auto) 0.7 Neut # (Auto) 3.2 Lymph # (Auto) 0.9 L [place] # (Auto) 0.6 Eos # (Auto) 0.0 Baso # (Auto) 0.0 Sodium 139 Potassium 3.5 L Chloride 102 Carbon Dioxide 28 Anion Gap 14 BUN 13 Creatinine 0.7 Est GFR ( Amer) > 60 Est GFR (Non-Af Amer) > 60 Random Glucose 91 Calcium 9.1 Total Bilirubin 0.8 AST 26 ALT 17 Alkaline Phosphatase 71 Total Protein 7.6 Albumin 4.1 Globulin 3.6 Albumin/Globulin Ratio 1.1 Lipase 44 Urine Color Yellow Urine Clarity Clear Urine pH 5.0 Ur Specific [place] 1.009 Urine Protein Negative Urine Glucose (UA) Normal Urine Ketones Negative Urine Blood 1+ H Urine Nitrate Negative Urine Bilirubin Negative Urine Urobilinogen Normal Ur Leukocyte Esterase Trace Urine WBC (Auto) 1 Urine RBC (Auto) 3 Ur Squamous Epith Cells 1 Urine HCG, Qual Negative Assessment & Plan - Assessment and Plan (Free Text) Assessment: This is a 51yF presenting with abdominal pain and rectal bleeding. 1. Rectal bleeding- likely ischemic colitis 2. Colitis-likely ischemic vs infectious vs inflammatory 3. Chronic anemia 4. Constipation on CT imaging 5. Hx of ovarian cancer 6. H.pylori infection on recent stool antigen, will discuss with pt if treated for infection Plan: -Continue supportive care with pain control and anti-emetics -No active GI bleeding at this time, H/H stable at baseline -Ct imaging reviewed with rectosigmoid wall thickening, stool burden throughout colon -Symptoms can be from ischmeic colitis, will continue to monitor clinically -If no improvement in pain will consider flexible sigmoidoscopy during admission -Clear liquid diet -IVF hydration -IV Zosyn with failed outpt therapy -Stool studies -Will continue to follow closely <Gerald Mcfadden - Last Filed: 07/04/17 20:54> Meds - Medications Medications: Current Medications Famotidine (Pepcid) 20 mg PO BID [facility] Last Admin: 07/04/17 18:38 Dose: 20 mg Heparin Sodium (Porcine) (Heparin) 5,000 units SC Q12 [facility] Piperacillin Sod/Tazobactam Sod (Zosyn 3.375 Gm Iv Premix) 3.375 gm in 50 mls @ 100 mls/hr IVPB Q6H [facility] Sodium Chloride (Sodium Chloride 0.9%) 1,000 mls @ 100 mls/hr IV .Q10H [facility] Last Admin: 07/04/17 16:18 Dose: 100 mls/hr Results - Vital Signs Recent Vital Signs: Last Vital Signs Temp 98.8 F 07/04/17 20:28 Pulse 88 07/04/17 20:28 Resp 20 07/04/17 20:28 BP 127/70 07/04/17 20:28 Pulse Ox 97 07/04/17 20:28 - Labs Result Diagrams: 07/04/17 10:42 07/04/17 10:42 Labs: Laboratory Results - last 24 hr 07/04/17 07/04/17 07/04/17 10:42 10:42 11:03 WBC 4.7 L RBC 3.00 L Hgb 10.5 L Hct 29.7 L MCV 99.1 H MCH 35.1 H MCHC 35.4 RDW 11.7 Plt Count 355 MPV 7.4 Neut % (Auto) 68.0 Lymph % (Auto) 18.6 L [place] % (Auto) 11.8 H Eos % (Auto) 0.9 Baso % (Auto) 0.7 Neut # (Auto) 3.2 Lymph # (Auto) 0.9 L [place] # (Auto) 0.6 Eos # (Auto) 0.0 Baso # (Auto) 0.0 Sodium 139 Potassium 3.5 L Chloride 102 Carbon Dioxide 28 Anion Gap 14 BUN 13 Creatinine 0.7 Est GFR ( Amer) > 60 Est GFR (Non-Af Amer) > 60 Random Glucose 91 Calcium 9.1 Total Bilirubin 0.8 AST 26 ALT 17 Alkaline Phosphatase 71 Total Protein 7.6 Albumin 4.1 Globulin 3.6 Albumin/Globulin Ratio 1.1 Lipase 44 Urine Color Yellow Urine Clarity Clear Urine pH 5.0 Ur Specific [place] 1.009 Urine Protein Negative Urine Glucose (UA) Normal Urine Ketones Negative Urine Blood 1+ H Urine Nitrate Negative Urine Bilirubin Negative Urine Urobilinogen Normal Ur Leukocyte Esterase Trace Urine WBC (Auto) 1 Urine RBC (Auto) 3 Ur Squamous Epith Cells 1 Urine HCG, Qual Negative Stool Leukocytes, Qual 07/04/17 Unknown WBC RBC Hgb Hct MCV MCH MCHC RDW Plt Count MPV Neut % (Auto) Lymph % (Auto) [place] % (Auto) Eos % (Auto) Baso % (Auto) Neut # (Auto) Lymph # (Auto) [place] # (Auto) Eos # (Auto) Baso # (Auto) Sodium Potassium Chloride Carbon Dioxide Anion Gap BUN Creatinine Est GFR ( Amer) Est GFR (Non-Af Amer) Random Glucose Calcium Total Bilirubin AST ALT Alkaline Phosphatase Total Protein Albumin Globulin Albumin/Globulin Ratio Lipase Urine Color Urine Clarity Urine pH Ur Specific [place] Urine Protein Urine Glucose (UA) Urine Ketones Urine Blood Urine Nitrate Urine Bilirubin Urine Urobilinogen Ur Leukocyte Esterase Urine WBC (Auto) Urine RBC (Auto) Ur Squamous Epith Cells Urine HCG, Qual Stool Leukocytes, Qual Negative Attending/Attestation - Attestation I have personally seen and examined this patient.: Yes I have fully participated in the care of the patient.: Yes I have reviewed all pertinent clinical information: Yes Notes (Text): 07/04/17 20:51 51 year old female with h/o Ovarian ca s/p JANETH/BSO, s/p Chemotherapy admitted with LLQ pain and bloody diarrhea, with evidence of rectosigmoid colitis on CT scan. 1. Colitis 2. LLQ pain 3. Bloody diarrhea Plan: -most likely ischemic colitis, ddx also includes infectious or inflammatory -recommend IV antibiotics (Zosyn) -check stool for c. diff/ culture/ ova and parasites -recommend IV hydration -consider sigmoidoscopy if not improving
[2017-07-04] MEDS: Sodium Chloride 0.9% 1,000 ML IV SCH (16:18)
[2017-07-04] MEDS: Piperacill/Tazo 3.375gm in Dex 3.375 GM/50 ML BAG IVPB SCH (21:00)
--- NOTE | 2017-07-04 22:32 | CP.PCM.CON ---
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 The patient notes to lower abdominal pain which prompted her to come to the ER. She was prescribed antibiotics which caused her diarrhea and intermittent hematochezia. Due to the continued pain and diarrhea she returned to the ER. A CT scan revealed colitis. Past medical history: Mullerian tract tumor Past surgical history: Portacath, cytoreductive surgery Family history: Denies hematologic and oncologic problems Social history: Denies tobacco, alcohol, and illicit drug use. Allergies: Cefazolin Review of systems: All remaining review of systems including HEENT, cardiovascular, respiratory, gastrointestinal, genitourinary, musculoskeletal, dermatologic, neurologic, and psychiatric are negative unless mentioned in the HPI. Past Patient History - Infectious Disease Hx of Infectious Diseases: None - Past Medical History & Family History Past Medical History?: No - Past Social History Smoking Status: Unknown If Ever Smoked - CARDIAC Hx Cardiac Disorders: No - PULMONARY Hx Respiratory Disorders: No - NEUROLOGICAL Hx Neurological Disorder: No - HEENT Hx HEENT Problems: No - RENAL Hx Chronic Kidney Disease: No - ENDOCRINE/METABOLIC Hx Endocrine Disorders: No - HEMATOLOGICAL/ONCOLOGICAL Hx Blood Disorders: Yes Hx Cancer: Yes (Ovarian) Hx Chemotherapy: Yes - INTEGUMENTARY Hx Dermatological Problems: No - MUSCULOSKELETAL/RHEUMATOLOGICAL Hx Falls: No - GASTROINTESTINAL Hx Gastrointestinal Disorders: No - GENITOURINARY/GYNECOLOGICAL Hx Genitourinary Disorders: Yes Other/Comment: HX OF FIBROIDS - PSYCHIATRIC Hx Substance Use: No - SURGICAL HISTORY Hx Surgeries: Yes Hx Hysterectomy: Yes Other/Comment: port to right chest wall - ANESTHESIA Hx Anesthesia: Yes Hx Anesthesia Reactions: No Meds Allergies/Adverse Reactions: Allergies Allergy/AdvReac Type Severity Reaction Status Date / Time cefazolin sodium [From [facility]] Allergy Verified 06/26/17 11:22 - Medications Medications: Current Medications Famotidine (Pepcid) 20 mg PO BID [facility] Last Admin: 07/04/17 18:38 Dose: 20 mg Heparin Sodium (Porcine) (Heparin) 5,000 units SC Q12 [facility] Last Admin: 07/04/17 22:25 Dose: 5,000 units Piperacillin Sod/Tazobactam Sod (Zosyn 3.375 Gm Iv Premix) 3.375 gm in 50 mls @ 100 mls/hr IVPB Q6H [facility] Last Admin: 07/04/17 21:00 Dose: 100 mls/hr Sodium Chloride (Sodium Chloride 0.9%) 1,000 mls @ 100 mls/hr IV .Q10H [facility] Last Admin: 07/04/17 16:18 Dose: 100 mls/hr Physical Exam - Head Exam Head Exam: ATRAUMATIC - Eye Exam Eye Exam: Normal appearance - ENT Exam ENT Exam: Mucous Membranes Dry - Respiratory Exam Respiratory Exam: NORMAL BREATHING PATTERN - Cardiovascular Exam Cardiovascular Exam: +S1, +S2 - GI/Abdominal Exam GI & Abdominal Exam: Normal Bowel Sounds - Extremities Exam Extremities exam: Positive for: normal inspection - Neurological Exam Neurological exam: Oriented x3 - Psychiatric Exam Psychiatric exam: Normal Affect, Normal Mood - Skin Skin Exam: Warm Results - Vital Signs Recent Vital Signs: Last Vital Signs Temp 98.8 F 07/04/17 20:28 Pulse 88 07/04/17 20:28 Resp 20 07/04/17 20:28 BP 127/70 07/04/17 20:28 Pulse Ox 97 07/04/17 20:28 - Labs Result Diagrams: 07/04/17 10:42 07/04/17 10:42 Labs: Laboratory Results - last 24 hr 07/04/17 07/04/17 07/04/17 10:42 10:42 11:03 WBC 4.7 L RBC 3.00 L Hgb 10.5 L Hct 29.7 L MCV 99.1 H MCH 35.1 H MCHC 35.4 RDW 11.7 Plt Count 355 MPV 7.4 Neut % (Auto) 68.0 Lymph % (Auto) 18.6 L [place] % (Auto) 11.8 H Eos % (Auto) 0.9 Baso % (Auto) 0.7 Neut # (Auto) 3.2 Lymph # (Auto) 0.9 L [place] # (Auto) 0.6 Eos # (Auto) 0.0 Baso # (Auto) 0.0 Sodium 139 Potassium 3.5 L Chloride 102 Carbon Dioxide 28 Anion Gap 14 BUN 13 Creatinine 0.7 Est GFR ( Amer) > 60 Est GFR (Non-Af Amer) > 60 Random Glucose 91 Calcium 9.1 Total Bilirubin 0.8 AST 26 ALT 17 Alkaline Phosphatase 71 Total Protein 7.6 Albumin 4.1 Globulin 3.6 Albumin/Globulin Ratio 1.1 Lipase 44 Urine Color Yellow Urine Clarity Clear Urine pH 5.0 Ur Specific [place] 1.009 Urine Protein Negative Urine Glucose (UA) Normal Urine Ketones Negative Urine Blood 1+ H Urine Nitrate Negative Urine Bilirubin Negative Urine Urobilinogen Normal Ur Leukocyte Esterase Trace Urine WBC (Auto) 1 Urine RBC (Auto) 3 Ur Squamous Epith Cells 1 Urine HCG, Qual Negative Stool Leukocytes, Qual C. difficile Ag & Toxin 07/04/17 07/04/17 Unknown Unknown WBC RBC Hgb Hct MCV MCH MCHC RDW Plt Count MPV Neut % (Auto) Lymph % (Auto) [place] % (Auto) Eos % (Auto) Baso % (Auto) Neut # (Auto) Lymph # (Auto) [place] # (Auto) Eos # (Auto) Baso # (Auto) Sodium Potassium Chloride Carbon Dioxide Anion Gap BUN Creatinine Est GFR ( Amer) Est GFR (Non-Af Amer) Random Glucose Calcium Total Bilirubin AST ALT Alkaline Phosphatase Total Protein Albumin Globulin Albumin/Globulin Ratio Lipase Urine Color Urine Clarity Urine pH Ur Specific [place] Urine Protein Urine Glucose (UA) Urine Ketones Urine Blood Urine Nitrate Urine Bilirubin Urine Urobilinogen Ur Leukocyte Esterase Urine WBC (Auto) Urine RBC (Auto) Ur Squamous Epith Cells Urine HCG, Qual Stool Leukocytes, Qual Negative C. difficile Ag & Toxin Negative Assessment & Plan (1) Anemia Assessment and Plan: retic count, b12, folate, ferritin Status: Acute (2) Leukopenia Assessment and Plan: benign Status: Acute (3) Gynecologic cancer Assessment and Plan: s/p surgery and chemotherapy in remission repeat CA 125 Thank you for this interesting consult. Status: Acute
--- NOTE | 2017-07-04 22:50 | CP.PCM.CON ---
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 ca, ovarian ca, or mullerian tract ca Previous hysterectomy\ Previous chemotherapy Now w hydronephrosis on CT scan Past Patient History - Infectious Disease Hx of Infectious Diseases: None - Past Medical History & Family History Past Medical History?: No - Past Social History Smoking Status: Unknown If Ever Smoked - CARDIAC Hx Cardiac Disorders: No - PULMONARY Hx Respiratory Disorders: No - NEUROLOGICAL Hx Neurological Disorder: No - HEENT Hx HEENT Problems: No - RENAL Hx Chronic Kidney Disease: No - ENDOCRINE/METABOLIC Hx Endocrine Disorders: No - HEMATOLOGICAL/ONCOLOGICAL Hx Blood Disorders: Yes Hx Cancer: Yes (Ovarian) Hx Chemotherapy: Yes - INTEGUMENTARY Hx Dermatological Problems: No - MUSCULOSKELETAL/RHEUMATOLOGICAL Hx Falls: No - GASTROINTESTINAL Hx Gastrointestinal Disorders: No - GENITOURINARY/GYNECOLOGICAL Hx Genitourinary Disorders: Yes Other/Comment: HX OF FIBROIDS - PSYCHIATRIC Hx Substance Use: No - SURGICAL HISTORY Hx Surgeries: Yes Hx Hysterectomy: Yes Other/Comment: port to right chest wall - ANESTHESIA Hx Anesthesia: Yes Hx Anesthesia Reactions: No Meds Allergies/Adverse Reactions: Allergies Allergy/AdvReac Type Severity Reaction Status Date / Time cefazolin sodium [From [facility]] Allergy Verified 06/26/17 11:22 - Medications Medications: Current Medications Famotidine (Pepcid) 20 mg PO BID [facility] Last Admin: 07/04/17 18:38 Dose: 20 mg Heparin Sodium (Porcine) (Heparin) 5,000 units SC Q12 [facility] Last Admin: 07/04/17 22:25 Dose: 5,000 units Piperacillin Sod/Tazobactam Sod (Zosyn 3.375 Gm Iv Premix) 3.375 gm in 50 mls @ 100 mls/hr IVPB Q6H [facility] Last Admin: 07/04/17 21:00 Dose: 100 mls/hr Sodium Chloride (Sodium Chloride 0.9%) 1,000 mls @ 100 mls/hr IV .Q10H [facility] Last Admin: 07/04/17 16:18 Dose: 100 mls/hr Results - Vital Signs Recent Vital Signs: Last Vital Signs Temp 98.8 F 07/04/17 20:28 Pulse 88 07/04/17 20:28 Resp 20 07/04/17 20:28 BP 127/70 07/04/17 20:28 Pulse Ox 97 07/04/17 20:28 - Labs Result Diagrams: 07/04/17 10:42 07/04/17 10:42 Labs: Laboratory Results - last 24 hr 07/04/17 07/04/17 07/04/17 10:42 10:42 11:03 WBC 4.7 L RBC 3.00 L Hgb 10.5 L Hct 29.7 L MCV 99.1 H MCH 35.1 H MCHC 35.4 RDW 11.7 Plt Count 355 MPV 7.4 Neut % (Auto) 68.0 Lymph % (Auto) 18.6 L [place] % (Auto) 11.8 H Eos % (Auto) 0.9 Baso % (Auto) 0.7 Neut # (Auto) 3.2 Lymph # (Auto) 0.9 L [place] # (Auto) 0.6 Eos # (Auto) 0.0 Baso # (Auto) 0.0 Sodium 139 Potassium 3.5 L Chloride 102 Carbon Dioxide 28 Anion Gap 14 BUN 13 Creatinine 0.7 Est GFR ( Amer) > 60 Est GFR (Non-Af Amer) > 60 Random Glucose 91 Calcium 9.1 Total Bilirubin 0.8 AST 26 ALT 17 Alkaline Phosphatase 71 Total Protein 7.6 Albumin 4.1 Globulin 3.6 Albumin/Globulin Ratio 1.1 Lipase 44 Urine Color Yellow Urine Clarity Clear Urine pH 5.0 Ur Specific [place] 1.009 Urine Protein Negative Urine Glucose (UA) Normal Urine Ketones Negative Urine Blood 1+ H Urine Nitrate Negative Urine Bilirubin Negative Urine Urobilinogen Normal Ur Leukocyte Esterase Trace Urine WBC (Auto) 1 Urine RBC (Auto) 3 Ur Squamous Epith Cells 1 Urine HCG, Qual Negative Stool Leukocytes, Qual C. difficile Ag & Toxin 07/04/17 07/04/17 Unknown Unknown WBC RBC Hgb Hct MCV MCH MCHC RDW Plt Count MPV Neut % (Auto) Lymph % (Auto) [place] % (Auto) Eos % (Auto) Baso % (Auto) Neut # (Auto) Lymph # (Auto) [place] # (Auto) Eos # (Auto) Baso # (Auto) Sodium Potassium Chloride Carbon Dioxide Anion Gap BUN Creatinine Est GFR ( Amer) Est GFR (Non-Af Amer) Random Glucose Calcium Total Bilirubin AST ALT Alkaline Phosphatase Total Protein Albumin Globulin Albumin/Globulin Ratio Lipase Urine Color Urine Clarity Urine pH Ur Specific [place] Urine Protein Urine Glucose (UA) Urine Ketones Urine Blood Urine Nitrate Urine Bilirubin Urine Urobilinogen Ur Leukocyte Esterase Urine WBC (Auto) Urine RBC (Auto) Ur Squamous Epith Cells Urine HCG, Qual Stool Leukocytes, Qual Negative C. difficile Ag & Toxin Negative Assessment & Plan - Assessment and Plan (Free Text) Assessment: Hydronephrosis [facility] cancer Full note t/f - Date & Time Date: 07/04/17 Time: 19:30
[2017-07-05] MEDS: Sodium Chloride 0.9% 1,000 ML IV SCH ×3 (03:21→21:48)
[2017-07-05] MEDS: Piperacill/Tazo 3.375gm in Dex 3.375 GM/50 ML BAG IVPB SCH ×4 (03:23→20:07)
[2017-07-05 06:45] LABS: BASO % 0.3 % (0.0-2.0); EOS % 1.2 % (0.0-4.0); LYMPH # 0.9 K/uL (1.0-4.3); LYMPH % 22.8 % (20.0-40.0); MEAN CELL VOLUME 98.5 fL (81.0-99.0); MEAN CORPUSCULAR HEMOGLOBIN 34.3 pg (27.0-31.0); MEAN CORPUSCULAR HGB CONC 34.9 g/dL (33.0-37.0); MEAN PLATELET VOLUME 6.6 fL (7.2-11.7); MONO # 0.5 K/uL (0.0-0.8); MONO % 11.8 % (0.0-10.0); NEUT # 2.6 K/uL (1.8-7.0); NEUT % 63.9 % (50.0-75.0); RBC 2.63 Mil/uL (3.80-5.20); RED CELL DISTRIBUTION WIDTH 11.5 % (11.5-14.5); WHITE BLOOD COUNT 4.1 K/uL (4.8-10.8)
[2017-07-05 07:03] LABS: ALB/GLOB RATIO 1.1 (1.0-2.1); ALT/SGPT 16 U/L (9-52); AST/SGOT 21 U/L (14-36); BLOOD UREA NITROGEN 8 mg/dL (7-17); CALCIUM 8.3 mg/dl (8.6-10.4); GFR AFRICAN-AMERICAN > 60; GFR NON-AFRICAN AMERICAN > 60
--- NOTE | 2017-07-05 09:31 | CP.PCM.PN ---
<Amy Hernandez - Last Filed: 07/05/17 09:27> Subjective - Date & Time of Evaluation Date of Evaluation: 07/05/17 Time of Evaluation: 06:40 - Subjective Subjective: GI Fellow PGY 4 Progress Note Pt seen and evaluated at bedside, pt doing well with improved LLQ pain. Pt reports two BM over night, dark brown but no melena. ROS: A 12pt ROS was negative except as above. Objective - Vital Signs/Intake and Output Vital Signs (last 24 hours): Temp Pulse Resp BP Pulse Ox 98.8 F 74 20 115/60 96 07/05/17 08:34 07/05/17 08:34 07/05/17 08:34 07/05/17 08:34 07/05/17 08:34 Intake and Output: 07/05/17 07/05/17 06:59 18:59 Intake Total 1500 Balance 1500 - Medications Medications: Current Medications Famotidine (Pepcid) 20 mg PO BID [facility] Last Admin: 07/04/17 18:38 Dose: 20 mg Heparin Sodium (Porcine) (Heparin) 5,000 units SC Q12 [facility] Last Admin: 07/04/17 22:25 Dose: 5,000 units Piperacillin Sod/Tazobactam Sod (Zosyn 3.375 Gm Iv Premix) 3.375 gm in 50 mls @ 100 mls/hr IVPB Q6H [facility] Last Admin: 07/05/17 03:23 Dose: 100 mls/hr Sodium Chloride (Sodium Chloride 0.9%) 1,000 mls @ 100 mls/hr IV .Q10H [facility] Last Admin: 07/05/17 05:47 Dose: 100 mls/hr Pneumococcal Polyvalent Vaccine (Pneumovax 23 Vaccine) 0.5 ml SC .ONCE ONE Stop: 07/06/17 10:01 - Labs Labs: 07/05/17 06:31 07/05/17 06:31 - Constitutional Appears: Non-toxic, No Acute Distress - Head Exam Head Exam: ATRAUMATIC, NORMAL INSPECTION, NORMOCEPHALIC - Eye Exam Eye Exam: EOMI, Normal appearance, PERRL - ENT Exam ENT Exam: Mucous Membranes Moist - Respiratory Exam Respiratory Exam: Clear to Ausculation Bilateral, NORMAL BREATHING PATTERN - Cardiovascular Exam Cardiovascular Exam: REGULAR RHYTHM - GI/Abdominal Exam GI & Abdominal Exam: Soft, Normal Bowel Sounds. absent: Distended, Tenderness, Organomegaly - Rectal Exam Rectal Exam: Deferred - Extremities Exam Extremities Exam: Full ROM, Normal Inspection - Back Exam Back Exam: NORMAL INSPECTION - Neurological Exam Neurological Exam: Alert, Awake, Oriented x3 - Psychiatric Exam Psychiatric exam: Normal Affect, Normal Mood - Skin Skin Exam: Dry, Intact, Normal Color, Warm Assessment and Plan - Assessment and Plan (Free Text) Assessment: This is a 51yF presenting with abdominal pain and rectal bleeding. 1. Rectal bleeding- likely ischemic colitis 2. Colitis-likely ischemic vs infectious vs inflammatory 3. Chronic anemia 4. Constipation on CT imaging 5. Hx of ovarian cancer 6. H.pylori infection on recent stool antigen, will discuss with pt if treated for infection Plan: -Continue supportive care with pain control and anti-emetics -No active GI bleeding at this time, H/H stable at baseline -Ct imaging reviewed with rectosigmoid wall thickening, stool burden throughout colon -Symptoms can be from ischmeic colitis, will continue to monitor clinically -If no improvement in pain will consider flexible sigmoidoscopy during admission to r/o underlying malignancy -Advance diet -IVF hydration -IV Zosyn with failed outpt therapy -Stool studies -Will continue to follow closely <Aristides Pritchard - Last Filed: 07/05/17 15:02> Objective - Vital Signs/Intake and Output Vital Signs (last 24 hours): Temp Pulse Resp BP Pulse Ox 98.8 F 74 20 115/60 96 07/05/17 08:34 07/05/17 08:34 07/05/17 08:34 07/05/17 08:34 07/05/17 08:34 Intake and Output: 07/05/17 07/05/17 06:59 18:59 Intake Total 1500 Balance 1500 - Medications Medications: Current Medications Famotidine (Pepcid) 20 mg PO BID [facility] Last Admin: 07/05/17 10:12 Dose: 20 mg Heparin Sodium (Porcine) (Heparin) 5,000 units SC Q12 [facility] Last Admin: 07/05/17 10:12 Dose: 5,000 units Piperacillin Sod/Tazobactam Sod (Zosyn 3.375 Gm Iv Premix) 3.375 gm in 50 mls @ 100 mls/hr IVPB Q6H [facility] Last Admin: 07/05/17 10:12 Dose: 100 mls/hr Sodium Chloride (Sodium Chloride 0.9%) 1,000 mls @ 100 mls/hr IV .Q10H [facility] Last Admin: 07/05/17 05:47 Dose: 100 mls/hr Pneumococcal Polyvalent Vaccine (Pneumovax 23 Vaccine) 0.5 ml SC .ONCE ONE Stop: 07/06/17 10:01 - Labs Labs: 07/05/17 06:31 07/05/17 06:31 Attending/Attestation - Attestation I have personally seen and examined this patient.: Yes I have fully participated in the care of the patient.: Yes I have reviewed all pertinent clinical information, including history, physical exam and plan: Yes Notes (Text): 07/05/17 14:58 I have seen and examined patient with GI fellow. No acute events overnight, she is seen resting in bed comfortably. She reports ongoing intermittent LLQ abdominal pain, though improved compared to yesterday. She denies nausea, vomiting, fever/chills. Tolerating PO liquids without difficulty. Review of vitals from today are normal. Abdominal pain Rectal bleeding History of ovarian cancer Colitis - infectious vs ischemic vs inflammatory - Advance to full liquid diet as tolerated - Continue with antibiotic therapy - Follow up stool studies, blood culture results - Continue with supportive care, if no clinical improvement by tomorrow would consider flexible sigmoidoscopy to exclude for underlying malignancy given prior cancer history. Otherwise, patient will require elective outpatient colonoscopy 6-8 weeks following resolution of acute symptoms. Will continue to monitor patient clinical course.
--- NOTE | 2017-07-05 13:37 | CP.PCM.PN ---
<Kolton Sahni - Last Filed: 07/05/17 17:28> Subjective - Date & Time of Evaluation Date of Evaluation: 07/05/17 Time of Evaluation: 13:35 - Subjective Subjective: Patient seen and examined at bedside. Per nursing no acute events occurred overnight. The patient reports two episodes of diarrhea but no melena present. Admits to lower left quadrant abdominal pain. The patient denies any chest pain , shortness of breath, fevers, chills, nausea, vomiting, syncopal episodes, changes in vision, or any other complaints. Objective - Vital Signs/Intake and Output Vital Signs (last 24 hours): Temp Pulse Resp BP Pulse Ox 98.8 F 74 20 115/60 96 07/05/17 08:34 07/05/17 08:34 07/05/17 08:34 07/05/17 08:34 07/05/17 08:34 Intake and Output: 07/05/17 07/05/17 06:59 18:59 Intake Total 1500 Balance 1500 - Medications Medications: Current Medications Famotidine (Pepcid) 20 mg PO BID [facility] Last Admin: 07/05/17 10:12 Dose: 20 mg Heparin Sodium (Porcine) (Heparin) 5,000 units SC Q12 [facility] Last Admin: 07/05/17 10:12 Dose: 5,000 units Piperacillin Sod/Tazobactam Sod (Zosyn 3.375 Gm Iv Premix) 3.375 gm in 50 mls @ 100 mls/hr IVPB Q6H [facility] Last Admin: 07/05/17 10:12 Dose: 100 mls/hr Sodium Chloride (Sodium Chloride 0.9%) 1,000 mls @ 100 mls/hr IV .Q10H [facility] Last Admin: 07/05/17 05:47 Dose: 100 mls/hr Pneumococcal Polyvalent Vaccine (Pneumovax 23 Vaccine) 0.5 ml SC .ONCE ONE Stop: 07/06/17 10:01 - Labs Labs: 07/05/17 06:31 07/05/17 06:31 - Head Exam Head Exam: ATRAUMATIC, NORMAL INSPECTION, NORMOCEPHALIC - Eye Exam Eye Exam: EOMI, Normal appearance, PERRL Pupil Exam: NORMAL ACCOMODATION, PERRL. absent: Irregular, Unequal - ENT Exam ENT Exam: Mucous Membranes Moist, Normal Exam, Normal Oropharynx - Neck Exam Neck Exam: Full ROM, Normal Inspection. absent: Lymphadenopathy, Thyromegaly - Respiratory Exam Respiratory Exam: Clear to Ausculation Bilateral, NORMAL BREATHING PATTERN. absent: Rhonchi, Wheezes - Cardiovascular Exam Cardiovascular Exam: REGULAR RHYTHM, RRR, +S1, +S2. absent: Gallop, Rubs - GI/Abdominal Exam GI & Abdominal Exam: Soft, Tenderness, Normal Bowel Sounds. absent: Rigid, Hyperactive Bowel Sounds, Rebound - Extremities Exam Extremities Exam: Full ROM, Normal Inspection. absent: Joint Swelling, Pedal Edema, Tenderness - Back Exam Back Exam: NORMAL INSPECTION. absent: CVA tenderness (L), CVA tenderness (R), paraspinal tenderness - Neurological Exam Neurological Exam: Alert, Awake, CN II-XII Intact, Oriented x3 - Psychiatric Exam Psychiatric exam: Normal Affect, Normal Mood - Skin Skin Exam: Dry, Intact, Normal Color, Warm. absent: Diaphoretic, Pallor Assessment and Plan - Assessment and Plan (Free Text) Plan: 1.) Left lower quadrant abdominal pain (2/2 to diarrhea) - Patient recently discharged from [facility] [place] emergency department PO Ciprofloxacin and PO Metronidazole for Colitis. -GI consulted. Rec's appreciated -Clear liquid diet. Will advance as tolerated. -Continue Zosyn 3.375mg Q6 per GI Team. -Continue IV fluids @100cc/hr. -F/U with Stool Studies, C.diff. 2. New right hydronephrosis -CT scan showed new right hydronephrosis and a left stable hydronephosis -Urology (Dr. Souza) consulted. Rec's appreciated 3.) History of Serous Carcinoma of the pelvis - Oncology Consult: Dr. Cheatham --> recommendations appreciated 4.) Prophylaxis - Heparin 5,000 units SC Q12 - Pepcid 20mg PO BID <Denis Rios - Last Filed: 07/06/17 18:27> Objective - Vital Signs/Intake and Output Vital Signs (last 24 hours): Temp Pulse Resp BP Pulse Ox 97.3 F L 64 17 144/65 100 07/06/17 15:45 07/06/17 16:15 07/06/17 16:15 07/06/17 16:15 07/06/17 16:15 Intake and Output: 07/06/17 07/06/17 06:59 18:59 Intake Total 1999 900 Output Total 700 Balance 1300 900 - Medications Medications: Current Medications Famotidine (Pepcid) 20 mg PO BID [facility] Last Admin: 07/06/17 17:49 Dose: 20 mg Heparin Sodium (Porcine) (Heparin) 5,000 units SC Q12 [facility] Last Admin: 07/06/17 10:04 Dose: Not Given Piperacillin Sod/Tazobactam Sod (Zosyn 3.375 Gm Iv Premix) 3.375 gm in 50 mls @ 100 mls/hr IVPB Q6H [facility] Last Admin: 07/06/17 14:18 Dose: Not Given Sodium Chloride (Sodium Chloride 0.9%) 1,000 mls @ 100 mls/hr IV .Q10H [facility] Last Admin: 07/06/17 08:00 Dose: Not Given - Labs Labs: 07/06/17 06:59 07/06/17 06:59 Attending/Attestation - Attestation I have personally seen and examined this patient.: Yes I have fully participated in the care of the patient.: Yes I have reviewed all pertinent clinical information, including history, physical exam and plan: Yes Notes (Text): Seen and examined Discussed with the patient. possible sigmoidoscopy tomorrow continue addis, follow urologist recommendation d/w the resident I agree with the documentation of the assessment and the plan
[2017-07-05] MEDS ORDERED: Potassium Chloride 20 mEq ER Tab PO ONE ×3 (17:07→22:00)
[2017-07-06] MEDS: Piperacill/Tazo 3.375gm in Dex 3.375 GM/50 ML BAG IVPB SCH ×4 (03:17→21:37)
[2017-07-06] MEDS: Sodium Chloride 0.9% 1,000 ML IV SCH ×3 (03:22→17:45)
[2017-07-06 07:17] LABS: BASO % 0.4 % (0.0-2.0); EOS # 0.1 K/uL (0.0-0.7); EOS % 1.4 % (0.0-4.0); HEMOGLOBIN 9.2 g/dL (11.0-16.0); LYMPH # 0.7 K/uL (1.0-4.3); LYMPH % 17.7 % (20.0-40.0); MEAN CELL VOLUME 99.3 fL (81.0-99.0); MEAN CORPUSCULAR HEMOGLOBIN 34.9 pg (27.0-31.0); MEAN CORPUSCULAR HGB CONC 35.2 g/dL (33.0-37.0); MEAN PLATELET VOLUME 6.8 fL (7.2-11.7); MONO # 0.4 K/uL (0.0-0.8); MONO % 9.5 % (0.0-10.0); NEUT # 2.6 K/uL (1.8-7.0); RBC 2.62 Mil/uL (3.80-5.20); RED CELL DISTRIBUTION WIDTH 11.6 % (11.5-14.5); WHITE BLOOD COUNT 3.7 K/uL (4.8-10.8)
[2017-07-06 08:14] LABS: ALB/GLOB RATIO 1.1 (1.0-2.1); ALBUMIN 3.2 g/dL (3.5-5.0); ALT/SGPT 21 U/L (9-52); AST/SGOT 26 U/L (14-36); BLOOD UREA NITROGEN 8 mg/dL (7-17); CALCIUM 8.5 mg/dl (8.6-10.4); GFR AFRICAN-AMERICAN > 60; GFR NON-AFRICAN AMERICAN > 60
[2017-07-06] MEDS ORDERED: Influenza Vaccine 60 mcg/0.5 mL SYR (4YR UP) IM ONE (10:00)
[2017-07-06] MEDS ORDERED: Pneumococcal 23-Valent Vaccine SC ONE (10:00)
--- NOTE | 2017-07-06 12:23 | CP.PCM.PN ---
<KaitlynCarlynn - Last Filed: 07/06/17 19:49> Subjective - Date & Time of Evaluation Date of Evaluation: 07/06/17 Time of Evaluation: 08:23 - Subjective Subjective: Patient seen and examined at bedside. Per nursing no acute events occurred overnight. The patient reports two episodes of diarrhea but no melena present. Admits to lower left quadrant abdominal pain. The patient denies any chest pain , shortness of breath, fevers, chills, nausea, vomiting, syncopal episodes, changes in vision, or any other complaints. Objective - Vital Signs/Intake and Output Vital Signs (last 24 hours): Temp Pulse Resp BP Pulse Ox 98.2 F 67 20 130/78 97 07/06/17 00:00 07/06/17 00:00 07/06/17 00:00 07/06/17 00:00 07/06/17 00:00 Intake and Output: 07/06/17 07/06/17 06:59 18:59 Intake Total 2000 Output Total 700 Balance 1300 - Medications Medications: Current Medications Famotidine (Pepcid) 20 mg PO BID [facility] Last Admin: 07/06/17 10:04 Dose: Not Given Heparin Sodium (Porcine) (Heparin) 5,000 units SC Q12 [facility] Last Admin: 07/06/17 10:04 Dose: Not Given Piperacillin Sod/Tazobactam Sod (Zosyn 3.375 Gm Iv Premix) 3.375 gm in 50 mls @ 100 mls/hr IVPB Q6H [facility] Last Admin: 07/06/17 10:00 Dose: 100 mls/hr Sodium Chloride (Sodium Chloride 0.9%) 1,000 mls @ 100 mls/hr IV .Q10H [facility] Last Admin: 07/06/17 08:00 Dose: Not Given - Labs Labs: 07/06/17 06:59 07/06/17 06:59 Assessment and Plan - Assessment and Plan (Free Text) Plan: 1.) Left lower quadrant abdominal pain (2/2 to diarrhea) - Patient recently discharged from [facility] emergency department PO Ciprofloxacin and PO Metronidazole for Colitis. -GI consulted. Patient to have flexible sigmoidoscopy. -Clear liquid diet. Will advance as tolerated. -Continue Zosyn 3.375mg Q6 per GI Team. -Continue IV fluids @100cc/hr. -F/U with Stool Studies, C.diff. 2. New right hydronephrosis -CT scan showed new right hydronephrosis and a left stable hydronephosis -Urology (Dr. Souza) consulted. Rec's appreciated 3.) History of Serous Carcinoma of the pelvis - Oncology Consult: Dr. Cheatham --> recommendations appreciated 4.) Prophylaxis - Heparin 5,000 units SC Q12 - Pepcid 20mg PO BID <Denis Rios - Last Filed: 07/11/17 20:59> Objective - Vital Signs/Intake and Output Vital Signs (last 24 hours): Temp Pulse Resp BP Pulse Ox 98 F 72 20 120/67 96 07/07/17 16:00 07/07/17 16:00 07/07/17 16:00 07/07/17 16:00 07/07/17 16:00 - Labs Labs: 07/07/17 09:20 07/07/17 09:20 Attending/Attestation - Attestation I have personally seen and examined this patient.: Yes I have fully participated in the care of the patient.: Yes I have reviewed all pertinent clinical information, including history, physical exam and plan: Yes Notes (Text): Seen and examined I agree with the documentation of the assessment and the plan 07/11/17 20:59
[2017-07-06] MEDS ORDERED: Propofol 10 mg/ml Inj (20 ML) ONE (15:41)
--- NOTE | 2017-07-06 23:06 | PCM.URO ---
Urology Progress Note - General General: No Complaints, Tolerating Diet - Subjective Abdominal Pain: Yes (less) Flank Pain: No Voiding Well: Yes Dysuria: No Hematuria: No [place]: Yes Chest Pain: No Fever & Chills: No - Objective Lab Studies: Reviewed Lab Results Last 24 Hours: Laboratory Results - last 24 hr 07/06/17 07/06/17 07/06/17 06:59 06:59 12:43 WBC 3.7 L RBC 2.62 L Hgb 9.2 L Hct 26.0 L MCV 99.3 H MCH 34.9 H MCHC 35.2 RDW 11.6 Plt Count 272 MPV 6.8 L Neut % (Auto) 71.0 Lymph % (Auto) 17.7 L [place] % (Auto) 9.5 Eos % (Auto) 1.4 Baso % (Auto) 0.4 Neut # (Auto) 2.6 Lymph # (Auto) 0.7 L [place] # (Auto) 0.4 Eos # (Auto) 0.1 Baso # (Auto) 0.0 Sodium 143 Potassium 3.6 Chloride 110 H Carbon Dioxide 25 Anion Gap 11 BUN 8 Creatinine 0.8 Est GFR ( Amer) > 60 Est GFR (Non-Af Amer) > 60 Random Glucose 91 Calcium 8.5 L Total Bilirubin 0.7 AST 26 ALT 21 Alkaline Phosphatase 46 Total Protein 6.0 L Albumin 3.2 L Globulin 2.8 Albumin/Globulin Ratio 1.1 Urine HCG, Qual Negative Intake & Output: Intake & Output 07/06/17 07/06/17 07/07/17 06:59 18:59 06:59 Intake Total 2000 900 1000 Output Total 700 Balance 3868 581 0211 Intake: IV 400 Intake, IV Amount 1700 500 850 Left Antecubital 1700 500 850 Oral 300 0 150 Output: Urine 700 Urine, Voided 700 Other: # Voids Urine, Voided 3 2 2 # Bowel Movements 3 4 0 Vital Signs: Vital Signs - 24 hr 07/06/17 07/06/17 07/06/17 00:00 15:22 15:45 Temperature 98.2 F 98.2 F 97.3 F L Pulse Rate 67 80 67 Respiratory 20 20 18 Rate Blood Pressure 130/78 100/62 116/53 L O2 Sat by Pulse 97 100 100 Oximetry 07/06/17 07/06/17 16:00 16:15 Temperature Pulse Rate 65 64 Respiratory 20 17 Rate Blood Pressure 128/48 L 144/65 O2 Sat by Pulse 100 100 Oximetry - Physical Exam Abdominal Exam: Soft, Non-Tender, Non-Distended Back: No CVA Tenderness - Plan Additional Information: Imp: gi bleeding. 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 hydronephrosis. Will discuss re further management. poss deseaner urologic testing and instrumentation t/f - Date & Time of Note Date: 07/06/17 Time: 07:55
[2017-07-07 01:18] VITALS: RESP 20
[2017-07-07] MEDS: Piperacill/Tazo 3.375gm in Dex 3.375 GM/50 ML BAG IVPB SCH ×3 (02:26→14:01)
--- NOTE | 2017-07-07 05:22 | CP.PCM.PN ---
<HillsAlkaManuel - Last Filed: 07/07/17 06:19> Subjective - Date & Time of Evaluation Date of Evaluation: 07/07/17 Time of Evaluation: 07:00 - Subjective Subjective: Medicine Progress Note: Patient was seen and examined at bedside. The patient denies any chest pain, shortness of breath, fevers, chills, nausea, vomiting, syncopal episodes, changes in vision, or any other complaints. Objective - Vital Signs/Intake and Output Vital Signs (last 24 hours): Temp Pulse Resp BP Pulse Ox 98.2 F 60 20 113/68 97 07/07/17 00:00 07/07/17 00:00 07/07/17 00:00 07/07/17 00:00 07/07/17 00:00 Intake and Output: 07/06/17 07/07/17 18:59 06:59 Intake Total 900 1000 Balance 900 1000 - Medications Medications: Current Medications Famotidine (Pepcid) 20 mg PO BID [facility] Last Admin: 07/06/17 17:49 Dose: 20 mg Heparin Sodium (Porcine) (Heparin) 5,000 units SC Q12 [facility] Last Admin: 07/06/17 21:46 Dose: 5,000 units Piperacillin Sod/Tazobactam Sod (Zosyn 3.375 Gm Iv Premix) 3.375 gm in 50 mls @ 100 mls/hr IVPB Q6H [facility] Last Admin: 07/07/17 02:26 Dose: 100 mls/hr Sodium Chloride (Sodium Chloride 0.9%) 1,000 mls @ 100 mls/hr IV .Q10H [facility] Last Admin: 07/06/17 17:45 Dose: Not Given - Labs Labs: 07/06/17 06:59 07/06/17 06:59 - Constitutional Appears: No Acute Distress - Head Exam Head Exam: NORMAL INSPECTION - Eye Exam Eye Exam: Normal appearance - ENT Exam ENT Exam: Mucous Membranes Moist - Respiratory Exam Respiratory Exam: Clear to Ausculation Bilateral, NORMAL BREATHING PATTERN - Cardiovascular Exam Cardiovascular Exam: REGULAR RHYTHM, +S1, +S2 - GI/Abdominal Exam GI & Abdominal Exam: Soft, Normal Bowel Sounds - Extremities Exam Extremities Exam: Normal Inspection - Neurological Exam Neurological Exam: Alert, Awake, Oriented x3 - Psychiatric Exam Psychiatric exam: Normal Affect, Normal Mood - Skin Skin Exam: Normal Color, Warm Assessment and Plan - Assessment and Plan (Free Text) Assessment: .) Left lower quadrant abdominal pain (2/2 to diarrhea) - Patient recently discharged from [facility] emergency department PO Ciprofloxacin and PO Metronidazole for Colitis. - GI consulted. Patient to have flexible sigmoidoscopy. - Clear liquid diet. Will advance as tolerated. - Continue Zosyn 3.375mg Q6 per GI Team. - Continue IV fluids @100cc/hr. - stool culture negative - C.diff.: negative; stool leukocytes negative; ova and parasites - negative 2. New right hydronephrosis - CT scan showed new right hydronephrosis and a left stable hydronephosis - Urology (Dr. Souza) consulted. Rec's appreciated 3.) History of Serous Carcinoma of the pelvis - Oncology Consult: Dr. Cheatham --> recommendations appreciated 4.) Prophylaxis - Heparin 5,000 units SC Q12 - Pepcid 20mg PO BID <Denis Rios - Last Filed: 07/11/17 21:03> Objective - Vital Signs/Intake and Output Vital Signs (last 24 hours): Temp Pulse Resp BP Pulse Ox 98 F 72 20 120/67 96 07/07/17 16:00 07/07/17 16:00 07/07/17 16:00 07/07/17 16:00 07/07/17 16:00 - Labs Labs: 07/07/17 09:20 07/07/17 09:20 Attending/Attestation - Attestation I have personally seen and examined this patient.: Yes I have fully participated in the care of the patient.: Yes I have reviewed all pertinent clinical information, including history, physical exam and plan: Yes Notes (Text): Seen and examined Discussed with the resident plan discussed with the patient
[2017-07-07] MEDS: Sodium Chloride 0.9% 1,000 ML IV SCH ×2 (08:47→14:01)
[2017-07-07 09:56] LABS: ALB/GLOB RATIO 1.1 (1.0-2.1); ALBUMIN 3.4 g/dL (3.5-5.0); ALT/SGPT 19 U/L (9-52); AST/SGOT 20 U/L (14-36); BASO % 0.3 % (0.0-2.0); BLOOD UREA NITROGEN 13 mg/dL (7-17); CALCIUM 8.1 mg/dl (8.6-10.4); EOS % 0.6 % (0.0-4.0); GFR AFRICAN-AMERICAN > 60; GFR NON-AFRICAN AMERICAN > 60; HEMOGLOBIN 9.5 g/dL (11.0-16.0); LYMPH # 0.8 K/uL (1.0-4.3); LYMPH % 15.4 % (20.0-40.0); MEAN CELL VOLUME 99.9 fL (81.0-99.0); MEAN CORPUSCULAR HEMOGLOBIN 35.2 pg (27.0-31.0); MEAN CORPUSCULAR HGB CONC 35.2 g/dL (33.0-37.0); MEAN PLATELET VOLUME 7.1 fL (7.2-11.7); MONO # 0.4 K/uL (0.0-0.8); NEUT # 3.7 K/uL (1.8-7.0); NEUT % 75.7 % (50.0-75.0); RBC 2.7 Mil/uL (3.80-5.20); RED CELL DISTRIBUTION WIDTH 11.7 % (11.5-14.5); WHITE BLOOD COUNT 4.9 K/uL (4.8-10.8)
--- NOTE | 2017-07-07 12:02 | CP.PCM.PN ---
Subjective - Date & Time of Evaluation Date of Evaluation: 07/07/17 Time of Evaluation: 11:58 - Subjective Subjective: I have seen and examined patient, no acute events overnight. She denies abdominal pain, nausea, vomiting, fever/chills. She endorses two loose bowel movements overnight, though becoming more formed. Tolerating PO liquids without difficulty. Review of vitals from today are normal. 12 point review of systems performed, negative aside from mentioned above. Objective - Vital Signs/Intake and Output Vital Signs (last 24 hours): Temp Pulse Resp BP Pulse Ox 98.6 F 60 20 129/81 97 07/07/17 08:23 07/07/17 08:23 07/07/17 08:23 07/07/17 08:23 07/07/17 08:23 Intake and Output: 07/07/17 07/07/17 06:59 18:59 Intake Total 1000 800 Balance 1000 800 - Medications Medications: Current Medications Famotidine (Pepcid) 20 mg PO BID [facility] Last Admin: 07/07/17 10:31 Dose: 20 mg Heparin Sodium (Porcine) (Heparin) 5,000 units SC Q12 [facility] Last Admin: 07/07/17 10:31 Dose: 5,000 units Piperacillin Sod/Tazobactam Sod (Zosyn 3.375 Gm Iv Premix) 3.375 gm in 50 mls @ 100 mls/hr IVPB Q6H [facility] Last Admin: 07/07/17 08:45 Dose: 100 mls/hr Sodium Chloride (Sodium Chloride 0.9%) 1,000 mls @ 100 mls/hr IV .Q10H [facility] Last Admin: 07/07/17 08:47 Dose: 100 mls/hr - Labs Labs: 07/07/17 09:20 07/07/17 09:20 - Constitutional Appears: Non-toxic, No Acute Distress - Head Exam Head Exam: NORMAL INSPECTION - Eye Exam Eye Exam: EOMI, Normal appearance - ENT Exam ENT Exam: Mucous Membranes Moist - Respiratory Exam Respiratory Exam: Clear to Ausculation Bilateral - Cardiovascular Exam Cardiovascular Exam: REGULAR RHYTHM, +S1, +S2 - GI/Abdominal Exam GI & Abdominal Exam: Soft, Normal Bowel Sounds Additional comments: non tender to palpation in four quadrants - Extremities Exam Extremities Exam: Normal Inspection - Skin Skin Exam: Dry, Intact, Normal Color, Warm Assessment and Plan - Assessment and Plan (Free Text) Assessment: Abdominal pain, rectal bleeding - acute colitis s/p flexible sigmoidoscopy yesterday showing distal colitis with rectal involvement History of ovarian cancer Plan: - Advance diet as tolerated - Continue with antibiotic therapy to complete 10 day course - Await biopsy results from flexible sigmoidoscopy - From GI standpoint ok to discharge home with subsequent outpatient follow up. She will require complete colonoscopy within 6-8 weeks following resolution of acute symptoms. Will sign off case, please reconsult as necessary, thank you.
--- NOTE | 2017-07-07 15:11 | US ---
PROCEDURE: Urinary bladder ultrasound dated 07/07/2017. HISTORY: Postvoid bladder scan COMPARISON: None available. TECHNIQUE: Sonographic evaluation of the bladder was performed. FINDINGS: Mild wall thickening - edema of the urinary bladder nonspecific. This could be secondary to incomplete distention however rule out cystitis. No evidence of intraluminal urinary bladder calculus or gross mass lesion. No free fluid in pelvis. Prevoid Volume: 200 cc. Post void residual: 63 cc. IMPRESSION: Prevoid volume calculated to 1 cc and postvoid at 63 cc. Mild bladder wall thickening -edema nonspecific ; rule out incomplete distention ; rule out cystitis . Consider urologic consultation if not already performed.
[2017-07-07] MEDS ORDERED: Potassium Chloride 20 mEq ER Tab PO ONE (15:57)
[2017-07-07 16:58] VITALS: BP 120/67; PULSE 72; TEMP 98
--- NOTE | 2017-07-07 19:55 | CP.PCM.DIS ---
<Alka Hills - Last Filed: 07/07/17 19:51> Provider - Provider Date of Admission: 07/04/17 14:19 Attending physician: Denis Rios MD Time Spent in preparation of Discharge (in minutes): 40 Hospital Course - Lab Results Lab Results: Micro Results 07/04/17 10:30 Blood Blood Culture - Preliminary NO GROWTH AFTER 48 HOURS 07/04/17 11:00 Blood Blood Culture - Preliminary NO GROWTH AFTER 48 HOURS 07/04/17 16:45 Urine Urine Culture - Final No Growth (<1,000 CFU/ML) 07/04/17 Unknown Stool Stool Culture - Final NO SALMONELLA, SHIGELLA OR CAMPYLOBACTER ISOLATED. 07/04/17 Unknown Stool Ova and Parasite Concentrate Exam - Final Most Recent Lab Values WBC 4.9 K/uL (4.8-10.8) 07/07/17 09:20 RBC 2.70 Mil/uL (3.80-5.20) L 07/07/17 09:20 Hgb 9.5 g/dL (11.0-16.0) L 07/07/17 09:20 Hct 27.0 % (34.0-47.0) L 07/07/17 09:20 MCV 99.9 fL (81.0-99.0) H 07/07/17 09:20 MCH 35.2 pg (27.0-31.0) H 07/07/17 09:20 MCHC 35.2 g/dL (33.0-37.0) 07/07/17 09:20 RDW 11.7 % (11.5-14.5) 07/07/17 09:20 Plt Count 313 K/uL (130-400) 07/07/17 09:20 MPV 7.1 fL (7.2-11.7) L 07/07/17 09:20 Neut % (Auto) 75.7 % (50.0-75.0) H 07/07/17 09:20 Lymph % (Auto) 15.4 % (20.0-40.0) L 07/07/17 09:20 [place] % (Auto) 8.0 % (0.0-10.0) 07/07/17 09:20 Eos % (Auto) 0.6 % (0.0-4.0) 07/07/17 09:20 Baso % (Auto) 0.3 % (0.0-2.0) 07/07/17 09:20 Neut # (Auto) 3.7 K/uL (1.8-7.0) 07/07/17 09:20 Lymph # (Auto) 0.8 K/uL (1.0-4.3) L 07/07/17 09:20 [place] # (Auto) 0.4 K/uL (0.0-0.8) 07/07/17 09:20 Eos # (Auto) 0.0 K/uL (0.0-0.7) 07/07/17 09:20 Baso # (Auto) 0.0 K/uL (0.0-0.2) 07/07/17 09:20 Sodium 141 mmol/L (132-148) 07/07/17 09:20 Potassium 3.0 mmol/L (3.6-5.2) L 07/07/17 09:20 Chloride 108 mmol/L (98-107) H 07/07/17 09:20 Carbon Dioxide 21 mmol/L (22-30) L 07/07/17 09:20 Anion Gap 15 (10-20) 07/07/17 09:20 BUN 13 mg/dL (7-17) 07/07/17 09:20 Creatinine 0.8 mg/dL (0.7-1.2) 07/07/17 09:20 Est GFR ( Amer) > 60 07/07/17 09:20 Est GFR (Non-Af Amer) > 60 07/07/17 09:20 Random Glucose 117 mg/dL (65-105) H 07/07/17 09:20 Calcium 8.1 mg/dl (8.6-10.4) L 07/07/17 09:20 Total Bilirubin 0.9 mg/dL (0.2-1.3) 07/07/17 09:20 AST 20 U/L (14-36) 07/07/17 09:20 ALT 19 U/L (9-52) 07/07/17 09:20 Alkaline Phosphatase 51 U/L (38-126) 07/07/17 09:20 Total Protein 6.6 g/dL (6.3-8.3) 07/07/17 09:20 Albumin 3.4 g/dL (3.5-5.0) L 07/07/17 09:20 Globulin 3.1 gm/dL (2.2-3.9) 07/07/17 09:20 Albumin/Globulin Ratio 1.1 (1.0-2.1) 07/07/17 09:20 Lipase 44 U/L (23-300) 07/04/17 10:42 CA 125 Antigen 51.0 U/mL (0-35) H D 07/05/17 06:31 Urine Color Yellow (YELLOW) 07/04/17 11:03 Urine Clarity Clear (Clear) 07/04/17 11:03 Urine pH 5.0 (5.0-8.0) 07/04/17 11:03 Ur Specific [place] 1.009 (1.003-1.030) 07/04/17 11:03 Urine Protein Negative mg/dL (NEGATIVE) 07/04/17 11:03 Urine Glucose (UA) Normal mg/dL (Normal) 07/04/17 11:03 Urine Ketones Negative mg/dL (NEGATIVE) 07/04/17 11:03 Urine Blood 1+ (NEGATIVE) H 07/04/17 11:03 Urine Nitrate Negative (NEGATIVE) 07/04/17 11:03 Urine Bilirubin Negative (NEGATIVE) 07/04/17 11:03 Urine Urobilinogen Normal mg/dL (0.2-1.0) 07/04/17 11:03 Ur Leukocyte Esterase Trace Sherly/uL (Negative) 07/04/17 11:03 Urine WBC (Auto) 1 /hpf (0-5) 07/04/17 11:03 Urine RBC (Auto) 3 /hpf (0-3) 07/04/17 11:03 Ur Squamous Epith Cells 1 /hpf (0-5) 07/04/17 11:03 Urine HCG, Qual Negative (NEGATIVE) 07/06/17 12:43 Stool Leukocytes, Qual Negative (NEGATIVE) 07/04/17 Unknown C. difficile Ag & Toxin Negative (NEGATIVE) 07/04/17 Unknown - Hospital Course Hospital Course: HPI: 51 year old female with history of cervical cancer who presents to the emergency room with complaints of lower left quadrant pain and bright red blood per rectum for the past one week. In conjunction the patient also reports diarrhea for the same period of time.The patient was recently in [facility] Emergency Department (06/26/17) for similar symptoms. She was discharged from the emergency department with antibiotics. The patient reports no improvement in symptoms after taking the prescribed medications. The patient reports the pain in the left quadrant as sharp in nature with no radiation. In conjunction she began to notice bright red blood per rectum yesterday afternoon. She reports this as being her first episode. She states that it initially was skank and as the day progressed her subsequent bowel movements contained more blood. She denies any alleviating or modifying factors. She also denies any changes in diet or recent travel. The patient denies any chest pain, shortness of breath, headache, dizziness, changes in vision, syncopal episodes, fevers, chills, numbness or tingling in her hands and feet, or any other complaints. PMD: 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 Drug induced constipation. Leukopenia and anemia. 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 Denies smoking, or illicit drug use. Denies alcohol use. Medications: Completed Chemotherapy. Ciprofloxacin 500mg BID, Tramadol 50mg TID , Naproxen 500mg BID, Metronidazole 500mg BID Allergies: Cefazolin - causes a rash During patient's hospital course GI was consulted [place] to have a flexible sigmoidoscopy. She was started on Zosyn 3.375mg q6h and fluids. Her stool studies were negative. Also during her hospital course she had CT scan which showed new right hydronephrosis and a left stable hydronephosis. Urology (Dr. Souza) was consulted. Per GI patient to continue antiobiotic course and outpatient follow up. Patient will also require complete colonoscopy within 6- 8 weeks following resolution of acute symptoms. Patient was seen and examined at bedside. The patient denies any chest pain, shortness of breath, fevers, chills, nausea, vomiting, syncopal episodes, changes in vision, or any other complaints. Patient is stable for discharge home. Patient is to follow up in the [facility] within 1-2 weeks of discharge. Patient is to resume her home medications and take Cipro 500mg by mouth twice a day and Flagyl 500mg by mouth three times a day for 10 days total. Patient is to receive a referral upon follow up for GI for colonoscopy once the infection is cleared. Patient is also to follow up with her private OBGYN and Heme/Onc ( Dr. Cheatham) within 1-2 weeks of hospital discharge. Patient is to return to the hospital if symptoms return. All instructions explained to the patient and she agrees. This is a brief summary of the hospital course. Please see EMR for more details. Discharge Exam - Head Exam Head Exam: NORMAL INSPECTION - Eye Exam Eye Exam: EOMI, Normal appearance - ENT Exam ENT Exam: Mucous Membranes Moist - Respiratory Exam Respiratory Exam: Clear to PA & Lateral, NORMAL BREATHING PATTERN - Cardiovascular Exam Cardiovascular Exam: REGULAR RHYTHM, +S1, +S2 - GI/Abdominal Exam GI & Abdominal Exam: Normal Bowel Sounds, Soft. absent: Tenderness - Extremities Exam Extremities exam: normal inspection - Neurological Exam Neurological exam: Alert, Oriented x3 - Psychiatric Exam Psychiatric exam: Normal Affect, Normal Mood - Skin Skin Exam: Normal Color, Warm Discharge Plan - Discharge Medications Prescriptions: Ciprofloxacin HCl [Cipro] 500 mg PO BID #20 tab Metronidazole [Flagyl] 500 mg PO TID #30 tablet - Follow Up Plan Condition: GOOD Disposition: HOME/ ROUTINE Instructions: Constipation (DC), Constipation (GEN), Acute Abdominal Pain (DC) , Acute Abdominal Pain (GEN) Additional Instructions: Patient is stable for discharge home. Patient is to follow up in the [facility] within 1-2 weeks of discharge. Patient is to resume her home medications and take Cipro 500mg by mouth twice a day and Flagyl 500mg by mouth three times a day for 10 days total. Patient is to receive a referral upon follow up for GI for colonoscopy once the infection is cleared. Patient is also to follow up with her private OBGYN and Heme/Onc ( Dr. Cheatham) within 1-2 weeks of hospital discharge. Patient is to return to the hospital if symptoms return. All instructions explained to the patient and she agrees. (Meds were sent to [facility] in [place]) Referrals: [facility] [Outside] Omar Cheatham MD [Staff Provider] - Asad Souza MD [Staff Provider] - <Denis Rios - Last Filed: 07/11/17 21:08> Provider - Provider Date of Admission: 07/04/17 14:19 Attending physician: Denis Rios MD Hospital Course - Lab Results Lab Results: Micro Results 07/04/17 10:30 Blood Blood Culture - Final NO GROWTH AFTER 5 DAYS 07/04/17 10:30 Blood Gram Stain - Final TEST NOT PERFORMED 07/04/17 11:00 Blood Blood Culture - Final NO GROWTH AFTER 5 DAYS 07/04/17 11:00 Blood Gram Stain - Final TEST NOT PERFORMED 07/04/17 16:45 Urine Urine Culture - Final No Growth (<1,000 CFU/ML) 07/04/17 Unknown Stool Stool Culture - Final NO SALMONELLA, SHIGELLA OR CAMPYLOBACTER ISOLATED. 07/04/17 Unknown Stool Ova and Parasite Concentrate Exam - Final Most Recent Lab Values WBC 4.9 K/uL (4.8-10.8) 07/07/17 09:20 RBC 2.70 Mil/uL (3.80-5.20) L 07/07/17 09:20 Hgb 9.5 g/dL (11.0-16.0) L 07/07/17 09:20 Hct 27.0 % (34.0-47.0) L 07/07/17 09:20 MCV 99.9 fL (81.0-99.0) H 07/07/17 09:20 MCH 35.2 pg (27.0-31.0) H 07/07/17 09:20 MCHC 35.2 g/dL (33.0-37.0) 07/07/17 09:20 RDW 11.7 % (11.5-14.5) 07/07/17 09:20 Plt Count 313 K/uL (130-400) 07/07/17 09:20 MPV 7.1 fL (7.2-11.7) L 07/07/17 09:20 Neut % (Auto) 75.7 % (50.0-75.0) H 07/07/17 09:20 Lymph % (Auto) 15.4 % (20.0-40.0) L 07/07/17 09:20 [place] % (Auto) 8.0 % (0.0-10.0) 07/07/17 09:20 Eos % (Auto) 0.6 % (0.0-4.0) 07/07/17 09:20 Baso % (Auto) 0.3 % (0.0-2.0) 07/07/17 09:20 Neut # (Auto) 3.7 K/uL (1.8-7.0) 07/07/17 09:20 Lymph # (Auto) 0.8 K/uL (1.0-4.3) L 07/07/17 09:20 [place] # (Auto) 0.4 K/uL (0.0-0.8) 07/07/17 09:20 Eos # (Auto) 0.0 K/uL (0.0-0.7) 07/07/17 09:20 Baso # (Auto) 0.0 K/uL (0.0-0.2) 07/07/17 09:20 Sodium 141 mmol/L (132-148) 07/07/17 09:20 Potassium 3.0 mmol/L (3.6-5.2) L 07/07/17 09:20 Chloride 108 mmol/L (98-107) H 07/07/17 09:20 Carbon Dioxide 21 mmol/L (22-30) L 07/07/17 09:20 Anion Gap 15 (10-20) 07/07/17 09:20 BUN 13 mg/dL (7-17) 07/07/17 09:20 Creatinine 0.8 mg/dL (0.7-1.2) 07/07/17 09:20 Est GFR ( Amer) > 60 07/07/17 09:20 Est GFR (Non-Af Amer) > 60 07/07/17 09:20 Random Glucose 117 mg/dL (65-105) H 07/07/17 09:20 Calcium 8.1 mg/dl (8.6-10.4) L 07/07/17 09:20 Total Bilirubin 0.9 mg/dL (0.2-1.3) 07/07/17 09:20 AST 20 U/L (14-36) 07/07/17 09:20 ALT 19 U/L (9-52) 07/07/17 09:20 Alkaline Phosphatase 51 U/L (38-126) 07/07/17 09:20 Total Protein 6.6 g/dL (6.3-8.3) 07/07/17 09:20 Albumin 3.4 g/dL (3.5-5.0) L 07/07/17 09:20 Globulin 3.1 gm/dL (2.2-3.9) 07/07/17 09:20 Albumin/Globulin Ratio 1.1 (1.0-2.1) 07/07/17 09:20 Lipase 44 U/L (23-300) 07/04/17 10:42 CA 125 Antigen 51.0 U/mL (0-35) H D 07/05/17 06:31 Urine Color Yellow (YELLOW) 07/04/17 11:03 Urine Clarity Clear (Clear) 07/04/17 11:03 Urine pH 5.0 (5.0-8.0) 07/04/17 11:03 Ur Specific [place] 1.009 (1.003-1.030) 07/04/17 11:03 Urine Protein Negative mg/dL (NEGATIVE) 07/04/17 11:03 Urine Glucose (UA) Normal mg/dL (Normal) 07/04/17 11:03 Urine Ketones Negative mg/dL (NEGATIVE) 07/04/17 11:03 Urine Blood 1+ (NEGATIVE) H 07/04/17 11:03 Urine Nitrate Negative (NEGATIVE) 07/04/17 11:03 Urine Bilirubin Negative (NEGATIVE) 07/04/17 11:03 Urine Urobilinogen Normal mg/dL (0.2-1.0) 07/04/17 11:03 Ur Leukocyte Esterase Trace Sherly/uL (Negative) 07/04/17 11:03 Urine WBC (Auto) 1 /hpf (0-5) 07/04/17 11:03 Urine RBC (Auto) 3 /hpf (0-3) 07/04/17 11:03 Ur Squamous Epith Cells 1 /hpf (0-5) 07/04/17 11:03 Urine HCG, Qual Negative (NEGATIVE) 07/06/17 12:43 Stool Leukocytes, Qual Negative (NEGATIVE) 07/04/17 Unknown C. difficile Ag & Toxin Negative (NEGATIVE) 07/04/17 Unknown Attending/Attestation - Attestation I have personally seen and examined this patient.: Yes I have fully participated in the care of the patient.: Yes I have reviewed all pertinent clinical information, including history, physical exam and plan: Yes Notes (Text): I agree with the documentation 07/11/17 21:07
--- NOTE | 2017-07-08 01:24 | CON ---
DATE: 07/04/2017 REASON FOR CONSULTATION: Hydronephrosis. Urology consultation is provided by Dr. Cathy Souza. HISTORY OF PRESENT ILLNESS: The patient is a 51-year-old female with hydronephrosis. The patient is in otherwise fair to poor health. The patient has history of a gynecologic carcinoma. The areas of references in the chart, referred to the cancer as ovarian cancer, cervical cancer, and Mullerian cancer. In any case, patient was previously treated. The patient has had chemotherapy provided by an oncologist. The patient was also seen a PERSONNEL ASSISTANT oncologist at [facility]. The patient was admitted with abdominal pain. She also had hematochezia with blood per rectum. The patient reports no hematuria. The patient has good urinary control. She has some urinary frequency. The patient reports nocturia. No dysuria. No hematuria. There is no history of urolithiasis. The patient ports no flank pain. No nausea or vomiting. The patient has had fair appetite. The patient lives with a roommate. She does not smoke. The patient was born in the [facility]. PHYSICAL EXAMINATION GENERAL: Patient is a well-developed, well-nourished female, appearing her stated age. ABDOMEN: Soft, nontender, nondistended. No mass or organomegaly. BACK: No CVA tenderness. LABORATORY DATA: Reviewed. Renal function is normal. Anemia is noted. IMPRESSION: A 51-year-old female with history of PERSONNEL ASSISTANT carcinoma. Status post chemotherapy. Patient has hydronephrosis. I reviewed the CT scan. The renal pelvis is prominent bilaterally. There is no ureteral stone identified. There is no bladder distention. IMPRESSION: 1. Bilateral hydronephrosis. 2. PERSONNEL ASSISTANT cancer. Etiology of hydronephrosis may be due to obstruction. The patient does not appear to be septic or have renal failure related to the CT scan finding. RECOMMENDATIONS/PLAN: Monitor urine output. Monitor renal function. Please obtain urine culture. The patient may require cystoscopy and stent insertion. GI workup regarding blood per rectum is pending. Further therapy to follow according to the patient's clinical course. I will discuss with you further. Cathy Souza MD [facility] # [id number]
--- NOTE | 2017-07-12 17:29 | PQF GENQUE ---
This form is a permanent part of the medical record Dr. Rios, Based on the pathology results would you care to provide a diagnosis for this patient? Clarification of your documentation is requested to better reflect the severity of illness and intensity of treatment of your patient. Indicators present 1.Diarrhea with blood due to colitis 2.Abdominal pain 3.Hydronephrosis /Right side hydronephrosis is acute 4.Cancer of mullerian tract Location in the medical record that reflects the above clinical findings: Initial H and P and progress notes Treatment Provided: Sigmoidoscopy and biopsy Antibiotics PHYSICIAN'S RESPONSE Based on your medical judgment of the clinical indicators outlined above please clarify the following: [] Practitioner response .Patient had abdominal pain,diarrhea with blood due to colitis. Needed sigmoidoscopy and antibiotic treatment [] If unable to determine, please check the box, sign and date. Present On Admission (POA) Indicator: X Present at the time of admission .Diarrhea,abdominal pain,hydronephrosis [] Not present at the time of admission [] Clinically Undetermined In responding to this query, please exercise your independent professional judgment. The fact that a question is asked does not imply that any particular answer is desired or expected. Thank you for your clarification on this documentation. If you have any questions please call:[ ] * Thank you, [ ] housing inspector JAMES
[2017-07-15 19:04] VITALS: O2SAT 99
== END 2017-07-07 19:30 | disposition home or self-care (01) | DRG 172 ==
LOC: C.ER 09:37 → C.9E 14:19 → C.3T 18:54
PROVIDERS: ADMIT Hospitalist; ATTEND Internal Medicine
PROC: 0DBP8ZX Excision of Rectum, Via Natural or Artificial Opening Endoscopic, Diagnostic (ICD-10-PCS; 2017-07-06)
PROC: 0DBN8ZX Excision of Sigmoid Colon, Via Natural or Artificial Opening Endoscopic, Diagnostic (ICD-10-PCS; principal; 2017-07-06 15:23)
DX: C19 Malignant neoplasm of rectosigmoid junction (principal); R18.0 Malignant ascites; K55.9 Vascular disorder of intestine, unspecified; N13.39 Other hydronephrosis; B96.81 Helicobacter pylori [H. pylori] as the cause of diseases classified elsewhere; D64.9 Anemia, unspecified; K59.03 Drug induced constipation; D72.819 Decreased white blood cell count, unspecified; Z92.21 Personal history of antineoplastic chemotherapy; Z85.41 Personal history of malignant neoplasm of cervix uteri; Z85.43 Personal history of malignant neoplasm of ovary

== ENCOUNTER 2017-07-17 10:43 | Inpatient (IN) | payer MEDICAID, OTHER ==
[2017-07-17 10:43] VITALS: BMI 21.9
[2017-07-17] MEDS ORDERED: Sodium Chloride 0.9% 1,000 ML IV ONE ×2 (11:31→15:14)
[2017-07-17 12:13] LABS: BASO % 0.2 % (0.0-2.0); EOS % 0.4 % (0.0-4.0); HEMOGLOBIN 9.8 g/dL (11.0-16.0); LYMPH # 0.7 K/uL (1.0-4.3); LYMPH % 11.6 % (20.0-40.0); MEAN CELL VOLUME 98.2 fL (81.0-99.0); MEAN CORPUSCULAR HEMOGLOBIN 34.1 pg (27.0-31.0); MEAN CORPUSCULAR HGB CONC 34.7 g/dL (33.0-37.0); MEAN PLATELET VOLUME 7.2 fL (7.2-11.7); MONO # 0.5 K/uL (0.0-0.8); MONO % 8.7 % (0.0-10.0); NEUT % 79.1 % (50.0-75.0); RBC 2.89 Mil/uL (3.80-5.20); RED CELL DISTRIBUTION WIDTH 12.5 % (11.5-14.5); WHITE BLOOD COUNT 6.3 K/uL (4.8-10.8)
[2017-07-17 12:20] LABS: URINE BILIRUBIN NEGATIVE (NEGATIVE); URINE BLOOD NEGATIVE (NEGATIVE); URINE CLARITY Clear (Clear); URINE COLOR Yellow (YELLOW); URINE GLUCOSE (UA) NORMAL (Normal); URINE LEUKOCYTE ESTERASE TRACE Leu/uL (Negative); URINE NITRATE NEGATIVE (NEGATIVE); URINE PROTEIN NEGATIVE (NEGATIVE); URINE UROBILINOGEN NORMAL mg/dL (0.2-1.0)
[2017-07-17 12:23] LABS: INR 1.2; PROTHROMBIN TIME 13.7 SECONDS (9.7-12.2)
[2017-07-17 12:30] LABS: ALB/GLOB RATIO 1.2 (1.0-2.1); ALT/SGPT 20 U/L (9-52); AST/SGOT 32 U/L (14-36); BLOOD UREA NITROGEN 13 mg/dL (7-17); CALCIUM 9.1 mg/dl (8.6-10.4); GFR AFRICAN-AMERICAN > 60; GFR NON-AFRICAN AMERICAN > 60; LIPASE 117 U/L (23-300)
--- NOTE | 2017-07-17 13:11 | RAD ---
HISTORY: WEAKNESS COMPARISON: Chest x-ray performed 06/26/17 TECHNIQUE: Chest, one view. FINDINGS: Right-sided MediPort extends the SVC. LUNGS: Minimal linear atelectasis, left lower lobe. No focal consolidation. Please note that chest x-ray has limited sensitivity for the detection of pulmonary masses. PLEURA: No significant pleural effusion identified. No definite pneumothorax . CARDIOVASCULAR: Heart size appears top normal. Atherosclerotic calcifications of the aortic knob. OSSEOUS STRUCTURES: No acute osseous abnormality identified. VISUALIZED UPPER ABDOMEN: Unremarkable. OTHER FINDINGS: None. IMPRESSION: Right-sided MediPort.
[2017-07-17] MEDS ORDERED: Potassium Chloride 20 mEq ER Tab PO STA (13:15)
--- NOTE | 2017-07-17 13:17 | C.PDOC ---
History Of Present Illness Patient presents to ED c/o persistent watery diarrhea for the past several days. Patient has h/o ovarian CA s/p JANETH/BSO, recently admitted for colitis and sent to ED today for failed outpatient treatment. Patient has been complaint with her Cipro/Flagyl regimen. She admits to nausea, but denies vomiting, fever, chest pain, SOB, dysuria. PMD - Dr. Rodriguez Hem/onc - Dr Junito Cheatham GI - Dr. Mcfadden Time Seen by Provider: 07/17/17 11:08 Chief Complaint (Nursing): Abdominal Pain History Per: Patient History/Exam Limitations: no limitations Onset/Duration Of Symptoms: Days Current Symptoms Are (Timing): Still Present Severity: Moderate Location Of Pain/Discomfort: Other (LLQ pain) Past Medical History Reviewed: Historical Data, Nursing Documentation, Vital Signs Vital Signs: Last Vital Signs Temp 98.2 F 07/21/17 07:00 Pulse 66 07/21/17 07:00 Resp 20 07/21/17 07:00 BP 153/74 H 07/21/17 07:00 Pulse Ox 100 07/21/17 07:00 - Medical History PMH: No Chronic Diseases - [facility] Procedures DRAINAGE OF PERITONEAL CAVITY, PERCUTANEOUS APPROACH, DIAGN (05/12/16) EXCISION OF RECTUM, ENDO, DIAGN (07/04/17) EXCISION OF SIGMOID COLON, ENDO, DIAGN (07/04/17) INSERT INFUSION DEV IN R INT JUGULAR VEIN, PERC (05/12/16) INSERTION OF VAD INTO CHEST SUBCU/FASCIA, OPEN APPROACH (05/12/16) ULTRASONOGRAPHY OF RIGHT JUGULAR VEINS, GUIDANCE (05/12/16) Family History: States: No Known Family Hx - Social History Hx Alcohol Use: No Hx Substance Use: No - Immunization History Hx Tetanus Toxoid Vaccination: No Hx Influenza Vaccination: No Hx Pneumococcal Vaccination: No Review Of Systems Except As Marked, All Systems Reviewed And Found Negative. Constitutional: Negative for: Fever, Chills Cardiovascular: Negative for: Chest Pain, Palpitations Respiratory: Negative for: Cough, Shortness of Breath Gastrointestinal: Positive for: Nausea, Abdominal Pain, Diarrhea. Negative for : Vomiting Genitourinary: Negative for: Dysuria Physical Exam - Physical Exam Appears: Well, Non-toxic, In Acute Distress (in mild pain ) Skin: Normal Color, Warm, Dry Oral Mucosa: Moist Cardiovascular: Rhythm Regular Respiratory: Normal Breath Sounds, No Rales, No Rhonchi, No Wheezing Gastrointestinal/Abdominal: Bowel Sounds, Soft, Tenderness ((+) LLQ TTP), No Distention, No Guarding, No Rebound Neurological/Psych: Oriented x3 ED Course And Treatment - Laboratory Results Result Diagrams: 07/21/17 09:07 07/21/17 09:07 ECG: Interpreted By Me, Viewed By Me (NSR 74 bpm, normal axis, no acute ST changes, (+) U waves) ECG Rhythm: Sinus Rhythm ECG Interpretation: Abnormal O2 Sat by Pulse Oximetry: 98 (RA) Pulse Ox Interpretation: Normal Progress Note: Blood work, EKG, CXR ordered and reviewed. Patient given IV NS bolus, IV morphine, IV KCL and PO Kdur. Prior visit reviewed, patient's colonoscopy pathology report shows multiple lesions of mullerian carcinoma in sigmoid and rectum. - Physician Consult Information Physician Contacted: Clementine Chery Outcome Of Conversation: Discussed patient with hospitalist, agrees with admission for hypokalemia, abnormal EKG, intractable diarrhea, metastatic ovarian CA to colon. Disposition - Disposition Disposition: HOSPITALIZED Disposition Time: 14:19 Condition: FAIR - Clinical Impression Clinical Impression: Hypokalemia, Malignant neoplasm metastatic to colon, Abnormal EKG, Intractable diarrhea Decision To Admit - Pt Status Changed To: Hospital Disposition Of: Inpatient - Admit Certification Admit to Inpatient:: After my assessment, the patient will require hospitalization for at least two midnights. This is because of the severity of symptoms shown, intensity of services needed, and/or the medical risk in this patient being treated as an outpatient. - InPatient: Physician Admission Certification:: see notes - . Bed Request Type: Telemetry Admitting Physician: Clementine Chery Patient Diagnosis: Malignant neoplasm metastatic to colon, Intractable diarrhea, Hypokalemia, Abnormal EKG
[2017-07-17] MEDS ORDERED: Morphine 4 MG/ML VIAL ONE (14:25)
[2017-07-17] MEDS ORDERED: Potassium Chloride 20 mEq ER Tab PO ONE ×2 (14:25→22:45)
[2017-07-17] MEDS ORDERED: Sodium Chloride 0.9% 1,000 ML ONE ×2 (14:25→15:29)
--- NOTE | 2017-07-17 14:43 | CP.PCM.HP ---
<Eusebia Hong - Last Filed: 07/17/17 17:03> History of Present Illness - History of Present Illness History of Present Illness: Medicine Note for Hospitalist Service- Dr. Chery CC: nausea and diarrhea x 2 weeks HPI: 51 [place] Female with PMHx of mullerian tract cancer diagnosed 05/2016 s/ p cytoreductive surgery and adjuvant chemotherapy, with newly diagnosed metastasis to her sigmoid and rectum (via flexible sigmoidoscopy 07/06/17), comes to the ED with persistent nausea and nonbloody diarrhea. She was admitted on 07/04/17 for similar symptoms was treated for colitis. She was seen by GI underwent flex sigmoidoscopy with biopsy showing mets to rectum and sigmoid. Patient returns due to persistent symptoms despite completely PO ABX after discharge. Admitted to decrease in appetite, early satiety, nausea, abdominal pain, nonbloody diarrhea. Denied fever, chills, chest pain, v/c, or urinary symptoms. 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 Denies smoking, or illicit drug use. Denies alcohol use. Family History: Denied any history of malignancy PMD: Dr. Rodriguez Job Developer/ Onc @ [facility] Dr. Zelaya Heme/Onc: Dr. Collin Cheatham Patient is full code. Patient does not have family, her friend Ruth [phone]. Present on Admission - Present on Admission Any Indicators Present on Admission: No Past Patient History - Infectious Disease Hx of Infectious Diseases: None - Past Medical History & Family History Past Medical History?: No - Past Social History Smoking Status: Never Smoked - CARDIAC Hx Cardiac Disorders: No - PULMONARY Hx Respiratory Disorders: No - NEUROLOGICAL Hx Neurological Disorder: No - HEENT Hx HEENT Problems: No - RENAL Hx Chronic Kidney Disease: No - ENDOCRINE/METABOLIC Hx Endocrine Disorders: No - HEMATOLOGICAL/ONCOLOGICAL Hx Blood Disorders: Yes Hx Cancer: Yes (Ovarian) Hx Chemotherapy: Yes - INTEGUMENTARY Hx Dermatological Problems: No - MUSCULOSKELETAL/RHEUMATOLOGICAL Hx Falls: No - GASTROINTESTINAL Hx Gastrointestinal Disorders: No - GENITOURINARY/GYNECOLOGICAL Hx Genitourinary Disorders: Yes Other/Comment: HX OF FIBROIDS - PSYCHIATRIC Hx Substance Use: No - SURGICAL HISTORY Hx Surgeries: Yes Hx Hysterectomy: Yes Other/Comment: port to right chest wall - ANESTHESIA Hx Anesthesia: Yes Hx Anesthesia Reactions: No Meds Allergies/Adverse Reactions: Allergies Allergy/AdvReac Type Severity Reaction Status Date / Time cefazolin sodium [From Ancef] Allergy Verified 06/26/17 11:22 Physical Exam - Constitutional Appears: No Acute Distress - Head Exam Head Exam: NORMAL INSPECTION, NORMOCEPHALIC - Eye Exam Eye Exam: EOMI, Normal appearance, Periorbital tenderness, PERRL Pupil Exam: NORMAL ACCOMODATION - ENT Exam ENT Exam: Mucous Membranes Moist, Normal Exam - Cardiovascular Exam Cardiovascular Exam: REGULAR RHYTHM - GI/Abdominal Exam GI & Abdominal Exam: Normal Bowel Sounds, Soft, Tenderness (TTP RLQ, LLQ) - Rectal Exam Rectal Exam: NORMAL INSPECTION - Extremities Exam Extremities exam: Positive for: normal inspection, pedal pulses present. Negative for: pedal edema, tenderness - Neurological Exam Neurological exam: Alert, CN II-XII Intact, Oriented x3 - Skin Skin Exam: Dry, Intact, Normal Color, Warm Results - Vital Signs Recent Vital Signs: Last Vital Signs Temp 98 F 07/17/17 13:56 Pulse 77 07/17/17 13:56 Resp 18 07/17/17 13:56 BP 162/80 H 07/17/17 13:56 Pulse Ox 98 07/17/17 14:09 - Labs Result Diagrams: 07/17/17 12:04 07/17/17 12:04 Labs: Laboratory Results - last 24 hr 07/17/17 07/17/17 07/17/17 12:04 12:04 12:04 WBC 6.3 RBC 2.89 L Hgb 9.8 L Hct 28.3 L MCV 98.2 MCH 34.1 H MCHC 34.7 RDW 12.5 Plt Count 487 H D MPV 7.2 Neut % (Auto) 79.1 H Lymph % (Auto) 11.6 L Craig % (Auto) 8.7 Eos % (Auto) 0.4 Baso % (Auto) 0.2 Neut # (Auto) 5.0 Lymph # (Auto) 0.7 L Craig # (Auto) 0.5 Eos # (Auto) 0.0 Baso # (Auto) 0.0 PT INR APTT Sodium 138 Potassium 2.6 L Chloride 98 Carbon Dioxide 27 Anion Gap 15 BUN 13 Creatinine 0.9 Est GFR ( Amer) > 60 Est GFR (Non-Af Amer) > 60 Random Glucose 122 H Calcium 9.1 Total Bilirubin 0.6 AST 32 ALT 20 Alkaline Phosphatase 60 Total Protein 7.5 Albumin 4.0 Globulin 3.5 Albumin/Globulin Ratio 1.2 Lipase 117 Urine Color Yellow Urine Clarity Clear Urine pH 6.0 Ur Specific [place] 1.009 Urine Protein Negative Urine Glucose (UA) Normal Urine Ketones Negative Urine Blood Negative Urine Nitrate Negative Urine Bilirubin Negative Urine Urobilinogen Normal Ur Leukocyte Esterase Trace Urine WBC (Auto) 2 Urine RBC (Auto) < 1 Blood Type Antibody Screen 07/17/17 07/17/17 12:04 12:04 WBC RBC Hgb Hct MCV MCH MCHC RDW Plt Count MPV Neut % (Auto) Lymph % (Auto) Craig % (Auto) Eos % (Auto) Baso % (Auto) Neut # (Auto) Lymph # (Auto) Craig # (Auto) Eos # (Auto) Baso # (Auto) PT 13.7 H INR 1.2 APTT 33 Sodium Potassium Chloride Carbon Dioxide Anion Gap BUN Creatinine Est GFR ( Amer) Est GFR (Non-Af Amer) Random Glucose Calcium Total Bilirubin AST ALT Alkaline Phosphatase Total Protein Albumin Globulin Albumin/Globulin Ratio Lipase Urine Color Urine Clarity Urine pH Ur Specific [place] Urine Protein Urine Glucose (UA) Urine Ketones Urine Blood Urine Nitrate Urine Bilirubin Urine Urobilinogen Ur Leukocyte Esterase Urine WBC (Auto) Urine RBC (Auto) Blood Type B POSITIVE Antibody Screen Negative Assessment & Plan - Assessment and Plan (Free Text) Assessment: 51 [place]ian Female with PMHx of mullerian tract cancer diagnosed 05/2016 s/p cytoreductive surgery and adjuvant chemotherapy, with newly diagnosed metastasis to her sigmoid and rectum (via flexible sigmoidoscopy 07/06/17), comes to the ED with persistent nausea and nonbloody diarrhea. Plan: Hx Mullerian Tract Cancer with Metastasis Rectum and Sigmoid via Flexible Sigmoidoscopy Diagnosed 05/2016 s/p cytoreductive surgery (JANETH/ BSO) and adjuvant chemotherapy Heme/Onc: Dr. Cheatham- help appreciated GI: Dr. Mcfadden- help appreciated General Surgery will be consulted Imagin07/04/17 - CT Abdomen and Pelvis: Worsening marked wall thickening of the rectosigmoid colon which may be infectious/ inflammatory or ischemic in etiology. New mild to moderate right-sided hydroureteronephrosis. Stable left- sided hydroureteronephrosis. No obstructing calculi. Meds: NS @ 100cc/hr Morphine, Tylenol, Zofran PRN CLD - will advance as tolerated Hypokalemia With U waves noted on EKG Received 60MEQ in ED will monitor BMP at 9pm U Waves were noted on EKG, will repeat EKG @ 9pm Diarrhea Most likely secondary to Malignancy Afebrile, no leukocytosis, with left shift Will rule out infectious cause: F/U stool studies, cdiff Anemia Most likely 2/2 Chronic Disease F/U anemia workup Hx of Hydroureteronephrosis R>L Seen on previous CT Scan and evaluated by Dr. Aneta Souza who was planning for cystoscopy and possible stent placement Patient is asymptomatic at this time Will continue to monitor Prophylactic Measures GI PPX: Protonix 40mg IVP daily DVT PPX: SCDs, Heparin Q12 DW Hal Nolan DO, PGY-1 <Clementine Chery V - Last Filed: 07/18/17 08:41> Results - Vital Signs Recent Vital Signs: Last Vital Signs Temp 99.2 F 07/17/17 23:30 Pulse 77 07/18/17 03:30 Resp 20 07/17/17 23:30 BP 122/68 07/17/17 23:30 Pulse Ox 96 07/17/17 23:30 - Labs Result Diagrams: 07/18/17 07:01 07/17/17 19:40 Labs: Laboratory Results - last 24 hr 07/17/17 07/17/17 07/17/17 12:04 12:04 12:04 WBC 6.3 RBC 2.89 L Hgb 9.8 L Hct 28.3 L MCV 98.2 MCH 34.1 H MCHC 34.7 RDW 12.5 Plt Count 487 H D MPV 7.2 Neut % (Auto) 79.1 H Lymph % (Auto) 11.6 L Craig % (Auto) 8.7 Eos % (Auto) 0.4 Baso % (Auto) 0.2 Neut # (Auto) 5.0 Lymph # (Auto) 0.7 L Craig # (Auto) 0.5 Eos # (Auto) 0.0 Baso # (Auto) 0.0 Retic Count PT INR APTT Sodium 138 Potassium 2.6 L Chloride 98 Carbon Dioxide 27 Anion Gap 15 BUN 13 Creatinine 0.9 Est GFR ( Amer) > 60 Est GFR (Non-Af Amer) > 60 Random Glucose 122 H Calcium 9.1 Phosphorus Magnesium Total Bilirubin 0.6 AST 32 ALT 20 Alkaline Phosphatase 60 Total Protein 7.5 Albumin 4.0 Globulin 3.5 Albumin/Globulin Ratio 1.2 Lipase 117 Urine Color Yellow Urine Clarity Clear Urine pH 6.0 Ur Specific [place] 1.009 Urine Protein Negative Urine Glucose (UA) Normal Urine Ketones Negative Urine Blood Negative Urine Nitrate Negative Urine Bilirubin Negative Urine Urobilinogen Normal Ur Leukocyte Esterase Trace Urine WBC (Auto) 2 Urine RBC (Auto) < 1 Blood Type Antibody Screen 07/17/17 07/17/17 07/17/17 12:04 12:04 15:23 WBC RBC Hgb Hct MCV MCH MCHC RDW Plt Count MPV Neut % (Auto) Lymph % (Auto) Craig % (Auto) Eos % (Auto) Baso % (Auto) Neut # (Auto) Lymph # (Auto) Craig # (Auto) Eos # (Auto) Baso # (Auto) Retic Count PT 13.7 H INR 1.2 APTT 33 Sodium Potassium Chloride Carbon Dioxide Anion Gap BUN Creatinine Est GFR ( Amer) Est GFR (Non-Af Amer) Random Glucose Calcium Phosphorus 3.4 Magnesium 1.8 Total Bilirubin AST ALT Alkaline Phosphatase Total Protein Albumin Globulin Albumin/Globulin Ratio Lipase Urine Color Urine Clarity Urine pH Ur Specific [place] Urine Protein Urine Glucose (UA) Urine Ketones Urine Blood Urine Nitrate Urine Bilirubin Urine Urobilinogen Ur Leukocyte Esterase Urine WBC (Auto) Urine RBC (Auto) Blood Type B POSITIVE Antibody Screen Negative 07/17/17 07/18/17 07/18/17 19:40 07:01 07:01 WBC 4.2 L RBC 2.32 L Hgb 7.8 L D Hct 22.8 L MCV 98.6 MCH 33.9 H MCHC 34.4 RDW 12.6 Plt Count 352 D MPV 7.2 Neut % (Auto) 67.9 Lymph % (Auto) 18.4 L Craig % (Auto) 11.4 H Eos % (Auto) 1.9 Baso % (Auto) 0.4 Neut # (Auto) 2.9 Lymph # (Auto) 0.8 L Craig # (Auto) 0.5 Eos # (Auto) 0.1 Baso # (Auto) 0.0 Retic Count 1.3 D PT INR APTT Sodium 141 Potassium 3.5 L Chloride 106 Carbon Dioxide 25 Anion Gap 13 BUN 9 Creatinine 0.9 Est GFR ( Amer) > 60 Est GFR (Non-Af Amer) > 60 Random Glucose 96 Calcium 8.0 L Phosphorus Magnesium Total Bilirubin AST ALT Alkaline Phosphatase Total Protein Albumin Globulin Albumin/Globulin Ratio Lipase Urine Color Urine Clarity Urine pH Ur Specific [place] Urine Protein Urine Glucose (UA) Urine Ketones Urine Blood Urine Nitrate Urine Bilirubin Urine Urobilinogen Ur Leukocyte Esterase Urine WBC (Auto) Urine RBC (Auto) Blood Type Antibody Screen Attending/Attestation - Attestation I have personally seen and examined this patient.: Yes I have fully participated in the care of the patient.: Yes I have reviewed all pertinent clinical information: Yes Notes (Text): This is late computer entry of 07/17/17. Patient seen in [facility] 13 in the Emergency Room, accompanied by her friend Nisreen, seen with resident, GI fellow, and medical student at bedside. Patient with prior history of mullerian tract cancer diagnosed 05/2016 s/p cytoreductive surgery and adjuvant chemotherapy. Patient has ongoing surveilliance with her ski production supervisor-onc at [facility]; last visit was last week; wherein she was informed she had abnormal findings further discussion between ski production supervisor-onc and oncologist. Patient was recently hospitalized from 07/04-07/07 was seen in the [facility] today, and reports she has been having persistent diarrhea, non-bloody, non mucous about 6-8 times a day since discharge. Patient had received IV abx during hospitalization and was taking PO antibiotics on discharge. Since then, diarrhea had not abated and was sent up to the emergency room for further evaluation. Patient was informed at her clinic appointment that the flexible sigmoidoscopy pathology result revealed colonic tissue focally involved by metastatic carcinoma; consistent with mullerian tract origin in both the sigmoid and rectum. I informed the patient we will need to stabilize her potassium levels because they are low and causing EKG changes. Patient is asymptomatic: denies chest pain , denies palpitations. Likely this is due to her diarrhea. We will need to replete and monitor and repeat EKG. In regards to her metastatic cancer disease, will discuss between GI and hematology-oncology prior to consulting surgery. GI Fellow has spoken with oncology following our encounter with the patient, patient will likely need chemotherapy first prior to surgical intervention. I have confirmed with Dr. Cheatham as well as updated him in regards to recent ski production supervisor-onc visit, to setup patient for salvage chemotherapy. Patient is in good spirits. I have asked her in terms of code status if anyone has ever had this conversation, no one has, but is amenable to full code. patient is curious about what the next steps of care is in light of her cancer diagnosis which is understandable. We will need to rule out infectious causes of diarrhea in light of recent hospitalization and antibiotic use. Assessment/Plan 1) Hx Mullerian Tract Cancer with Metastasis * Initial Diagnosed 05/2016 s/p cytoreductive surgery (JANETH/ BSO) and adjuvant chemotherapy at [facility]; patient is monitored at [facility] with her ski production supervisor- oncology * Heme/Onc: Dr. Junito Cheatham- help appreciated * Recommend for chemotherapy and outpatient PET scan * GI: Dr. Mcfadden- help appreciated * GI Fellow seen and examined with patient on admission will follow-up in regards if patient needs further intervention from GI * Following conversations with GI and hematology-oncology for possible surgery consult * Pathology from flexible sigmoidoscopt reveals metastatic disease in sigmoid colon and rectum Imagin07/04/17 - CT Abdomen and Pelvis: Worsening marked wall thickening of the rectosigmoid colon which may be infectious/ inflammatory or ischemic in etiology. New mild to moderate right-sided hydroureteronephrosis. Stable left- sided hydroureteronephrosis. No obstructing calculi. Meds: NS @ 100cc/hr Morphine, Tylenol, Zofran PRN CLD - will advance as tolerated 2) Hypokalemia with EKG changes * monitor on telemetry * Received 60MEQ in ED will monitor BMP at 9pm * U Waves were noted on EKG, will repeat EKG @ 9pm * Monitor K+ and Mg2+ 3) Diarrhea * Most likely secondary to Malignancy * Afebrile, no leukocytosis, with left shift * Will rule out infectious cause: F/U stool studies, cdiff 4) Anemia * Most likely 2/2 Chronic Disease * F/U anemia workup * hematology oncology on board 5) Hx of Hydroureteronephrosis R>L * Seen on previous CT Scan and evaluated by Dr. Aneta Souza who was planning for cystoscopy and possible stent placement last admission * Will repeat renal US * Patient is asymptomatic at this time * Will continue to monitor 5) Prophylactic Measures * GI PPX: Protonix 40mg IVP daily * DVT PPX: SCDs, Heparin Q12
[2017-07-17 15:57] LABS: MAGNESIUM 1.8 mg/dL (1.6-2.3)
[2017-07-17] MEDS: Sodium Chloride 0.9% 1,000 ML IV SCH (17:44)
[2017-07-17 20:05] LABS: BLOOD UREA NITROGEN 9 mg/dL (7-17); GFR AFRICAN-AMERICAN > 60; GFR NON-AFRICAN AMERICAN > 60
--- NOTE | 2017-07-17 20:47 | CP.PCM.CON ---
History of Present Illness - History of Present Illness History of Present Illness: 51 year old female with a history of mullerian tract cancer diagnosed 05/2016 s/ p cytoreductive surgery and adjuvant chemotherapy, admitted with colitis, with recent rectal/colon biopsy positive for mullerian tract tumor. The patient was recently discharged for colitis symptoms. She returns with recurrent diarrhea and abdominal pain. She recently saw her [employer] oncologist last week and was noted to have an abnormal pap smear. Past medical history: Mullerian tract tumor Past surgical history: Portacath, cytoreductive surgery Family history: Denies hematologic and oncologic problems Social history: Denies tobacco, alcohol, and illicit drug use. Allergies: Cefazolin Review of systems: All remaining review of systems including HEENT, cardiovascular, respiratory, gastrointestinal, genitourinary, musculoskeletal, dermatologic, neurologic, and psychiatric are negative unless mentioned in the HPI. Past Patient History - Infectious Disease Hx of Infectious Diseases: None - Past Medical History & Family History Past Medical History?: No - Past Social History Smoking Status: Never Smoked - CARDIAC Hx Cardiac Disorders: No - PULMONARY Hx Respiratory Disorders: No - NEUROLOGICAL Hx Neurological Disorder: No - HEENT Hx HEENT Problems: No - RENAL Hx Chronic Kidney Disease: No - ENDOCRINE/METABOLIC Hx Endocrine Disorders: No - HEMATOLOGICAL/ONCOLOGICAL Hx Blood Disorders: Yes Hx Cancer: Yes (Ovarian) Hx Chemotherapy: Yes - INTEGUMENTARY Hx Dermatological Problems: No - MUSCULOSKELETAL/RHEUMATOLOGICAL Hx Falls: No - GASTROINTESTINAL Hx Gastrointestinal Disorders: No - GENITOURINARY/GYNECOLOGICAL Hx Genitourinary Disorders: Yes Other/Comment: HX OF FIBROIDS - PSYCHIATRIC Hx Substance Use: No - SURGICAL HISTORY Hx Surgeries: Yes Hx Hysterectomy: Yes Other/Comment: port to right chest wall - ANESTHESIA Hx Anesthesia: Yes Hx Anesthesia Reactions: No Meds Allergies/Adverse Reactions: Allergies Allergy/AdvReac Type Severity Reaction Status Date / Time cefazolin sodium [From [facility]] Allergy Verified 06/26/17 11:22 - Medications Medications: Current Medications Acetaminophen (Tylenol 325mg Tab) 650 mg PO Q6 PRN PRN Reason: Headache Heparin Sodium (Porcine) (Heparin) 5,000 units SC Q12 CALI Sodium Chloride (Sodium Chloride 0.9%) 1,000 mls @ 100 mls/hr IV .Q10H CALI Last Admin: 07/17/17 17:44 Dose: 100 mls/hr Morphine Sulfate (Morphine) 1 mg IVP Q4 PRN PRN Reason: Pain, severe (8-10) Ondansetron HCl (Zofran Inj) 4 mg IVP Q6H PRN PRN Reason: Nausea/Vomiting Pantoprazole Sodium (Protonix Inj) 40 mg IVP DAILY CALI Physical Exam - Head Exam Head Exam: ATRAUMATIC - Eye Exam Eye Exam: Normal appearance - ENT Exam ENT Exam: Mucous Membranes Dry - Respiratory Exam Respiratory Exam: NORMAL BREATHING PATTERN - Cardiovascular Exam Cardiovascular Exam: +S1, +S2 - GI/Abdominal Exam GI & Abdominal Exam: Normal Bowel Sounds - Extremities Exam Extremities exam: Positive for: normal inspection - Neurological Exam Neurological exam: Oriented x3 - Psychiatric Exam Psychiatric exam: Normal Affect, Normal Mood - Skin Skin Exam: Warm Results - Vital Signs Recent Vital Signs: Last Vital Signs Temp 98 F 07/17/17 13:56 Pulse 80 07/17/17 17:45 Resp 20 07/17/17 17:45 BP 128/63 07/17/17 17:45 Pulse Ox 98 07/17/17 17:45 - Labs Result Diagrams: 07/17/17 12:04 07/17/17 19:40 Labs: Laboratory Results - last 24 hr 07/17/17 07/17/17 07/17/17 12:04 12:04 12:04 WBC 6.3 RBC 2.89 L Hgb 9.8 L Hct 28.3 L MCV 98.2 MCH 34.1 H MCHC 34.7 RDW 12.5 Plt Count 487 H D MPV 7.2 Neut % (Auto) 79.1 H Lymph % (Auto) 11.6 L [place] % (Auto) 8.7 Eos % (Auto) 0.4 Baso % (Auto) 0.2 Neut # (Auto) 5.0 Lymph # (Auto) 0.7 L [place] # (Auto) 0.5 Eos # (Auto) 0.0 Baso # (Auto) 0.0 PT INR APTT Sodium 138 Potassium 2.6 L Chloride 98 Carbon Dioxide 27 Anion Gap 15 BUN 13 Creatinine 0.9 Est GFR ( Amer) > 60 Est GFR (Non-Af Amer) > 60 Random Glucose 122 H Calcium 9.1 Phosphorus Magnesium Total Bilirubin 0.6 AST 32 ALT 20 Alkaline Phosphatase 60 Total Protein 7.5 Albumin 4.0 Globulin 3.5 Albumin/Globulin Ratio 1.2 Lipase 117 Urine Color Yellow Urine Clarity Clear Urine pH 6.0 Ur Specific [place] 1.009 Urine Protein Negative Urine Glucose (UA) Normal Urine Ketones Negative Urine Blood Negative Urine Nitrate Negative Urine Bilirubin Negative Urine Urobilinogen Normal Ur Leukocyte Esterase Trace Urine WBC (Auto) 2 Urine RBC (Auto) < 1 Blood Type Antibody Screen 07/17/17 07/17/17 07/17/17 12:04 12:04 15:23 WBC RBC Hgb Hct MCV MCH MCHC RDW Plt Count MPV Neut % (Auto) Lymph % (Auto) [place] % (Auto) Eos % (Auto) Baso % (Auto) Neut # (Auto) Lymph # (Auto) [place] # (Auto) Eos # (Auto) Baso # (Auto) PT 13.7 H INR 1.2 APTT 33 Sodium Potassium Chloride Carbon Dioxide Anion Gap BUN Creatinine Est GFR ( Amer) Est GFR (Non-Af Amer) Random Glucose Calcium Phosphorus 3.4 Magnesium 1.8 Total Bilirubin AST ALT Alkaline Phosphatase Total Protein Albumin Globulin Albumin/Globulin Ratio Lipase Urine Color Urine Clarity Urine pH Ur Specific [place] Urine Protein Urine Glucose (UA) Urine Ketones Urine Blood Urine Nitrate Urine Bilirubin Urine Urobilinogen Ur Leukocyte Esterase Urine WBC (Auto) Urine RBC (Auto) Blood Type B POSITIVE Antibody Screen Negative 07/17/17 19:40 WBC RBC Hgb Hct MCV MCH MCHC RDW Plt Count MPV Neut % (Auto) Lymph % (Auto) [place] % (Auto) Eos % (Auto) Baso % (Auto) Neut # (Auto) Lymph # (Auto) [place] # (Auto) Eos # (Auto) Baso # (Auto) PT INR APTT Sodium 141 Potassium 3.5 L Chloride 106 Carbon Dioxide 25 Anion Gap 13 BUN 9 Creatinine 0.9 Est GFR ( Amer) > 60 Est GFR (Non-Af Amer) > 60 Random Glucose 96 Calcium 8.0 L Phosphorus Magnesium Total Bilirubin AST ALT Alkaline Phosphatase Total Protein Albumin Globulin Albumin/Globulin Ratio Lipase Urine Color Urine Clarity Urine pH Ur Specific [place] Urine Protein Urine Glucose (UA) Urine Ketones Urine Blood Urine Nitrate Urine Bilirubin Urine Urobilinogen Ur Leukocyte Esterase Urine WBC (Auto) Urine RBC (Auto) Blood Type Antibody Screen Assessment & Plan (1) Gynecologic cancer Assessment and Plan: recurrent mullerian tract cancer involving the rectum/colon outpatient chemotherapy outpatient PET CT scan repeat CA125 Status: Acute (2) Anemia Assessment and Plan: anemia of chronic disease Thank you for this interesting consult. Status: Acute
[2017-07-18] MEDS: Sodium Chloride 0.9% 1,000 ML IV SCH ×3 (02:45→13:05)
--- NOTE | 2017-07-18 07:05 | CP.PCM.CON ---
<Basil Banks - Last Filed: 07/18/17 12:56> History of Present Illness - History of Present Illness History of Present Illness: PGY5 GI Fellow Consult Note Patient is a 51yo female with PMHx significant for mullerian tract cancer diagnosed 05/2016 s/p cytoreductive surgery and adjuvant chemotherapy with history of malignant ascites, colitis who presented to the emergency room with persistent watery diarrhea and rectal bleeding. The patient was admitted to the hospital two weeks ago with similar complaints and found on flexible sigmoidoscopy to have significant diffuse rectal inflammation, friability and induration as well as sigmoid colitis, sparing the descending colon. Biopsies of both the sigmoid colon and rectum have since revealing metastatic carcinoma c /w mullerian tract origin. 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 Regarding her diarrhea, she had been prescribed Cipro/Flagyl on her last admission and was continued on this following discharge. Initially, pain had improved but has since worsened and she continues to suffer with watery diarrhea and rectal bleeding. Since discharge, she denies any sick contacts or new medications. Does admit to early satiety, nausea, bilious vomiting and weight loss. More recently, she states it has been difficult to eat with food occasional dysphagia and bloating after eating (solids>liquids). Denies any fever, chills. PMHx; See HPI PSHx: cytoreductive surgery - hysterectomy, Port-a-cath placement FHx: Discussed with patient and denies any significant family history Social: Denies tobacco, EtOH or illicit drug use Endo: 07/2017 Flexible sigmoidoscopy as described above 12 system ROS performed and negative except where stated. Past Patient History - Infectious Disease Hx of Infectious Diseases: None - Past Medical History & Family History Past Medical History?: No - Past Social History Smoking Status: Never Smoked - CARDIAC Hx Cardiac Disorders: No - PULMONARY Hx Respiratory Disorders: No - NEUROLOGICAL Hx Neurological Disorder: No - HEENT Hx HEENT Problems: No - RENAL Hx Chronic Kidney Disease: No - ENDOCRINE/METABOLIC Hx Endocrine Disorders: No - HEMATOLOGICAL/ONCOLOGICAL Hx Blood Disorders: Yes Hx Cancer: Yes (Ovarian) Hx Chemotherapy: Yes - INTEGUMENTARY Hx Dermatological Problems: No - MUSCULOSKELETAL/RHEUMATOLOGICAL Hx Falls: No - GASTROINTESTINAL Hx Gastrointestinal Disorders: No - GENITOURINARY/GYNECOLOGICAL Hx Genitourinary Disorders: Yes Other/Comment: HX OF FIBROIDS - PSYCHIATRIC Hx Substance Use: No - SURGICAL HISTORY Hx Surgeries: Yes Hx Hysterectomy: Yes Other/Comment: port to right chest wall - ANESTHESIA Hx Anesthesia: Yes Hx Anesthesia Reactions: No Meds Allergies/Adverse Reactions: Allergies Allergy/AdvReac Type Severity Reaction Status Date / Time cefazolin sodium [From [facility]] Allergy Verified 06/26/17 11:22 - Medications Medications: Current Medications Acetaminophen (Tylenol 325mg Tab) 650 mg PO Q6 PRN PRN Reason: Headache Heparin Sodium (Porcine) (Heparin) 5,000 units SC Q12 [facility] Last Admin: 07/17/17 22:35 Dose: 5,000 units Sodium Chloride (Sodium Chloride 0.9%) 1,000 mls @ 100 mls/hr IV .Q10H [facility] Last Admin: 07/18/17 06:20 Dose: 100 mls/hr Morphine Sulfate (Morphine) 1 mg IVP Q4 PRN PRN Reason: Pain, severe (8-10) Ondansetron HCl (Zofran Inj) 4 mg IVP Q6H PRN PRN Reason: Nausea/Vomiting Pantoprazole Sodium (Protonix Inj) 40 mg IVP DAILY [facility] Physical Exam - Constitutional Appears: Non-toxic, No Acute Distress - Eye Exam Eye Exam: EOMI, PERRL - ENT Exam ENT Exam: Mucous Membranes Moist - Respiratory Exam Respiratory Exam: Clear to Auscultation Bilateral. absent: Rales, Rhonchi, Wheezes - Cardiovascular Exam Cardiovascular Exam: RRR, +S1, +S2 - GI/Abdominal Exam GI & Abdominal Exam: Normal Bowel Sounds, Soft, Tenderness (LLQ). absent: Distended, Firm, Guarding, Organomegaly, Rigid - Extremities Exam Extremities exam: Positive for: normal inspection. Negative for: pedal edema - Neurological Exam Neurological exam: Alert, Oriented x3 - Psychiatric Exam Psychiatric exam: Normal Affect, Normal Mood - Skin Skin Exam: Dry, Warm Results - Vital Signs Recent Vital Signs: Last Vital Signs Temp 99.2 F 07/17/17 23:30 Pulse 77 07/18/17 03:30 Resp 20 07/17/17 23:30 BP 122/68 07/17/17 23:30 Pulse Ox 96 07/17/17 23:30 - Labs Result Diagrams: 07/18/17 07:01 07/18/17 07:01 Labs: Laboratory Results - last 24 hr 07/17/17 07/17/17 07/17/17 12:04 12:04 12:04 WBC 6.3 RBC 2.89 L Hgb 9.8 L Hct 28.3 L MCV 98.2 MCH 34.1 H MCHC 34.7 RDW 12.5 Plt Count 487 H D MPV 7.2 Neut % (Auto) 79.1 H Lymph % (Auto) 11.6 L [place] % (Auto) 8.7 Eos % (Auto) 0.4 Baso % (Auto) 0.2 Neut # (Auto) 5.0 Lymph # (Auto) 0.7 L [place] # (Auto) 0.5 Eos # (Auto) 0.0 Baso # (Auto) 0.0 PT INR APTT Sodium 138 Potassium 2.6 L Chloride 98 Carbon Dioxide 27 Anion Gap 15 BUN 13 Creatinine 0.9 Est GFR ( Amer) > 60 Est GFR (Non-Af Amer) > 60 Random Glucose 122 H Calcium 9.1 Phosphorus Magnesium Total Bilirubin 0.6 AST 32 ALT 20 Alkaline Phosphatase 60 Total Protein 7.5 Albumin 4.0 Globulin 3.5 Albumin/Globulin Ratio 1.2 Lipase 117 Urine Color Yellow Urine Clarity Clear Urine pH 6.0 Ur Specific [place] 1.009 Urine Protein Negative Urine Glucose (UA) Normal Urine Ketones Negative Urine Blood Negative Urine Nitrate Negative Urine Bilirubin Negative Urine Urobilinogen Normal Ur Leukocyte Esterase Trace Urine WBC (Auto) 2 Urine RBC (Auto) < 1 Blood Type Antibody Screen 07/17/17 07/17/17 07/17/17 12:04 12:04 15:23 WBC RBC Hgb Hct MCV MCH MCHC RDW Plt Count MPV Neut % (Auto) Lymph % (Auto) [place] % (Auto) Eos % (Auto) Baso % (Auto) Neut # (Auto) Lymph # (Auto) [place] # (Auto) Eos # (Auto) Baso # (Auto) PT 13.7 H INR 1.2 APTT 33 Sodium Potassium Chloride Carbon Dioxide Anion Gap BUN Creatinine Est GFR ( Amer) Est GFR (Non-Af Amer) Random Glucose Calcium Phosphorus 3.4 Magnesium 1.8 Total Bilirubin AST ALT Alkaline Phosphatase Total Protein Albumin Globulin Albumin/Globulin Ratio Lipase Urine Color Urine Clarity Urine pH Ur Specific [place] Urine Protein Urine Glucose (UA) Urine Ketones Urine Blood Urine Nitrate Urine Bilirubin Urine Urobilinogen Ur Leukocyte Esterase Urine WBC (Auto) Urine RBC (Auto) Blood Type B POSITIVE Antibody Screen Negative 07/17/17 19:40 WBC RBC Hgb Hct MCV MCH MCHC RDW Plt Count MPV Neut % (Auto) Lymph % (Auto) [place] % (Auto) Eos % (Auto) Baso % (Auto) Neut # (Auto) Lymph # (Auto) [place] # (Auto) Eos # (Auto) Baso # (Auto) PT INR APTT Sodium 141 Potassium 3.5 L Chloride 106 Carbon Dioxide 25 Anion Gap 13 BUN 9 Creatinine 0.9 Est GFR ( Amer) > 60 Est GFR (Non-Af Amer) > 60 Random Glucose 96 Calcium 8.0 L Phosphorus Magnesium Total Bilirubin AST ALT Alkaline Phosphatase Total Protein Albumin Globulin Albumin/Globulin Ratio Lipase Urine Color Urine Clarity Urine pH Ur Specific [place] Urine Protein Urine Glucose (UA) Urine Ketones Urine Blood Urine Nitrate Urine Bilirubin Urine Urobilinogen Ur Leukocyte Esterase Urine WBC (Auto) Urine RBC (Auto) Blood Type Antibody Screen Assessment & Plan - Assessment and Plan (Free Text) Assessment: Patient is a 51yo female with PMHx significant for mullerian tract cancer diagnosed 05/2016 s/p cytoreductive surgery and adjuvant chemotherapy with recent discovery of recurrent metastatic disease to colon with history of malignant ascites who presented to the emergency room with persistent watery diarrhea and rectal bleeding -Metastatic mullerian tract cancer -Persistent diarrhea 2/2 above -New onset dysphagia -Acute blood loss anemia 2/2 above -Hypokalemia, likely 2/2 diarrhea Plan: -Case discussed with oncology consult, Dr Cheatham -If agreeable, patient will need outpatient PET scan and eventually chemotherapy -Would benefit from outpatient pick up/onc referral -Regarding ongoing diarrhea, awaiting stool cultures and C diff -Will attempt to have HSV/CMV staining performed on colon/rectum biopsies performed 07/06/17 -If infectious work up unremarkable, can consider motility agents such as Imodium or Lomotil -Given dysphagia, nausea, early satiety - consider inpatient EGD prior to D/C - Date & Time Date: 07/18/17 Time: 06:50 <Gerald Mcfadden - Last Filed: 07/18/17 15:13> Meds - Medications Medications: Current Medications Acetaminophen (Tylenol 325mg Tab) 650 mg PO Q6 PRN PRN Reason: Headache Hydrocortisone (Anusol-Hc) 1 gm OR BID CALI Last Admin: 07/18/17 11:34 Dose: 1 applic Sodium Chloride (Sodium Chloride 0.9%) 1,000 mls @ 100 mls/hr IV .Q10H [facility] Last Admin: 07/18/17 13:05 Dose: Not Given Ondansetron HCl (Zofran Inj) 4 mg IVP Q6H PRN PRN Reason: Nausea/Vomiting Pantoprazole Sodium (Protonix Inj) 40 mg IVP DAILY [facility] Last Admin: 07/18/17 09:51 Dose: 40 mg Results - Vital Signs Recent Vital Signs: Last Vital Signs Temp 98.6 F 07/18/17 14:26 Pulse 74 07/18/17 14:26 Resp 18 07/18/17 14:26 BP 142/76 07/18/17 14:26 Pulse Ox 96 07/18/17 08:00 - Labs Result Diagrams: 07/18/17 07:01 07/18/17 07:01 Labs: Laboratory Results - last 24 hr 07/17/17 07/17/17 07/18/17 15:23 19:40 07:01 WBC 4.2 L RBC 2.32 L Hgb 7.8 L D Hct 22.8 L MCV 98.6 MCH 33.9 H MCHC 34.4 RDW 12.6 Plt Count 352 D MPV 7.2 Neut % (Auto) 67.9 Lymph % (Auto) 18.4 L [place] % (Auto) 11.4 H Eos % (Auto) 1.9 Baso % (Auto) 0.4 Neut # (Auto) 2.9 Lymph # (Auto) 0.8 L [place] # (Auto) 0.5 Eos # (Auto) 0.1 Baso # (Auto) 0.0 Retic Count Sodium 141 Potassium 3.5 L Chloride 106 Carbon Dioxide 25 Anion Gap 13 BUN 9 Creatinine 0.9 Est GFR ( Amer) > 60 Est GFR (Non-Af Amer) > 60 Random Glucose 96 Calcium 8.0 L Phosphorus 3.4 Magnesium 1.8 Iron TIBC % Saturation Ferritin Total Bilirubin AST ALT Alkaline Phosphatase Total Protein Albumin Globulin Albumin/Globulin Ratio [place] 125 Antigen C. difficile Ag & Toxin Blood Type Antibody Screen 07/18/17 07/18/17 07/18/17 07:01 07:01 08:21 WBC RBC Hgb Hct MCV MCH MCHC RDW Plt Count MPV Neut % (Auto) Lymph % (Auto) [place] % (Auto) Eos % (Auto) Baso % (Auto) Neut # (Auto) Lymph # (Auto) [place] # (Auto) Eos # (Auto) Baso # (Auto) Retic Count 1.3 D Sodium 140 Potassium 3.5 L Chloride 110 H Carbon Dioxide 23 Anion Gap 11 BUN 8 Creatinine 1.0 Est GFR ( Amer) > 60 Est GFR (Non-Af Amer) 58 Random Glucose 84 Calcium 8.2 L Phosphorus 3.3 Magnesium 1.7 Iron TIBC % Saturation Ferritin 221.0 Total Bilirubin 0.5 AST 24 ALT 22 Alkaline Phosphatase 45 Total Protein 5.5 L Albumin 2.9 L D Globulin 2.6 Albumin/Globulin Ratio 1.1 CA 125 Antigen 78.3 H D C. difficile Ag & Toxin Negative Blood Type Antibody Screen 07/18/17 07/18/17 10:52 10:52 WBC RBC Hgb Hct MCV MCH MCHC RDW Plt Count MPV Neut % (Auto) Lymph % (Auto) [place] % (Auto) Eos % (Auto) Baso % (Auto) Neut # (Auto) Lymph # (Auto) [place] # (Auto) Eos # (Auto) Baso # (Auto) Retic Count Sodium Potassium Chloride Carbon Dioxide Anion Gap BUN Creatinine Est GFR ( Amer) Est GFR (Non-Af Amer) Random Glucose Calcium Phosphorus Magnesium Iron 33 L TIBC 170 L % Saturation 19 L Ferritin Total Bilirubin AST ALT Alkaline Phosphatase Total Protein Albumin Globulin Albumin/Globulin Ratio [place] 125 Antigen C. difficile Ag & Toxin Blood Type B POSITIVE Antibody Screen Negative Attending/Attestation - Attestation I have personally seen and examined this patient.: Yes I have fully participated in the care of the patient.: Yes I have reviewed all pertinent clinical information: Yes Notes (Text): 07/18/17 15:10 51 year old with h/o ovarian ca s/p surgery and chemo who presented with rectosigmoid colitis now found ot have recurrent cancer invading the rectum. 1. Ovarian cancer 2. Diarrhea 3. Anemia Plan: -supportive care, getting transfusions now, awaiting stool infectious workup -c. diff negative -sent CMV/HSV from colonic biopsies -diarrhea improved a bit today -diet as tolerated -consider immodium/lomotil if infectious workup negative
[2017-07-18 07:18] LABS: BASO % 0.4 % (0.0-2.0); EOS # 0.1 K/uL (0.0-0.7); EOS % 1.9 % (0.0-4.0); HEMOGLOBIN 7.8 g/dL (11.0-16.0); LYMPH # 0.8 K/uL (1.0-4.3); LYMPH % 18.4 % (20.0-40.0); MEAN CELL VOLUME 98.6 fL (81.0-99.0); MEAN CORPUSCULAR HEMOGLOBIN 33.9 pg (27.0-31.0); MEAN CORPUSCULAR HGB CONC 34.4 g/dL (33.0-37.0); MEAN PLATELET VOLUME 7.2 fL (7.2-11.7); MONO # 0.5 K/uL (0.0-0.8); MONO % 11.4 % (0.0-10.0); NEUT # 2.9 K/uL (1.8-7.0); NEUT % 67.9 % (50.0-75.0); RBC 2.32 Mil/uL (3.80-5.20); RED CELL DISTRIBUTION WIDTH 12.6 % (11.5-14.5); WHITE BLOOD COUNT 4.2 K/uL (4.8-10.8)
[2017-07-18 08:31] LABS: ALB/GLOB RATIO 1.1 (1.0-2.1); ALBUMIN 2.9 g/dL (3.5-5.0); ALT/SGPT 22 U/L (9-52); AST/SGOT 24 U/L (14-36); BLOOD UREA NITROGEN 8 mg/dL (7-17); CALCIUM 8.2 mg/dl (8.6-10.4); GFR AFRICAN-AMERICAN > 60; GFR NON-AFRICAN AMERICAN 58; MAGNESIUM 1.7 mg/dL (1.6-2.3)
[2017-07-18] MEDS ORDERED: Potassium Chloride 20 mEq ER Tab PO ONE ×2 (10:00→22:06)
[2017-07-18 11:18] LABS: IRON 33 ug/dL (37-170)
[2017-07-18 11:30] LABS: % IRON SATURATION 19 (20-55); TOTAL IRON BINDING CAPACITY 170 ug/dL (250-450)
[2017-07-18] MEDS: Hydrocortisone 2.5% Rectal Cream(30 gm) PR SCH ×2 (11:34→20:49)
--- NOTE | 2017-07-18 12:16 | CP.PCM.PN ---
<Eusebia Hong - Last Filed: 07/18/17 12:18> Subjective - Date & Time of Evaluation Date of Evaluation: 07/18/17 Time of Evaluation: 09:00 - Subjective Subjective: Medicine Note for Hospitalist Service- Dr. Chery Patient was seen and examined at bedside. Patient reports she had 3 small loose BMs last night and reported feeling constipated this morning, admitted to lots of flatus. She tolerated the CLD, denied n/v/d or abdominal pain afterwards. She admitted to rectal discomfort. Denied fever, chills, chest pain, SOB, n/v/d/ , or urinary symptoms. Objective - Vital Signs/Intake and Output Vital Signs (last 24 hours): Temp Pulse Resp BP Pulse Ox 98.3 F 71 20 137/68 96 07/18/17 08:00 07/18/17 08:00 07/18/17 08:00 07/18/17 08:00 07/18/17 08:00 Intake and Output: 07/18/17 07/18/17 06:59 18:59 Intake Total 1100 Balance 1100 - Medications Medications: Current Medications Acetaminophen (Tylenol 325mg Tab) 650 mg PO Q6 PRN PRN Reason: Headache Heparin Sodium (Porcine) (Heparin) 5,000 units SC Q12 [facility] Last Admin: 07/18/17 09:51 Dose: 5,000 units Hydrocortisone (Anusol-Hc) 1 gm [place] BID [facility] Last Admin: 07/18/17 11:34 Dose: 1 applic Sodium Chloride (Sodium Chloride 0.9%) 1,000 mls @ 100 mls/hr IV .Q10H [facility] Last Admin: 07/18/17 06:20 Dose: 100 mls/hr Ondansetron HCl (Zofran Inj) 4 mg IVP Q6H PRN PRN Reason: Nausea/Vomiting Pantoprazole Sodium (Protonix Inj) 40 mg IVP DAILY [facility] Last Admin: 07/18/17 09:51 Dose: 40 mg - Labs Labs: 07/18/17 07:01 07/18/17 07:01 PT 13.7 SECONDS (9.7-12.2) H 07/17/17 12:04 INR 1.2 07/17/17 12:04 APTT 33 SECONDS (21-34) 07/17/17 12:04 - Additional Findings Additional findings: - Constitutional Appears: No Acute Distress - Head Exam Head Exam: NORMAL INSPECTION, NORMOCEPHALIC - Eye Exam Eye Exam: EOMI, Normal appearance, Periorbital tenderness, PERRL Pupil Exam: NORMAL ACCOMODATION - ENT Exam ENT Exam: Mucous Membranes Moist, Normal Exam - Cardiovascular Exam Cardiovascular Exam: REGULAR RHYTHM - GI/Abdominal Exam GI & Abdominal Exam: Normal Bowel Sounds, Soft, Tenderness (TTP RLQ, LLQ) - Rectal Exam Rectal Exam: NORMAL INSPECTION - Extremities Exam Extremities exam: Positive for: normal inspection, pedal pulses present. 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 Junito Cheatham- help appreciated Recommend for chemotherapy and outpatient PET scan GI: Dr. Mcfadden- help appreciated Possible EGD for early satiety and nausea Imagin07/04/17 - CT Abdomen and Pelvis: Worsening marked wall thickening of the rectosigmoid colon which may be infectious/ inflammatory or ischemic in etiology. New mild to moderate right-sided hydroureteronephrosis. Stable left- sided hydroureteronephrosis. No obstructing calculi. Meds: NS @ 100cc/hr Tylenol, Zofran PRN CLD - will advance as tolerated Hypokalemia With U waves noted on EKG Improving, U Waves are improving Diarrhea Most likely secondary to Malignancy Afebrile, no leukocytosis, with left shift Will rule out infectious cause: F/U stool studies, cdiff Once infectious etiology is ruled out, will start her on imodium Anemia Most likely 2/2 Chronic Disease Anemia workup - iron def Will discharge with PO Iron Hemoglobin dropped to 7.8 baseline is 9-10. Will be transfused 1 unit PRBC today Hx of Hydroureteronephrosis R>L Seen on previous CT Scan and evaluated by Dr. Aneta Souza who was planning for cystoscopy and possible stent placement Patient is asymptomatic at this time Renal US pending Prophylactic Measures GI PPX: Protonix 40mg IVP daily DVT PPX: SCDs, Heparin Q12 DW Hal Nolan DO, PGY-1 <Clementine Chery V - Last Filed: 07/18/17 12:51> Objective - Vital Signs/Intake and Output Vital Signs (last 24 hours): Temp Pulse Resp BP Pulse Ox 98.2 F 77 18 142/77 96 07/18/17 12:37 07/18/17 12:37 07/18/17 12:37 07/18/17 12:37 07/18/17 08:00 Intake and Output: 07/18/17 07/18/17 06:59 18:59 Intake Total 1100 0 Balance 1100 0 - Medications Medications: Current Medications Acetaminophen (Tylenol 325mg Tab) 650 mg PO Q6 PRN PRN Reason: Headache Heparin Sodium (Porcine) (Heparin) 5,000 units SC Q12 [facility] Last Admin: 07/18/17 09:51 Dose: 5,000 units Hydrocortisone (Anusol-Hc) 1 gm [place] BID [facility] Last Admin: 07/18/17 11:34 Dose: 1 applic Sodium Chloride (Sodium Chloride 0.9%) 1,000 mls @ 100 mls/hr IV .Q10H [facility] Last Admin: 07/18/17 06:20 Dose: 100 mls/hr Ondansetron HCl (Zofran Inj) 4 mg IVP Q6H PRN PRN Reason: Nausea/Vomiting Pantoprazole Sodium (Protonix Inj) 40 mg IVP DAILY [facility] Last Admin: 07/18/17 09:51 Dose: 40 mg - Labs Labs: 07/18/17 07:01 07/18/17 07:01 PT 13.7 SECONDS (9.7-12.2) H 07/17/17 12:04 INR 1.2 07/17/17 12:04 APTT 33 SECONDS (21-34) 07/17/17 12:04 Attending/Attestation - Attestation I have personally seen and examined this patient.: Yes I have fully participated in the care of the patient.: Yes I have reviewed all pertinent clinical information, including history, physical exam and plan: Yes Notes (Text): Patient seen, examined and case discussed with day-time resident. Patient seen this morning. She had three loose stools overnight. Awaiting collection for stools to rule out infection. Patient's hemoglobin dropped to 7.8. Patient to be type and cross 1 unit of RBC today. Iron stores are low. Ferritin within normal range. Patient reporting rectal irritation will provide Anusol-hc. Patient reports she had liquids only this morning but she feels it stuck in her chest. Potassium improved compared to yesterday. EKG shows V1 u waves is old compared to last admission, EKG has improved. Will order for echocardiogram check EF; age abouve 49 no prior cardiac history Heme-oncology recommending for outpatient chemotherapy and outpatient PET scan. Patient also reporting urine flow is inconsistent will order for renal US to see if improved compared to last hospital admission. Assessment/Plan 1) Hx Mullerian Tract Cancer with Metastasis * Initial Diagnosed 05/2016 s/p cytoreductive surgery (JANETH/ BSO) and adjuvant chemotherapy at [place]; patient is monitored at [place] with her sheep farm worker- oncology * Heme/Onc: Dr. Junito Cheatham- help appreciated * Recommend for chemotherapy and outpatient PET scan * GI: Dr. Mcfadden- help appreciated * Pathology from flexible sigmoidoscopy reveals metastatic disease in sigmoid colon and rectum Imagin07/04/17 - CT Abdomen and Pelvis: Worsening marked wall thickening of the rectosigmoid colon which may be infectious/ inflammatory or ischemic in etiology. New mild to moderate right-sided hydroureteronephrosis. Stable left- sided hydroureteronephrosis. No obstructing calculi. Meds: NS @ 100cc/hr Morphine, Tylenol, Zofran PRN CLD - will advance as tolerated 2) Hypokalemia with EKG changes * improved * continue to monitor and replete 3) Diarrhea * Most likely secondary to Malignancy * Afebrile, no leukocytosis, with left shift * Will rule out infectious cause: F/U stool studies, cdiff; order for stool occult blood X3 4) Anemia * Most likely 2/2 Chronic Disease * Low iron stores, normal ferritin * will transfuse 1 unit of PRBC today * hematology oncology on board 5) Hx of Hydroureteronephrosis R>L * Seen on previous CT Scan and evaluated by Dr. Aneta Souza who was planning for cystoscopy and possible stent placement last admission * Will repeat renal US today * Will continue to monitor 6) Prophylactic Measures * GI PPX: Protonix 40mg IVP daily * DVT PPX: SCDs, d/c Heparin Q12 in light of hgb drop * Will consult PT eval
--- NOTE | 2017-07-18 16:26 | CARD ---
APPROVED REPORT EKG Measurement Heart [id number] <Conclusion> Normal sinus rhythm Normal ECG
--- NOTE | 2017-07-18 16:39 | CARD ---
APPROVED REPORT EKG Measurement Heart [id number] [id number] <Conclusion> Normal sinus rhythm Normal ECG
--- NOTE | 2017-07-18 19:17 | US ---
EXAM: US Retroperitoneal Limited, Renal EXAM DATE/TIME: Exam ordered 07/18/2017 12:16 PM CLINICAL HISTORY: 51 years old, female; Condition or disease; Kidney or ureter condition; Hydronephrosis and hydroureter; Additional info: HX of hydroureteronephrosis r>l TECHNIQUE: Real-time ultrasound of the retroperitoneum (limited) with image documentation. COMPARISON: No relevant prior studies available. FINDINGS: Aorta: The suprarenal and mid abdominal aorta show no evidence of aneurysm. The distal abdominal aorta is not seen due to bowel gas. Right kidney: The right kidney measures 11.7 x 5.2 x 4.9 cm. There is mild hydronephrosis. The right ureter is proximally is dilated measuring 8 mm. No stones. Left kidney: The left kidney measures 11.6 x 5.7 x 5.5 cm. There is moderate left-sided hydronephrosis. No stones. Bladder: The bladder is relatively decompressed. Free fluid: Small amount of free fluid is noted in the right lower quadrant, the left lower quadrant. Pleural space: There is a small left pleural effusion. There is a small right pleural effusion. Other findings: Small dilatation of the proximal left ureter which measures 6 mm. IMPRESSION: Moderate bilateral hydronephrosis. The bladder was relatively decompressed at the time the examination was performed. 2. Small amount of intra-abdominal ascites. 3. Small bilateral pleural effusions.
[2017-07-19] MEDS: Sodium Chloride 0.9% 1,000 ML IV SCH ×2 (00:25→08:45)
[2017-07-19 00:53] VITALS: RESP 20
--- NOTE | 2017-07-19 06:17 | CP.PCM.PN ---
<Eusebia Hong - Last Filed: 07/19/17 10:47> Subjective - Date & Time of Evaluation Date of Evaluation: 07/19/17 Time of Evaluation: 07:00 - Subjective Subjective: Medicine Note for Hospitalist Service- Dr. Lida Choi Patient was seen and examined at bedside. Patient reports she did not tolerate CLD last night, she became nauseous and vomited. She reports small amounts of loose stool when she passes flatus. Denied any blood in the stool. Denied fever , chills, chest pain, SOB, abdominal pain, n/v/d/c, or urinary symptoms. Objective - Vital Signs/Intake and Output Vital Signs (last 24 hours): Temp Pulse Resp BP Pulse Ox 99.1 F 73 20 143/68 95 07/18/17 23:20 07/19/17 00:00 07/18/17 23:20 07/18/17 23:20 07/18/17 23:20 Intake and Output: 07/18/17 07/19/17 18:59 06:59 Intake Total 325 1600 Balance 325 1600 - Medications Medications: Current Medications Acetaminophen (Tylenol 325mg Tab) 650 mg PO Q6 PRN PRN Reason: Headache Hydrocortisone (Anusol-Hc) 1 gm [place] BID [facility] Last Admin: 07/18/17 20:49 Dose: 1 applic Sodium Chloride (Sodium Chloride 0.9%) 1,000 mls @ 100 mls/hr IV .Q10H [facility] Last Admin: 07/19/17 00:25 Dose: 100 mls/hr Ondansetron HCl (Zofran Inj) 4 mg IVP Q6H PRN PRN Reason: Nausea/Vomiting Last Admin: 07/18/17 20:58 Dose: 4 mg Pantoprazole Sodium (Protonix Inj) 40 mg IVP DAILY [facility] Last Admin: 07/18/17 09:51 Dose: 40 mg - Labs Labs: 07/18/17 07:01 07/18/17 07:01 PT 13.7 SECONDS (9.7-12.2) H 07/17/17 12:04 INR 1.2 07/17/17 12:04 APTT 33 SECONDS (21-34) 07/17/17 12:04 - Additional Findings Additional findings: - Constitutional Appears: No Acute Distress - Head Exam Head Exam: NORMAL INSPECTION, NORMOCEPHALIC - Eye Exam Eye Exam: EOMI, Normal appearance, Periorbital tenderness, PERRL Pupil Exam: NORMAL ACCOMODATION - ENT Exam ENT Exam: Mucous Membranes Moist, Normal Exam - Cardiovascular Exam Cardiovascular Exam: REGULAR RHYTHM - GI/Abdominal Exam GI & Abdominal Exam: Normal Bowel Sounds, Soft, Tenderness (TTP RLQ, LLQ) - Rectal Exam Rectal Exam: NORMAL INSPECTION - Extremities Exam Extremities exam: Positive for: normal inspection, pedal pulses present. Negative for: pedal edema, tenderness - Neurological Exam Neurological exam: Alert, CN II-XII Intact, Oriented x3 - Skin Skin Exam: Dry, Intact, Normal Color, Warm Assessment and Plan - Assessment and Plan (Free Text) Assessment: 51 [place] Female with PMHx of mullerian tract cancer diagnosed 05/2016 s/p cytoreductive surgery and adjuvant chemotherapy, with newly diagnosed metastasis to rectosigmoid (via flexible sigmoidoscopy 07/06/17), comes to the ED with persistent nausea and nonbloody diarrhea. 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 Junito Cheatham- help appreciated Recommend for chemotherapy and outpatient PET scan GI: Dr. Mcfadden- help appreciated Possible EGD for early satiety and nausea- pending GI reccs Imagin07/04/17 - CT Abdomen and Pelvis: Worsening marked wall thickening of the rectosigmoid colon which may be infectious/ inflammatory or ischemic in etiology. New mild to moderate right-sided hydroureteronephrosis. Stable left- sided hydroureteronephrosis. No obstructing calculi. Meds: NS @ 100cc/hr Tylenol, Zofran PRN, Lomotil NPO- will advance as tolerated Anemia Most likely 2/2 Chronic Disease Anemia workup - iron def Will discharge with PO Iron Hemoglobin dropped to 7.8 baseline is 9-10. S/P 1 unit PRBC now 9.3 F/U stool occult Continue to monitor Bilateral Hydronephrosis Hx of Hydroureteronephrosis Urology consulted- help appreciated Seen on previous CT Scan and evaluated by Dr. Aneta Souza who was planning for cystoscopy and possible stent placement Renal US - moderate bilateral hydronephrosis UA: unremarkable Hypokalemia With U waves noted on EKG Improving, U Waves are improving, U waves on V1 and V2 were present on previous EKGs Diarrhea Most likely secondary to Malignancy Afebrile, no leukocytosis, with left shift Will rule out infectious cause: cdiff: negative, F/U stool studies Once infectious etiology is ruled out, will start her on imodium Prophylactic Measures GI PPX: Protonix 40mg IVP daily DVT PPX: SCDs, VTE c/i due to drop in hemoglobin DW Dr. Lida Choi, Hal TANNER, PGY-1 <Tian Choi - Last Filed: 07/19/17 17:40> Objective - Vital Signs/Intake and Output Vital Signs (last 24 hours): Temp Pulse Resp BP Pulse Ox 98.1 F 88 20 162/89 H 96 07/19/17 09:16 07/19/17 09:16 07/19/17 09:16 07/19/17 09:16 07/19/17 09:16 Intake and Output: 07/19/17 07/19/17 06:59 18:59 Intake Total 1600 800 Balance 1600 800 - Medications Medications: Current Medications Acetaminophen (Tylenol 325mg Tab) 650 mg PO Q6 PRN PRN Reason: Headache Diphenoxylate HCl/Atropine (Lomotil 0.025-2.5 Mg Tablet) 1 tab PO TID PRN PRN Reason: Diarrhea Hydrocortisone (Anusol-Hc) 1 gm [place] BID [facility] Last Admin: 07/19/17 10:28 Dose: 1 applic Sodium Chloride (Sodium Chloride 0.9%) 1,000 mls @ 100 mls/hr IV .Q10H [facility] Last Admin: 07/19/17 08:45 Dose: Not Given Ondansetron HCl (Zofran Inj) 4 mg IVP Q6H PRN PRN Reason: Nausea/Vomiting Last Admin: 07/18/17 20:58 Dose: 4 mg Pantoprazole Sodium (Protonix Inj) 40 mg IVP DAILY [facility] Last Admin: 07/19/17 10:27 Dose: 40 mg Simethicone (Mylicon Chew Tab) 80 mg PO TID PRN PRN Reason: GI distress Last Admin: 07/19/17 10:48 Dose: 80 mg - Labs Labs: 07/19/17 06:32 07/19/17 06:32 PT 13.7 SECONDS (9.7-12.2) H 07/17/17 12:04 INR 1.2 07/17/17 12:04 APTT 33 SECONDS (21-34) 07/17/17 12:04 Attending/Attestation - Attestation I have personally seen and examined this patient.: Yes I have fully participated in the care of the patient.: Yes I have reviewed all pertinent clinical information, including history, physical exam and plan: Yes Notes (Text): 07/19/17 17:25 Patient was seen and examined at 11:00 AM 07/19/17. Exam, assessment and plan were gone over with the resident. Also on ROS: LLQ abdominal pain only if someone NOT having as much difficulty with swallowing today Small amount of soft stool today Flatulence Episode of N/V last night but NOT this morning and is hungry Feels as if bilateral feet are swollen (this was not notice on exam) Exam: HEENT: NCA, EOMI, PERRLA, NO pharyngeal erythema/exudate, NO cervical/ supraclavicular/submandibular lymphadenopathy, NO thyromegaly Cardio: NS1 and NS2, NO M/R/G Respiratory: CTA B/L, NO R/R/W GI: BSx4, Soft, Central Obesity, NO guarding/rebound tenderness Ext: Capillary Refill is 2 seconds, NO edema, Pulses are strong and equal Neuro: CN II through XII are grossly intact Assessments: 1). Hx Mullerian Tract CA with mets Salvage Chemo and PET Scan as outpatient as per Heme/Onc 2). Hypokalemia Repleated with KCL 40 meQ PO x 1 dose today 3). Diarrhea F/U Stool Studies and if negative then Lomtil or Immodium 4). C/O Dysphagia Awaiting to hear back from GI about the possibility of in-patient Upper EGD 5). Episode of N/V This occurred on night of 07/18/17 I have asked patient not have her liquid diet while laying in bed and not to lay down immediately after having something. She was instructed to have her Gatorade while sitting up in the bedside chair and to remain in the chair for at least 30 minutes afterwards. 6). Anemia S/P 1 units PRBC on 07/18/17 and HgB/Hct are now 9.3/27.2 7). Hx of Hydroureternephrosis with Right > Left U/S Renal 07/18/17 showed Bilateral Moderate Hydronephrosis, small amount of ascites, and bilateral pleural effusions F/U recommendations from Urology Dr. Souza 8). Hypomagnesemia Mag Sulfate 1 gm IV x 2 today Tian Choi D.O.
--- NOTE | 2017-07-19 06:52 | CP.PCM.PN ---
<VaishaliradharadhaBasil - Last Filed: 07/19/17 14:18> Subjective - Date & Time of Evaluation Date of Evaluation: 07/19/17 Time of Evaluation: 06:49 - Subjective Subjective: PGY5 GI Fellow Progress Note Patient seen and examined bedside this morning. The patient states she is having some rectal pain and having more difficulty passing stool. Tenesmus present. Some nausea. Feels her right foot more full than left today. Had 1 unit PRBC transfusion yesterday. 12 system ROS performed and negative except where stated. Objective - Vital Signs/Intake and Output Vital Signs (last 24 hours): Temp Pulse Resp BP Pulse Ox 99.1 F 73 20 143/68 95 07/18/17 23:20 07/19/17 00:00 07/18/17 23:20 07/18/17 23:20 07/18/17 23:20 Intake and Output: 07/18/17 07/19/17 18:59 06:59 Intake Total 325 1600 Balance 325 1600 - Medications Medications: Current Medications Acetaminophen (Tylenol 325mg Tab) 650 mg PO Q6 PRN PRN Reason: Headache Diphenoxylate HCl/Atropine (Lomotil 0.025-2.5 Mg Tablet) 1 tab PO TID COUNT INCLUDES THE [facility] Hydrocortisone (Anusol-Hc) 1 gm [place] BID [facility] Last Admin: 07/18/17 20:49 Dose: 1 applic Sodium Chloride (Sodium Chloride 0.9%) 1,000 mls @ 100 mls/hr IV .Q10H [facility] Last Admin: 07/19/17 00:25 Dose: 100 mls/hr Ondansetron HCl (Zofran Inj) 4 mg IVP Q6H PRN PRN Reason: Nausea/Vomiting Last Admin: 07/18/17 20:58 Dose: 4 mg Pantoprazole Sodium (Protonix Inj) 40 mg IVP DAILY [facility]CLUD[facility] Last Admin: 07/18/17 09:51 Dose: 40 mg - Labs Labs: 07/18/17 07:01 07/18/17 07:01 PT 13.7 SECONDS (9.7-12.2) H 07/17/17 12:04 INR 1.2 07/17/17 12:04 APTT 33 SECONDS (21-34) 07/17/17 12:04 - Constitutional Appears: Non-toxic, No Acute Distress - Eye Exam Eye Exam: EOMI, PERRL - ENT Exam ENT Exam: Mucous Membranes Moist - Respiratory Exam Respiratory Exam: Clear to Ausculation Bilateral. absent: Rales, Rhonchi, Wheezes - Cardiovascular Exam Cardiovascular Exam: RRR, +S1, +S2 - GI/Abdominal Exam GI & Abdominal Exam: Soft, Normal Bowel Sounds. absent: Distended, Firm, Guarding, Rigid, Tenderness, Organomegaly - Extremities Exam Extremities Exam: Normal Inspection. absent: Pedal Edema - Neurological Exam Neurological Exam: Alert, Awake, Oriented x3 - Psychiatric Exam Psychiatric exam: Normal Affect, Normal Mood - Skin Skin Exam: Dry, Warm Assessment and Plan - Assessment and Plan (Free Text) Assessment: Patient is a 51yo female with PMHx significant for mullerian tract cancer diagnosed 05/2016 s/p cytoreductive surgery and adjuvant chemotherapy with recent discovery of recurrent metastatic disease to colon with history of malignant ascites who presented to the emergency room with persistent watery diarrhea and rectal bleeding -Metastatic mullerian tract cancer -Persistent diarrhea 2/2 above -Acute blood loss anemia 2/2 above -Hypokalemia, likely 2/2 diarrhea Plan: -If agreeable, patient will need outpatient PET scan and eventually chemotherapy -Would benefit from outpatient high heel builder/onc referral -Regarding ongoing diarrhea, supportive care - IVF, Lomotil 1 tab PO TID PRN -C diff negative -S/P 1 unit PRBCs -Will send HSV/CMV staining on biopsies taken 07/06/17 -Symptomatic management - once stable, OK for D/C from GI standpoint to continue outpatient treatment -Advance diet as tolerated <Aristides Pritchard - Last Filed: 07/19/17 16:41> Objective - Vital Signs/Intake and Output Vital Signs (last 24 hours): Temp Pulse Resp BP Pulse Ox 98.1 F 88 20 162/89 H 96 07/19/17 09:16 07/19/17 09:16 07/19/17 09:16 07/19/17 09:16 07/19/17 09:16 Intake and Output: 07/19/17 07/19/17 06:59 18:59 Intake Total 1600 Balance 1600 - Medications Medications: Current Medications Acetaminophen (Tylenol 325mg Tab) 650 mg PO Q6 PRN PRN Reason: Headache Diphenoxylate HCl/Atropine (Lomotil 0.025-2.5 Mg Tablet) 1 tab PO TID PRN PRN Reason: Diarrhea Hydrocortisone (Anusol-Hc) 1 gm [place] BID [facility] Last Admin: 07/19/17 10:28 Dose: 1 applic Sodium Chloride (Sodium Chloride 0.9%) 1,000 mls @ 100 mls/hr IV .Q10H [facility] Last Admin: 07/19/17 08:45 Dose: Not Given Ondansetron HCl (Zofran Inj) 4 mg IVP Q6H PRN PRN Reason: Nausea/Vomiting Last Admin: 07/18/17 20:58 Dose: 4 mg Pantoprazole Sodium (Protonix Inj) 40 mg IVP DAILY [facility] Last Admin: 07/19/17 10:27 Dose: 40 mg Simethicone (Mylicon Chew Tab) 80 mg PO TID PRN PRN Reason: GI distress Last Admin: 07/19/17 10:48 Dose: 80 mg - Labs Labs: 07/19/17 06:32 07/19/17 06:32 PT 13.7 SECONDS (9.7-12.2) H 07/17/17 12:04 INR 1.2 07/17/17 12:04 APTT 33 SECONDS (21-34) 07/17/17 12:04 Attending/Attestation - Attestation I have personally seen and examined this patient.: Yes I have fully participated in the care of the patient.: Yes I have reviewed all pertinent clinical information, including history, physical exam and plan: Yes Notes (Text): 07/19/17 16:36 I have seen and examined patient with GI fellow. No acute events overnight, she is seen resting in bed comfortably reading a book. No episodes of diarrhea today. She complains of ongoing abdominal discomfort in LLQ but denies nausea, vomiting, fever/chills. Tolerating PO liquids without difficulty. Mullerian tract cancer, metastatic to colon s/p chemotherapy Diarrhea, rectal bleeding - resolved - Advance diet as tolerated - Case discussed with pathologist who will send for additional HSV/CMV stains from prior sigmoid specimen - H/H stable, continue to monitor - Follow up oncology recommendations - Follow up stool studies - If patient tolerating PO diet, from GI perspective ok to discharge patient home with subsequent outpatient follow up for ongoing chemotherapy planning
[2017-07-19 07:07] LABS: ALBUMIN 2.9 g/dL (3.5-5.0); ALT/SGPT 18 U/L (9-52); AST/SGOT 19 U/L (14-36); BLOOD UREA NITROGEN 6 mg/dL (7-17); CALCIUM 8.1 mg/dl (8.6-10.4); GFR AFRICAN-AMERICAN > 60; GFR NON-AFRICAN AMERICAN 58; MAGNESIUM 1.5 mg/dL (1.6-2.3)
[2017-07-19 07:20] LABS: BASO % 0.5 % (0.0-2.0); EOS # 0.1 K/uL (0.0-0.7); EOS % 2.2 % (0.0-4.0); HEMOGLOBIN 9.3 g/dL (11.0-16.0); LYMPH # 0.7 K/uL (1.0-4.3); LYMPH % 17.2 % (20.0-40.0); MEAN CELL VOLUME 96.8 fL (81.0-99.0); MEAN CORPUSCULAR HGB CONC 34.1 g/dL (33.0-37.0); MEAN PLATELET VOLUME 6.8 fL (7.2-11.7); MONO # 0.5 K/uL (0.0-0.8); MONO % 12.6 % (0.0-10.0); NEUT # 2.8 K/uL (1.8-7.0); NEUT % 67.5 % (50.0-75.0); NRBC % 0.1 % (0.0-2.0); RBC 2.81 Mil/uL (3.80-5.20); RED CELL DISTRIBUTION WIDTH 13.2 % (11.5-14.5); WHITE BLOOD COUNT 4.2 K/uL (4.8-10.8)
[2017-07-19] MEDS: Magnesium Sulfate 1 gm in D5W 1 GM/100 ML BAG IVPB SCH ×2 (09:01→10:29)
[2017-07-19] MEDS ORDERED: Potassium Chloride 20 mEq ER Tab PO ONE (10:00)
[2017-07-19] MEDS ORDERED: Simethicone 80 mg Chewtab PO PRN (10:00)
[2017-07-19] MEDS: Hydrocortisone 2.5% Rectal Cream(30 gm) PR SCH ×2 (10:28→18:46)
[2017-07-19] MEDS: Atropine-Diphenoxylate 0.025-2.5 mg Tab PO SCH ×2 (10:29→13:51)
[2017-07-19] MEDS ORDERED: Magnesium Sulfate 1 gm in D5W 1 GM/100 ML BAG IVPB SCH (13:00)
[2017-07-19] MEDS ORDERED: Atropine-Diphenoxylate 0.025-2.5 mg Tab PO PRN (14:20)
--- NOTE | 2017-07-19 21:39 | CP.PCM.PN ---
Subjective - Date & Time of Evaluation Date of Evaluation: 07/19/17 Time of Evaluation: 19:00 - Subjective Subjective: Trying to eat more Objective - Vital Signs/Intake and Output Vital Signs (last 24 hours): Temp Pulse Resp BP Pulse Ox 98.4 F 74 20 153/84 H 95 07/19/17 16:00 07/19/17 16:00 07/19/17 16:00 07/19/17 16:00 07/19/17 16:00 Intake and Output: 07/19/17 07/20/17 18:59 06:59 Intake Total 800 Balance 800 - Medications Medications: Current Medications Acetaminophen (Tylenol 325mg Tab) 650 mg PO Q6 PRN PRN Reason: Headache Diphenoxylate HCl/Atropine (Lomotil 0.025-2.5 Mg Tablet) 1 tab PO TID PRN PRN Reason: Diarrhea Hydrocortisone (Anusol-Hc) 1 gm [place] BID [facility] Last Admin: 07/19/17 18:46 Dose: 1 applic Sodium Chloride (Sodium Chloride 0.9%) 1,000 mls @ 100 mls/hr IV .Q10H [facility] Last Admin: 07/19/17 08:45 Dose: Not Given Ondansetron HCl (Zofran Inj) 4 mg IVP Q6H PRN PRN Reason: Nausea/Vomiting Last Admin: 07/18/17 20:58 Dose: 4 mg Pantoprazole Sodium (Protonix Inj) 40 mg IVP DAILY [facility] Last Admin: 07/19/17 10:27 Dose: 40 mg Simethicone (Mylicon Chew Tab) 80 mg PO TID PRN PRN Reason: GI distress Last Admin: 07/19/17 10:48 Dose: 80 mg - Labs Labs: 07/19/17 06:32 07/19/17 06:32 PT 13.7 SECONDS (9.7-12.2) H 07/17/17 12:04 INR 1.2 07/17/17 12:04 APTT 33 SECONDS (21-34) 07/17/17 12:04 - Head Exam Head Exam: ATRAUMATIC - Eye Exam Eye Exam: Normal appearance - ENT Exam ENT Exam: Mucous Membranes Dry - Respiratory Exam Respiratory Exam: NORMAL BREATHING PATTERN - Cardiovascular Exam Cardiovascular Exam: +S1, +S2 - GI/Abdominal Exam GI & Abdominal Exam: Normal Bowel Sounds - Extremities Exam Extremities Exam: Normal Inspection Assessment and Plan (1) Gynecologic cancer Assessment & Plan: recurrent in the rectum/colon outpatient chemotherapy Status: Acute (2) Anemia Assessment & Plan: chronic disease s/p PRBC transfusion Status: Acute
[2017-07-20] MEDS: Sodium Chloride 0.9% 1,000 ML IV SCH ×3 (00:58→19:00)
[2017-07-20 07:40] LABS: BASO % 0.4 % (0.0-2.0); EOS # 0.1 K/uL (0.0-0.7); EOS % 1.5 % (0.0-4.0); HEMOGLOBIN 9.7 g/dL (11.0-16.0); LYMPH # 0.8 K/uL (1.0-4.3); LYMPH % 14.5 % (20.0-40.0); MEAN CELL VOLUME 97.3 fL (81.0-99.0); MEAN CORPUSCULAR HEMOGLOBIN 33.8 pg (27.0-31.0); MEAN CORPUSCULAR HGB CONC 34.8 g/dL (33.0-37.0); MONO # 0.6 K/uL (0.0-0.8); MONO % 10.4 % (0.0-10.0); NEUT # 3.9 K/uL (1.8-7.0); NEUT % 73.2 % (50.0-75.0); RBC 2.87 Mil/uL (3.80-5.20); RED CELL DISTRIBUTION WIDTH 13.1 % (11.5-14.5); WHITE BLOOD COUNT 5.4 K/uL (4.8-10.8)
[2017-07-20 07:44] LABS: ALBUMIN 3.1 g/dL (3.5-5.0); CALCIUM 8.3 mg/dl (8.6-10.4); MAGNESIUM 1.9 mg/dL (1.6-2.3)
--- NOTE | 2017-07-20 08:03 | CP.PCM.PN ---
<Basil Banks - Last Filed: 07/20/17 08:00> Subjective - Date & Time of Evaluation Date of Evaluation: 07/20/17 Time of Evaluation: 07:00 - Subjective Subjective: PGY5 GI Fellow Progress Note Patient seen and examined bedside this morning. The patient ate dinner without issue. No nausea/vomiting. Passed soft stool last night. No ongoing diarrhea. Pain in LLQ at times. 12 system ROS performed and negative except where stated. Objective - Vital Signs/Intake and Output Vital Signs (last 24 hours): Temp Pulse Resp BP Pulse Ox 98.3 F 76 20 112/80 95 07/20/17 04:05 07/20/17 00:00 07/19/17 23:10 07/19/17 23:10 07/19/17 23:10 Intake and Output: 07/20/17 07/20/17 06:59 18:59 Intake Total 800 Output Total 200 Balance 600 - Medications Medications: Current Medications Acetaminophen (Tylenol 325mg Tab) 650 mg PO Q6 PRN PRN Reason: Headache Diphenoxylate HCl/Atropine (Lomotil 0.025-2.5 Mg Tablet) 1 tab PO TID PRN PRN Reason: Diarrhea Hydrocortisone (Anusol-Hc) 1 gm [place] BID [facility] Last Admin: 07/19/17 18:46 Dose: 1 applic Sodium Chloride (Sodium Chloride 0.9%) 1,000 mls @ 100 mls/hr IV .Q10H [facility] Last Admin: 07/20/17 05:19 Dose: Not Given Ondansetron HCl (Zofran Inj) 4 mg IVP Q6H PRN PRN Reason: Nausea/Vomiting Last Admin: 07/18/17 20:58 Dose: 4 mg Pantoprazole Sodium (Protonix Inj) 40 mg IVP DAILY [facility] Last Admin: 07/19/17 10:27 Dose: 40 mg Simethicone (Mylicon Chew Tab) 80 mg PO TID PRN PRN Reason: GI distress Last Admin: 07/19/17 10:48 Dose: 80 mg - Labs Labs: 07/20/17 07:03 07/20/17 07:03 PT 13.7 SECONDS (9.7-12.2) H 07/17/17 12:04 INR 1.2 07/17/17 12:04 APTT 33 SECONDS (21-34) 07/17/17 12:04 - Constitutional Appears: Non-toxic, No Acute Distress - Eye Exam Eye Exam: EOMI, PERRL - ENT Exam ENT Exam: Mucous Membranes Moist - Respiratory Exam Respiratory Exam: Clear to Ausculation Bilateral. absent: Rales, Rhonchi, Wheezes - Cardiovascular Exam Cardiovascular Exam: RRR, +S1, +S2 - GI/Abdominal Exam GI & Abdominal Exam: Soft, Tenderness (LLQ), Normal Bowel Sounds. absent: Distended, Firm, Guarding, Rigid, Organomegaly - Extremities Exam Extremities Exam: Normal Inspection. absent: Pedal Edema - Neurological Exam Neurological Exam: Alert, Awake, Oriented x3 - Psychiatric Exam Psychiatric exam: Normal Affect, Normal Mood - Skin Skin Exam: Dry, Warm Assessment and Plan - Assessment and Plan (Free Text) Assessment: Patient is a 51yo female with PMHx significant for mullerian tract cancer diagnosed 05/2016 s/p cytoreductive surgery and adjuvant chemotherapy with recent discovery of recurrent metastatic disease to colon with history of malignant ascites who presented to the emergency room with persistent watery diarrhea and rectal bleeding -Metastatic mullerian tract cancer -Persistent diarrhea 2/2 above -Acute blood loss anemia 2/2 above -Hypokalemia, likely 2/2 diarrhea Plan: -Patient tolerating regular diet without nausea, vomiting -Can use Lomotil PRN for diarrhea -Can use zofran PRN for nausea -Transfusion support as needed -HSV/CMV staining on biopsies taken 07/06/17 pending -Symptomatic management -Patient clear for D/C from GI standpoint -Recommend outpatient F/U with heme/onc and ob/gyn doctor/onc for ongoing care <Gerald Mcfadden - Last Filed: 07/20/17 08:31> Objective - Vital Signs/Intake and Output Vital Signs (last 24 hours): Temp Pulse Resp BP Pulse Ox 98.1 F 69 20 153/71 H 95 07/20/17 08:00 07/20/17 08:00 07/20/17 08:00 07/20/17 08:00 07/20/17 08:00 Intake and Output: 07/20/17 07/20/17 06:59 18:59 Intake Total 800 Output Total 200 Balance 600 - Medications Medications: Current Medications Acetaminophen (Tylenol 325mg Tab) 650 mg PO Q6 PRN PRN Reason: Headache Diphenoxylate HCl/Atropine (Lomotil 0.025-2.5 Mg Tablet) 1 tab PO TID PRN PRN Reason: Diarrhea Hydrocortisone (Anusol-Hc) 1 gm [place] BID [facility] Last Admin: 07/19/17 18:46 Dose: 1 applic Sodium Chloride (Sodium Chloride 0.9%) 1,000 mls @ 100 mls/hr IV .Q10H [facility] Last Admin: 07/20/17 05:19 Dose: Not Given Ondansetron HCl (Zofran Inj) 4 mg IVP Q6H PRN PRN Reason: Nausea/Vomiting Last Admin: 07/18/17 20:58 Dose: 4 mg Pantoprazole Sodium (Protonix Inj) 40 mg IVP DAILY [facility] Last Admin: 07/19/17 10:27 Dose: 40 mg Simethicone (Mylicon Chew Tab) 80 mg PO TID PRN PRN Reason: GI distress Last Admin: 07/19/17 10:48 Dose: 80 mg - Labs Labs: 07/20/17 07:03 07/20/17 07:03 PT 13.7 SECONDS (9.7-12.2) H 07/17/17 12:04 INR 1.2 07/17/17 12:04 APTT 33 SECONDS (21-34) 07/17/17 12:04 Attending/Attestation - Attestation I have personally seen and examined this patient.: Yes I have fully participated in the care of the patient.: Yes I have reviewed all pertinent clinical information, including history, physical exam and plan: Yes Notes (Text): 07/20/17 08:30 51 year old with h/o ovarian ca s/p surgery and chemo who presented with rectosigmoid colitis now found ot have recurrent cancer invading the rectum. 1. Ovarian cancer 2. Diarrhea 3. Anemia Plan: -supportive care -diarrhea improved -no pain, tolerating diet -no bleeding -diet as tolerated - immodium/lomotil as needed
[2017-07-20] MEDS: Hydrocortisone 2.5% Rectal Cream(30 gm) PR SCH ×2 (09:06→18:56)
--- NOTE | 2017-07-20 09:39 | CP.PCM.PN ---
Subjective - Date & Time of Evaluation Date of Evaluation: 07/20/17 Time of Evaluation: 09:30 - Subjective Subjective: Medical Attending note: Patient seen and examined at bedside. Patient denies headache, denies chest pain, denies palpitations, denies shortness of breathe, reports abdominal pain, reports LLQ pain, reports she went to the bathroom last night, about 3 times, loose, and reports she feels distended. Objective - Vital Signs/Intake and Output Vital Signs (last 24 hours): Temp Pulse Resp BP Pulse Ox 98.1 F 69 20 153/71 H 95 07/20/17 08:00 07/20/17 08:00 07/20/17 08:00 07/20/17 08:00 07/20/17 08:00 Intake and Output: 07/20/17 07/20/17 06:59 18:59 Intake Total 800 Output Total 200 Balance 600 - Medications Medications: Current Medications Acetaminophen (Tylenol 325mg Tab) 650 mg PO Q6 PRN PRN Reason: Headache Diphenoxylate HCl/Atropine (Lomotil 0.025-2.5 Mg Tablet) 1 tab PO TID PRN PRN Reason: Diarrhea Hydrocortisone (Anusol-Hc) 1 gm [place] BID [facility] Last Admin: 07/20/17 09:06 Dose: 1 applic Sodium Chloride (Sodium Chloride 0.9%) 1,000 mls @ 100 mls/hr IV .Q10H [facility] Last Admin: 07/20/17 05:19 Dose: Not Given Ondansetron HCl (Zofran Inj) 4 mg IVP Q6H PRN PRN Reason: Nausea/Vomiting Last Admin: 07/18/17 20:58 Dose: 4 mg Pantoprazole Sodium (Protonix Inj) 40 mg IVP DAILY [facility] Last Admin: 07/20/17 09:05 Dose: 40 mg Simethicone (Mylicon Chew Tab) 80 mg PO TID PRN PRN Reason: GI distress Last Admin: 07/19/17 10:48 Dose: 80 mg - Labs Labs: 07/20/17 07:03 07/20/17 07:03 PT 13.7 SECONDS (9.7-12.2) H 07/17/17 12:04 INR 1.2 07/17/17 12:04 APTT 33 SECONDS (21-34) 07/17/17 12:04 - Constitutional Appears: Non-toxic, No Acute Distress - Head Exam Head Exam: NORMAL INSPECTION - Eye Exam Eye Exam: EOMI - ENT Exam ENT Exam: Mucous Membranes Moist - Respiratory Exam Respiratory Exam: Clear to Ausculation Bilateral, NORMAL BREATHING PATTERN. absent: Rales, Rhonchi, Wheezes - Cardiovascular Exam Cardiovascular Exam: REGULAR RHYTHM, +S1, +S2 - GI/Abdominal Exam GI & Abdominal Exam: Distended, Soft, Tenderness (mild lower quadrant pain), Normal Bowel Sounds. absent: Firm, Guarding, Rigid, Rebound - Extremities Exam Extremities Exam: absent: Full ROM, Tenderness - Back Exam Back Exam: absent: CVA tenderness (L), CVA tenderness (R) - Neurological Exam Neurological Exam: Alert, Oriented x3 - Psychiatric Exam Psychiatric exam: Normal Affect, Normal Mood - Skin Skin Exam: Dry, Intact, Normal Color, Warm Assessment and Plan - Assessment and Plan (Free Text) Assessment: Assessment/Plan 1) Hx Mullerian Tract Cancer with Metastasis * Initial Diagnosed 05/2016 s/p cytoreductive surgery ([facility]/ [facility]) and adjuvant chemotherapy at [facility]; patient is monitored at [facility] with her ob/gyn nurse- oncology * Heme/Onc: Dr. Junito Cheatham- help appreciated * Recommend for chemotherapy and outpatient PET scan * GI: Dr. Mcfadden- help appreciated * Pathology from flexible sigmoidoscopy reveals metastatic disease in sigmoid colon and rectum Imagin07/04/17 - CT Abdomen and Pelvis: Worsening marked wall thickening of the rectosigmoid colon which may be infectious/ inflammatory or ischemic in etiology. New mild to moderate right-sided hydroureteronephrosis. Stable left- sided hydroureteronephrosis. No obstructing calculi. Meds: * NS @ 100cc/hr * Morphine, Tylenol, Zofran PRN * CLD - will advance as tolerated * Blood culture: negative for 48 hours X2 * Pending stool culture, leukocytes, ova and parasites, C. Dif Negative * Order for CT abdomen/pelvis PO contrast given LLQ pain, diarrhea/hx of mullerian tract cancer 2) Hypokalemia with EKG changes * replete 3) Diarrhea * Most likely secondary to Malignancy * Afebrile, no leukocytosis, with left shift * Will rule out infectious cause: F/U stool studies, cdiff negative; order for stool occult blood X3 4) Anemia * Most likely 2/2 Chronic Disease * Low iron stores, normal ferritin * will transfuse 1 unit of PRBC 07/18 * hematology oncology on board * stable in 9s 5) Hx of Hydroureteronephrosis R>L * urology (Dr. Cathy Souza ) on board-->help appreciated * Seen on previous CT Scan and evaluated by Dr. Aneta Souza who was planning for cystoscopy and possible stent placement last admission * Renal US (07/18/17): moderate bilateral hydronephrosis. Bladder was relatively decompressed at the time of examination. Small amount of intra-abndominal ascites. Small bilateral pleural effusions 6) Prophylactic Measures * GI PPX: Protonix 40mg IVP daily * DVT PPX: SCDs, * pending Physical therapy Disposition: pending stool studies to rule out infectious
[2017-07-20] MEDS: Potassium Chloride 20 mEq ER Tab PO SCH ×2 (11:22→11:26)
[2017-07-20] MEDS ORDERED: Iohexol 240 (50 ml) PO ONE (12:45)
--- NOTE | 2017-07-20 16:21 | CP.PCM.CON ---
Past Patient History - Infectious Disease Hx of Infectious Diseases: None - Past Medical History & Family History Past Medical History?: No - Past Social History Smoking Status: Never Smoked - CARDIAC Hx Cardiac Disorders: No - PULMONARY Hx Respiratory Disorders: No - NEUROLOGICAL Hx Neurological Disorder: No - HEENT Hx HEENT Problems: No - RENAL Hx Chronic Kidney Disease: No - ENDOCRINE/METABOLIC Hx Endocrine Disorders: No - HEMATOLOGICAL/ONCOLOGICAL Hx Blood Disorders: Yes Hx Cancer: Yes (Ovarian) Hx Chemotherapy: Yes - INTEGUMENTARY Hx Dermatological Problems: No - MUSCULOSKELETAL/RHEUMATOLOGICAL Hx Falls: No - GASTROINTESTINAL Hx Gastrointestinal Disorders: No - GENITOURINARY/GYNECOLOGICAL Hx Genitourinary Disorders: Yes Other/Comment: HX OF FIBROIDS - PSYCHIATRIC Hx Substance Use: No - SURGICAL HISTORY Hx Surgeries: Yes Hx Hysterectomy: Yes Other/Comment: port to right chest wall - ANESTHESIA Hx Anesthesia: Yes Hx Anesthesia Reactions: No Meds Allergies/Adverse Reactions: Allergies Allergy/AdvReac Type Severity Reaction Status Date / Time cefazolin sodium [From [facility]] Allergy Verified 06/26/17 11:22 - Medications Medications: Current Medications Acetaminophen (Tylenol 325mg Tab) 650 mg PO Q6 PRN PRN Reason: Headache Diphenoxylate HCl/Atropine (Lomotil 0.025-2.5 Mg Tablet) 1 tab PO TID PRN PRN Reason: Diarrhea Hydrocortisone (Anusol-Hc) 1 gm [place] BID [facility] Last Admin: 07/20/17 09:06 Dose: 1 applic Sodium Chloride (Sodium Chloride 0.9%) 1,000 mls @ 100 mls/hr IV .Q10H [facility] Last Admin: 07/20/17 05:19 Dose: Not Given Ondansetron HCl (Zofran Inj) 4 mg IVP Q6H PRN PRN Reason: Nausea/Vomiting Last Admin: 07/20/17 16:15 Dose: 4 mg Pantoprazole Sodium (Protonix Inj) 40 mg IVP DAILY [facility] Last Admin: 07/20/17 09:05 Dose: 40 mg Simethicone (Mylicon Chew Tab) 80 mg PO TID PRN PRN Reason: GI distress Last Admin: 07/19/17 10:48 Dose: 80 mg Results - Vital Signs Recent Vital Signs: Last Vital Signs Temp 98.1 F 07/20/17 08:00 Pulse 78 07/20/17 08:00 Resp 20 07/20/17 08:00 BP 153/71 H 07/20/17 08:00 Pulse Ox 95 07/20/17 08:00 - Labs Result Diagrams: 07/20/17 07:03 07/20/17 07:03 Labs: Laboratory Results - last 24 hr 07/20/17 07/20/17 07:03 07:03 WBC 5.4 RBC 2.87 L Hgb 9.7 L Hct 27.9 L MCV 97.3 MCH 33.8 H MCHC 34.8 RDW 13.1 Plt Count 351 MPV 7.0 L Neut % (Auto) 73.2 Lymph % (Auto) 14.5 L S[place]y % (Auto) 10.4 H Eos % (Auto) 1.5 Baso % (Auto) 0.4 Neut # (Auto) 3.9 Lymph # (Auto) 0.8 L [place] # (Auto) 0.6 Eos # (Auto) 0.1 Baso # (Auto) 0.0 Sodium 138 Potassium 3.4 L Chloride 108 H Carbon Dioxide 19 L Anion Gap 14 BUN 10 Creatinine 1.3 H Est GFR ( Amer) 52 Est GFR (Non-Af Amer) 43 Random Glucose 82 Calcium 8.3 L Phosphorus 4.0 Magnesium 1.9 Total Bilirubin 0.7 AST 43 H D ALT 12 Alkaline Phosphatase 51 Total Protein 6.2 L Albumin 3.1 L Globulin 3.1 Albumin/Globulin Ratio 1.0 Assessment & Plan - Assessment and Plan (Free Text) Assessment: IMP: hydronephrosis mullerian duct tumor GI bleeding full note tbd - Date & Time Date: 07/20/17 Time: 16:21
--- NOTE | 2017-07-20 17:24 | CT ---
PROCEDURE: CT Abdomen and Pelvis with contrast HISTORY: Left lower quadrant pain and diarrhea. Relevant medical history: : Hx of mullerian duct cancer COMPARISON: 07/04/2017 CT abdomen and pelvis 07/07/2017 ultrasound of the urinary bladder. 07/18/2017 renal ultrasound TECHNIQUE: Oral contrast only. Radiation dose: Total exam DLP = 209.87 mGy-cm. This CT exam was performed using one or more of the following dose reduction techniques: Automated exposure control, adjustment of the mA and/or kV according to patient size, and/or use of iterative reconstruction technique. FINDINGS: LOWER THORAX: New small bilateral pleural effusions and compressive atelectasis. LIVER: Unremarkable. No gross lesion or ductal dilatation. GALLBLADDER AND BILE DUCTS: Unremarkable. PANCREAS: Unremarkable. No gross lesion or ductal dilatation. SPLEEN: Unremarkable. ADRENALS: Unremarkable. No mass. KIDNEYS AND URETERS: Stable bilateral hydro nephrosis and hydroureter. VASCULATURE: Unremarkable. No aortic aneurysm. BOWEL: Marked thickening of the rectum and sigmoid. Similar findings identified previously although they the appear to have increased. Circumferential luminal narrowing of the rectum. No focal discrete masses. No evidence of mechanical obstruction. Constipation noted. APPENDIX: Normal appendix. PERITONEUM: Unremarkable. No free fluid. No free air. LYMPH NODES: Unremarkable. No enlarged lymph nodes. BLADDER: Persistent posterior bladder wall thickening similar to that seen on the prior CT scan. The mass, bladder wall thickening extends into the cul-de-sac. REPRODUCTIVE: Unremarkable. BONES: No acute fracture. Small hemangioma T11 vertebral body. OTHER FINDINGS: Diffuse anterior abdominal wall edema with a primarily subcutaneous component. IMPRESSION: 1. Progressive, worsening proctitis. 2. Re- demonstration of posterior bladder wall thickening with signs of a mass extending into the cul-de-sac. 3. Stable bilateral hydronephrosis and hydroureter. Additional benign and/or incidental findings described above.
[2017-07-21] MEDS: Sodium Chloride 0.9% 1,000 ML IV SCH ×2 (04:32)
[2017-07-21 07:45] VITALS: BP 153/74; PULSE 66; TEMP 98.2
[2017-07-21 09:12] LABS: BASO % 0.6 % (0.0-2.0); EOS # 0.1 K/uL (0.0-0.7); EOS % 1.6 % (0.0-4.0); LYMPH # 0.8 K/uL (1.0-4.3); LYMPH % 16.2 % (20.0-40.0); MEAN CELL VOLUME 97.5 fL (81.0-99.0); MEAN CORPUSCULAR HEMOGLOBIN 33.4 pg (27.0-31.0); MEAN CORPUSCULAR HGB CONC 34.2 g/dL (33.0-37.0); MEAN PLATELET VOLUME 6.6 fL (7.2-11.7); MONO # 0.5 K/uL (0.0-0.8); MONO % 11.3 % (0.0-10.0); NEUT # 3.4 K/uL (1.8-7.0); NEUT % 70.3 % (50.0-75.0); RBC 2.99 Mil/uL (3.80-5.20); RED CELL DISTRIBUTION WIDTH 13.1 % (11.5-14.5); WHITE BLOOD COUNT 4.8 K/uL (4.8-10.8)
[2017-07-21 09:36] LABS: ALB/GLOB RATIO 1.1 (1.0-2.1); ALBUMIN 3.4 g/dL (3.5-5.0); CALCIUM 8.4 mg/dl (8.6-10.4); MAGNESIUM 1.6 mg/dL (1.6-2.3)
[2017-07-21] MEDS: Hydrocortisone 2.5% Rectal Cream(30 gm) PR SCH (09:38)
--- NOTE | 2017-07-21 11:45 | CP.PCM.DIS ---
<Melquiades Pineda - Last Filed: 07/21/17 11:49> Provider - Provider Date of Admission: 07/17/17 14:33 Attending physician: Clementine Chery DO Consults: Dr. Louann Souza; Urology Dr. Junito Cheatham; Hematology oncology Time Spent in preparation of Discharge (in minutes): 45 Hospital Course - Lab Results Lab Results: Micro Results 07/17/17 11:31 Blood Blood Culture - Preliminary NO GROWTH AFTER 3 DAYS 07/17/17 11:31 Blood Blood Culture - Preliminary NO GROWTH AFTER 3 DAYS 07/18/17 09:57 Stool Stool Culture - Final NO SALMONELLA, SHIGELLA OR CAMPYLOBACTER ISOLATED. Most Recent Lab Values WBC 4.8 K/uL (4.8-10.8) 07/21/17 09:07 RBC 2.99 Mil/uL (3.80-5.20) L 07/21/17 09:07 Hgb 10.0 g/dL (11.0-16.0) L 07/21/17 09:07 Hct 29.2 % (34.0-47.0) L 07/21/17 09:07 MCV 97.5 fL (81.0-99.0) 07/21/17 09:07 MCH 33.4 pg (27.0-31.0) H 07/21/17 09:07 MCHC 34.2 g/dL (33.0-37.0) 07/21/17 09:07 RDW 13.1 % (11.5-14.5) 07/21/17 09:07 Plt Count 357 K/uL (130-400) 07/21/17 09:07 MPV 6.6 fL (7.2-11.7) L 07/21/17 09:07 Neut % (Auto) 70.3 % (50.0-75.0) 07/21/17 09:07 Lymph % (Auto) 16.2 % (20.0-40.0) L 07/21/17 09:07 Dodge % (Auto) 11.3 % (0.0-10.0) H 07/21/17 09:07 Eos % (Auto) 1.6 % (0.0-4.0) 07/21/17 09:07 Baso % (Auto) 0.6 % (0.0-2.0) 07/21/17 09:07 Neut # (Auto) 3.4 K/uL (1.8-7.0) 07/21/17 09:07 Lymph # (Auto) 0.8 K/uL (1.0-4.3) L 07/21/17 09:07 Dodge # (Auto) 0.5 K/uL (0.0-0.8) 07/21/17 09:07 Eos # (Auto) 0.1 K/uL (0.0-0.7) 07/21/17 09:07 Baso # (Auto) 0.0 K/uL (0.0-0.2) 07/21/17 09:07 Retic Count 1.3 % (0.5-1.5) D 07/18/17 07:01 PT 13.7 SECONDS (9.7-12.2) H 07/17/17 12:04 INR 1.2 07/17/17 12:04 APTT 33 SECONDS (21-34) 07/17/17 12:04 Sodium 140 mmol/L (132-148) 07/21/17 09:07 Potassium 3.4 mmol/L (3.6-5.2) L 07/21/17 09:07 Chloride 109 mmol/L (98-107) H 07/21/17 09:07 Carbon Dioxide 18 mmol/L (22-30) L 07/21/17 09:07 Anion Gap 16 (10-20) 07/21/17 09:07 BUN 8 mg/dL (7-17) 07/21/17 09:07 Creatinine 1.3 mg/dL (0.7-1.2) H 07/21/17 09:07 Est GFR ( Amer) 52 07/21/17 09:07 Est GFR (Non-Af Amer) 43 07/21/17 09:07 Random Glucose 109 mg/dL (65-105) H 07/21/17 09:07 Calcium 8.4 mg/dl (8.6-10.4) L 07/21/17 09:07 Phosphorus 4.8 mg/dL (2.5-4.5) H 07/21/17 09:07 Magnesium 1.6 mg/dL (1.6-2.3) 07/21/17 09:07 Iron 33 ug/dL (37-170) L 07/18/17 10:52 TIBC 170 ug/dL (250-450) L 07/18/17 10:52 % Saturation 19 (20-55) L 07/18/17 10:52 Ferritin 221.0 ng/mL 07/18/17 07:01 Total Bilirubin 0.8 mg/dL (0.2-1.3) 07/21/17 09:07 AST 21 U/L (14-36) 07/21/17 09:07 ALT 13 U/L (9-52) 07/21/17 09:07 Alkaline Phosphatase 49 U/L (38-126) 07/21/17 09:07 Total Protein 6.5 g/dL (6.3-8.3) 07/21/17 09:07 Albumin 3.4 g/dL (3.5-5.0) L 07/21/17 09:07 Globulin 3.2 gm/dL (2.2-3.9) 07/21/17 09:07 Albumin/Globulin Ratio 1.1 (1.0-2.1) 07/21/17 09:07 Lipase 117 U/L (23-300) 07/17/17 12:04 CA 125 Antigen 78.3 U/mL (0-35) H D 07/18/17 07:01 Urine Color Yellow (YELLOW) 07/17/17 12:04 Urine Clarity Clear (Clear) 07/17/17 12:04 Urine pH 6.0 (5.0-8.0) 07/17/17 12:04 Ur Specific Marshall 1.009 (1.003-1.030) 07/17/17 12:04 Urine Protein Negative mg/dL (NEGATIVE) 07/17/17 12:04 Urine Glucose (UA) Normal mg/dL (Normal) 07/17/17 12:04 Urine Ketones Negative mg/dL (NEGATIVE) 07/17/17 12:04 Urine Blood Negative (NEGATIVE) 07/17/17 12:04 Urine Nitrate Negative (NEGATIVE) 07/17/17 12:04 Urine Bilirubin Negative (NEGATIVE) 07/17/17 12:04 Urine Urobilinogen Normal mg/dL (0.2-1.0) 07/17/17 12:04 Ur Leukocyte Esterase Trace Sherly/uL (Negative) 07/17/17 12:04 Urine WBC (Auto) 2 /hpf (0-5) 07/17/17 12:04 Urine RBC (Auto) < 1 /hpf (0-3) 07/17/17 12:04 C. difficile Ag & Toxin Negative (NEGATIVE) 07/20/17 18:00 Blood Type B POSITIVE 07/18/17 10:52 Antibody Screen Negative 07/18/17 10:52 - Hospital Course Hospital Course: 1) Hx Mullerian Tract Cancer with Metastasis * Initial Diagnosed 05/2016 s/p cytoreductive surgery (JANETH/ BSO) and adjuvant chemotherapy at [facility]; patient is monitored at [facility] with her bag machine adjuster- oncology * Heme/Onc: Dr. Junito Cheatham- help appreciated * Recommend for chemotherapy and outpatient PET scan * GI: Dr. Mcfadden- help appreciated * Pathology from flexible sigmoidoscopy reveals metastatic disease in sigmoid colon and rectum Imagin07/04/17 - CT Abdomen and Pelvis: Worsening marked wall thickening of the rectosigmoid colon which may be infectious/ inflammatory or ischemic in etiology. New mild to moderate right-sided hydroureteronephrosis. Stable left- sided hydroureteronephrosis. No obstructing calculi. The patient will be going for outpatient chemotherapy The patient will need to add fiber to her diet (green leafy vegetables, whole grains), as well as immodium to control her diarrhea The patient did not have any infectious source of diarrhea and antibiotics are not warranted Patient will also need to f/u with Urology for hydronephrosis and CARTER/CKD; Dr. Louann Souza; f/u within the week patient also had GERD like symptoms and will add pepcid PO daily for symptom control 2) Hypokalemia with EKG changes * replete will need to monitor outpatient 3) Diarrhea * Most likely secondary to Malignancy * Afebrile, no leukocytosis, with left shift * Will rule out infectious cause: F/U stool studies, cdiff negative; order for stool occult blood X3 4) Anemia * Most likely 2/2 Chronic Disease * Low iron stores, normal ferritin * will transfuse 1 unit of PRBC 07/18 * hematology oncology on board * stable in 9s 5) Hx of Hydroureteronephrosis R>L * urology (Dr. Cathy Souza ) on board-->help appreciated * Seen on previous CT Scan and evaluated by Dr. Aneta Souza who was planning for cystoscopy and possible stent placement last admission * Renal US (07/18/17): moderate bilateral hydronephrosis. Bladder was relatively decompressed at the time of examination. Small amount of intra-abndominal ascites. Small bilateral pleural effusions 6) Prophylactic Measures * GI PPX: Protonix 40mg IVP daily * DVT PPX: SCDs, * pending Physical therapy The patient is stable for d/c as per Dr. Chery Discharge Exam - Head Exam Head Exam: NORMAL INSPECTION - Eye Exam Eye Exam: EOMI, Scleral icterus - ENT Exam ENT Exam: Mucous Membranes Moist - Respiratory Exam Respiratory Exam: Clear to PA & Lateral - Cardiovascular Exam Cardiovascular Exam: REGULAR RHYTHM, +S1, +S2 - GI/Abdominal Exam GI & Abdominal Exam: Normal Bowel Sounds. absent: Soft, Tenderness - Extremities Exam Extremities exam: full ROM - Back Exam Back exam: absent: CVA tenderness (L), CVA tenderness (R) - Neurological Exam Neurological exam: Alert, CN II-XII Intact, Oriented x3 Discharge Plan - Discharge Medications Prescriptions: Famotidine/Ca Carb/Mag Hydrox [Pepcid Complete Tablet Chew] 1 each PO DAILY #30 tab.chew RX: Loperamide [Imodium] 2 mg PO Q4H PRN #60 cap PRN Reason: Diarrhea Psyllium Husk (with Sugar) [Metamucil Smooth Texture] 3.4 gm PO DAILY #30 packet - Follow Up Plan Condition: FAIR Disposition: HOME/ ROUTINE Patient education suggested?: Yes Instructions: Famotidine, Loperamide, Psyllium, Ulcerative Colitis (DC), Ulcerative Colitis (GEN), Acute Abdominal Pain (DC), Acute Abdominal Pain (GEN) Additional Instructions: The patient will be going for outpatient chemotherapy The patient will need to add fiber to her diet (green leafy vegetables, whole grains), as well as immodium to control her diarrhea The patient did not have any infectious source of diarrhea and antibiotics are not warranted Patient will also need to f/u with Urology for hydronephrosis and CARTER/CKD; Dr. Louann Souza; f/u within the week Please also f/u with your cancer doctor, Dr. Junito Cheatham for chemotherapy patient also had GERD like symptoms and will add pepcid PO daily for symptom control Referrals: Cathy Souza MD [Staff Provider] - Omar Cheatham MD [Staff Provider] - <Clementine Chery V - Last Filed: 07/21/17 13:37> Provider - Provider Date of Admission: 07/17/17 14:33 Attending physician: Clementine Chery, DO Hospital Course - Lab Results Lab Results: Micro Results 07/17/17 11:31 Blood Blood Culture - Preliminary NO GROWTH AFTER 4 DAYS 07/17/17 11:31 Blood Blood Culture - Preliminary NO GROWTH AFTER 4 DAYS 07/18/17 09:57 Stool Stool Culture - Final NO SALMONELLA, SHIGELLA OR CAMPYLOBACTER ISOLATED. Most Recent Lab Values WBC 4.8 K/uL (4.8-10.8) 07/21/17 09:07 RBC 2.99 Mil/uL (3.80-5.20) L 07/21/17 09:07 Hgb 10.0 g/dL (11.0-16.0) L 07/21/17 09:07 Hct 29.2 % (34.0-47.0) L 07/21/17 09:07 MCV 97.5 fL (81.0-99.0) 07/21/17 09:07 MCH 33.4 pg (27.0-31.0) H 07/21/17 09:07 MCHC 34.2 g/dL (33.0-37.0) 07/21/17 09:07 RDW 13.1 % (11.5-14.5) 07/21/17 09:07 Plt Count 357 K/uL (130-400) 07/21/17 09:07 MPV 6.6 fL (7.2-11.7) L 07/21/17 09:07 Neut % (Auto) 70.3 % (50.0-75.0) 07/21/17 09:07 Lymph % (Auto) 16.2 % (20.0-40.0) L 07/21/17 09:07 Dodge % (Auto) 11.3 % (0.0-10.0) H 07/21/17 09:07 Eos % (Auto) 1.6 % (0.0-4.0) 07/21/17 09:07 Baso % (Auto) 0.6 % (0.0-2.0) 07/21/17 09:07 Neut # (Auto) 3.4 K/uL (1.8-7.0) 07/21/17 09:07 Lymph # (Auto) 0.8 K/uL (1.0-4.3) L 07/21/17 09:07 Dodge # (Auto) 0.5 K/uL (0.0-0.8) 07/21/17 09:07 Eos # (Auto) 0.1 K/uL (0.0-0.7) 07/21/17 09:07 Baso # (Auto) 0.0 K/uL (0.0-0.2) 07/21/17 09:07 Retic Count 1.3 % (0.5-1.5) D 07/18/17 07:01 PT 13.7 SECONDS (9.7-12.2) H 07/17/17 12:04 INR 1.2 07/17/17 12:04 APTT 33 SECONDS (21-34) 07/17/17 12:04 Sodium 140 mmol/L (132-148) 07/21/17 09:07 Potassium 3.4 mmol/L (3.6-5.2) L 07/21/17 09:07 Chloride 109 mmol/L (98-107) H 07/21/17 09:07 Carbon Dioxide 18 mmol/L (22-30) L 07/21/17 09:07 Anion Gap 16 (10-20) 07/21/17 09:07 BUN 8 mg/dL (7-17) 07/21/17 09:07 Creatinine 1.3 mg/dL (0.7-1.2) H 07/21/17 09:07 Est GFR ( Amer) 52 07/21/17 09:07 Est GFR (Non-Af Amer) 43 07/21/17 09:07 Random Glucose 109 mg/dL (65-105) H 07/21/17 09:07 Calcium 8.4 mg/dl (8.6-10.4) L 07/21/17 09:07 Phosphorus 4.8 mg/dL (2.5-4.5) H 07/21/17 09:07 Magnesium 1.6 mg/dL (1.6-2.3) 07/21/17 09:07 Iron 33 ug/dL (37-170) L 07/18/17 10:52 TIBC 170 ug/dL (250-450) L 07/18/17 10:52 % Saturation 19 (20-55) L 07/18/17 10:52 Ferritin 221.0 ng/mL 07/18/17 07:01 Total Bilirubin 0.8 mg/dL (0.2-1.3) 07/21/17 09:07 AST 21 U/L (14-36) 07/21/17 09:07 ALT 13 U/L (9-52) 07/21/17 09:07 Alkaline Phosphatase 49 U/L (38-126) 07/21/17 09:07 Total Protein 6.5 g/dL (6.3-8.3) 07/21/17 09:07 Albumin 3.4 g/dL (3.5-5.0) L 07/21/17 09:07 Globulin 3.2 gm/dL (2.2-3.9) 07/21/17 09:07 Albumin/Globulin Ratio 1.1 (1.0-2.1) 07/21/17 09:07 Lipase 117 U/L (23-300) 07/17/17 12:04 CA 125 Antigen 78.3 U/mL (0-35) H D 07/18/17 07:01 Urine Color Yellow (YELLOW) 07/17/17 12:04 Urine Clarity Clear (Clear) 07/17/17 12:04 Urine pH 6.0 (5.0-8.0) 07/17/17 12:04 Ur Specific Marshall 1.009 (1.003-1.030) 07/17/17 12:04 Urine Protein Negative mg/dL (NEGATIVE) 07/17/17 12:04 Urine Glucose (UA) Normal mg/dL (Normal) 07/17/17 12:04 Urine Ketones Negative mg/dL (NEGATIVE) 07/17/17 12:04 Urine Blood Negative (NEGATIVE) 07/17/17 12:04 Urine Nitrate Negative (NEGATIVE) 07/17/17 12:04 Urine Bilirubin Negative (NEGATIVE) 07/17/17 12:04 Urine Urobilinogen Normal mg/dL (0.2-1.0) 07/17/17 12:04 Ur Leukocyte Esterase Trace Sherly/uL (Negative) 07/17/17 12:04 Urine WBC (Auto) 2 /hpf (0-5) 07/17/17 12:04 Urine RBC (Auto) < 1 /hpf (0-3) 07/17/17 12:04 C. difficile Ag & Toxin Negative (NEGATIVE) 07/20/17 18:00 Blood Type B POSITIVE 07/18/17 10:52 Antibody Screen Negative 07/18/17 10:52 Attending/Attestation - Attestation I have personally seen and examined this patient.: Yes I have fully participated in the care of the patient.: Yes I have reviewed all pertinent clinical information, including history, physical exam and plan: Yes Notes (Text): Patient seen, examined, and case discussed with medical transcriber. Patient reports diarrhea is less, is more formed, that is hard. Patient denies bleeding. Stool ova and parasite is negative. C. difficile is negative 2. Patient reports is urinating and has been seen by urologist. Discussed with patient in terms of increasing fiber intake, increase water intake, and to follow up with the oncologist to start chemotherapy. Discussed with [facility] oncology, will start chemotherapy for this upcoming Sunday. Patient provided scripts to relieve constipation, increase fiber intake, and reduce acid. Discharge Diagnoses: 1) Hx Mullerian Tract Cancer with Metastasis * Initial Diagnosed 05/2016 s/p cytoreductive surgery (JANETH/ [facility]SO) and adjuvant chemotherapy at [facility]; patient is monitored at [facility] with her bag machine adjuster- oncology * Heme/Onc: Dr. Junito Cheatham- help appreciated * Recommend for chemotherapy and outpatient PET scan * GI: Dr. Mcfadden- demetria appreciated * No GI intervention at this time, recommendation for supportive care * Pathology from flexible sigmoidoscopy reveals metastatic disease in sigmoid colon and rectum Imagin07/04/17 - CT Abdomen and Pelvis: Worsening marked wall thickening of the rectosigmoid colon which may be infectious/ inflammatory or ischemic in etiology. New mild to moderate right-sided hydroureteronephrosis. Stable left- sided hydroureteronephrosis. No obstructing calculi. 07/20/17- CT Abdomen and Pelvis with contrast (07/20/17): Progressive, worsening proctitis. 2. Re- demonstration of posterior bladder wall thickening with signs of a mass extending into the cul-de-sac. 3. Stable bilateral hydronephrosis and hydroureter. Marked thickening of the rectum and sigmoid. Similar findings identified previously although they the appear to have increased. Circumferential luminal narrowing of the rectum. No focal discrete masses. No evidence of mechanical obstruction. Constipation noted. Meds: * NS @ 100cc/hr * Blood culture: negative for 4 days X1 * Pending stool culture, leukocytes, ova and parasites: No salmonella, no shigella or campylobacter, C. Dif Negative X2 2) Hypokalemia with EKG changes * Normal potassium * Echocardiogram-->not formally read; will need to followed as outpatient 3) Diarrhea * Most likely secondary to Malignancy * Afebrile, no leukocytosis, with left shift * leukocytes, ova and parasites: No salmonella, no shigella or campylobacter, C. Dif Negative X2 * Improved with Lomotil 4) Anemia * Most likely 2/2 Chronic Disease * Low iron stores, normal ferritin * will transfuse 1 unit of PRBC 07/18 * hematology oncology on board * stable in 9s 5) Hx of Hydroureteronephrosis R>L * urology (Dr. Cathy Souza ) on board-->help appreciated * Seen on previous CT Scan and evaluated by Dr. Aneta Souza who was planning for cystoscopy and possible stent placement last admission * Renal US (07/18/17): moderate bilateral hydronephrosis. Bladder was relatively decompressed at the time of examination. Small amount of intra-abndominal ascites. Small bilateral pleural effusions * 07/20/17- CT Abdomen and Pelvis with contrast (07/20/17): Progressive, worsening proctitis. 2. Re- demonstration of posterior bladder wall thickening with signs of a mass extending into the cul-de-sac. 3. Stable bilateral hydronephrosis and hydroureter. Marked thickening of the rectum and sigmoid. Similar findings identified previously although they the appear to have increased. Circumferential luminal narrowing of the rectum. No focal discrete masses. No evidence of mechanical obstruction. Constipation noted. 6) Prophylactic Measures * GI PPX: Protonix 40mg IVP daily * DVT PPX: SCDs,
[2017-07-23 16:05] VITALS: O2SAT 98
--- NOTE | 2017-07-23 21:50 | CON ---
DATE: 07/20/2017 Urology consultation requested by Clementine Chery DO REASON FOR CONSULTATION: Hydronephrosis. HISTORY OF PRESENT ILLNESS: The patient is a 51-year-old female with bilateral hydronephrosis. The patient is in otherwise fair to poor health. The patient has history of advanced Mullerian duct carcinoma. The patient has received previous therapy including surgery and chemotherapy. The patient is admitted with abdominal pain. The patient has had no recent fever or rigors. The patient voids with good urinary stream and good control. No dysuria. No hematuria. The patient does have urinary frequency. The patient has had previous admission for similar pain. There has been no change of her voiding symptoms. The patient has fair appetite. PHYSICAL EXAMINATION: GENERAL: Patient well-developed, well-nourished middle-aged female. The patient is awake and alert. ABDOMEN: Soft, nontender, nondistended. No mass or organomegaly. BACK: No CVA tenderness. LABORATORY DATA: Reviewed. Renal function is stable. IMPRESSION: Mullerian duct carcinoma. Bilateral hydronephrosis. At present, the hydronephrosis is not causing the patient's symptoms. Specifically, the patient does not have urosepsis, flank pain, or renal insufficiency. PLAN/RECOMMENDATIONS: Monitor clinical course. Possible need for cystoscopy and stent insertion. Further therapy to be determined by various consultants including the patient's oncologist. Thank you for recommending the patient for urology consultation. Cathy Souza MD cc: Clementine Chery DO
== END 2017-07-21 14:50 | disposition home or self-care (01) | DRG 392 ==
LOC: C.ER 10:43 → C.9E 14:33 → C.6T 17:55
PROVIDERS: ADMIT Hospitalist; ATTEND Hospitalist
PROC: 30233N1 Transfusion of Nonautologous Red Blood Cells into Peripheral Vein, Percutaneous Approach (ICD-10-PCS; principal; 2017-07-18)
DX: K52.9 Noninfective gastroenteritis and colitis, unspecified (principal); R18.0 Malignant ascites; C78.5 Secondary malignant neoplasm of large intestine and rectum; R13.10 Dysphagia, unspecified; D62 Acute posthemorrhagic anemia; N13.30 Unspecified hydronephrosis; E87.6 Hypokalemia; D63.0 Anemia in neoplastic disease; R68.81 Early satiety; K59.00 Constipation, unspecified; Z85.43 Personal history of malignant neoplasm of ovary; Z92.21 Personal history of antineoplastic chemotherapy

== ENCOUNTER 2018-09-07 11:03 | Observation (INO) | payer MEDICAID, OTHER ==
[2018-09-07 11:06] VITALS: BMI 17.9
--- NOTE | 2018-09-07 11:41 | C.PDOC ---
History Of Present Illness 53 year old female patient with history of colon cancer presents to the ER with family complaining of increase weakness, increased abdominal pain and vomiting for x2 weeks. Patient reports that her last chemotherapy was x2 weeks ago and was stopped because she was too weak to continue. Patient's family at bed side reports patient is unable to eat and has increase abdominal pain with swelling. Patient denies fever, recent travels, diarrhea, chest pain, shortness of breathe and back pain. Time Seen by Provider: 09/07/18 11:11 Chief Complaint (Nursing): Abdominal Pain History Per: Patient History/Exam Limitations: no limitations Onset/Duration Of Symptoms: Days (x14) Current Symptoms Are (Timing): Still Present Additional History Per: Family Past Medical History Reviewed: Historical Data, Nursing Documentation, Vital Signs Vital Signs: Last Vital Signs Temp 97.7 F 09/07/18 11:05 Pulse 101 H 09/07/18 11:05 Resp 18 09/07/18 11:05 BP 116/82 09/07/18 11:05 Pulse Ox 99 09/07/18 11:05 - [facility] Procedures DRAINAGE OF PERITONEAL CAVITY, PERCUTANEOUS APPROACH, DIAGN (05/12/16) EXCISION OF RECTUM, ENDO, DIAGN (07/04/17) EXCISION OF SIGMOID COLON, ENDO, DIAGN (07/04/17) INSERT INFUSION DEV IN R INT JUGULAR VEIN, PERC (05/12/16) INSERTION OF VAD INTO CHEST SUBCU/FASCIA, OPEN APPROACH (05/12/16) TRANSFUSE NONAUT RED BLOOD CELLS IN PERIPH VEIN, PERC (07/17/17) ULTRASONOGRAPHY OF RIGHT JUGULAR VEINS, GUIDANCE (05/12/16) Family History: States: Unknown Family Hx - Social History Hx Alcohol Use: No Hx Substance Use: No - Immunization History Hx Tetanus Toxoid Vaccination: No Hx Influenza Vaccination: No Hx Pneumococcal Vaccination: No Review Of Systems Except As Marked, All Systems Reviewed And Found Negative. Constitutional: Negative for: Fever, Other (recent travels) Cardiovascular: Negative for: Chest Pain Respiratory: Negative for: Shortness of Breath Gastrointestinal: Positive for: Vomiting, Abdominal Pain, Other (abdominal swelling ). Negative for: Diarrhea Musculoskeletal: Negative for: Back Pain Neurological: Positive for: Weakness Physical Exam - Physical Exam Appears: Non-toxic, In Acute Distress (pain), Chronically Ill, Other (cachectic ) Skin: Warm, Dry Head: Normacephalic Eye(s): bilateral: Normal Inspection Oral Mucosa: Dry Throat: Normal, No Erythema, No Exudate Neck: Normal ROM, Supple Chest: Symmetrical, No Deformity, Other (port in right upper chest ) Cardiovascular: Rhythm Regular Respiratory: Normal Breath Sounds Gastrointestinal/Abdominal: Soft, No Tenderness, Distention (mild ), Other (colostomy bag on mid right abdomen with stool inside ) Extremity: Normal ROM (x4) Neurological/Psych: Oriented x3, Normal Speech ED Course And Treatment O2 Sat by Pulse Oximetry: 99 (RA) Pulse Ox Interpretation: Normal - Radiology CXR: Interpreted by Me, Viewed By Me CXR Interpretation: Yes: No Acute Disease Medical Decision Making Medical Decision Making: plans: -- chem labs -- blood work -- CXR -- IV fluids -- Zofran -- Morphine -- Pepcid Disposition - Disposition Forms: [employer] (Serbian) - PA / COLD WORKING 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 - Scribe Statement The provider has reviewed the documentation as recorded by the Aurora Duque Do All medical record entries made by the Scribe were at my direction and personally dictated by me. I have reviewed the chart and agree that the record accurately reflects my personal performance of the history, physical exam, medical decision making, and the department course for this patient. I have also personally directed, reviewed, and agree with the discharge instructions and disposition.
[2018-09-07] MEDS ORDERED: Sodium Chloride 0.9% 500 ML IV ONE (11:43)
[2018-09-07] MEDS ORDERED: Morphine 4 MG/ML VIAL ONE (12:13)
[2018-09-07 12:43] LABS: BASO % 0.2 % (0.0-2.0); HEMOGLOBIN 10.7 g/dL (11.0-16.0); LYMPH # 0.7 K/uL (1.0-4.3); LYMPH % 6.7 % (20.0-40.0); MEAN CELL VOLUME 96.2 fL (81.0-99.0); MEAN CORPUSCULAR HEMOGLOBIN 33.2 pg (27.0-31.0); MEAN CORPUSCULAR HGB CONC 34.5 g/dL (33.0-37.0); MEAN PLATELET VOLUME 6.9 fL (7.2-11.7); MONO # 0.6 K/uL (0.0-0.8); MONO % 5.3 % (0.0-10.0); NEUT # 9.5 K/uL (1.8-7.0); NEUT % 87.8 % (50.0-75.0); RBC 3.22 Mil/uL (3.80-5.20); RED CELL DISTRIBUTION WIDTH 17.8 % (11.5-14.5)
[2018-09-07 12:45] LABS: PLATELET COUNT 528 K/uL (130-400); WHITE BLOOD COUNT 10.8 K/uL (4.8-10.8)
[2018-09-07 12:53] LABS: INR 1.6
[2018-09-07 13:06] LABS: BANDS 1 % (0-2); LYMPHOCYTE 5 % (20-40); MONOCYTE 4 % (0-10); NEUTROPHIL 90 % (50-75); PLATELET ESTIMATE INCREASED (NORMAL); TOTAL CELLS COUNTED 100
[2018-09-07 13:07] LABS: ANISOCYTOSIS MODERATE; HYPOCHROMIC SLIGHT; LARGE PLATELETS PRESENT; POLYCHROMIC SLIGHT
[2018-09-07 13:14] LABS: ALB/GLOB RATIO 1.2 (1.0-2.1); ALBUMIN 4.4 g/dL (3.5-5.0); ALT/SGPT 9 U/L (9-52); AST/SGOT 34 U/L (14-36); BLOOD UREA NITROGEN 27 mg/dL (7-17); CALCIUM 10.2 mg/dl (8.6-10.4); GFR NON-AFRICAN AMERICAN > 60; LIPASE 590 U/L (23-300)
--- NOTE | 2018-09-07 13:38 | RAD ---
Date of service: 09/07/2018 PROCEDURE: CHEST RADIOGRAPH, 1 VIEW HISTORY: abd pain COMPARISON: Comparison is made with 07/17/2017 FINDINGS: LUNGS: No evidence of new infiltrate or consolidation in the lungs. PLEURA: No pneumothorax or pleural fluid seen. CARDIOVASCULAR: No aortic atherosclerotic calcification present. Normal. OSSEOUS STRUCTURES: No significant abnormalities. VISUALIZED UPPER ABDOMEN: Normal. OTHER FINDINGS: Right-sided Infusaport is again seen in place. IMPRESSION: No active disease.
[2018-09-07] MEDS ORDERED: Iodixanol 320 MG/ML 100 ML BOTTLE IV ONE (14:19)
--- NOTE | 2018-09-07 15:25 | CT ---
Date of service: 09/07/2018 PROCEDURE: CT Abdomen and Pelvis with contrast HISTORY: distented, hx colon/ovarian Ca, colostomy, r/o obs COMPARISON: Comparison is made to the previous study dated 07/20/2017 TECHNIQUE: Contrast dose: 100 mL of Visipaque 320 intravenously. Axial and reformatted coronal and sagittal CT images of the abdomen and pelvis were obtained after IV contrast administration. Radiation dose: Total exam DLP = 220.05 mGy-cm. This CT exam was performed using one or more of the following dose reduction techniques: Automated exposure control, adjustment of the mA and/or kV according to patient size, and/or use of iterative reconstruction technique. FINDINGS: LOWER THORAX: No evidence of acute pathology at the lung bases. Previously noted bilateral pleural effusions in the previous exam is not seen in the current study. LIVER: Interval appearance of new few low-attenuation lesions in the liver suspicious for new metastasis. The portal vein is patent. GALLBLADDER AND BILE DUCTS: Diffuse gallbladder wall thickening noted without definite evidence of acute cholecystitis. PANCREAS: No definite evidence of mass lesion in the pancreas. The main pancreatic duct is slightly dilated. SPLEEN: Unremarkable. ADRENALS: Unremarkable. No mass. KIDNEYS AND URETERS: Mild to moderate bilateral hydronephrosis and hydroureter is noted without evidence of obstructing stone. VASCULATURE: Unremarkable. No aortic aneurysm. Foci of atherosclerotic calcification noted. BOWEL: Dshnme-yv-qaohjmytex dilated stomach and proximal small bowel loops are noted. There is diffuse thickening of the distal large bowel including market thickening of the rectum. No evidence of pneumatosis or free air. There is right-sided colostomy noted in interval since the previous exam. APPENDIX: No evidence of appendicitis. PERITONEUM: Large amount of ascites is noted. No evidence of free air. There is suspicious for new implant in the right upper abdomen seen anterior to the stomach. The possibility of omental implants should be considered. LYMPH NODES: No evidence of significant retroperitoneal lymphadenopathy. BLADDER: The urinary bladder is partially distended. There is suspicious for focal densities or enhancing lesion at the posterior aspect of the bladder. REPRODUCTIVE: The uterus and adnexa are not clearly visualized in this exam. BONES: No acute fracture. OTHER FINDINGS: None. IMPRESSION: Interval appearance of large ascites in the abdomen and pelvis. Suspicious for new mesenteric implants likely represent metastasis. Ffisgg-ps-ocscmzvbin distended stomach and proximal small bowel loops and partial collapse of the distal small bowel. The possibility of low grade bowel obstruction should be considered. Market thickening of the distal portion of the rectum and large bowel noted. Bhnv-kl-ecvifezr bilateral hydronephrosis. Suspicious for enhancing lesion in the bladder [place]. Further evaluation by ultrasound is suggested. New lesions in the liver suspicious for metastasis.
[2018-09-07] MEDS ORDERED: Albumin Human 25% (12.5 gm/50 ml) IV ONE ×3 (18:29→20:00)
[2018-09-07] MEDS ORDERED: Phytonadione 10 mg/ml Inj (Adult) SC STA (18:30)
--- NOTE | 2018-09-07 18:34 | CP.PCM.HP ---
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 Patient attempted to treat her symptoms with Compazine and Zofran with no relief. Patient is unable to tolerate PO intake so has not been eating or drinking. She has been vomiting after taking her medication for her symptoms. Patient's last chemotherapy session was 2 weeks ago. Her sessions were stopped due to her weakness. ROS POSITIVES: Generalized Weakness, Abdnominal pain, abdominal distension, Vomiting, NEGATIVES: Fever, chills, chest pain, SOB, palpitations, urinary symptoms. PMHx: Stage 4 Mullerian Tract CA, B/L Hydronephrosis PSHx: Excisino of Rectosigmoid Colon Allergies: Ancef (Generalized Rash) SocialHx: Denies tobacco, EtoH, or illicit drug use. Lives with family friends. Patient has no family in the region. Hos: See chart. FamHx: Non-contributory Meds: Zofran and Compazine Present on Admission - Present on Admission Any Indicators Present on Admission: No Review of Systems - Review of Systems Review of Systems: As per HPI Past Patient History - Infectious Disease Hx of Infectious Diseases: None - Past Medical History & Family History Past Medical History?: No - Past Social History Smoking Status: Never Smoked - CARDIAC Hx Cardiac Disorders: No - PULMONARY Hx Respiratory Disorders: No - NEUROLOGICAL Hx Neurological Disorder: No - HEENT Hx HEENT Problems: No - RENAL Hx Chronic Kidney Disease: No - ENDOCRINE/METABOLIC Hx Endocrine Disorders: No - HEMATOLOGICAL/ONCOLOGICAL Hx Blood Disorders: Yes Hx Cancer: Yes (Ovarian, colon) Hx Chemotherapy: Yes - INTEGUMENTARY Hx Dermatological Problems: No - MUSCULOSKELETAL/RHEUMATOLOGICAL Hx Falls: No - GASTROINTESTINAL Hx Gastrointestinal Disorders: No - GENITOURINARY/GYNECOLOGICAL Hx Genitourinary Disorders: Yes Hx Ovarian Cancer: Yes Other/Comment: colon cancer with R colostomy. chemo completed 3 weeks ago - PSYCHIATRIC Hx Substance Use: No - SURGICAL HISTORY Hx Surgeries: Yes Hx Hysterectomy: Yes (TAHBSO) Other/Comment: port to right chest wall - ANESTHESIA Hx Anesthesia: Yes Hx Anesthesia Reactions: No Meds Allergies/Adverse Reactions: Allergies Allergy/AdvReac Type Severity Reaction Status Date / Time cefazolin sodium [From [facility] [place]] Allergy Verified 09/07/18 11:04 Physical Exam - Constitutional Appears: Non-toxic, No Acute Distress, Cachectic, Chronically Ill - Head Exam Head Exam: ATRAUMATIC, NORMAL INSPECTION, NORMOCEPHALIC - Eye Exam Eye Exam: EOMI, Normal appearance - ENT Exam ENT Exam: Mucous Membranes Dry - Neck Exam Neck exam: Positive for: Normal Inspection. Negative for: Lymphadenopathy - Respiratory Exam Respiratory Exam: Clear to Auscultation Bilateral, NORMAL BREATHING PATTERN. absent: Accessory Muscle Use - Cardiovascular Exam Cardiovascular Exam: RRR, +S1, +S2 - GI/Abdominal Exam GI & Abdominal Exam: Distended, Rigid, Tenderness. absent: Rebound, Soft Additional comments: Colostomy Bag - Extremities Exam Extremities exam: Negative for: normal capillary refill, pedal edema - Neurological Exam Neurological exam: Abnormal Gait, Alert, Oriented x3 - Skin Skin Exam: Dry, Intact, Normal Color Additional comments: Cool Extremities Results - Vital Signs Recent Vital Signs: Last Vital Signs Temp 97.7 F 09/07/18 11:05 Pulse 92 H 09/07/18 17:27 Resp 20 09/07/18 18:10 BP 120/65 09/07/18 18:10 Pulse Ox 98 09/07/18 18:10 - Labs Result Diagrams: 09/07/18 12:38 09/07/18 12:38 Labs: Laboratory Results - last 24 hr 09/07/18 09/07/18 09/07/18 12:38 12:38 12:38 WBC 10.8 D RBC 3.22 L Hgb 10.7 L Hct 31.0 L MCV 96.2 MCH 33.2 H MCHC 34.5 RDW 17.8 H Plt Count 528 H D MPV 6.9 L Neut % (Auto) 87.8 H Lymph % (Auto) 6.7 L Saunders % (Auto) 5.3 Eos % (Auto) 0.0 Baso % (Auto) 0.2 Neut # (Auto) 9.5 H Lymph # (Auto) 0.7 L Saunders # (Auto) 0.6 Eos # (Auto) 0.0 Baso # (Auto) 0.0 Neutrophils % (Manual) 90 H Band Neutrophils % 1 Lymphocytes % (Manual) 5 L Monocytes % (Manual) 4 Platelet Estimate Increased H Large Platelets Present Polychromasia Slight Hypochromasia (manual) Slight Anisocytosis (manual) Moderate PT 17.0 H INR 1.6 APTT 33 Sodium 139 Potassium 3.4 L Chloride 82 L D Carbon Dioxide 40 H* D Anion Gap 20 BUN 27 H Creatinine 0.9 Est GFR ( Amer) > 60 Est GFR (Non-Af Amer) > 60 Random Glucose 136 H D Calcium 10.2 Total Bilirubin 1.6 H AST 34 ALT 9 D Alkaline Phosphatase 78 Ammonia Total Protein 8.1 Albumin 4.4 Globulin 3.6 Albumin/Globulin Ratio 1.2 Lipase 590 H 09/07/18 12:38 WBC RBC Hgb Hct MCV MCH MCHC RDW Plt Count MPV Neut % (Auto) Lymph % (Auto) Saunders % (Auto) Eos % (Auto) Baso % (Auto) Neut # (Auto) Lymph # (Auto) Saunders # (Auto) Eos # (Auto) Baso # (Auto) Neutrophils % (Manual) Band Neutrophils % Lymphocytes % (Manual) Monocytes % (Manual) Platelet Estimate Large Platelets Polychromasia Hypochromasia (manual) Anisocytosis (manual) PT INR APTT Sodium Potassium Chloride Carbon Dioxide Anion Gap BUN Creatinine Est GFR ( Amer) Est GFR (Non-Af Amer) Random Glucose Calcium Total Bilirubin AST ALT Alkaline Phosphatase Ammonia < 9 L Total Protein Albumin Globulin Albumin/Globulin Ratio Lipase Assessment & Plan - Assessment and Plan (Free Text) Assessment: 53 year old female w/ past medical history of Stage 4 Muller[place] Tract CA w/ METS to Colon and Liver admitted for evaluation and treatment of increased vomiting, worsening abdominal pain, and generalized weakness. Plan: Stage 4 Mullerian Tract CA Failure to Thrive Intractable Nausea/Vomiting. Consults: GI (Dr. Montgomery), F/U Recs CT Abd/Pelvis w/ IV Contrast: F/U READ Interval appearance of large ascites in the abdomen and pelvis. Suspicious for new mesenteric implants likely represent metastasis. Xbwsdm-fc-vwurdedqfm distended stomach and proximal small bowel loops and partial collapse of the distal small bowel. The possibility of low grade bowel obstruction should be considered. Market thickening of the distal portion of the rectum and large bowel noted. Jfme-zt-ohqylvpf bilateral hydronephrosis. Suspicious for enhancing lesion in the bladder [place]. Further evaluation by ultrasound is suggested. New lesions in the liver suspicious for metastasis. S/P Parecentesis: 1.6 L of bloody Exudate. Labs: F/U Peritoneal Analysis. F/U Urine Culture, F/U Mgmt: Albumin 12.5gm x 2 Today Reglan PRN Morphine PRN Zofran PRN Vitamin K given once N/S @ 50mls/hr Proph Lovenox 20 Dispo: Code Status discussed with patient and family friends. They would like a meeting to discuss goals care. Prognosis is poor. Patient seen and discussed with Attending Kaye Dennis, PGY-2 <Geovanni Wolff H - Last Filed: 09/08/18 07:24> Results - Vital Signs Recent Vital Signs: Last Vital Signs Temp 98.2 F 09/08/18 05:30 Pulse 83 09/08/18 05:30 Resp 20 09/08/18 05:30 BP 109/68 09/08/18 05:30 Pulse Ox 96 09/08/18 05:30 - Labs Result Diagrams: 09/07/18 12:38 09/07/18 12:38 Labs: Laboratory Results - last 24 hr 09/07/18 09/07/18 09/07/18 12:38 12:38 12:38 WBC 10.8 D RBC 3.22 L Hgb 10.7 L Hct 31.0 L MCV 96.2 MCH 33.2 H MCHC 34.5 RDW 17.8 H Plt Count 528 H D MPV 6.9 L Neut % (Auto) 87.8 H Lymph % (Auto) 6.7 L Saunders % (Auto) 5.3 Eos % (Auto) 0.0 Baso % (Auto) 0.2 Neut # (Auto) 9.5 H Lymph # (Auto) 0.7 L Saunders # (Auto) 0.6 Eos # (Auto) 0.0 Baso # (Auto) 0.0 Neutrophils % (Manual) 90 H Band Neutrophils % 1 Lymphocytes % (Manual) 5 L Monocytes % (Manual) 4 Platelet Estimate Increased H Large Platelets Present Polychromasia Slight Hypochromasia (manual) Slight Anisocytosis (manual) Moderate PT 17.0 H INR 1.6 APTT 33 Sodium 139 Potassium 3.4 L Chloride 82 L D Carbon Dioxide 40 H* D Anion Gap 20 BUN 27 H Creatinine 0.9 Est GFR ( Amer) > 60 Est GFR (Non-Af Amer) > 60 Random Glucose 136 H D Calcium 10.2 Total Bilirubin 1.6 H AST 34 ALT 9 D Alkaline Phosphatase 78 Ammonia Total Protein 8.1 Albumin 4.4 Globulin 3.6 Albumin/Globulin Ratio 1.2 Lipase 590 H CA 19-9 Antigen CA 125 Antigen 09/07/18 09/07/18 12:38 18:50 WBC RBC Hgb Hct MCV MCH MCHC RDW Plt Count MPV Neut % (Auto) Lymph % (Auto) Saunders % (Auto) Eos % (Auto) Baso % (Auto) Neut # (Auto) Lymph # (Auto) Saunders # (Auto) Eos # (Auto) Baso # (Auto) Neutrophils % (Manual) Band Neutrophils % Lymphocytes % (Manual) Monocytes % (Manual) Platelet Estimate Large Platelets Polychromasia Hypochromasia (manual) Anisocytosis (manual) PT INR APTT Sodium Potassium Chloride Carbon Dioxide Anion Gap BUN Creatinine Est GFR ( Amer) Est GFR (Non-Af Amer) Random Glucose Calcium Total Bilirubin AST ALT Alkaline Phosphatase Ammonia < 9 L Total Protein Albumin Globulin Albumin/Globulin Ratio Lipase CA 19-9 Antigen 200 H D CA 125 Antigen 177 H D Attending/Attestation - Attestation I have personally seen and examined this patient.: Yes I have fully participated in the care of the patient.: Yes I have reviewed all pertinent clinical information: Yes Notes (Text): Medical attending: Patient was seen and examined by me in the ER. The above note was reviewed by me and agree with the above note by the medical stenographer The patient has an extensive medical history of Mullerian Tract Ovarian cancer found in 2015. She has had extensive surgery (including colostomy and total abdominal hysterectomy) and chemotherapy. She was recently here in July 2018 being treated for colitis and concern for cancer spreading to the rectal areas. Today she comes to the hospital after almost one week of prolonged nausea, vomitting, weakness, and shortness of breath. Her abdomen has steadily become more and more distended she says. She explains the last time she had a paracentesis was in 2015 (according to family at the bedside she had 2 liters removed at that time) The patient is continually loosing weight. Her last chemotherapy session was in August in [place] and had to be stopped due to weakness. On exam her abdomen was distended and tense like firmness ascities. She was also short of breath as well and nausea. After discussion with the patient and the patient's family - they wanted to try a paracentesis as soon as possible. They signed the consent and I was able to do this at bedside with ultrasound to help. Only 1.7 liters was able to be removed. It is a bloody color fluid. She tolerated the procedure well. My hope is that removal of this exudative fluid will help her with the nausea since she is such a small women I think it is compressing her abdomen a lot leading to her having nausea and vommitting. Overall prognosis is poor. The family pulled me aside and said it is at least Stage 4 malignancy. Family says patient can walk - however needs a lot of assitance to help her walk. I went over orders with the medical stenographer. Geovanni Wolff
[2018-09-07] MEDS: Sodium Chloride 0.9% 1,000 ML IV SCH (19:08)
[2018-09-08 04:22] VITALS: RESP 20
--- NOTE | 2018-09-08 08:10 | PCM.PROC ---
Procedures Attestation:: I certify that I have explained the specified Operation(s) or Procedure(s), risks, benefits and reasonable alternatives to the Patient and/or other person responsible. The opportunity was given to ask questions and all questions answered - Paracentesis Consent Obtained: written consent Indication: Ascites Procedure: therapeutic paracentesis Location: [facility] Local Anesthetic Used: lidocaine 1% (Blood color fluid, patient has stage 4 ovarian CA)
[2018-09-08 08:42] LABS: BASO % 0.1 % (0.0-2.0); HEMOGLOBIN 9.2 g/dL (11.0-16.0); LYMPH # 0.4 K/uL (1.0-4.3); LYMPH % 4.9 % (20.0-40.0); MEAN CELL VOLUME 97.8 fL (81.0-99.0); MEAN CORPUSCULAR HEMOGLOBIN 31.5 pg (27.0-31.0); MEAN CORPUSCULAR HGB CONC 32.2 g/dL (33.0-37.0); MONO # 0.5 K/uL (0.0-0.8); MONO % 6.1 % (0.0-10.0); NEUT # 7.2 K/uL (1.8-7.0); NEUT % 88.9 % (50.0-75.0); PLATELET COUNT 435 K/uL (130-400); RBC 2.93 Mil/uL (3.80-5.20); RED CELL DISTRIBUTION WIDTH 18.3 % (11.5-14.5); WHITE BLOOD COUNT 8.1 K/uL (4.8-10.8)
[2018-09-08 08:45] LABS: ALB/GLOB RATIO 1.5 (1.0-2.1); ALBUMIN 4.2 g/dL (3.5-5.0); ALT/SGPT 15 U/L (9-52); AST/SGOT 31 U/L (14-36); BLOOD UREA NITROGEN 25 mg/dL (7-17); CALCIUM 9.8 mg/dl (8.6-10.4); GFR NON-AFRICAN AMERICAN > 60
[2018-09-08 09:34] LABS: BANDS 1 % (0-2); LYMPHOCYTE 5 % (20-40); MONOCYTE 6 % (0-10); NEUTROPHIL 88 % (50-75); PLATELET ESTIMATE SLIGHTLY INCREASED (NORMAL); TOTAL CELLS COUNTED 100
[2018-09-08 09:35] LABS: ANISOCYTOSIS MODERATE; POIKILOCYTOSIS SLIGHT; POLYCHROMIC SLIGHT; SCHISTOCYTES SLIGHT
[2018-09-08 09:36] LABS: OVALOCYTES SLIGHT; TOXIC GRANULATION PRESENT
[2018-09-08] MEDS ORDERED: Enoxaparin 30 mg Syringe SC SCH (10:00)
[2018-09-08 10:46] LABS: SQUAMOUS EPITHIAL 1 /hpf (0-5); URINE BILIRUBIN NEGATIVE (NEGATIVE); URINE BLOOD 2+ (NEGATIVE); URINE CLARITY Hazy (Clear); URINE COLOR Amber (YELLOW); URINE GLUCOSE (UA) NORMAL (Normal); URINE LEUKOCYTE ESTERASE TRACE Leu/uL (Negative); URINE PROTEIN 2+ mg/dL (NEGATIVE); URINE UROBILINOGEN NORMAL mg/dL (0.2-1.0)
--- NOTE | 2018-09-08 11:14 | CP.PCM.PN ---
"<JustinKaye jauregui - Last Filed: 09/08/18 11:51> Subjective - Date & Time of Evaluation Date of Evaluation: 09/08/18 Time of Evaluation: 10:00 - Subjective Subjective: Patient seen and examined at bedside. She reports vomiting overnight but not yet toady. She is still nauseous but was able to tolerate clear liquids. Her abdominal pain has increased and she is more energetic. Stool is beginning to form in her colostomy bag. She denies fever, chest pain, SOB, or any urinary symptoms. Objective - Vital Signs/Intake and Output Vital Signs (last 24 hours): Temp Pulse Resp BP Pulse Ox 98.5 F 86 20 109/69 97 09/08/18 07:56 09/08/18 10:57 09/08/18 07:56 09/08/18 07:56 09/08/18 10:57 Intake and Output: 09/08/18 09/08/18 06:59 18:59 Intake Total 325 Output Total 200 Balance 125 - Medications Medications: Current Medications Enoxaparin Sodium (Lovenox) 20 mg SC DAILY CALI Sodium Chloride (Sodium Chloride 0.9%) 1,000 mls @ 50 mls/hr IV .Q20H CALI Last Admin: 09/07/18 19:08 Dose: 50 mls/hr Potassium Chloride (Potassium Chloride 20 Meq/100 Ml) 20 meq in 100 mls @ 50 mls/hr IVPB Q2H CALI Stop: 09/08/18 13:44 Last Admin: 09/08/18 10:39 Dose: 50 mls/hr Metoclopramide HCl (Reglan) 10 mg IVP Q6H PRN PRN Reason: Nausea/Vomiting Last Admin: 09/08/18 10:37 Dose: 10 mg Morphine Sulfate (Morphine) 1 mg IVP Q4 PRN PRN Reason: Pain (1-10) Last Admin: 09/08/18 10:57 Dose: 1 mg Ondansetron HCl (Zofran Inj) 4 mg IVP Q6H PRN PRN Reason: Nausea/Vomiting Last Admin: 09/07/18 18:45 Dose: 4 mg Pneumococcal Polyvalent Vaccine (Pneumovax 23 Vaccine) 0.5 ml IM .ONCE ONE Stop: 09/09/18 10:01 - Labs Labs: 09/08/18 08:29 09/08/18 08:15 PT 17.0 SECONDS (9.7-12.2) H 09/07/18 12:38 INR 1.6 09/07/18 12:38 APTT 33 SECONDS (21-34) 09/07/18 12:38 - Constitutional Appears: Well, Non-toxic, No Acute Distress, Chronically Ill - Head Exam Head Exam: ATRAUMATIC, NORMAL INSPECTION, NORMOCEPHALIC - Eye Exam Eye Exam: EOMI. absent: Scleral icterus - ENT Exam ENT Exam: Mucous Membranes Dry - Respiratory Exam Respiratory Exam: Clear to Ausculation Bilateral - Cardiovascular Exam Cardiovascular Exam: Rubs, +S1, +S2 - GI/Abdominal Exam GI & Abdominal Exam: Distended (Improved), Rigid, Tenderness, Diminished Bowel Sounds. absent: Rebound - Extremities Exam Extremities Exam: Normal Capillary Refill. 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 Plan: Stage 4 Mullerian Tract CA Failure to Thrive Intractable Nausea/Vomiting. Consults: GI (Dr. Montgomery), F/U Recs Labs: Peritoneal Lipase 590 | Peritoneal CA19-9/125: 200/177 | CT Abd/Pelvis w/ IV Contrast: Interval appearance of large ascites in the abdomen and pelvis. Suspicious for new mesenteric implants likely represent metastasis. Pwjgij-hw-bzskxikwvj distended stomach and proximal small bowel loops and partial collapse of the distal small bowel. The possibility of low grade bowel obstruction should be considered. Market thickening of the distal portion of the rectum and large bowel noted. Gcbu-tb-fijbccdz bilateral hydronephrosis. Suspicious for enhancing lesion in the bladder [place]. Further evaluation by ultrasound is suggested. New lesions in the liver suspicious for metastasis. S/P Parecentesis: 1.6 L of bloody Exudate. Mgmt: Albumin 12.5gm x 2 Today Reglan PRN Morphine PRN Zofran PRN Vitamin K given once N/S @ 50mls/hr Hypokalemia Repenish PRN Normocytic Anemia HgB 10.7-->9.2. Likely 2/2 to Anemia of Chronic Disease. Anemia Workup Ordered, F/U Consider Starting IV Ferrlicet. Hold Lovenox. Proph Lovenox 20 (Held) Dispo: Code Status discussed with patient and family friends. They would like a meeting to discuss goals care. Prognosis is poor. Today, patient mentioned that she has a flight to the [facility] at 1:30AM on Sunday. She stated she would like to get tapped again so she can be comfortable for her trip. She as told by her Oncologist that her chemotherapy is not working and it making her weak. She would like to spend the rest of her time left with her family. Dr. Wolff will evaluate in the afternoon to see if any more fluid can be taken. Patient seen and discussed with Attending Kaye Dennis, PGY-2 <Geovanni Wolff - Last Filed: 09/08/18 15:34> Objective - Vital Signs/Intake and Output Vital Signs (last 24 hours): Temp Pulse Resp BP Pulse Ox 98.5 F 86 20 109/69 97 09/08/18 07:56 09/08/18 10:57 09/08/18 07:56 09/08/18 07:56 09/08/18 10:57 Intake and Output: 09/08/18 09/08/18 06:59 18:59 Intake Total 325 Output Total 200 Balance 125 - Medications Medications: Current Medications Enoxaparin Sodium (Lovenox) 20 mg SC DAILY CALI Sodium Chloride (Sodium Chloride 0.9%) 1,000 mls @ 50 mls/hr IV .Q20H CALI Last Admin: 09/08/18 15:16 Dose: Not Given Metoclopramide HCl (Reglan) 10 mg IVP Q6H PRN PRN Reason: Nausea/Vomiting Last Admin: 09/08/18 10:37 Dose: 10 mg Morphine Sulfate (Morphine) 1 mg IVP Q4 PRN PRN Reason: Pain (1-10) Last Admin: 09/08/18 10:57 Dose: 1 mg Ondansetron HCl (Zofran Inj) 4 mg IVP Q6H PRN PRN Reason: Nausea/Vomiting Last Admin: 09/08/18 15:16 Dose: 4 mg Pneumococcal Polyvalent Vaccine (Pneumovax 23 Vaccine) 0.5 ml IM .ONCE ONE Stop: 09/09/18 10:01 - Labs Labs: 09/08/18 08:29 09/08/18 08:15 PT 17.0 SECONDS (9.7-12.2) H 09/07/18 12:38 INR 1.6 09/07/18 12:38 APTT 33 SECONDS (21-34) 09/07/18 12:38 Attending/Attestation - Attestation I have personally seen and examined this patient.: Yes I have fully participated in the care of the patient.: Yes I have reviewed all pertinent clinical information, including history, physical exam and plan: Yes Notes (Text): 09/08/18 15:31 Medical attending: Patient was seen and examined by me with the medical residents The patient had freinds with her at bedside. She reported that overall she felt better and now she could hold down some liquid and clear liquid food that was given to her She explained that she has a flight back to her own country this Sunday. 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
[2018-09-08 12:15] LABS: IRON 30 ug/dL (37-170)
[2018-09-08 12:25] LABS: % IRON SATURATION 19 (20-55); TOTAL IRON BINDING CAPACITY 163 ug/dL (250-450)
[2018-09-08] MEDS: Sodium Chloride 0.9% 1,000 ML IV SCH (15:16)
[2018-09-09 08:10] VITALS: BP 116/74; PULSE 85; TEMP 98
[2018-09-09 08:15] VITALS: O2SAT 97
[2018-09-09] MEDS ORDERED: Pneumococcal 23-Valent Vaccine IM ONE (10:00)
[2018-09-09] MEDS: Sodium Chloride 0.9% 1,000 ML IV SCH (12:00)
--- NOTE | 2018-09-09 13:04 | CP.PCM.DIS ---
Provider - Provider Date of Admission: 09/07/18 17:25 Attending physician: Denis Rios MD Consults: 09/07/18 18:21 Palliative Care Consult Stat Comment: Consulting Provider: Florinda Yates Physician Instructions: Reason For Exam: Goals of Care Time Spent in preparation of Discharge (in minutes): 180 Diagnosis - Discharge Diagnosis (1) Malignant neoplasm metastatic to colon Status: Chronic (2) Malignant ascites Status: Chronic (3) Anemia in chronic illness Status: Chronic Hospital Course - Lab Results Lab Results: Micro Results 09/07/18 18:37 Peritoneal Fluid Gram Stain - Final 09/07/18 18:37 Peritoneal Fluid Body Fluid Culture - Preliminary NO GROWTH AFTER 2 DAYS 09/07/18 08:23 Blood Blood Culture - Preliminary NO GROWTH AFTER 24 HOURS 09/07/18 08:23 Blood Blood Culture - Preliminary NO GROWTH AFTER 24 HOURS Most Recent Lab Values WBC 8.1 K/uL (4.8-10.8) 09/08/18 08:29 RBC 2.93 Mil/uL (3.80-5.20) L 09/08/18 08:29 Hgb 9.2 g/dL (11.0-16.0) L 09/08/18 08:29 Hct 28.7 % (34.0-47.0) L 09/08/18 08:29 MCV 97.8 fL (81.0-99.0) 09/08/18 08:29 MCH 31.5 pg (27.0-31.0) H 09/08/18 08:29 MCHC 32.2 g/dL (33.0-37.0) L 09/08/18 08:29 RDW 18.3 % (11.5-14.5) H 09/08/18 08:29 Plt Count 435 K/uL (130-400) H 09/08/18 08:29 MPV 7.0 fL (7.2-11.7) L 09/08/18 08:29 Neut % (Auto) 88.9 % (50.0-75.0) H 09/08/18 08:29 Lymph % (Auto) 4.9 % (20.0-40.0) L 09/08/18 08:29 [place] % (Auto) 6.1 % (0.0-10.0) 09/08/18 08:29 Eos % (Auto) 0.0 % (0.0-4.0) 09/08/18 08:29 Baso % (Auto) 0.1 % (0.0-2.0) 09/08/18 08:29 Neut # (Auto) 7.2 K/uL (1.8-7.0) H 09/08/18 08:29 Lymph # (Auto) 0.4 K/uL (1.0-4.3) L 09/08/18 08:29 [place] # (Auto) 0.5 K/uL (0.0-0.8) 09/08/18 08:29 Eos # (Auto) 0.0 K/uL (0.0-0.7) 09/08/18 08:29 Baso # (Auto) 0.0 K/uL (0.0-0.2) 09/08/18 08:29 Neutrophils % (Manual) 88 % (50-75) H 09/08/18 08:29 Band Neutrophils % 1 % (0-2) 09/08/18 08:29 Lymphocytes % (Manual) 5 % (20-40) L 09/08/18 08:29 Monocytes % (Manual) 6 % (0-10) 09/08/18 08:29 Toxic Granulation Present 09/08/18 08:29 Platelet Estimate Slightly increased (NORMAL) H 09/08/18 08:29 Large Platelets Present 09/07/18 12:38 Polychromasia Slight 09/08/18 08:29 Hypochromasia (manual) Slight 09/07/18 12:38 Poikilocytosis (manual Slight 09/08/18 08:29 Anisocytosis (manual) Moderate 09/08/18 08:29 Ovalocytes Slight 09/08/18 08:29 Schistocytes Slight 09/08/18 08:29 Retic Count 2.0 % (0.5-1.5) H D 09/08/18 11:51 Haptoglobin 302.6 mg/dL (30.0-200.0) H 09/08/18 12:02 PT 17.0 SECONDS (9.7-12.2) H 09/07/18 12:38 INR 1.6 09/07/18 12:38 APTT 33 SECONDS (21-34) 09/07/18 12:38 Sodium 140 mmol/L (132-148) 09/08/18 08:15 Potassium 3.3 mmol/L (3.6-5.2) L 09/08/18 08:15 Chloride 91 mmol/L (98-107) L 09/08/18 08:15 Carbon Dioxide 36 mmol/L (22-30) H 09/08/18 08:15 Anion Gap 16 (10-20) 09/08/18 08:15 BUN 25 mg/dL (7-17) H 09/08/18 08:15 Creatinine 0.9 mg/dL (0.7-1.2) 09/08/18 08:15 Est GFR ( Amer) > 60 09/08/18 08:15 Est GFR (Non-Af Amer) > 60 09/08/18 08:15 Random Glucose 104 mg/dL (65-105) D 09/08/18 08:15 Calcium 9.8 mg/dl (8.6-10.4) 09/08/18 08:15 Iron 30 ug/dL (37-170) L 09/08/18 11:51 TIBC 163 ug/dL (250-450) L 09/08/18 11:51 % Saturation 19 (20-55) L 09/08/18 11:51 Ferritin 682.0 ng/mL 09/08/18 11:51 Total Bilirubin 1.8 mg/dL (0.2-1.3) H 09/08/18 08:15 AST 31 U/L (14-36) 09/08/18 08:15 ALT 15 U/L (9-52) 09/08/18 08:15 Alkaline Phosphatase 58 U/L (38-126) 09/08/18 08:15 Ammonia < 9 umol/L (9-33) L 09/07/18 12:38 Total Protein 7.0 g/dL (6.3-8.3) 09/08/18 08:15 Albumin 4.2 g/dL (3.5-5.0) 09/08/18 08:15 Globulin 2.8 gm/dL (2.2-3.9) 09/08/18 08:15 Albumin/Globulin Ratio 1.5 (1.0-2.1) 09/08/18 08:15 Lipase 590 U/L (23-300) H 09/07/18 12:38 CA 19-9 Antigen 200 U/mL (0-37) H D 09/07/18 18:50 CA 125 Antigen 177 U/mL (0-35) H D 09/07/18 18:50 Vitamin B12 975 pg/mL (239-931) H 09/08/18 11:51 Folate 15.0 ng/mL 09/08/18 11:51 Urine Color Alondra (YELLOW) 09/08/18 10:26 Urine Clarity Hazy (Clear) 09/08/18 10:26 Urine pH 5.0 (5.0-8.0) 09/08/18 10:26 Ur Specific [place] 1.030 (1.003-1.030) 09/08/18 10:26 Urine Protein 2+ mg/dL (NEGATIVE) H 09/08/18 10:26 Urine Glucose (UA) Normal mg/dL (Normal) 09/08/18 10:26 Urine Ketones 1+ mg/dL (NEGATIVE) H 09/08/18 10:26 Urine Blood 2+ (NEGATIVE) H 09/08/18 10:26 Urine Nitrate Negative (NEGATIVE) 09/08/18 10:26 Urine Bilirubin Negative (NEGATIVE) 09/08/18 10:26 Urine Urobilinogen Normal mg/dL (0.2-1.0) 09/08/18 10:26 Ur Leukocyte Esterase Trace Sherly/uL (Negative) 09/08/18 10:26 Urine WBC (Auto) 19 /hpf (0-5) H 09/08/18 10:26 Urine RBC (Auto) 27 /hpf (0-3) H 09/08/18 10:26 Ur Squamous Epith Cells 1 /hpf (0-5) 09/08/18 10:26 - Hospital Course Hospital Course: On admission: 53 year old female w/ past medical history of Stage 4 [place] CA w/ METS to Colon and Liver present with complaints of increased vomiting, worsening abdominal pain, generalized weakness for about 1 week. Patient attempted to treat her symptoms with Compazine and Zofran with no relief. Patient is unable to tolerate PO intake so has not been eating or drinking. She has been vomiting after taking her medication for her symptoms. Patient's last chemotherapy session was 2 weeks ago. Her sessions were stopped due to her weakness. On hospitalization: Patient admitted for evaluation of increased vomiting, worsening abdominal pain and general weakness. CT abd/pelvis w IV contrast - Interval appearance of large ascites in the abdomen and pelvis. ( see full report for details). Par acentesis done on 09/07 with 1.6 L of bloody exudate. Albumin and anti-emetic medication given. Patient reports improvement of symptoms with reglan. Potassium low, patient was replenish with potassium IV. Discussion with patient and family friends about goals of care , Patient states she was told by oncologist that chemo was not working. Patient states to have a flight to the [facility] on sunday 09/10 at 1:30 am. Patient states would like to spend the rest of her days with her immediate family in the [facility]. On discharge: The following instructions were given to patient at discharge Patient is stable to discharge as per Dr Rios, Patient is to take reglan Suppository for nausea, can take one supossitory every 8 hours as needed, we are dispensing #6, Patient is to take zofran sublingual for nausea, can take every 4 hours under tongue as needed, we are dispensing #10 We are providing you with a coupon for zofran that you can use at a [employer] store. Patient to continue pain medication, patient has medication at home Patient will be traveling to the [facility] tomorrow morning, please continue care in your home country. - Date & Time of H&P Date of H&P: 09/07/18 Time of H&P: 20:05 Discharge Exam - Head Exam Head Exam: ATRAUMATIC, NORMAL INSPECTION, NORMOCEPHALIC - Eye Exam Eye Exam: EOMI, Normal appearance - ENT Exam ENT Exam: Mucous Membranes Dry - Respiratory Exam Respiratory Exam: Clear to PA & Lateral, NORMAL BREATHING PATTERN - Cardiovascular Exam Cardiovascular Exam: REGULAR RHYTHM, +S1, +S2 - GI/Abdominal Exam GI & Abdominal Exam: Distended, Normal Bowel Sounds Additional comments: Colostomy bag - Extremities Exam Extremities exam: full ROM - Neurological Exam Neurological exam: Alert, Oriented x3 - Psychiatric Exam Psychiatric exam: Normal Affect, Normal Mood - Skin Skin Exam: Dry, Intact, Warm Discharge Plan - Discharge Medications Prescriptions: Ondansetron HCl [Zofran] 4 mg SL Q4H PRN #10 tablet PRN Reason: Nausea/Vomiting - Follow Up Plan Condition: FAIR Disposition: HOME/ ROUTINE Instructions: Fluid in the Belly (Ascites) (DC), Ondansetron Additional Instructions: Patient is stable to discharge as per Dr Rios Patient is to take reglan Supossitory for nausea, can take one supossitory every 8 hours as needed, we are dispensing #6 Patient is to take zofran sublingual for nausea, can take every 4 hours under tongue as needed, we are dispensing #10 We are providing you with a coupon for zofran that you can use at a [employer] store. Patient to continue pain medication, patient has medication at home Patient will be traveling to the [facility] tomorrow morning, please continue care in your home country
[2018-09-11 06:08] LABS: TOTAL PROTEIN PERITONEAL FLUID 4.2 g/dL
== END 2018-09-09 14:18 | disposition home or self-care (01) ==
LOC: C.ER 11:03 → C.9E 17:25 → C.3T 23:00
PROVIDERS: ADMIT Internal Medicine; ATTEND Internal Medicine
DX: C56.9 Malignant neoplasm of unspecified ovary (principal); C78.5 Secondary malignant neoplasm of large intestine and rectum; D63.0 Anemia in neoplastic disease; R18.0 Malignant ascites; Z93.3 Colostomy status
CPT/HCPCS: 36415; 49082; 71045; 74177; 80053; 81001; 82140; 82378; 82607; 82728; 82746; 83010; 83540; 83550; 83615; 83690; 83986; 84157; 85025; 85044; 85610; 85730; 86301; 86304; 87040; 87070; 87086; 88104; 88305; 96361; 96372; 96374; 96375; 96376; 97116; 97161; 99285; G0378; G8978; G8979; J2270; J2405; J2765; J3430; J3480; J7030; J7040; P9047; Q9967